=== PATIENT | male | born 1965 | race Two or more races ===

== ENCOUNTER → 2020-10-25 08:30 | Outpatient (BNV) | payer MEDICARE, MEDICAID, SELFPAY | PROVIDERS: Visit Provider Internal Medicine Medical Oncology | DX: D3A.020 Benign carcinoid tumor of the appendix (principal) | CPT/HCPCS: 99213; 99214 ==

== ENCOUNTER 2021-04-28 12:47 | Emergency (ER) | payer MEDICARE, MEDICAID, SELFPAY ==
--- NOTE | ~2021-04-28 | XR_ITS ---
EXAMINATION: XR KNEE, LEFT CLINICAL INFORMATION: Left knee pain. COMPARISON: None TECHNIQUE: Four views of the left knee. FINDINGS: There is mild loss of medial and patellofemoral compartment joint space mild suprapatellar spurring. No visible acute fracture or dislocation seen. No soft tissue swelling seen. XR/XR knee LT 4V IMPRESSION: Mild degenerative changes medial and patellofemoral compartment. No acute fracture or dislocation.
--- NOTE | ~2021-04-28 | CT_ITS ---
EXAM: CT scan of the head and cervical spine. INDICATION: Reason for Exam fall TECHNIQUE: A noncontrast CT scan was performed from the skull base to the vertex. A noncontrast CT scan of the cervical spine was performed from the base of the skull through T1 at 2.5 mm and 1.25 mm collimation. Coronal and sagittal reformats were obtained at the acquisition workstation. This CT examination was performed using dose optimization techniques as appropriate, variously including the following: *Automated exposure control *Adjustment of mA and/or kV according to patient size (this includes techniques or standardized protocols for targeted exams where dose is matched to indication/reason for exam; i.e. extremities or head) *Use of iterative reconstruction technique DLP: 403 mGy-cm COMPARISON: 03/04/2018 FINDINGS: Head: There is no evidence of acute intracranial hemorrhage or territorial infarction. Sharif-white matter differentiation is preserved. No abnormal mass effect or midline shift. No extra-axial fluid collections. No abnormal attenuation is demonstrated within the brain parenchyma. Scattered periventricular and deep white matter hypodensities consistent with microangiopathy. The ventricles and sulcal spaces are proportional without hydrocephalus. Proportional prominence of the ventricles and sulcal spaces. No acute osseous or soft tissue abnormalities. The mastoid air cells and visualized portions of the paranasal sinuses are well aerated. Cervical Spine: Diffuse nonspecific subcutaneous edema. Moderate spondylosis most notable at C4-C5 and C5-C6. Posterior elements intact. Dystrophic desiccation posterior to C4. The atlantooccipital and atlantoaxial articulations remain well aligned. Straightening of the normal cervical lordosis. Otherwise, there is anatomic alignment of the vertebral bodies and posterior elements. No evidence of acute fracture or subluxation. The vertebral body heights and disc spaces are otherwise maintained. There is no prevertebral soft tissue swelling. The thyroid gland and remaining cervical soft tissues are normal in appearance. The lung apices demonstrate no abnormalities. CT/CT cervical spine wo con IMPRESSION: No acute intracranial pathology. Nonspecific subcutaneous edema. No fracture subluxation cervical spine.
[2021-04-28 12:52] VITALS: BP 138/74; BP 150/80; PULSE 88; PULSE 89; RESP 20; TEMP 36.6; O2SAT 98; O2SAT 99; BMI 19.4
--- NOTE | 2021-04-28 13:05 | PC.NURSE ---
patient arrives to ED with c/o fall on 04/27/21 from slipping. 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 Patient A+ox4. Denies hitting head, denies LOC, denies use of blood thinners. VSS. Resting safely.
[2021-04-28] MEDS: Acetaminophen 325 MG TABLET 650 MG PO (13:46)
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
[2021-04-28] MEDS: oxyCODONE HCl Immed Release 5 MG TABLET PO (15:07)
--- NOTE | 2021-04-28 15:36 | PC.NURSE ---
Avtar wraps applied to patient
== END 2021-04-28 16:09 | disposition home or self-care (01) ==
PROVIDERS: Emergency Provider Emergency Medicine Emergency Medical Services; PCP Family Medicine
DX: S80.02XA Contusion of left knee, initial encounter (principal); M25.562 Pain in left knee; G44.309 Post-traumatic headache, unspecified, not intractable; M54.2 Cervicalgia; F12.90 Cannabis use, unspecified, uncomplicated; X58.XXXA Exposure to other specified factors, initial encounter; Y93.9 Activity, unspecified; Y92.9 Unspecified place or not applicable; Y99.9 Unspecified external cause status; Z79.899 Other long term (current) drug therapy
CPT/HCPCS: 70450; 72125; 73564; 99283; 99284

== ENCOUNTER 2021-05-10 19:11 | Inpatient (IN) | payer MEDICARE, MEDICAID, SELFPAY ==
[2021-05-10 19:20] VITALS: BP 169/90; PULSE 95; RESP 18; TEMP 36.4; O2SAT 96; BMI 25.8
--- NOTE | 2021-05-10 19:20 | ED.PSYCH ---
HPI - Psych General Chief Complaint: Psychiatric Symptoms Stated Complaint: sec 12/schizophrenia Time Seen by Provider: 05/10/21 19:19 Source: patient and EMS Mode of arrival: EMS Limitations: other (poor historian, not answering questions) History of Present Illness HPI Narrative: admits to using cocaine today then was paranoid and reportedly made self harm statements. brought in on section 12 MD complaint: suicidal ideation, anxiety and substance abuse Onset (ago): unknown Duration: constant History of same: Yes Relieving factors: none Exacerbating factors: drug use Context: recent drug abuse Associated psychiatric symptoms: depression and suicidal ideation Associated symptoms: denies other symptoms Treatments prior to arrival: placed on mental health hold Related Data Home Medications Medication Instructions Recorded Confirmed aripiprazole 10 mg tablet 1 tab PO QAM 10/25/20 05/10/21 atorvastatin 10 mg tablet 1 tab PO BEDTIME 10/25/20 05/10/21 gabapentin 300 mg capsule 1 cap PO TID 10/25/20 05/10/21 loratadine 10 mg tablet 1 tab PO QAM 10/25/20 05/10/21 multivitamin (Daily-Qi) 1 tab PO QAM 10/25/20 05/10/21 pantoprazole 40 mg tablet,delayed 1 tab PO QAM 10/25/20 05/10/21 release quetiapine 200 mg tablet 1 tab PO BEDTIME 10/25/20 05/10/21 trazodone 100 mg tablet 100 - 200 mg PO BEDTIME PRN 10/25/20 05/10/21 famotidine 20 mg tablet 1 tab PO DAILY 05/10/21 05/10/21 oxcarbazepine 300 mg tablet 1.5 tab PO BID 05/10/21 05/10/21 phenytoin sodium extended 100 mg 200 mg PO DAILY 05/10/21 05/10/21 capsule phenytoin sodium extended 100 mg 300 mg PO BEDTIME 05/10/21 05/10/21 capsule Allergies Allergy/AdvReac Type Severity Reaction Status Date / Time Penicillins Allergy Mild RASH Unverified 04/28/21 12:57 Seafood Allergy Mild RASH Unverified 04/28/21 12:57 diazepam [From VALIUM] Allergy Unknown ACTS OUT Unverified 04/28/21 12:57 egg [EGG] Allergy Unknown UNKNOWN Verified 05/10/21 19:51 Influenza Virus Vaccines Allergy Unknown UNKNOWN Unverified 04/28/21 12:57 [INFLUENZA VIRUS VACCINES] penicillin V Allergy Unknown anaphylaxis Verified 04/28/21 12:57 ibuprofen [From MOTRIN] AdvReac Mild RASH Unverified 04/28/21 12:57 Morphine AdvReac Severe Unknown Uncoded 05/10/21 19:52 Review of Systems Review of Systems: ROS unable to be obtained due to poor cooperation [facility] Past Medical History Attestation statement: The following information was validated with the patient. Medical History Family hx of colon cancer Hx of head injury Surgical History (Updated 10/25/20 @ 09:16 by Willam Glover MD) History of surgery on wrist Hx of knee surgery Family History Family History (Updated 10/25/20 @ 09:02 by Naomi Gtz) Paternal Grandmother Cancer Social History Social History (Updated 05/10/21 @ 19:39 by Ana Reddy DO) Alcohol intake: former Substance Use Type: Crack/Cocaine and Marijuana Advance Directives: No Advance Directives Information Provided: No Healthcare Proxy: No Guardian: No Physical Exam Vital Signs: Vital Signs: Last Vital Signs Temp 97.5 F 05/10/21 19:20 Pulse 95 05/10/21 19:20 Resp 18 05/10/21 19:20 BP 163/112 H 05/10/21 21:56 Pulse Ox 96 05/10/21 19:20 Body Mass Index 25.8 Appearance: Alert. Oriented X3. No acute distress. Eyes: Pupils equal, round and reactive to light. ENT: Pharynx normal. Neck: Normal inspection. Neck supple. CVS: Normal heart rate and rhythm. Pulses normal. Respiratory: No respiratory distress. Breath sounds normal. Abdomen: Soft and nontender. Skin: Skin warm and dry. Normal skin color. Normal skin turgor. Extremities: No lower extremity edema. No calf ttp Neuro: Oriented X 3. No motor deficit. No sensory deficit. CN2-12 intact Psych: help me please. Course Course Course Narrative: patient had episode of shaking and spitting called to bedside for possible seizure. patient then woke up with painful stimuli and said what? he was instructed to stop behaviors and he complied I believe this episode was due to pseudoseizure and not an epileptic seizure Physician observation started at 1302pm Patient placed in physician observation because the patient needed more time for BHN to evaluate him once he is more calm off of cocaine abuse. At the time observation was started the patient's vitals were stable, patient is alert and oriented but slightly agitated, Neuro: nonfocal, CV RRR, Lungs clear MDM - Psych MDM Narrative Medical decision making narrative: 56 yo male well known to us here with c/o paranoia and SI after using cocaine. He will need labs and BHN consult, PRN medications for his paranoia and agitation. Lab Data Result diagrams: 05/10/21 20:12 05/10/21 20:12 Labs: Lab Results 05/10/21 05/10/21 05/10/21 Range/Units 19:51 19:51 20:12 WBC 10.2 (4.8-10.8) X10*3/uL RBC 4.59 L (4.60-5.80) X10*6/uL Hgb 14.9 (14.0-18.0) g/dl Hct 42.7 (42-52) % MCV 93.0 (80-98) fL MCH 32.5 (27.0-33.0) pg MCHC 34.9 (31.0-36.0) g/dl RDW 12.3 (11.0-16.0) % Plt Count 299 (160-400) X10*3/uL MPV 9.4 (9.4-12.4) fL Immature Gran % (Auto) 0.3 (0.0-0.4) % Neut % (Auto) 72.7 (45-73) % Lymph % (Auto) 16.0 L (20-40) % [place] % (Auto) 8.6 (2-11) % Eos % (Auto) 1.7 (0-4) % Baso % (Auto) 0.7 (0-2) % Lymph # (Auto) 1.6 (1.2-4.9) X10*3/uL [place] # (Auto) 0.9 (0.1-1.2) X10*3/uL Eos # (Auto) 0.2 (0.0-0.4) X10*3/uL Baso # (Auto) 0.1 (0.0-0.2) X10*3/uL Abs Immat Gran (auto) 0.03 (0.00-0.03) X10*3/uL Absolute Neuts (auto) 7.4 (2.0-8.3) X10*3/uL Absolute Nucleated RBC 0.000 (0.0-0.012) X10*3/uL Nucleated RBC % (auto) 0.0 (0.0-0.2) /100WBC Sodium (135-145) mmol/L Potassium (3.3-5.1) mmol/L Chloride (96-108) mmol/L Carbon Dioxide (22-29) mmol/L Anion Gap (12-20) BUN (9-16) mg/dL Creatinine (0.5-1.4) mg/dL Estim Creat Clear Calc Estimated GFR Random Glucose (60-115) mg/dL Calcium (8.4-10.2) mg/dL Total Bilirubin (0.0-1.0) mg/dL Direct Bilirubin (0.0-0.5) mg/dL AST (5-37) U/L ALT (0-40) U/L Alkaline Phosphatase (39-117) U/L Total Protein (6.5-8.0) g/dL Albumin (3.5-5.0) g/dL Urine Opiates Screen Not Detected (Not Detect) Urine Fentanyl Screen Not Detected (Not Detect) Ur Barbiturates Screen Not Detected (Not Detect) Phenytoin (10.0-20.0) ug/mL Ur Phencyclidine Scrn Not Detected (Not Detect) Ur Amphetamines Screen Not Detected (Not Detect) U Benzodiazepines Scrn Not Detected (Not Detect) Urine Cocaine Screen POSITIVE H (Not Detect) U Marijuana (THC) Screen POSITIVE H (Not Detect) Ethyl Alcohol mg/dL COVID-19 (MELLISA) Negative (Negative) COVID-19 Clin Com See Note 05/10/21 05/10/21 05/10/21 Range/Units 20:12 20:12 20:12 WBC (4.8-10.8) X10*3/uL RBC (4.60-5.80) X10*6/uL Hgb (14.0-18.0) g/dl Hct (42-52) % MCV (80-98) fL MCH (27.0-33.0) pg MCHC (31.0-36.0) g/dl RDW (11.0-16.0) % Plt Count (160-400) X10*3/uL MPV (9.4-12.4) fL Immature Gran % (Auto) (0.0-0.4) % Neut % (Auto) (45-73) % Lymph % (Auto) (20-40) % [place] % (Auto) (2-11) % Eos % (Auto) (0-4) % Baso % (Auto) (0-2) % Lymph # (Auto) (1.2-4.9) X10*3/uL [place] # (Auto) (0.1-1.2) X10*3/uL Eos # (Auto) (0.0-0.4) X10*3/uL Baso # (Auto) (0.0-0.2) X10*3/uL Abs Immat Gran (auto) (0.00-0.03) X10*3/uL Absolute Neuts (auto) (2.0-8.3) X10*3/uL Absolute Nucleated RBC (0.0-0.012) X10*3/uL Nucleated RBC % (auto) (0.0-0.2) /100WBC Sodium 138 (135-145) mmol/L Potassium 4.5 (3.3-5.1) mmol/L Chloride 106 (96-108) mmol/L Carbon Dioxide 24 (22-29) mmol/L Anion Gap 13 (12-20) BUN 13 (9-16) mg/dL Creatinine 1.02 (0.5-1.4) mg/dL Estim Creat Clear Calc 72.9 Estimated GFR > 60 Random Glucose 71 D (60-115) mg/dL Calcium 9.2 (8.4-10.2) mg/dL Total Bilirubin 0.3 (0.0-1.0) mg/dL Direct Bilirubin 0.2 (0.0-0.5) mg/dL AST 30 (5-37) U/L ALT 24 (0-40) U/L Alkaline Phosphatase 100 (39-117) U/L Total Protein 7.1 (6.5-8.0) g/dL Albumin 4.4 (3.5-5.0) g/dL Urine Opiates Screen (Not Detect) Urine Fentanyl Screen (Not Detect) Ur Barbiturates Screen (Not Detect) Phenytoin 3.2 L* (10.0-20.0) ug/mL Ur Phencyclidine Scrn (Not Detect) Ur Amphetamines Screen (Not Detect) U Benzodiazepines Scrn (Not Detect) Urine Cocaine Screen (Not Detect) U Marijuana (THC) Screen (Not Detect) Ethyl Alcohol < 10 mg/dL COVID-19 (MELLISA) (Negative) COVID-19 Clin Com Discharge Plan Discharge Clinical Impression: Acute anxiety, Cocaine abuse Prescriptions: No Action multivitamin [Daily-Qi] Tablet 1 tab PO QAM RF: 0 atorvastatin 10 mg tablet 1 tab PO BEDTIME RF: 0 quetiapine 200 mg tablet 1 tab PO BEDTIME RF: 0 trazodone 100 mg tablet 100 - 200 mg PO BEDTIME PRN (Reason: Insomnia) RF: 0 pantoprazole 40 mg tablet,delayed release (DR/EC) 1 tab PO QAM RF: 0 gabapentin 300 mg capsule 1 cap PO TID RF: 0 loratadine 10 mg tablet 1 tab PO QAM RF: 0 aripiprazole 10 mg tablet 1 tab PO QAM RF: 0 oxcarbazepine 300 mg tablet 1.5 tab PO BID RF: 0 famotidine 20 mg tablet 1 tab PO DAILY RF: 0 phenytoin sodium extended 100 mg capsule 200 mg PO DAILY RF: 0 phenytoin sodium extended 100 mg capsule 300 mg PO BEDTIME RF: 0
[2021-05-10] MEDS: OLANZapine 5 MG TABLET PO (19:42)
[2021-05-10 20:12] LABS: COVID-19 Test Negative (Negative); IDNOW Serial# 9DD0AD1C
[2021-05-10 20:16] LABS: Amphetamine Screen Urine Not Detected (Not Detect); Barbiturates, Urine Not Detected (Not Detect); Benzodiazepines Screen Urine Not Detected (Not Detect); Cannabinoid Screen Urine POSITIVE (Not Detect); Cocaine Screen Urine POSITIVE (Not Detect); Fentanyl, urine Not Detected (Not Detect); Opiate Screen Urine Not Detected (Not Detect); Phencyclidine Screen Urine Not Detected (Not Detect)
[2021-05-10 20:19] LABS: MANUAL DIFF FLAG NO
[2021-05-10 20:20] LABS: Basophils Absolute Auto 0.1 X10*3/uL (0.0-0.2); Basophils Percent Auto 0.7 % (0-2); Eosinophils Absolute Auto 0.2 X10*3/uL (0.0-0.4); Eosinophils Percent Auto 1.7 % (0-4); Hematocrit 42.7 % (42-52); Hemoglobin 14.9 g/dl (14.0-18.0); Imm Gran Abs Auto 0.03 X10*3/uL (0.00-0.03); Imm Gran Pct Auto 0.3 % (0.0-0.4); Lymphocytes Absolute Auto 1.6 X10*3/uL (1.2-4.9); Mean Corpuscular HGB Conc 34.9 g/dl (31.0-36.0); Mean Corpuscular Hemoglobin 32.5 pg (27.0-33.0); Mean Platelet Volume 9.4 fL (9.4-12.4); Monocytes Absolute Auto 0.9 X10*3/uL (0.1-1.2); Monocytes Percent Auto 8.6 % (2-11); Neutrophils Absolute Auto 7.4 X10*3/uL (2.0-8.3); Neutrophils Percent Auto 72.7 % (45-73); Platelet Count 299 X10*3/uL (160-400); Red Blood Count 4.59 X10*6/uL (4.60-5.80); Red Cell Distribution Width 12.3 % (11.0-16.0); White Blood Count 10.2 X10*3/uL (4.8-10.8)
[2021-05-10 20:33] LABS: Ethanol < 10 mg/dL
[2021-05-10 20:36] LABS: Alanine Aminotransferase 24 U/L (0-40); Albumin Level 4.4 g/dL (3.5-5.0); Alkaline Phosphatase 100 U/L (39-117); Anion Gap 13 (12-20); Aspartate Amino Transferase 30 U/L (5-37); Bilirubin Direct 0.2 mg/dL (0.0-0.5); Bilirubin Total 0.3 mg/dL (0.0-1.0); Blood Urea Nitrogen 13 mg/dL (9-16); Calcium 9.2 mg/dL (8.4-10.2); Carbon Dioxide 24 mmol/L (22-29); Chloride 106 mmol/L (96-108); Creatinine Clr Calc Pharmacy 72.9; Estimated Glomerular Filt Rate > 60; Glucose Random 71 mg/dL (60-115); Potassium 4.5 mmol/L (3.3-5.1); Sodium 138 mmol/L (135-145); Total Protein 7.1 g/dL (6.5-8.0)
[2021-05-10] MEDS: Phenytoin Sodium Extended 100 MG CAPSULE 300 MG PO (20:41)
[2021-05-10] MEDS: OXcarbazepine 150 MG TABLET 450 MG PO (20:41)
[2021-05-10] MEDS: Atorvastatin Calcium 10 MG TABLET PO (20:42)
[2021-05-10] MEDS: QUEtiapine Fumarate 200 MG TABLET PO (20:42)
[2021-05-10] MEDS: Gabapentin 300 MG CAPSULE PO (20:42)
[2021-05-10 21:02] LABS: Phenytoin Dilantin 3.2 ug/mL (10.0-20.0)
[2021-05-10 21:56] VITALS: BP 163/112
--- NOTE | 2021-05-11 | ECG_ITS ---
Test Reason : MED CLEARANCE Blood Pressure : / mmHG Vent. Rate : 079 BPM Atrial Rate : 079 BPM P-R Int : 136 ms QRS Dur : 084 ms QT Int : 378 ms P-R-T Axes : 065 057 062 degrees QTc Int : 433 ms Normal sinus rhythm Normal ECG When compared with ECG of 23-MAR-2019 09:25, No significant change was found Referred By: Kathy Hernandez Electronically Signed By:BIANCA PEREZ MD
[2021-05-11 02:45] VITALS: BP 123/71; PULSE 82; RESP 16; TEMP 37.1; O2SAT 98
--- NOTE | 2021-05-11 05:40 | PC.NURSE ---
Patient slept through the night, no distress observed/reported, medication compliant, patient had PNES episode, provider advised not to repeat because it is not safe behavior, patient agreed, appetite good, behavior appropriate and non concerning at this time, patient got seen by care team, disposition is Marylu F/U in the morning, will continue to monitor.
--- NOTE | 2021-05-11 07:05 | PC.NURSE ---
pateint appears to remain at rest at present breaths are even and unlabored, patient appears in no distress
[2021-05-11] MEDS: Omeprazole 20 MG CAPSULE.DR PO ×2 (07:33→07:35)
[2021-05-11] MEDS: Loratadine 10 MG TABLET PO ×2 (07:33→07:35)
[2021-05-11] MEDS: Phenytoin Sodium Extended 100 MG CAPSULE 200 MG PO (07:33)
[2021-05-11] MEDS: OXcarbazepine 150 MG TABLET 450 MG PO ×2 (07:34→21:24)
[2021-05-11] MEDS: Gabapentin 300 MG CAPSULE PO ×3 (07:34→21:24)
[2021-05-11] MEDS: ARIPiprazole 10 MG TABLET PO (07:34)
[2021-05-11] MEDS: Famotidine 20 MG TABLET PO (07:34)
[2021-05-11] MEDS: Multivitamin TABLET 1 TAB PO ×2 (07:34→07:35)
[2021-05-11 09:13] VITALS: BP 164/86; PULSE 91; RESP 18; TEMP 37.1; O2SAT 95
[2021-05-11] MEDS: Milk of Magnesia 30 ML ORAL.SUSP PO (17:22)
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
[2021-05-11] MEDS: traZODone HCL 100 MG TABLET PO (21:23)
[2021-05-11] MEDS: Atorvastatin Calcium 10 MG TABLET PO (21:24)
[2021-05-11] MEDS: Phenytoin Sodium Extended 100 MG CAPSULE 300 MG PO (21:24)
[2021-05-11] MEDS: QUEtiapine Fumarate 200 MG TABLET PO (21:24)
[2021-05-12 06:00] VITALS: BP 147/84; PULSE 83; RESP 18; TEMP 37.1; O2SAT 98
[2021-05-12 08:37] LABS: Estimated Average Glucose 91 mg/dL; Hemoglobin A1c % 4.8 %
[2021-05-12 08:43] LABS: Cholesterol 188 mg/dL; HDL Cholesterol 56 mg/dL; LDL Cholesterol Calculated 107 mg/dl; Magnesium 2.1 mg/dL (1.6-2.6); Triglycerides 127 mg/dL
[2021-05-12] MEDS: Multivitamin TABLET 1 TAB PO (08:53)
[2021-05-12] MEDS: Phenytoin Sodium Extended 100 MG CAPSULE 200 MG PO (08:54)
[2021-05-12] MEDS: Omeprazole 20 MG CAPSULE.DR PO (08:55)
[2021-05-12] MEDS: OXcarbazepine 150 MG TABLET 450 MG PO ×2 (08:55→20:29)
[2021-05-12] MEDS: ARIPiprazole 10 MG TABLET PO (08:55)
[2021-05-12] MEDS: Gabapentin 300 MG CAPSULE PO ×3 (08:56→20:29)
[2021-05-12] MEDS: Famotidine 20 MG TABLET PO (08:56)
[2021-05-12] MEDS: Loratadine 10 MG TABLET PO (08:56)
[2021-05-12 09:05] LABS: Free T4 (Free Thyroxine) 0.71 ng/dL (0.71-1.85)
[2021-05-12] MEDS: Milk of Magnesia 30 ML ORAL.SUSP PO (10:24)
--- NOTE | 2021-05-12 11:57 | HO.PSYADMNOT ---
HPI Chief Complaint: Schizoaffective D/O Cocaine Use D/O Sources of Information: patient interviewed, chart reviewed and crisis/core team assessment reviewed HPI Subjective Notes: Pierce Warning and Conditional Voluntary Narrative: pt seen with Sas Bi Developer pt is a 56 yo male with hx of depression, psychotic symptoms and polysubstance abuse who presents for depression with SI in face of relapse. Pt reports that he's been feeing sad and anxious over past 2 weeks; he says he relapsed with cocaine and so became inconsistent with medication. Pt reports he started hearing AH to hurt himself however these have been dying down since coming to the ED. Pt reports poor sleep as well. He wants to get back on his medications and work on sobriety. Though he had intermittent fleeting SI, he denies plans/intent and says it's fading. Pt denies any HI. reports stomach cancer followed by his oupt doctor and under control Past Psychiatric History: past inpatient admission Medical Evaluation Reviewed: Yes [facility] Medical History (Updated 05/13/21 @ 19:00 by Priyank Cheema MD) Family hx of colon cancer Hx of head injury MDD (major depressive disorder), recurrent episode, severe Surgical History (Updated 10/25/20 @ 09:16 by Willam Glover MD) History of surgery on wrist Hx of knee surgery Family History: deferred Social History: lives with mother who is supporitive Substance History: cocaine abuse Trauma History: deferred Diagnostics Vital Signs (24Hr): Vital Signs - 24 hr 05/12/21 06:00 Temperature 98.8 F Pulse Rate 83 Respiratory Rate 18 Blood Pressure 147/84 H Pulse Oximetry 98 Body Mass Index 25.8 Labs Results: 05/10/21 20:12 05/10/21 20:12 Labs: Laboratory Results - last 48 hr 05/10/21 05/10/21 05/10/21 19:51 19:51 20:12 WBC 10.2 RBC 4.59 L Hgb 14.9 Hct 42.7 MCV 93.0 MCH 32.5 MCHC 34.9 RDW 12.3 Plt Count 299 MPV 9.4 Immature Gran % (Auto) 0.3 Neut % (Auto) 72.7 Lymph % (Auto) 16.0 L Dyer % (Auto) 8.6 Eos % (Auto) 1.7 Baso % (Auto) 0.7 Lymph # (Auto) 1.6 Dyer # (Auto) 0.9 Eos # (Auto) 0.2 Baso # (Auto) 0.1 Abs Immat Gran (auto) 0.03 Absolute Neuts (auto) 7.4 Absolute Nucleated RBC 0.000 Nucleated RBC % (auto) 0.0 Sodium Potassium Chloride Carbon Dioxide Anion Gap BUN Creatinine Estim Creat Clear Calc Estimated GFR Random Glucose Estimat Average Glucose Hemoglobin A1c % Calcium Magnesium Total Bilirubin Direct Bilirubin AST ALT Alkaline Phosphatase Total Protein Albumin Triglycerides Cholesterol LDL Cholesterol, Calc HDL Cholesterol TSH Free T4 Urine Opiates Screen Not Detected Urine Fentanyl Screen Not Detected Ur Barbiturates Screen Not Detected Phenytoin Ur Phencyclidine Scrn Not Detected Ur Amphetamines Screen Not Detected U Benzodiazepines Scrn Not Detected Urine Cocaine Screen POSITIVE H U Marijuana (THC) Screen POSITIVE H Ethyl Alcohol COVID-19 ([facility]ISA) Negative COVID-19 [facility]in See Note 05/10/21 05/10/21 05/10/21 20:12 20:12 20:12 WBC RBC Hgb Hct MCV MCH MCHC RDW Plt Count MPV Immature Gran % (Auto) Neut % (Auto) Lymph % (Auto) Dyer % (Auto) Eos % (Auto) Baso % (Auto) Lymph # (Auto) Dyer # (Auto) Eos # (Auto) Baso # (Auto) Abs Immat Gran (auto) Absolute Neuts (auto) Absolute Nucleated RBC Nucleated RBC % (auto) Sodium 138 Potassium 4.5 Chloride 106 Carbon Dioxide 24 Anion Gap 13 BUN 13 Creatinine 1.02 Estim Creat Clear Calc 72.9 Estimated GFR > 60 Random Glucose 71 D Estimat Average Glucose Hemoglobin A1c % Calcium 9.2 Magnesium Total Bilirubin 0.3 Direct Bilirubin 0.2 AST 30 ALT 24 Alkaline Phosphatase 100 Total Protein 7.1 Albumin 4.4 Triglycerides Cholesterol LDL Cholesterol, Calc HDL Cholesterol TSH Free T4 Urine Opiates Screen Urine Fentanyl Screen Ur Barbiturates Screen Phenytoin 3.2 L* Ur Phencyclidine Scrn Ur Amphetamines Screen U Benzodiazepines Scrn Urine Cocaine Screen U Marijuana (THC) Screen Ethyl Alcohol < 10 COVID-19 (MELLISA) COVID-19 Mippin 05/12/21 05/12/21 08:12 08:12 WBC RBC Hgb Hct MCV MCH MCHC RDW Plt Count MPV Immature Gran % (Auto) Neut % (Auto) Lymph % (Auto) Dyer % (Auto) Eos % (Auto) Baso % (Auto) Lymph # (Auto) Dyer # (Auto) Eos # (Auto) Baso # (Auto) Abs Immat Gran (auto) Absolute Neuts (auto) Absolute Nucleated RBC Nucleated RBC % (auto) Sodium Potassium Chloride Carbon Dioxide Anion Gap BUN Creatinine Estim Creat Clear Calc Estimated GFR Random Glucose Estimat Average Glucose 91 Hemoglobin A1c % 4.8 Calcium Magnesium 2.1 Total Bilirubin Direct Bilirubin AST ALT Alkaline Phosphatase Total Protein Albumin Triglycerides 127 Cholesterol 188 LDL Cholesterol, Calc 107 HDL Cholesterol 56 TSH 2.20 Free T4 0.71 Urine Opiates Screen Urine Fentanyl Screen Ur Barbiturates Screen Phenytoin Ur Phencyclidine Scrn Ur Amphetamines Screen U Benzodiazepines Scrn Urine Cocaine Screen U Marijuana (THC) Screen Ethyl Alcohol COVID-19 (MELLISA) COVID-19 Clin Com Meds/Allergies Meds Home Medications Acetaminophen (Acetaminophen 325 Mg Tablet) 650 mg PO Q6H PRN PRN Reason: Headache/Pain Mild Scale (1-3) Al Hydroxide/Mg Hydroxide (Magnesium Hydrox/Alum Hydrox 30 Ml Oral.Susp) 30 ml PO Q6H PRN PRN Reason: Heartburn/Nausea Aripiprazole (Aripiprazole 10 Mg Tablet) 10 mg PO DAILY [facility] Last Admin: 05/13/21 08:17 Dose: 10 mg Documented by: Atorvastatin Calcium (Atorvastatin Calcium 10 Mg Tablet) 10 mg PO BEDTIME [facility] Last Admin: 05/12/21 20:29 Dose: 10 mg Documented by: Famotidine (Famotidine 20 Mg Tablet) 20 mg PO DAILY [facility] Last Admin: 05/13/21 08:16 Dose: 20 mg Documented by: Gabapentin (Gabapentin 300 Mg Capsule) 300 mg PO TID [facility] Last Admin: 05/13/21 14:38 Dose: 300 mg Documented by: Hydrocortisone (Hydrocortisone 2.5 % Rectal Cr 30 Gm Tube) 1 appl [place] TID PRN PRN Reason: hemrhodial irritation Hydroxyzine HCl (Hydroxyzine Hcl 25 Mg Tablet) 25 mg PO BEDTIME PRN PRN Reason: Anxiety Lactulose (Lactulose 20 Gm/30 Ml Solution) 10 gm PO DAILY PRN PRN Reason: constipation Last Admin: 05/13/21 10:47 Dose: 10 gm Documented by: Loratadine (Loratadine 10 Mg Tablet) 10 mg PO DAILY [facility] Last Admin: 05/13/21 08:16 Dose: 10 mg Documented by: Magnesium Hydroxide (Milk Of Magnesia 30 Ml Oral.Susp) 30 ml PO DAILY PRN PRN Reason: Constipation Last Admin: 05/12/21 10:24 Dose: 30 ml Documented by: Multivitamins/Vitamin C (Multivitamin Tablet) 1 tab PO DAILY [facility] Last Admin: 05/13/21 08:17 Dose: 1 tab Documented by: Omeprazole (Omeprazole 20 Mg Capsule.Dr) 20 mg PO DAILY [facility] Last Admin: 05/13/21 08:17 Dose: 20 mg Documented by: Oxcarbazepine (Oxcarbazepine 150 Mg Tablet) 450 mg PO BID [facility] Last Admin: 05/13/21 08:16 Dose: 450 mg Documented by: Phenytoin Sodium (Phenytoin Sodium Extended 100 Mg Capsule) 200 mg PO DAILY [facility] Last Admin: 05/13/21 08:16 Dose: 200 mg Documented by: Phenytoin Sodium (Phenytoin Sodium Extended 100 Mg Capsule) 300 mg PO BEDTIME [facility] Last Admin: 05/12/21 20:28 Dose: 300 mg Documented by: Quetiapine Fumarate (Quetiapine Fumarate 200 Mg Tablet) 200 mg PO BEDTIME [facility] Last Admin: 05/12/21 20:29 Dose: 200 mg Documented by: Trazodone HCl (Trazodone Hcl 100 Mg Tablet) 100 - 200 mg PO BEDTIME PRN PRN Reason: Insomnia Last Admin: 05/11/21 21:23 Dose: 100 mg Documented by: Allergies Allergies Allergy/AdvReac Type Severity Reaction Status Date / Time Penicillins Allergy Mild RASH Unverified 04/28/21 12:57 Seafood Allergy Mild RASH Unverified 04/28/21 12:57 diazepam [From VALIUM] Allergy Unknown ACTS OUT Unverified 04/28/21 12:57 Influenza Virus Vaccines Allergy Unknown UNKNOWN Unverified 04/28/21 12:57 [INFLUENZA VIRUS VACCINES] penicillin V Allergy Unknown anaphylaxis Verified 04/28/21 12:57 ibuprofen [From MOTRIN] AdvReac Mild RASH Unverified 04/28/21 12:57 Morphine AdvReac Severe Unknown Uncoded 05/10/21 19:52 Mental Status Exam Mental Status Exam Patient Appearance: Disheveled and Unkempt Patient Orientation: Person, Place, Time and Situation Level of Consciousness: Awake and Appropriate Patient Behavior: Appropriate, Cooperative and Good Eye Contact Mood Description: Depressed and Anxious Affect Description: Depressed and Anxious Ability to Follow Directions: Fair Speech Pattern: Clear and Appropriate Hallucinations: Auditory Delusions: Not Present Thought Process: Goal Oriented Thought Content: positive for Suicidal Ideation (recent; no HI) Judgement: Poor Assessment & Plan Assessment & Plan (1) MDD (major depressive disorder), recurrent episode, severe: Status: Acute Code(s): F33.2 - Major depressive disorder, recurrent severe without psychotic features (2) Cocaine abuse: Status: Acute Code(s): F14.10 - Cocaine abuse, uncomplicated (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 PLAN: CV q15min checks restart home meds Reason for continued inpatient stay Substantial Risk for: rapid decompensation
[2021-05-12] MEDS: Lactulose 20 GM/30 ML SOLUTION 10 GM PO (17:06)
[2021-05-12 18:00] VITALS: BP 112/69; PULSE 85
[2021-05-12] MEDS: Magnesium Citrate 300 ML SOLUTION PO (18:01)
[2021-05-12] MEDS: Phenytoin Sodium Extended 100 MG CAPSULE 300 MG PO (20:28)
[2021-05-12] MEDS: Atorvastatin Calcium 10 MG TABLET PO (20:29)
[2021-05-12] MEDS: QUEtiapine Fumarate 200 MG TABLET PO (20:29)
[2021-05-13 06:00] VITALS: BP 137/78; PULSE 86; RESP 18; TEMP 36.8; O2SAT 98
[2021-05-13] MEDS: Loratadine 10 MG TABLET PO (08:16)
[2021-05-13] MEDS: OXcarbazepine 150 MG TABLET 450 MG PO ×2 (08:16→19:46)
[2021-05-13] MEDS: Famotidine 20 MG TABLET PO (08:16)
[2021-05-13] MEDS: Phenytoin Sodium Extended 100 MG CAPSULE 200 MG PO (08:16)
[2021-05-13] MEDS: ARIPiprazole 10 MG TABLET PO (08:17)
[2021-05-13] MEDS: Omeprazole 20 MG CAPSULE.DR PO (08:17)
[2021-05-13] MEDS: Multivitamin TABLET 1 TAB PO (08:17)
[2021-05-13] MEDS: Gabapentin 300 MG CAPSULE PO ×3 (08:17→19:45)
[2021-05-13 09:04] LABS: Folate 7.3 ng/mL (> or = 4.0); Vitamin B12 236 pg/mL (200-900)
[2021-05-13] MEDS: Lactulose 20 GM/30 ML SOLUTION 10 GM PO (10:47)
[2021-05-13 16:45] VITALS: BP 142/77; PULSE 80; TEMP 36.6
--- NOTE | 2021-05-13 19:18 | P.PNPSI_ITS ---
Subjective Subjective Date of Service: 05/13/21 Reason For Visit: Schizoaffective D/O Cocaine Use D/O Interim History: seen with ho pedro pt reports he's feeling much better and that depession has abated; he denies any SI and denies any AVH. Pt says he's eating and sleeping well and will probably be ready for discharge soon. He says when you have strong emotions, it does not allow you to rest...but now he's been able to rest and is feeling better. Pt talked about his supportive family and that he will return to live with his mother. Mental Status Exam Mental Status Exam Narrative: Patient Appearance: casual cloths; appropriate Patient Orientation:?Person, Place, Time and Situation Level of Consciousness:?Awake and Appropriate Patient Behavior:?Appropriate, Cooperative and Good Eye Contact Mood Description:?much better Affect Description:?brighter Ability to Follow Directions:?Fair Speech Pattern:?Clear and Appropriate Hallucinations:?denies Delusions:?Not Present Thought Process:?Goal Oriented Thought Content:?denies sI/HI Judgment:?improved Diagnostics Vital Signs (24Hr): Vital Signs - 24 hr 05/13/21 06:00 05/13/21 16:45 Temperature 98.2 F 97.8 F Pulse Rate 86 80 Respiratory Rate 18 Blood Pressure 137/78 142/77 H Pulse Oximetry 98 Body Mass Index 25.8 Labs Results: 05/10/21 20:12 05/10/21 20:12 Labs: Laboratory Results - last 48 hr 05/12/21 05/12/21 05/12/21 08:12 08:12 08:12 Estimat Average Glucose 91 Hemoglobin A1c % 4.8 Magnesium 2.1 Triglycerides 127 Cholesterol 188 LDL Cholesterol, Calc 107 HDL Cholesterol 56 Vitamin B12 236 Folate 7.3 TSH 2.20 Free T4 0.71 Medications Medications Current Medications Acetaminophen (Acetaminophen 325 Mg Tablet) 650 mg PO Q6H PRN PRN Reason: Headache/Pain Mild Scale (1-3) Al Hydroxide/Mg Hydroxide (Magnesium Hydrox/Alum Hydrox 30 Ml Oral.Susp) 30 ml PO Q6H PRN PRN Reason: Heartburn/Nausea Aripiprazole (Aripiprazole 10 Mg Tablet) 10 mg PO DAILY [facility] Last Admin: 05/13/21 08:17 Dose: 10 mg Documented by: Atorvastatin Calcium (Atorvastatin Calcium 10 Mg Tablet) 10 mg PO BEDTIME [facility] Last Admin: 05/12/21 20:29 Dose: 10 mg Documented by: Famotidine (Famotidine 20 Mg Tablet) 20 mg PO DAILY [facility] Last Admin: 05/13/21 08:16 Dose: 20 mg Documented by: Gabapentin (Gabapentin 300 Mg Capsule) 300 mg PO TID [facility] Last Admin: 05/13/21 14:38 Dose: 300 mg Documented by: Hydrocortisone (Hydrocortisone 2.5 % Rectal Cr 30 Gm Tube) 1 appl [place] TID PRN PRN Reason: hemrhodial irritation Hydroxyzine HCl (Hydroxyzine Hcl 25 Mg Tablet) 25 mg PO BEDTIME PRN PRN Reason: Anxiety Lactulose (Lactulose 20 Gm/30 Ml Solution) 10 gm PO DAILY PRN PRN Reason: constipation Last Admin: 05/13/21 10:47 Dose: 10 gm Documented by: Loratadine (Loratadine 10 Mg Tablet) 10 mg PO DAILY [facility] Last Admin: 05/13/21 08:16 Dose: 10 mg Documented by: Magnesium Hydroxide (Milk Of Magnesia 30 Ml Oral.Susp) 30 ml PO DAILY PRN PRN Reason: Constipation Last Admin: 05/12/21 10:24 Dose: 30 ml Documented by: Multivitamins/Vitamin C (Multivitamin Tablet) 1 tab PO DAILY [facility] Last Admin: 05/13/21 08:17 Dose: 1 tab Documented by: Omeprazole (Omeprazole 20 Mg Capsule.Dr) 20 mg PO DAILY [facility] Last Admin: 05/13/21 08:17 Dose: 20 mg Documented by: Oxcarbazepine (Oxcarbazepine 150 Mg Tablet) 450 mg PO BID [facility] Last Admin: 05/13/21 08:16 Dose: 450 mg Documented by: Phenytoin Sodium (Phenytoin Sodium Extended 100 Mg Capsule) 200 mg PO DAILY [facility] Last Admin: 05/13/21 08:16 Dose: 200 mg Documented by: Phenytoin Sodium (Phenytoin Sodium Extended 100 Mg Capsule) 300 mg PO BEDTIME [facility] Last Admin: 05/12/21 20:28 Dose: 300 mg Documented by: Quetiapine Fumarate (Quetiapine Fumarate 200 Mg Tablet) 200 mg PO BEDTIME [facility] Last Admin: 05/12/21 20:29 Dose: 200 mg Documented by: Trazodone HCl (Trazodone Hcl 100 Mg Tablet) 100 - 200 mg PO BEDTIME PRN PRN Reason: Insomnia Last Admin: 05/11/21 21:23 Dose: 100 mg Documented by: Allergies Allergies Allergy/AdvReac Type Severity Reaction Status Date / Time Penicillins Allergy Mild RASH Unverified 04/28/21 12:57 Seafood Allergy Mild RASH Unverified 04/28/21 12:57 diazepam [From VALIUM] Allergy Unknown ACTS OUT Unverified 04/28/21 12:57 Influenza Virus Vaccines Allergy Unknown UNKNOWN Unverified 04/28/21 12:57 [INFLUENZA VIRUS VACCINES] penicillin V Allergy Unknown anaphylaxis Verified 04/28/21 12:57 ibuprofen [From MOTRIN] AdvReac Mild RASH Unverified 04/28/21 12:57 Morphine AdvReac Severe Unknown Uncoded 05/10/21 19:52 Assessment & Plan Assessment & Plan (1) MDD (major depressive disorder), recurrent episode, severe: Status: Acute Code(s): F33.2 - Major depressive disorder, recurrent severe without psychotic features (2) Cocaine abuse: Status: Acute Code(s): F14.10 - Cocaine abuse, uncomplicated (3) Appendiceal carcinoid tumor: Status: Acute Code(s): D3A.020 - Benign carcinoid tumor of the appendix Assessment and Plan: INMPRESSION: pt seen with Spinning Bath Person pt is a 56 yo male with hx of depression, psychotic symptoms and polysubstance abuse who presents for depression with SI in face of relapse.? -pt stabilizing; improved mood; denies si/hi/avh PLAN: CV q15min checks continue home meds Greater than 50% of the session was spent on counseling and/or coordination of care Reason for contiued inpatient stay Substantial Risk for: med/psych decompensation
[2021-05-13] MEDS: Phenytoin Sodium Extended 100 MG CAPSULE 300 MG PO (19:45)
[2021-05-13] MEDS: Atorvastatin Calcium 10 MG TABLET PO (19:46)
[2021-05-13] MEDS: QUEtiapine Fumarate 200 MG TABLET PO (19:46)
[2021-05-13] MEDS: Hydrocortisone 2.5 % Rectal Cr 30 GM TUBE 1 APPL PR (20:32)
[2021-05-13] MEDS: Milk of Magnesia 30 ML ORAL.SUSP PO (20:32)
[2021-05-14 06:00] VITALS: BP 128/77; PULSE 92; RESP 18; TEMP 36.4; O2SAT 100
[2021-05-14] MEDS: Phenytoin Sodium Extended 100 MG CAPSULE 200 MG PO (08:51)
[2021-05-14] MEDS: Gabapentin 300 MG CAPSULE PO ×3 (08:51→20:26)
[2021-05-14] MEDS: OXcarbazepine 150 MG TABLET 450 MG PO ×2 (08:51→20:26)
[2021-05-14] MEDS: ARIPiprazole 10 MG TABLET PO (08:51)
[2021-05-14] MEDS: Multivitamin TABLET 1 TAB PO (08:51)
[2021-05-14] MEDS: Omeprazole 20 MG CAPSULE.DR PO (08:52)
[2021-05-14] MEDS: Famotidine 20 MG TABLET PO (08:52)
[2021-05-14] MEDS: Loratadine 10 MG TABLET PO (08:52)
[2021-05-14] MEDS: Nicotine Polacrilex 2 MG GUM BUCCAL ×2 (11:23→16:52)
[2021-05-14] MEDS: Nicotine 7 MG PATCH.TD24 TRANSDERMA (11:23)
--- NOTE | 2021-05-14 11:37 | P.PNPSI_ITS ---
Subjective Subjective Date of Service: 05/14/21 Reason For Visit: Schizoaffective D/O Cocaine Use D/O Interim History: Pt mostly in his room, pleasant on approach. Pt reports that he is doing much better in that he realizes he has to stay away from bad company. Pt reports cocaine use was recent, denies long hx struggling with cocaine use. he denies opioid use. He reports sleeping and eating well. he denies SI/HI. He has been mostly in his room. He is mostly [place]ian speaking so difficult to attend some groups due to language barries. Per nursing, no behavioral concerns. Medication Compliance: Yes Side effects from medications: No Attending Groups: No Review of Systems Acute medical concerns: No Review of Systems Review of Systems ROS unable to be obtained due to poor cooperation Mental Status Exam Mental Status Exam Narrative: Appearance: thin,casually groomed, fair hygiene in NAD Behavior:cooperative, calm psychomotor: no agitation or retardation noted Speech:clear, normal rate/rhythm/volume, spontaneous Thought process:linear Thought content:no signs of psychosis, future oriented looking forward to be discharged and see his mother. Mood: much better Affect: brighter, non labile SI:none HI: none VH/AH:reports they stopped with meds. reports hearing them mostly when using cocaine Delusions:none Insight/judgment:fair x 2. Memory/cog: alert, oriented x 3. grossly intact to conversational testing. Diagnostics Vital Signs (24Hr): Vital Signs - 24 hr 05/13/21 16:45 05/14/21 06:00 Temperature 97.8 F 97.5 F Pulse Rate 80 92 Respiratory Rate 18 Blood Pressure 142/77 H 128/77 Pulse Oximetry 100 Body Mass Index 25.8 Labs Results: 05/10/21 20:12 05/10/21 20:12 Labs: Laboratory Results - last 48 hr 05/12/21 08:12 Vitamin B12 236 Folate 7.3 Medications Medications Current Medications Acetaminophen (Acetaminophen 325 Mg Tablet) 650 mg PO Q6H PRN PRN Reason: Headache/Pain Mild Scale (1-3) Al Hydroxide/Mg Hydroxide (Magnesium Hydrox/Alum Hydrox 30 Ml Oral.Susp) 30 ml PO Q6H PRN PRN Reason: Heartburn/Nausea Aripiprazole (Aripiprazole 10 Mg Tablet) 10 mg PO DAILY [facility] Last Admin: 05/14/21 08:51 Dose: 10 mg Documented by: Atorvastatin Calcium (Atorvastatin Calcium 10 Mg Tablet) 10 mg PO BEDTIME [facility] Last Admin: 05/13/21 19:46 Dose: 10 mg Documented by: Famotidine (Famotidine 20 Mg Tablet) 20 mg PO DAILY [facility] Last Admin: 05/14/21 08:52 Dose: 20 mg Documented by: Gabapentin (Gabapentin 300 Mg Capsule) 300 mg PO TID [facility] Last Admin: 05/14/21 08:51 Dose: 300 mg Documented by: Hydrocortisone (Hydrocortisone 2.5 % Rectal Cr 30 Gm Tube) 1 appl [place] TID PRN PRN Reason: hemrhodial irritation Last Admin: 05/13/21 20:32 Dose: 1 appl Documented by: Hydroxyzine HCl (Hydroxyzine Hcl 25 Mg Tablet) 25 mg PO BEDTIME PRN PRN Reason: Anxiety Lactulose (Lactulose 20 Gm/30 Ml Solution) 10 gm PO DAILY PRN PRN Reason: constipation Last Admin: 05/13/21 10:47 Dose: 10 gm Documented by: Loratadine (Loratadine 10 Mg Tablet) 10 mg PO DAILY [facility] Last Admin: 05/14/21 08:52 Dose: 10 mg Documented by: Magnesium Hydroxide (Milk Of Magnesia 30 Ml Oral.Susp) 30 ml PO DAILY PRN PRN Reason: Constipation Last Admin: 05/13/21 20:32 Dose: 30 ml Documented by: Multivitamins/Vitamin C (Multivitamin Tablet) 1 tab PO DAILY [facility] Last Admin: 05/14/21 08:51 Dose: 1 tab Documented by: Nicotine (Nicotine 7 Mg Patch.Td24) 7 mg TRANSDERMA DAILY [facility] Last Admin: 05/14/21 11:23 Dose: 7 mg Documented by: Nicotine Polacrilex (Nicotine Polacrilex 2 Mg Gum) 2 mg BUCCAL Q2H PRN PRN Reason: Nicotine Cravings Last Admin: 05/14/21 11:23 Dose: 2 mg Documented by: Omeprazole (Omeprazole 20 Mg Capsule.Dr) 20 mg PO DAILY [facility] Last Admin: 05/14/21 08:52 Dose: 20 mg Documented by: Oxcarbazepine (Oxcarbazepine 150 Mg Tablet) 450 mg PO BID [facility] Last Admin: 05/14/21 08:51 Dose: 450 mg Documented by: Phenytoin Sodium (Phenytoin Sodium Extended 100 Mg Capsule) 200 mg PO DAILY [facility] Last Admin: 05/14/21 08:51 Dose: 200 mg Documented by: Phenytoin Sodium (Phenytoin Sodium Extended 100 Mg Capsule) 300 mg PO BEDTIME [facility] Last Admin: 05/13/21 19:45 Dose: 300 mg Documented by: Quetiapine Fumarate (Quetiapine Fumarate 200 Mg Tablet) 200 mg PO BEDTIME [facility] Last Admin: 05/13/21 19:46 Dose: 200 mg Documented by: Trazodone HCl (Trazodone Hcl 100 Mg Tablet) 100 - 200 mg PO BEDTIME PRN PRN Reason: Insomnia Last Admin: 05/11/21 21:23 Dose: 100 mg Documented by: Allergies Allergies Allergy/AdvReac Type Severity Reaction Status Date / Time Penicillins Allergy Mild RASH Unverified 04/28/21 12:57 Seafood Allergy Mild RASH Unverified 04/28/21 12:57 diazepam [From VALIUM] Allergy Unknown ACTS OUT Unverified 04/28/21 12:57 Influenza Virus Vaccines Allergy Unknown UNKNOWN Unverified 04/28/21 12:57 [INFLUENZA VIRUS VACCINES] penicillin V Allergy Unknown anaphylaxis Verified 04/28/21 12:57 ibuprofen [From MOTRIN] AdvReac Mild RASH Unverified 04/28/21 12:57 Morphine AdvReac Severe Unknown Uncoded 05/10/21 19:52 Assessment & Plan Assessment & Plan (1) MDD (major depressive disorder), recurrent episode, severe: Status: Acute Code(s): F33.2 - Major depressive disorder, recurrent severe without psychotic features (2) Cocaine abuse: Status: Acute Code(s): F14.10 - Cocaine abuse, uncomplicated (3) Appendiceal carcinoid tumor: Status: Acute Code(s): D3A.020 - Benign carcinoid tumor of the appendix Assessment and Plan: INMPRESSION: pt seen with Architectural Manager pt is a 56 yo male with hx of depression, psychotic symptoms and polysubstance abuse who presents for depression with SI in face of relapse.? -pt stabilizing; improved mood; denies si/hi/avh PLAN: CV q15min checks continue home meds Greater than 50% of the session was spent on counseling and/or coordination of care Reason for contiued inpatient stay Substantial Risk for: stable for discharge
[2021-05-14 18:00] VITALS: BP 139/79; PULSE 90; TEMP 36.6; O2SAT 98
--- NOTE | 2021-05-14 18:31 | MHC.RECOVSUP ---
? Reason for consult Recovery Support o Current location: 510-2 o Identified substance use concern: - Support ? Intervention: o Community resources provided o Harm reduction discussion ? Plan: <del>o</del> <del>Referral</del> <del>to</del> <del>[facility]</del> <del>o</del> <del>Bed</del> <del>search</del> <del>in</del> <del>progress</del> <del>to</del> <del>o</del> <del>Follow</del> <del>up</del> <del>tomorrow</del> <del>o</del> <del>Patient</del> <del>awaiting</del> <del>crisis</del> <del>evaluation</del> o Patient to follow up with [facility] after discharge ? Additional information: we talk about recovery and harm reduction... we talk about [facility] and patient was very interested..
[2021-05-14] MEDS: Phenytoin Sodium Extended 100 MG CAPSULE 300 MG PO (20:25)
[2021-05-14] MEDS: QUEtiapine Fumarate 200 MG TABLET PO (20:26)
[2021-05-14] MEDS: Atorvastatin Calcium 10 MG TABLET PO (20:26)
[2021-05-14] MEDS: traZODone HCL 100 MG TABLET PO (20:36)
[2021-05-14] MEDS: Acetaminophen 325 MG TABLET 650 MG PO (20:36)
[2021-05-14] MEDS: Hydrocortisone 2.5 % Rectal Cr 30 GM TUBE 1 APPL PR (20:39)
[2021-05-15 06:00] VITALS: BP 127/60; PULSE 86; RESP 16; TEMP 36.1; O2SAT 98
[2021-05-15] MEDS: Gabapentin 300 MG CAPSULE PO (08:09)
[2021-05-15] MEDS: Multivitamin TABLET 1 TAB PO (08:09)
[2021-05-15] MEDS: OXcarbazepine 150 MG TABLET 450 MG PO (08:09)
[2021-05-15] MEDS: Phenytoin Sodium Extended 100 MG CAPSULE 200 MG PO (08:09)
[2021-05-15] MEDS: Famotidine 20 MG TABLET PO (08:09)
[2021-05-15] MEDS: Loratadine 10 MG TABLET PO (08:09)
[2021-05-15] MEDS: Omeprazole 20 MG CAPSULE.DR PO (08:09)
[2021-05-15] MEDS: ARIPiprazole 10 MG TABLET PO (08:09)
--- NOTE | 2021-05-15 10:15 | P.DS_ITS ---
DS: Providers Provider Date of Service: 05/15/21 Date of admission: 05/11/21 14:53 Primary care physician: Unknown Physician DS: Diagnosis Discharge Diagnosis (1) MDD (major depressive disorder), recurrent episode, severe: Status: Acute (2) Cocaine abuse: Status: Acute (3) Appendiceal carcinoid tumor: Status: Deleted DS: Medications Discharge Medications Home Medications: Home Medications Medication Instructions Recorded Confirmed aripiprazole 10 mg tablet 1 tab PO QAM 10/25/20 05/10/21 atorvastatin 10 mg tablet 1 tab PO BEDTIME 10/25/20 05/10/21 gabapentin 300 mg capsule 1 cap PO TID 10/25/20 05/10/21 loratadine 10 mg tablet 1 tab PO QAM 10/25/20 05/10/21 multivitamin (Daily-Qi) 1 tab PO QAM 10/25/20 05/10/21 pantoprazole 40 mg tablet,delayed 1 tab PO QAM 10/25/20 05/10/21 release quetiapine 200 mg tablet 1 tab PO BEDTIME 10/25/20 05/10/21 trazodone 100 mg tablet 100 - 200 mg PO BEDTIME PRN 10/25/20 05/10/21 famotidine 20 mg tablet 1 tab PO DAILY 05/10/21 05/10/21 phenytoin sodium extended 100 mg 200 mg PO DAILY 05/10/21 05/10/21 capsule phenytoin sodium extended 100 mg 300 mg PO BEDTIME 05/10/21 05/10/21 capsule Previous Rx's Medication Instructions Recorded hydrocortisone 2.5 % topical cream 1 appl NJ TID PRN #30 g 05/15/21 with perineal applicator (Proctozone-HC) nicotine (polacrilex) 2 mg gum 2 mg BUCCAL Q2H PRN #20 ea 05/15/21 nicotine 7 mg/24 hr daily 7 mg TRANSDERMAL DAILY #30 ea 05/15/21 transdermal patch oxcarbazepine 150 mg tablet 450 mg PO BID #80 tab 05/15/21 Mental Status Exam Mental Status Exam Narrative: Appearance: thin,casually groomed, fair hygiene in NAD Behavior:cooperative, calm psychomotor: no agitation or retardation noted Speech:clear, normal rate/rhythm/volume, spontaneous Thought process:linear Thought content:no signs of psychosis, future oriented looking forward to be discharged and see his mother. Mood: much better Affect: brighter, non labile SI:none HI: none VH/AH:reports they stopped with meds. reports hearing them mostly when using cocaine Delusions:none Insight/judgment:fair x 2. Memory/cog: alert, oriented x 3. grossly intact to conversational testing. Data Data Completed and Pending Completed studies during hospitalization [Text1]: 05/10/21 05/10/21 05/10/21 19:51 19:51 20:12 WBC 10.2 RBC 4.59 L Hgb 14.9 Hct 42.7 MCV 93.0 MCH 32.5 MCHC 34.9 RDW 12.3 Plt Count 299 MPV 9.4 Immature Gran % (Auto) 0.3 Neut % (Auto) 72.7 Lymph % (Auto) 16.0 L [place] % (Auto) 8.6 Eos % (Auto) 1.7 Baso % (Auto) 0.7 Lymph # (Auto) 1.6 [place] # (Auto) 0.9 Eos # (Auto) 0.2 Baso # (Auto) 0.1 Abs Immat Gran (auto) 0.03 Absolute Neuts (auto) 7.4 Absolute Nucleated RBC 0.000 Nucleated RBC % (auto) 0.0 Sodium Potassium Chloride Carbon Dioxide Anion Gap BUN Creatinine Estim Creat Clear Calc Estimated GFR Random Glucose Estimat Average Glucose Hemoglobin A1c % Calcium Magnesium Total Bilirubin Direct Bilirubin AST ALT Alkaline Phosphatase Total Protein Albumin Triglycerides Cholesterol LDL Cholesterol, Calc HDL Cholesterol Vitamin B12 Folate TSH Free T4 Urine Opiates Screen Not Detected Urine Fentanyl Screen Not Detected Ur Barbiturates Screen Not Detected Phenytoin Ur Phencyclidine Scrn Not Detected Ur Amphetamines Screen Not Detected U Benzodiazepines Scrn Not Detected Urine Cocaine Screen POSITIVE H U Marijuana (THC) Screen POSITIVE H Ethyl Alcohol COVID-19 (MELLISA) Negative COVID-19 Clin Com See Note 05/10/21 05/10/21 05/10/21 20:12 20:12 20:12 WBC RBC Hgb Hct MCV MCH MCHC RDW Plt Count MPV Immature Gran % (Auto) Neut % (Auto) Lymph % (Auto) [place] % (Auto) Eos % (Auto) Baso % (Auto) Lymph # (Auto) [place] # (Auto) Eos # (Auto) Baso # (Auto) Abs Immat Gran (auto) Absolute Neuts (auto) Absolute Nucleated RBC Nucleated RBC % (auto) Sodium 138 Potassium 4.5 Chloride 106 Carbon Dioxide 24 Anion Gap 13 BUN 13 Creatinine 1.02 Estim Creat Clear Calc 72.9 Estimated GFR > 60 Random Glucose 71 D Estimat Average Glucose Hemoglobin A1c % Calcium 9.2 Magnesium Total Bilirubin 0.3 Direct Bilirubin 0.2 AST 30 ALT 24 Alkaline Phosphatase 100 Total Protein 7.1 Albumin 4.4 Triglycerides Cholesterol LDL Cholesterol, Calc HDL Cholesterol Vitamin B12 Folate TSH Free T4 Urine Opiates Screen Urine Fentanyl Screen Ur Barbiturates Screen Phenytoin 3.2 L* Ur Phencyclidine Scrn Ur Amphetamines Screen U Benzodiazepines Scrn Urine Cocaine Screen U Marijuana (THC) Screen Ethyl Alcohol < 10 COVID-19 ([facility]LLISA) COVID-19 Clin Com 05/12/21 05/12/21 05/12/21 08:12 08:12 08:12 WBC RBC Hgb Hct MCV MCH MCHC RDW Plt Count MPV Immature Gran % (Auto) Neut % (Auto) Lymph % (Auto) [place] % (Auto) Eos % (Auto) Baso % (Auto) Lymph # (Auto) [place] # (Auto) Eos # (Auto) Baso # (Auto) Abs Immat Gran (auto) Absolute Neuts (auto) Absolute Nucleated RBC Nucleated RBC % (auto) Sodium Potassium Chloride Carbon Dioxide Anion Gap BUN Creatinine Estim Creat Clear Calc Estimated GFR Random Glucose Estimat Average Glucose 91 Hemoglobin A1c % 4.8 Calcium Magnesium 2.1 Total Bilirubin Direct Bilirubin AST ALT Alkaline Phosphatase Total Protein Albumin Triglycerides 127 Cholesterol 188 LDL Cholesterol, Calc 107 HDL Cholesterol 56 Vitamin B12 236 Folate 7.3 TSH 2.20 Free T4 0.71 Urine Opiates Screen Urine Fentanyl Screen Ur Barbiturates Screen Phenytoin Ur Phencyclidine Scrn Ur Amphetamines Screen U Benzodiazepines Scrn Urine Cocaine Screen U Marijuana (THC) Screen Ethyl Alcohol COVID-19 (MELLISA) COVID-19 Clin Com DS: Summary Hospital Course Hospital Course: HPI: pt is a 56 yo male with hx of depression, psychotic symptoms and polysubstance abuse who presents for depression with SI in face of relapse. Pt reports that he's been feeing sad and anxious over past 2 weeks; he says he relapsed with cocaine and so became inconsistent with medication. Pt reports he started hearing AH to hurt himself however these have been dying down since coming to the ED. Pt reports poor sleep as well. He wants to get back on his medications and work on sobriety. Though he had intermittent fleeting SI, he denies vikki ns/intent and says it's fading. Pt denies any HI.? reports stomach cancer followed by his oupt doctor and under control Past Psychiatric History: past inpatient admission Medical Evaluation Reviewed: Yes HOSPITAL COURSE On the unit, Mr. Pedroza was admitted on a CV and placed on 15 minutes checks for safety. Pt presented with paranoia, suspiciousness towards partner in setting of recent relapsed on cocaine. After discussing risks, benefits and alternative treatment options, pt agreed to continue abilify for psychosis, which he tolerated well and it was increase to 10mg po daily His affect gradually appeared much less suspicious. He did not appear to be as paranoia towards partner. His thought process and content without evidence of psychosis. His family came to visit him several times and reported at time of discharge that pt appeared in much improved condition and close to his baseline. Pt denied SI/HI. There were no incidences of disruptive behaviors nor use of restraints. Pt agreed to continue OP psych tx. He declined referrals for substance use tx stating it was a rare episode to use cocaine. Status at Discharge Cognitive/behavioral status at discharge: Pt with brighter affect, non labile. He presents as future oriented. No signs of psychosis, NO SI/HI/VH/AH. No signs of aggression towards self or others. Functional status at discharge: independent ambulation Overall status at discharge: patient is progressing back to baseline Time Spent with Patient Time attestation: Total time spent providing and/or coordinating discharge services: Time spent: Greater than 30 minutes Discharge Plan Discharge Patient Disposition: Home, Self-Care Discharge Diagnosis: Cocaine induced psychosis Cocaine use disorder Referrals: ROYAL MAURICIO [Other] - 05/28/21 10:00 am (VIA PHONE) Vitaliy Tripp [Other] - 05/16/21 8:00 am (Initial appointment for therapy Patient to be seen in office at [place] Location Patient following Initial Intake will be transferred to [place] Office for Therapy services for Portuguese Speaking Therapist) Adrianne Chen [Other] - 06/14/21 9:00 am (Initial Psychiatric evaluation In office at [place] Location) Adrianne Chen [Other] - 07/09/21 11:30 am (Medication Management appointment with Psychiatrist at [place] Office) Discharge Medications: New nicotine (polacrilex) 2 mg Gum 2 mg buccal Q2H PRN (Reason: Nicotine Cravings) Qty: 20 RF: 0 nicotine 7 mg/24 hr Patch 24 Hour 7 mg transdermal DAILY Qty: 30 RF: 0 oxcarbazepine 150 mg Tablet 450 mg PO BID Qty: 80 RF: 0 hydrocortisone [Proctozone-HC] 2.5 % Cream With Perineal Applicator 1 appl NJ TID PRN (Reason: hemrhodial irritation) Qty: 30 RF: 0 Continued multivitamin [Daily-Qi] Tablet 1 tab PO QAM RF: 0 atorvastatin 10 mg tablet 1 tab PO BEDTIME RF: 0 quetiapine 200 mg tablet 1 tab PO BEDTIME RF: 0 trazodone 100 mg tablet 100 - 200 mg PO BEDTIME PRN (Reason: Insomnia) RF: 0 pantoprazole 40 mg tablet,delayed release (DR/EC) 1 tab PO QAM RF: 0 gabapentin 300 mg capsule 1 cap PO TID RF: 0 loratadine 10 mg tablet 1 tab PO QAM RF: 0 aripiprazole 10 mg tablet 1 tab PO QAM RF: 0 famotidine 20 mg tablet 1 tab PO DAILY RF: 0 phenytoin sodium extended 100 mg capsule 200 mg PO DAILY RF: 0 phenytoin sodium extended 100 mg capsule 300 mg PO BEDTIME RF: 0 Discontinued oxcarbazepine 300 mg tablet 1.5 tab PO BID RF: 0 Discharge Orders: Discharge Order (Routine); Ordered 05/15/21 Ordered By: Buffy Lu Diet: regular diet Activity on Discharge: As tolerated Stand Alone Forms: Patient Portal Discharge page, Community Support Care Plan Goals: 1. Maintain mood 2. No SI/HI 3. No AH Health Concerns: 1. Follow up with PCP Plan of Treatment: 1. Take medications as prescribed 2. Go to nearest ED or call 911 in event of emergency Assessment: Pt much less depressed, no SI/HI. No auditory nor visual hallucinations. Future oriented, wanting to return home and continue OP psych tx. Pt agreable to work with online health and fitness coach. Discharge Date/Time: 05/15/21 12:37
== END 2021-05-15 12:37 | disposition home or self-care (01) | DRG 885 ==
LOC: HO.ED 19:55 → HO.PM5 05-11 14:58
PROVIDERS: Clinical Nurse Specialist Psychiatric/Mental Health, Adult; Admitting Provider Psychiatry & Neurology Psychiatry; Emergency Provider Emergency Medicine; Visit Provider Social Worker
DX: F33.2 Major depressive disorder, recurrent severe without psychotic features (principal); R45.851 Suicidal ideations; F17.210 Nicotine dependence, cigarettes, uncomplicated; D3A.020 Benign carcinoid tumor of the appendix; Z71.6 Tobacco abuse counseling; F14.10 Cocaine abuse, uncomplicated; Z20.822 Contact with and (suspected) exposure to COVID-19; Z23 Encounter for immunization; Z88.0 Allergy status to penicillin; Z88.5 Allergy status to narcotic agent; Z88.6 Allergy status to analgesic agent; Z79.899 Other long term (current) drug therapy
CPT/HCPCS: 36415; 80048; 80061; 80076; 80185; 80307; 82077; 82607; 82746; 83036; 83735; 84439; 84443; 85025; 87635; 90686; 93005; 99284; 99285

== ENCOUNTER 2021-08-16 07:32 | Outpatient (REF) | payer MEDICARE, MEDICAID, SELFPAY | END 2021-08-16 07:33 | disposition home or self-care (01) | LOC: HO.HOSX 07:32 | PROVIDERS: Visit Provider Physician Assistant | DX: Z13.89 Encounter for screening for other disorder (principal) ==

== ENCOUNTER 2021-10-07 09:04 | Emergency (ER) | payer MEDICARE, MEDICAID, SELFPAY ==
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
[2021-10-07 09:27] VITALS: BP 138/80; BP 158/82; PULSE 82; PULSE 93; RESP 16; TEMP 37.2; O2SAT 92; O2SAT 94; BMI 24.3
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
[2021-10-07] MEDS: Acetaminophen Oral Liquid 650 MG/20.3 ML SOLUTION 975 MG PO (10:22)
== END 2021-10-07 11:37 | disposition home or self-care (01) ==
PROVIDERS: Emergency Provider Emergency Medicine; PCP Family Medicine
DX: S93.402A Sprain of unspecified ligament of left ankle, initial encounter (principal); V03.10XA Pedestrian on foot injured in collision with car, pick-up truck or van in traffic accident, initial encounter; M79.605 Pain in left leg; M25.562 Pain in left knee; F17.200 Nicotine dependence, unspecified, uncomplicated; Y93.55 Activity, bike riding; Y92.414 Local residential or business street as the place of occurrence of the external cause; Y99.9 Unspecified external cause status
CPT/HCPCS: 73564; 73610; 73630; 93971; 99284

== ENCOUNTER 2021-10-17 08:18 | Emergency (ER) | payer MEDICARE, MEDICAID, SELFPAY ==
--- NOTE | ~2021-10-17 | US_ITS ---
EXAMINATION: US VENOUS ULTRASOUND WITH DOPPLER LOWER EXTREMITY, LEFT CLINICAL INFORMATION: Swelling and pain COMPARISON: None TECHNIQUE: Ultrasound of the deep veins is performed from the hip to the calf with compression sonography and color and pulse Doppler assessment. Spectral analysis with color-flow imaging is performed. FINDINGS: There is normal venous compression and respiratory variation and augmented flow. The visualized common femoral vein, superficial femoral vein, profunda femoral vein, popliteal vein, and the trifurcation region shows no evidence of deep venous thrombosis. There is small popliteal fossa cyst measuring 3.2 x 1.3 x 2.3 cm. If the patient's symptoms persist, followup ultrasound in 5 days 7 days might be of value to exclude proximal propagation from a non-visualized calf vein. US/US venous duplex LE IMPRESSION: No DVT demonstrated in the left lower extremity. Small Coleman's cyst.
[2021-10-17 08:31] VITALS: BP 148/82; PULSE 85; O2SAT 94
[2021-10-17 08:32] VITALS: BP 117/69; PULSE 87; RESP 16; TEMP 36.6; O2SAT 98; BMI 24.3
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
[2021-10-17] MEDS: Acetaminophen 325 MG TABLET 975 MG PO (09:48)
== END 2021-10-17 11:20 | disposition home or self-care (01) ==
PROVIDERS: Emergency Provider Emergency Medicine; PCP Family Medicine
DX: Z04.1 Encounter for examination and observation following transport accident (principal); G89.29 Other chronic pain; M79.605 Pain in left leg; M25.472 Effusion, left ankle; M79.89 Other specified soft tissue disorders
CPT/HCPCS: 93971; 99284

== ENCOUNTER 2021-10-30 10:40 | Emergency (ER) | payer MEDICARE, MEDICAID, SELFPAY ==
--- NOTE | ~2021-10-30 | US_ITS ---
EXAMINATION: US SCROTUM CLINICAL INFORMATION: Right testicular pain. COMPARISON: None TECHNIQUE: A sonogram of the scrotum was performed assessing perez-scale appearance and color Doppler flow. Spectral Doppler analysis of the arterial and venous flow were performed in the testes bilaterally. FINDINGS: RIGHT: Right testicle measures 3.7 x 1.8 x 3.1 cm, volume 10.6 mL. No focal testicular parenchymal lesions are visualized. Spectral Doppler analysis of the arterial and venous flow is normal in the right testis. Right epididymal head is normal size. Small anechoic epididymal cyst measuring 0.4 cm . Small right hydrocele. Right epididymal Doppler flow is normal. LEFT: Left testicle measures 4.2 x 2.1 x 2.8 cm, volume 4.7 mL. No focal testicular parenchymal lesions are visualized. Spectral Doppler analysis of the arterial and venous flow is normal in the left testis. Left epididymal head is normal in size. Small anechoic left epididymal cyst measures 0.4 cm. . Small left hydrocele. Left epididymal Doppler flow is normal. US/US scrotum IMPRESSION: 1. No intratesticular abnormality bilaterally. 2. Small epididymal cysts bilaterally. 3. Very small bilateral hydroceles.
[2021-10-30 10:53] VITALS: BP 135/71; PULSE 74; RESP 18; TEMP 36.9; O2SAT 96; BMI 22.8
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
[2021-10-30 11:53] LABS: Appearance Urine CLEAR; Color Urine YELLOW; Glucose Urine UA NEG (NEG); Leukocyte Esterase Urine NEG (NEG); Nitrite Urine NEG (NEG); PH 5.5 (5.0-8.0); Urine Blood NEG (NEG); Urine Ketones NEG (NEG); Urine Protein NEG (NEG-TRACE)
[2021-10-30 12:00] VITALS: BP 135/71; PULSE 74; RESP 18; TEMP 36.9; O2SAT 96
[2021-10-30 14:09] LABS: CT PCR NOT DETECTED (Not Detect.); NG PCR NOT DETECTED (Not Detect.)
== END 2021-10-30 12:56 | disposition home or self-care (01) ==
PROVIDERS: Emergency Provider Emergency Medicine
DX: L03.116 Cellulitis of left lower limb (principal); N50.811 Right testicular pain; M79.662 Pain in left lower leg; F17.200 Nicotine dependence, unspecified, uncomplicated; Z79.02 Long term (current) use of antithrombotics/antiplatelets; Z79.899 Other long term (current) drug therapy
CPT/HCPCS: 76870; 81003; 87491; 87591; 96372; 99284

== ENCOUNTER 2021-11-13 10:03 | Inpatient (IN) | payer MEDICARE, MEDICAID, SELFPAY ==
--- NOTE | ~2021-11-13 | US_ITS ---
EXAMINATION: US VENOUS ULTRASOUND WITH DOPPLER LOWER EXTREMITY, BILATERAL CLINICAL INFORMATION: Bilateral pitting edema noted on the left side. COMPARISON: None TECHNIQUE: Ultrasound of the deep veins is performed from the hip to the calf with compression sonography and color and pulse Doppler assessment. Spectral analysis with color-flow imaging is performed. FINDINGS: RIGHT: There is normal venous compression and respiratory variation and augmented flow. The visualized common femoral vein, superficial femoral vein, profunda femoral vein, popliteal vein, and the trifurcation region shows no evidence of deep venous thrombosis. There is no significant popliteal fossa cyst. There are benign groin lymph nodes noted. LEFT: There is normal venous compression and respiratory variation and augmented flow. The visualized common femoral vein, superficial femoral vein, profunda femoral vein, popliteal vein, and the trifurcation region shows no evidence of deep venous thrombosis. There is no significant popliteal fossa cyst. There are benign groin lymph nodes. Moderate edema is seen in the left calf soft tissues. If the patient's symptoms persist, followup ultrasound in 5 days 7 days might be of value to exclude proximal propagation from a non-visualized calf vein. US/US venous duplex LE BI IMPRESSION: No DVT demonstrated in the bilateral lower extremity. Left calf swelling.. Bilateral benign inguinal groin lymph nodes.
--- NOTE | ~2021-11-13 | CT_ITS ---
EXAMINATION: CT ABDOMEN AND PELVIS WITH CONTRAST CLINICAL INFORMATION: Diffuse abdominal tenderness. COMPARISON: CT abdomen pelvis 03/20/2020 TECHNIQUE: Multidetector volumetric images were obtained from the superior aspect of the liver through the pubic symphysis following administration 85 mL of Omnipaque 350 intravenous contrast. Sagittal and coronal reformatted images were obtained on the technologist's workstation. Oral contrast: No This CT examination was performed using dose optimization techniques as appropriate, variously including the following: *Automated exposure control *Adjustment of mA and/or kV according to patient size (this includes techniques or standardized protocols for targeted exams where dose is matched to indication/reason for exam; i.e. extremities or head) *Use of iterative reconstruction technique DLP: 582 mGy-cm FINDINGS: LUNG BASES: There is bibasilar dependent atelectatic changes. The heart size is normal. There is a soft tissue nodule along right anterior cardiophrenic angle measuring 1.7 cm on axial image 6/3 likely a lymph node measuring 62 Hounsfield units. Previously measured 2.1 cm. LIVER, GALLBLADDER, AND BILIARY TREE: There are multiple hypodense liver lesions now the largest lesion in the right hepatic lobe new since the previous exam. It measures approximately 7.1 x 5.2 cm. There is a second adjacent lesion with central necrosis measuring measuring 5.5 x 2.9 cm on axial image 15/3. Previously seen largest left hepatic lobe lesion now measures 4.5 x 4.1 cm and is more necrotic in appearance. There are several small additional lesion seen in the right hepatic lobe. Previously seen lesions appear slightly larger on the present exam. No intrahepatic ductal dilatation seen. The gallbladder is unremarkable with no evidence of radiopaque gallstones, gallbladder wall thickening, or obvious pericholecystic inflammatory changes. PANCREAS: Unremarkable. SPLEEN: Unremarkable. ADRENAL GLANDS: Unremarkable. KIDNEYS AND URETERS: The kidneys are normal in size, shape, and attenuation. No hydronephrosis, hydroureter, or calculi seen. No perinephric stranding. BLADDER: The bladder is nondistended with diffuse bladder wall thickening GASTROINTESTINAL TRACT: Postsurgical changes are seen in the upper pelvis with anastomotic small bowel segments appearing fluid-filled and mildly prominent. Rest of the small bowel loops are normal caliber. The colon is fluid-filled as well but nondilated. No free air or free fluid seen. There is a soft tissue mass in the mesentery measuring 2.0 x 1.7 x 2.5 cm. Also visualized is mild mesenteric stranding slightly more inferior with fluid-filled small bowel bowel loops appear matted together. Question low-grade adhesions. ABDOMINAL WALL: Mild atrophy and is appearing lower intra-abdominal wall is seen in the pelvis.. LYMPH NODES: There are numerous retroperitoneal para-aortic lymph nodes which has significant increase in size. For example left para-aortic lymph node at the level of left renal hilum measures 1.4 x 1.1 cm right para-aortic lesion measures 1.7 x 1.8 cm on axial image 32/3. It lies inferior to the uncinate process of the pancreas and is new compared to previous study. Question mesenteric node versus mass. Also best visualized on sagittal view 48/6. Also visualized are several small new mesenteric lymph nodes. VASCULAR: Unremarkable. PELVIC VISCERA: Unremarkable. OSSEOUS STRUCTURES: There is mild ventral spondylosis and bridging osteophytes lumbar spine. Mild vacuum phenomena and loss of disc height at L2-L3 disc level is noted. There is sclerotic lesion inferior half of S1 vertebra, new since previous study. CT/CT abdomen pelvis w con IMPRESSION: Multiple liver masses with its previously noted liver masses increased in size. There are a few new lesions seen. There is a abnormal retroperitoneal lymph nodes which have increased in size. Also visualized is mesenteric lymph nodes and mesenteric stranding and mesenteric mass. There is a question of adhesion involving small bowel segment secondary to mesenteric abnormality. The above findings are suggestive of progression of metastatic disease. There is a sclerotic lesion S1 vertebra new since the previous study. Fleischner guidelines were followed.
--- NOTE | ~2021-11-13 | XR_ITS ---
EXAMINATION: XR CHEST CLINICAL INFORMATION: SOB COMPARISON: Chest 03/23/2019 TECHNIQUE: Frontal view of the chest was obtained. FINDINGS: The lungs are well-expanded and clear. Heart size and pulmonary vascularity is normal. There is mild spondylosis dorsal spine. No lytic process. XR/XR chest 1V IMPRESSION: Unremarkable chest exam.
--- NOTE | ~2021-11-13 | CT_ITS ---
EXAMINATION: CT HEAD WITH/WITHOUT CONTRAST CLINICAL INFORMATION: Multiple liver metastases. Metastatic disease. COMPARISON: CT head from 04/28/2021. TECHNIQUE: Contiguous axial imaging was performed from the skull base to vertex before and after the administration of 85 mL of Omnipaque [address] examination was performed using dose optimization techniques as appropriate, variously including the following: *Automated exposure control *Adjustment of mA and/or kV according to patient size (this includes techniques or standardized protocols for targeted exams where dose is matched to indication/reason for exam; i.e. extremities or head) *Use of iterative reconstruction technique DLP: 2117 mGy-cm FINDINGS: There is no evidence of acute intracranial hemorrhage or edematous territorial infarction. A few foci of hypoattenuation in the periventricular and deep white matter otherwise, seen with mild microangiopathy. Sharif-white matter differentiation is preserved. Proportional prominence of the ventricles and sulcal spaces, unchanged compared to 2020. No evidence for obstructive hydrocephalus. No abnormal mass effect or midline shift. No extra-axial fluid collections. No pathologic intra-axial enhancement or regional oligemia. No acute soft tissue or osseous abnormalities. Mild mucosal thickening of the paranasal sinuses. Mild leftward nasal septal deviation. The mastoid air cells and middle ear cavities are clear. CT/CT head/brain wo/w con IMPRESSION: 1. No evidence of acute intracranial hemorrhage or edematous territorial infarction. 2. No demonstrated abnormal intracranial enhancement.
[2021-11-13 10:18] VITALS: BP 130/74; BP 141/82; PULSE 74; PULSE 84; RESP 16; TEMP 36.8; O2SAT 93; O2SAT 98; BMI 24.7
--- NOTE | 2021-11-13 10:54 | ECG_ITS ---
Test Reason : CHEST PAIN Blood Pressure : / mmHG Vent. Rate : 071 BPM Atrial Rate : 071 BPM P-R Int : 132 ms QRS Dur : 078 ms QT Int : 384 ms P-R-T Axes : -35 067 062 degrees QTc Int : 417 ms Unusual P axis, possible ectopic atrial rhythm Abnormal ECG When compared with ECG of 11-MAY-2021 13:59, Ectopic atrial rhythm has replaced Sinus rhythm Referred By: Gretel Edmonds Electronically Signed By:Andrew Negron
--- NOTE | 2021-11-13 11:56 | ED.GENADULT ---
HPI - General Adult General Chief complaint: General Medical Stated complaint: STEF FOOT/LEG/GROIN PAIN X'S 1WEEK Time Seen by Provider: 11/13/21 10:28 Source: patient Mode of arrival: ambulatory History of Present Illness HPI narrative: 56-year-old male with a past medical history of metastatic neuroendocrine tumor, depression, presenting to the ED complaining of acute on chronic bilateral lower extremity pain/swelling, RLE x mos, LLE x3 days, testicular swelling, abdominal pain, CP x 4 days, and SOB. Also reports dysuria and frequency. Denies fever, chills, nausea, vomiting, diarrhea, injury, trauma, penile discharge/lesions. Admits is sexually active, denies concern for STI Onset (ago): day(s) Related Data Home Medications Medication Instructions Recorded Confirmed aripiprazole 10 mg tablet 1 tab PO QAM 10/25/20 10/24/21 atorvastatin 10 mg tablet 1 tab PO BEDTIME 10/25/20 10/24/21 gabapentin 300 mg capsule 1 cap PO TID 10/25/20 10/24/21 loratadine 10 mg tablet 1 tab PO QAM 10/25/20 10/24/21 multivitamin (Daily-Qi) 1 tab PO QAM 10/25/20 10/24/21 pantoprazole 40 mg tablet,delayed 1 tab PO QAM 10/25/20 10/24/21 release quetiapine 200 mg tablet 1 tab PO BEDTIME 10/25/20 10/24/21 trazodone 100 mg tablet 100 - 200 mg PO BEDTIME PRN 10/25/20 10/24/21 famotidine 20 mg tablet 1 tab PO DAILY 05/10/21 10/24/21 phenytoin sodium extended 100 mg 200 mg PO DAILY 05/10/21 10/24/21 capsule phenytoin sodium extended 100 mg 300 mg PO BEDTIME 05/10/21 10/24/21 capsule lactulose 10 gram/15 mL oral 30 ml PO BID 10/24/21 10/24/21 solution Previous Rx's Medication Instructions Recorded hydrocortisone 2.5 % topical cream 1 appl WA TID PRN #30 g 05/15/21 with perineal applicator (Proctozone-HC) nicotine (polacrilex) 2 mg gum 2 mg BUCCAL Q2H PRN #20 ea 05/15/21 nicotine 7 mg/24 hr daily 7 mg TRANSDERMAL DAILY #30 ea 05/15/21 transdermal patch oxcarbazepine 150 mg tablet 450 mg PO BID #80 tab 05/15/21 sulfamethoxazole 800 1 tab PO BID #14 tab 10/30/21 mg-trimethoprim 160 mg tablet (Bactrim DS) Allergies Allergy/AdvReac Type Severity Reaction Status Date / Time Penicillins Allergy Mild RASH Unverified 10/24/21 09:42 Seafood Allergy Mild RASH Unverified 10/24/21 09:42 diazepam [From VALIUM] Allergy Unknown ACTS OUT Unverified 10/24/21 09:42 penicillin V Allergy Unknown anaphylaxis Verified 10/24/21 09:42 ibuprofen [From MOTRIN] AdvReac Mild RASH Unverified 10/24/21 09:42 Morphine AdvReac Severe Unknown Uncoded 10/24/21 09:42 Review of Systems Review of Systems: Constitutional: No Fever, No Chills, No Fatigue, No Malaise ENT/Mouth: No Ear Pain, No Nasal Congestion, No Sinus Pain, No Hoarseness, No sore throat, No Rhinorrhea, No Swallowing Difficulty Eyes: No Eye Pain, No Swelling, No Redness, No Vision Changes Cardiovascular: + Chest Pain, + SOB, + Dyspnea on Exertion, + Edema, No Palpitations Respiratory: No Cough, No Sputum, No Wheezing, No Smoke Exposure, No Dyspnea Gastrointestinal: No Nausea, No Vomiting, No Diarrhea, No Constipation, + Abdominal pain, No Hematochezia, No Melena Genitourinary: +Dysuria, + Urinary Frequency, No Hematuria, No Urinary Incontinence, No Flank Pain, No Urinary Flow Changes, + testicular swelling/pain, No penile discharge Musculoskeletal: No joint pain, No Myalgias, No Joint Swelling Skin: No Skin Lesions, No rash Neuro: No Weakness, No Numbness, No Paresthesias, No Dizziness, No Headache Yes all other systems are reviewed and are negative [facility] Past Medical History Attestation statement: The following information was validated with the patient. 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6 F 98.8 F Pulse Rate 74 80 79 Respiratory Rate 16 18 16 Blood Pressure 141/82 H 129/65 148/79 H Pulse Oximetry 98 96 98 BMI result Body Mass Index 24.7 Const General: cooperative, healthy appearing, no acute distress, alert and awake Orientation/consciousness: patient oriented x3 Limitations: no limitations HENMT Head: Yes normal to inspection and Yes atraumatic Ears: hearing grossly normal bilaterally General nose exam: Normal external nose present Face and sinus: Yes normal facial exam Eyes General: appearance normal, both eyes and all related structures EOM: EOMs intact bilaterally Neck Neck: Yes normal visual inspection and Yes no meningeal signs Resp Effort & Inspection: normal respiratory effort and no respiratory distress Auscultation: clear to auscultation bilaterally, no rales, no rhonchi and no wheezes Cardio Rate: regular rate Heart sounds: S1 normal heart sound present and S2 normal heart sound present Peripheral pulses: dorsalis pedis present GI Inspection: Yes normal to inspection Palpation (GI): Soft to palpation, Tenderness to palpation present (GI) (Diffusely) Negative for with no rebound tenderness, no guarding and not rigid Male General Exam: No Genital lesions present Penis: normal penis, circumcised, no swelling and No Genital lesions present Scrotum: no ecchymosis, not edematous, not erythematous and scrotal swelling (Mild right-sided testicular tenderness) diffuse (Mild) Skin Rashes: no rashes Wounds: no wounds Neuro General: patient oriented x3, tone normal and no meningeal signs Extrem Other: 4+ bilateral LE pitting edema > LLE with left lower extremity erythema and warmth to touch. Neurovascular intact distally. Course Course Course Narrative: -1247--no leukocytosis. H&H slightly lower than baseline >> patient reports rectal bleeding x years> will obtain occult stool. Labs otherwise unremarkable, BNP 32, troponin negative XR chest 1V IMPRESSION: Unremarkable chest exam. US venous duplex LE BI IMPRESSION: No DVT demonstrated in the bilateral lower extremity. Left calf swelling.. Bilateral benign inguinal groin lymph nodes. -1345--UA negative -1454--CT abdomen pelvis w con IMPRESSION: Multiple liver masses with its previously noted liver masses increased in size. There are a few new lesions seen. There is a abnormal retroperitoneal lymph nodes which have increased in size. Also visualized is mesenteric lymph nodes and mesenteric stranding and mesenteric mass. There is a question of adhesion involving small bowel segment secondary to mesenteric abnormality. The above findings are suggestive of progression of metastatic disease. There is a sclerotic lesion S1 vertebra new since the previous study. Fleischner guidelines were followed. >> patient saw Dr. Glover on 10/24/2021 to current treatment therapy is observation -occult stool negative. Results discussed with patient with ambulance officer, plan to admit for failed outpatient treatment of cellulitis. IV Rocephin and 20 mg of IV Lasix ordered Medical Decision Making [facility] Narrative Medical decision making narrative: 56-year-old male with a past medical history of metastatic neuroendocrine tumor, depression, presenting to the ED complaining of acute on chronic bilateral lower extremity pain/swelling, RLE x mos, LLE x3 days, testicular swelling, abdominal pain, CP x 4 days, and SOB. On exam vital signs stable, NAD/nontoxic appearing, physical exam as above. Of note patient recently seen and treated in our ED on 10/07/2021, 10/17/2021 and 10/30/2021 for similar symptoms. Had negative DVT study to LLE on 10/07 and 10/17 & had scrotal ultrasound on 10/30 which showed very small bilateral hydroceles, otherwise unremarkable Lower concern for DVT with multiple recent ultrasounds for similar symptoms, however still on differential vs CHF vs cellulitis. Unlikely testicular torsion/epididymitis/orchitis with recent negative ultrasound, as well as negative gonorrhea and chlamydia on 10/30/21, will repeat STI testing. Concern for intra-abdominal pathology with diffuse tenderness vs ?anasarca. Symptoms atypical for ACS. Doubt PE without hypoxia or tachycardia and negative ultrasound's Plan: EKG, labs, UA, STI testing, CXR, CTAP, re-evaluate, +/-admission Medical Records Medical records reviewed: Yes I reviewed the patient's medical records. Lab Data Lab results reviewed: Yes I reviewed the patient's lab results. Result diagrams: 11/13/21 12:14 11/13/21 12:14 Labs: Lab Results 11/13/21 11/13/21 11/13/21 Range/Units 12:14 12:14 12:14 WBC 6.1 (4.8-10.8) X10*3/uL RBC 4.26 L (4.60-5.80) X10*6/uL Hgb 13.6 L (14.0-18.0) g/dl Hct 40.3 L (42.0-52.0) % MCV 94.6 (80.0-98.0) fL MCH 31.9 (27.0-33.0) pg MCHC 33.7 (31.0-36.0) g/dl RDW 12.9 (11.0-16.0) % Plt Count 266 (160-400) X10*3/uL MPV 9.7 (9.4-12.4) fL Immature Gran % (Auto) 0.2 (0.0-0.4) % Neut % (Auto) 62.9 (45-73) % Lymph % (Auto) 20.6 (20-40) % [place] % (Auto) 11.1 H (2-11) % Eos % (Auto) 4.1 H (0-4) % Baso % (Auto) 1.1 (0-2) % Lymph # (Auto) 1.3 (1.2-4.9) X10*3/uL [place] # (Auto) 0.7 (0.1-1.2) X10*3/uL Eos # (Auto) 0.3 (0.0-0.4) X10*3/uL Baso # (Auto) 0.1 (0.0-0.2) X10*3/uL Abs Immat Gran (auto) 0.01 (0.00-0.03) X10*3/uL Absolute Neuts (auto) 3.8 (2.0-8.3) x10*3/uL Absolute Nucleated RBC 0.000 (0.0-0.012) X10*3/uL Nucleated RBC % (auto) 0.0 (0.0-0.2) /100WBC Sodium 137 (135-145) mmol/L Potassium 4.4 (3.3-5.1) mmol/L Chloride 106 (96-108) mmol/L Carbon Dioxide 24 (22-29) mmol/L Anion Gap 11 L (12-20) BUN 13 (9-16) mg/dL Creatinine 0.79 (0.5-1.4) mg/dL Estim Creat Clear Calc 101.0 Estimated GFR > 60 Random Glucose 74 (60-115) mg/dL Lactic Acid 0.7 (0.5-2.0) mmol/L Calcium 8.7 (8.4-10.2) mg/dL Magnesium 2.1 (1.6-2.6) mg/dL Total Bilirubin 0.5 (0.0-1.0) mg/dL Direct Bilirubin 0.2 (0.0-0.5) mg/dL AST 25 (5-37) U/L ALT 19 (0-40) U/L Alkaline Phosphatase 101 (39-117) U/L Troponin I High Sens (<3.5-35.0) ng/L B-Natriuretic Peptide (<100) pg/mL Total Protein 6.4 L (6.5-8.0) g/dL Albumin 3.8 (3.5-5.0) g/dL Lipase 23 (8-78) U/L Urine Color Urine Appearance Urine pH (5.0-8.0) Ur Specific [place] (1.005-1.025) Urine Protein (NEG-TRACE) MG/DL Urine Glucose (UA) (NEG) MG/DL Urine Ketones (NEG) MG/DL Urine Blood (NEG) Urine Nitrite (NEG) Ur Leukocyte Esterase (NEG) Stool Occult Blood (NEGATIVE) Chlam trachomat DNA PCR (Not Detect.) N.gonorrhoeae DNA (PCR) (Not Detect.) 11/13/21 11/13/21 11/13/21 Range/Units 12:14 12:51 12:51 WBC (4.8-10.8) X10*3/uL RBC (4.60-5.80) X10*6/uL Hgb (14.0-18.0) g/dl Hct (42.0-52.0) % MCV (80.0-98.0) fL MCH (27.0-33.0) pg MCHC (31.0-36.0) g/dl RDW (11.0-16.0) % Plt Count (160-400) X10*3/uL MPV (9.4-12.4) fL Immature Gran % (Auto) (0.0-0.4) % Neut % (Auto) (45-73) % Lymph % (Auto) (20-40) % [place] % (Auto) (2-11) % Eos % (Auto) (0-4) % Baso % (Auto) (0-2) % Lymph # (Auto) (1.2-4.9) X10*3/uL [place] # (Auto) (0.1-1.2) X10*3/uL Eos # (Auto) (0.0-0.4) X10*3/uL Baso # (Auto) (0.0-0.2) X10*3/uL Abs Immat Gran (auto) (0.00-0.03) X10*3/uL Absolute Neuts (auto) (2.0-8.3) x10*3/uL Absolute Nucleated RBC (0.0-0.012) X10*3/uL Nucleated RBC % (auto) (0.0-0.2) /100WBC Sodium (135-145) mmol/L Potassium (3.3-5.1) mmol/L Chloride (96-108) mmol/L Carbon Dioxide (22-29) mmol/L Anion Gap (12-20) BUN (9-16) mg/dL Creatinine (0.5-1.4) mg/dL Estim Creat Clear Calc Estimated GFR Random Glucose (60-115) mg/dL Lactic Acid (0.5-2.0) mmol/L Calcium (8.4-10.2) mg/dL Magnesium (1.6-2.6) mg/dL Total Bilirubin (0.0-1.0) mg/dL Direct Bilirubin (0.0-0.5) mg/dL AST (5-37) U/L ALT (0-40) U/L Alkaline Phosphatase (39-117) U/L Troponin I High Sens < 3.5 (<3.5-35.0) ng/L B-Natriuretic Peptide 32 (<100) pg/mL Total Protein (6.5-8.0) g/dL Albumin (3.5-5.0) g/dL Lipase (8-78) U/L Urine Color YELLOW Urine Appearance CLEAR Urine pH 5.5 (5.0-8.0) Ur Specific [place] >= 1.030 H (1.005-1.025) Urine Protein NEG (NEG-TRACE) MG/DL Urine Glucose (UA) NEG (NEG) MG/DL Urine Ketones 5 (NEG) MG/DL Urine Blood NEG (NEG) Urine Nitrite NEG (NEG) Ur Leukocyte Esterase NEG (NEG) Stool Occult Blood (NEGATIVE) Chlam trachomat DNA PCR NOT DETECTED (Not Detect.) N.gonorrhoeae DNA (PCR) NOT DETECTED (Not Detect.) 11/13/21 Range/Units 15:19 WBC (4.8-10.8) X10*3/uL RBC (4.60-5.80) X10*6/uL Hgb (14.0-18.0) g/dl Hct (42.0-52.0) % MCV (80.0-98.0) fL MCH (27.0-33.0) pg MCHC (31.0-36.0) g/dl RDW (11.0-16.0) % Plt Count (160-400) X10*3/uL MPV (9.4-12.4) fL Immature Gran % (Auto) (0.0-0.4) % Neut % (Auto) (45-73) % Lymph % (Auto) (20-40) % [place] % (Auto) (2-11) % Eos % (Auto) (0-4) % Baso % (Auto) (0-2) % Lymph # (Auto) (1.2-4.9) X10*3/uL [place] # (Auto) (0.1-1.2) X10*3/uL Eos # (Auto) (0.0-0.4) X10*3/uL Baso # (Auto) (0.0-0.2) X10*3/uL Abs Immat Gran (auto) (0.00-0.03) X10*3/uL Absolute Neuts (auto) (2.0-8.3) x10*3/uL Absolute Nucleated RBC (0.0-0.012) X10*3/uL Nucleated RBC % (auto) (0.0-0.2) /100WBC Sodium (135-145) mmol/L Potassium (3.3-5.1) mmol/L Chloride (96-108) mmol/L Carbon Dioxide (22-29) mmol/L Anion Gap (12-20) BUN (9-16) mg/dL Creatinine (0.5-1.4) mg/dL Estim Creat Clear Calc Estimated GFR Random Glucose (60-115) mg/dL Lactic Acid (0.5-2.0) mmol/L Calcium (8.4-10.2) mg/dL Magnesium (1.6-2.6) mg/dL Total Bilirubin (0.0-1.0) mg/dL Direct Bilirubin (0.0-0.5) mg/dL AST (5-37) U/L ALT (0-40) U/L Alkaline Phosphatase (39-117) U/L Troponin I High Sens (<3.5-35.0) ng/L B-Natriuretic Peptide (<100) pg/mL Total Protein (6.5-8.0) g/dL Albumin (3.5-5.0) g/dL Lipase (8-78) U/L Urine Color Urine Appearance Urine pH (5.0-8.0) Ur Specific [place] (1.005-1.025) Urine Protein (NEG-TRACE) MG/DL Urine Glucose (UA) (NEG) MG/DL Urine Ketones (NEG) MG/DL Urine Blood (NEG) Urine Nitrite (NEG) Ur Leukocyte Esterase (NEG) Stool Occult Blood NEGATIVE (NEGATIVE) Chlam trachomat DNA PCR (Not Detect.) N.gonorrhoeae DNA (PCR) (Not Detect.) ECG Data Attestation: I personally reviewed and interpreted this ECG as follows: Prior ECG tracings: available for review Interpretation: EKG showing ectopic atrial rhythm at a rate of 71. QTC 417. No STEMI. WA interval 132 Discharge Plan Discharge Clinical Impression: Cellulitis, Edema of both lower legs, Metastatic disease Patient Disposition: Admitted As Inpatient Instructions: Cellulitis (ED), Leg Edema (ED) Prescriptions: No Action multivitamin [Daily-Qi] Tablet 1 tab PO QAM 0RF atorvastatin 10 mg tablet 1 tab PO BEDTIME 0RF quetiapine 200 mg tablet 1 tab PO BEDTIME 0RF trazodone 100 mg tablet 100 - 200 mg PO BEDTIME PRN (Reason: Insomnia) 0RF pantoprazole 40 mg tablet,delayed release (DR/EC) 1 tab PO QAM 0RF gabapentin 300 mg capsule 1 cap PO TID 0RF loratadine 10 mg tablet 1 tab PO QAM 0RF aripiprazole 10 mg tablet 1 tab PO QAM 0RF lactulose 10 gram/15 mL solution 30 ml PO BID 0RF sulfamethoxazole-trimethoprim [Bactrim DS] 800-160 mg tablet 1 tab PO BID Qty: 14 0RF famotidine 20 mg tablet 1 tab PO DAILY 0RF phenytoin sodium extended 100 mg capsule 200 mg PO DAILY 0RF phenytoin sodium extended 100 mg capsule 300 mg PO BEDTIME 0RF nicotine (polacrilex) 2 mg Gum 2 mg buccal Q2H PRN (Reason: Nicotine Cravings) Qty: 20 0RF nicotine 7 mg/24 hr Patch 24 Hour 7 mg transdermal DAILY Qty: 30 0RF oxcarbazepine 150 mg Tablet 450 mg PO BID Qty: 80 0RF hydrocortisone [Proctozone-HC] 2.5 % Cream With Perineal Applicator 1 appl WA TID PRN (Reason: hemrhodial irritation) Qty: 30 0RF
[2021-11-13 12:20] LABS: MANUAL DIFF FLAG NO
[2021-11-13 12:21] LABS: Basophils Absolute Auto 0.1 X10*3/uL (0.0-0.2); Basophils Percent Auto 1.1 % (0-2); Eosinophils Absolute Auto 0.3 X10*3/uL (0.0-0.4); Eosinophils Percent Auto 4.1 % (0-4); Hematocrit 40.3 % (42.0-52.0); Hemoglobin 13.6 g/dl (14.0-18.0); Imm Gran Abs Auto 0.01 X10*3/uL (0.00-0.03); Imm Gran Pct Auto 0.2 % (0.0-0.4); Lymphocytes Absolute Auto 1.3 X10*3/uL (1.2-4.9); Lymphocytes Percent Auto 20.6 % (20-40); Mean Corpuscular HGB Conc 33.7 g/dl (31.0-36.0); Mean Corpuscular Hemoglobin 31.9 pg (27.0-33.0); Mean Corpuscular Volume 94.6 fL (80.0-98.0); Mean Platelet Volume 9.7 fL (9.4-12.4); Monocytes Absolute Auto 0.7 X10*3/uL (0.1-1.2); Monocytes Percent Auto 11.1 % (2-11); Neutrophils Absolute Auto 3.8 x10*3/uL (2.0-8.3); Neutrophils Percent Auto 62.9 % (45-73); Platelet Count 266 X10*3/uL (160-400); Red Blood Count 4.26 X10*6/uL (4.60-5.80); Red Cell Distribution Width 12.9 % (11.0-16.0); White Blood Count 6.1 X10*3/uL (4.8-10.8)
[2021-11-13 12:32] LABS: Lactic Acid 0.7 mmol/L (0.5-2.0)
[2021-11-13 12:41] LABS: Alanine Aminotransferase 19 U/L (0-40); Albumin Level 3.8 g/dL (3.5-5.0); Alkaline Phosphatase 101 U/L (39-117); Anion Gap 11 (12-20); Aspartate Amino Transferase 25 U/L (5-37); Bilirubin Direct 0.2 mg/dL (0.0-0.5); Bilirubin Total 0.5 mg/dL (0.0-1.0); Blood Urea Nitrogen 13 mg/dL (9-16); Calcium 8.7 mg/dL (8.4-10.2); Carbon Dioxide 24 mmol/L (22-29); Chloride 106 mmol/L (96-108); Estimated Glomerular Filt Rate > 60; Glucose Random 74 mg/dL (60-115); Lipase 23 U/L (8-78); Magnesium 2.1 mg/dL (1.6-2.6); Potassium 4.4 mmol/L (3.3-5.1); Sodium 137 mmol/L (135-145); Total Protein 6.4 g/dL (6.5-8.0)
[2021-11-13 12:42] LABS: B Type Natriuretic Peptide 32 pg/mL (<100); Troponin-I High Sensitivity < 3.5 ng/L (<3.5-35.0)
[2021-11-13 12:58] LABS: Appearance Urine CLEAR; Color Urine YELLOW; Glucose Urine UA NEG (NEG); Leukocyte Esterase Urine NEG (NEG); Nitrite Urine NEG (NEG); PH 5.5 (5.0-8.0); Specific Gravity - Urine >= 1.030 (1.005-1.025); Urine Blood NEG (NEG); Urine Ketones 5 MG/DL (NEG); Urine Protein NEG (NEG-TRACE)
[2021-11-13] MEDS: iohexoL 350 MG/ML 100 ML INFUS..BTL IV (13:25)
[2021-11-13 14:59] LABS: CT PCR NOT DETECTED (Not Detect.); NG PCR NOT DETECTED (Not Detect.)
[2021-11-13 15:04] VITALS: BP 129/65; PULSE 80; RESP 18; TEMP 36.4; O2SAT 96
[2021-11-13 15:28] LABS: OBS Int Ctl Valid YES; OBS1 NEGATIVE (NEGATIVE)
[2021-11-13 15:40] VITALS: BP 148/79; PULSE 79; RESP 16; TEMP 37.1; O2SAT 98
[2021-11-13 16:56] LABS: COVID-19 Test Negative (Negative)
[2021-11-13] MEDS: oxyCODONE HCl Immed Release 5 MG TABLET PO ×2 (16:57→23:59)
[2021-11-13] MEDS: Furosemide 20 MG/2 ML VIAL IVPUSH (17:00)
[2021-11-13] MEDS: cefTRIAXone sodium 1 GM in 0.9 % Sodium Chloride 50 ML IV (17:06)
--- NOTE | 2021-11-13 17:18 | PHA.MEDREC ---
Pharmacy Consult ? Medication Reconciliation Pharmacy has completed the medication reconciliation.
[2021-11-13 17:27] VITALS: BP 142/76; PULSE 76; RESP 16; TEMP 36.6; O2SAT 98
--- NOTE | 2021-11-13 17:37 | PM.IMHP ---
History of Present Illness Date of Service: 11/13/21 Attending physician on admission: Licha Marroquin Chief Complaint: leg swelling/abdominal pain 56-year-old gentleman with past medical history of metastatic neuroendocrine tumor, depression was recently seen at [facility] on 10/30 and was treated with by mouth Bactrim for 1 week, presented to [facility] complaining of bilateral lower extremity pain and swelling right lower extremity swelling going on for months and left lower extremity swelling started 2-3 days ago associated with testicular swelling ongoing abdominal pain denies associated fever chills no nausea no vomiting no diarrhea having regular bowel movements, denies urinary symptoms of urgency or frequency, workup in the ER included venous Doppler study lower extremity that showed no DVT, chest x-ray showed no infiltrate, abdominal and pelvic CAT scan showed multiple liver masses increase in size with few new lesions, abnormal repeat properitoneal lymph nodes increase in size with Ms. In trick stranding and mesenteric mass question of additions involving small bowel segment secondary to mesenteric abnormality above findings are suggestive of progression of metastatic disease is also sclerotic lesion S1 vertebra new since prior study, patient is now being admitted to [facility] with a diagnosis of left lower extremity cellulitis and abdominal pain likely related to progression of metastatic disease, urinalysis unremarkable normal WBC and normal renal function and electrolytes. 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 headache, no dizziness CVS no chest pain, no palpatation GI abdominal pain mild nausea no vomiting, no diarrhea Yes all other systems are reviewed and are negative PMFSH Medical History Family hx of colon cancer Hx of head injury MDD (major depressive disorder), recurrent episode, severe Family History Paternal Grandmother Cancer Surgical History History of surgery on wrist Hx of knee surgery Social History Household Members: Family Housing: House Are you a primary childcare center director to a significant other at home: No Do you presently have visiting nurse or other home services: No Unable to assess alcohol history related to: Unknown Alcohol intake: former Patient Tobacco Use Status: Tobacco use Unknown Tobacco use type: Cigarette Cigarette Packs Per Day: 1 Cigarettes Per Day: 5 Years Smoked: 37 e-Cigarette/Vaping Use: Never Used Second Hand Smoke Exposure: Yes Use of substances other than those prescribed or required for medical reasons: Unknown Substance Use Type: Crack/Cocaine and Marijuana Currently Displaying Signs/Symptoms of Drug Intoxication Withdrawal: No Advance Directives: Yes Advance Directives Information Provided: No Advance Directives on File: No Advance Directives Date on File: 11/13/21 Do you have thoughts of harming others: None Do you have a plan to hurt others: No Plan Recently lost weight without trying: No Nutrition Risks: No Nutritional Risk Poor oral hygiene: No service: No Current occupational status: disabled Sexual orientation: Straight/Heterosexual Meds Allergies Allergy/AdvReac Type Severity Reaction Status Date / Time Penicillins Allergy Mild RASH Verified 11/13/21 19:07 Seafood Allergy Mild RASH Verified 11/13/21 19:07 diazepam [From VALIUM] Allergy Unknown ACTS OUT Verified 11/13/21 19:07 penicillin V Allergy Unknown anaphylaxis Verified 11/13/21 19:07 ibuprofen [From MOTRIN] AdvReac Mild RASH Verified 11/13/21 19:07 Morphine AdvReac Severe Unknown Uncoded 10/24/21 09:42 Active Medications: Current Medications Acetaminophen (Acetaminophen 325 Mg Tablet) 650 mg PO Q6H PRN PRN Reason: Pain, Mild (Pain Scale 1-3) Aripiprazole (Aripiprazole 10 Mg Tablet) 10 mg PO DAILY [facility] Atorvastatin Calcium (Atorvastatin Calcium 10 Mg Tablet) 10 mg PO BEDTIME [facility] Enoxaparin Sodium (Enoxaparin Sodium 40 Mg/0.4 Ml Syringe) 40 mg SUBCUT Q24H [facility] Gabapentin (Gabapentin 300 Mg Capsule) 300 mg PO TID [facility] Doxycycline Hyclate 100 mg/ (Sodium Chloride) 250 mls @ 166.67 mls/hr IV Q12H [facility] Loratadine (Loratadine 10 Mg Tablet) 10 mg PO DAILY [facility] Multivitamins/Vitamin C (Multivitamin Tablet) 1 tab PO DAILY [facility] Non-Formulary Medication (Pantoprazole) 1 tab PO DAILY [facility] Ondansetron HCl (Ondansetron Hcl 4 Mg/2 Ml Vial) 4 mg IVPUSH Q8H PRN PRN Reason: Nausea and Vomiting Oxcarbazepine (Oxcarbazepine 150 Mg Tablet) 450 mg PO BID MARYBETH Oxycodone HCl (Oxycodone Hcl Immed Release 5 Mg Tablet) 5 mg PO Q6H PRN PRN Reason: Pain, Severe (Pain Scale 7-10) Pharmacy Consult (Consult Rx Perform Med Rec) 1 each MISCELLANE ONCE PRN PRN Reason: Consult order Phenytoin Sodium (Phenytoin Sodium Extended 100 Mg Capsule) 200 mg PO DAILY MARYBETH Phenytoin Sodium (Phenytoin Sodium Extended 100 Mg Capsule) 300 mg PO BEDTIME MARYBETH Quetiapine Fumarate (Quetiapine Fumarate 200 Mg Tablet) 200 mg PO BEDTIME MARYBETH Sodium Chloride (0.9 % Sodium Chloride Flush 3 Ml Syringe) 3 ml IVFLUSH QSHIFT MARYBETH Trazodone HCl (Trazodone Hcl 100 Mg Tablet) 100 mg PO BEDTIME PRN PRN Reason: Insomnia Home Medications Medication Instructions Recorded Confirmed Last Taken Type aripiprazole 10 mg tablet 1 tab PO DAILY 10/25/20 11/13/21 11/13/21 History atorvastatin 10 mg tablet 1 tab PO BEDTIME 10/25/20 11/13/21 11/12/21 History gabapentin 300 mg capsule 1 cap PO TID 10/25/20 11/13/21 11/13/21 History loratadine 10 mg tablet 1 tab PO DAILY 10/25/20 11/13/21 11/13/21 History multivitamin (Daily-Qi) 1 tab PO DAILY 10/25/20 11/13/21 11/13/21 History pantoprazole 40 mg tablet,delayed 1 tab PO DAILY 10/25/20 11/13/21 11/13/21 History release quetiapine 200 mg tablet 1 tab PO BEDTIME 10/25/20 11/13/21 11/12/21 History trazodone 100 mg tablet 100 - 200 mg PO BEDTIME PRN 10/25/20 11/13/21 Unknown History phenytoin sodium extended 100 mg 200 mg PO DAILY 05/10/21 11/13/21 11/13/21 History capsule phenytoin sodium extended 100 mg 300 mg PO BEDTIME 05/10/21 11/13/21 11/12/21 History capsule Physical Exam Vital Signs and Narrative: Vital Signs: Last Vital Signs Temp 98.8 F 11/13/21 15:40 Pulse 79 11/13/21 15:40 Resp 16 11/13/21 15:40 BP 148/79 H 11/13/21 15:40 Pulse Ox 98 11/13/21 15:40 BMI result Body Mass Index 24.7 Const: Other: General awake alert resting comfortably no acute distress HEENT PERRLA, extraocular muscles intact Neck supple, no JVD. CVS regular rate rhythm, Respiratory lungs clear to auscultation, no respiratory distress, no wheeze, no rhonchi. Gastrointestinal abdomen soft, tenderness left lower quadrant with deep palpation, bowel sounds audible, no guarding , no rigidity. Extremities left lower extremity pitting edema with mild hyperemia warmth and tenderness to touch left lower leg, right lower extremity no warmth, no redness, no swelling Neuro nonfocal psych appropriate affect Results Labs CBC and Chem 7: 11/13/21 12:14 11/13/21 12:14 Labs: Laboratory Results - last 24 hr 11/13/21 11/13/21 11/13/21 12:14 12:14 12:14 MCV 94.6 MCH 31.9 MCHC 33.7 RDW 12.9 Plt Count 266 MPV 9.7 Immature Gran % (Auto) 0.2 Neut % (Auto) 62.9 Lymph % (Auto) 20.6 [place] % (Auto) 11.1 H Eos % (Auto) 4.1 H Baso % (Auto) 1.1 Lymph # (Auto) 1.3 [place] # (Auto) 0.7 Eos # (Auto) 0.3 Baso # (Auto) 0.1 Abs Immat Gran (auto) 0.01 Absolute Neuts (auto) 3.8 Absolute Nucleated RBC 0.000 Nucleated RBC % (auto) 0.0 Anion Gap 11 L Estim Creat Clear Calc 101.0 Estimated GFR > 60 Random Glucose 74 Lactic Acid 0.7 Calcium 8.7 Magnesium 2.1 Total Bilirubin 0.5 Direct Bilirubin 0.2 AST 25 ALT 19 Alkaline Phosphatase 101 Troponin I High Sens B-Natriuretic Peptide Total Protein 6.4 L Albumin 3.8 Lipase 23 Urine Color Urine Appearance Urine pH Ur Specific [place] Urine Protein Urine Glucose (UA) Urine Ketones Urine Blood Urine Nitrite Ur Leukocyte Esterase Stool Occult Blood Chlam trachomat DNA PCR COVID-19 (MELLISA) COVID-19 Clin Com N.gonorrhoeae DNA (PCR) 11/13/21 11/13/21 11/13/21 12:14 12:51 12:51 MCV MCH MCHC RDW Plt Count MPV Immature Gran % (Auto) Neut % (Auto) Lymph % (Auto) [place] % (Auto) Eos % (Auto) Baso % (Auto) Lymph # (Auto) [place] # (Auto) Eos # (Auto) Baso # (Auto) Abs Immat Gran (auto) Absolute Neuts (auto) Absolute Nucleated RBC Nucleated RBC % (auto) Anion Gap Estim Creat Clear Calc Estimated GFR Random Glucose Lactic Acid Calcium Magnesium Total Bilirubin Direct Bilirubin AST ALT Alkaline Phosphatase Troponin I High Sens < 3.5 B-Natriuretic Peptide 32 Total Protein Albumin Lipase Urine Color YELLOW Urine Appearance CLEAR Urine pH 5.5 Ur Specific [place] >= 1.030 H Urine Protein NEG Urine Glucose (UA) NEG Urine Ketones 5 Urine Blood NEG Urine Nitrite NEG Ur Leukocyte Esterase NEG Stool Occult Blood Chlam trachomat DNA PCR NOT DETECTED COVID-19 ([facility]LLISA) COVID-19 Clin Com N.gonorrhoeae DNA (PCR) NOT DETECTED 11/13/21 11/13/21 15:19 16:35 MCV MCH MCHC RDW Plt Count MPV Immature Gran % (Auto) Neut % (Auto) Lymph % (Auto) [place] % (Auto) Eos % (Auto) Baso % (Auto) Lymph # (Auto) [place] # (Auto) Eos # (Auto) Baso # (Auto) Abs Immat Gran (auto) Absolute Neuts (auto) Absolute Nucleated RBC Nucleated RBC % (auto) Anion Gap Estim Creat Clear Calc Estimated GFR Random Glucose Lactic Acid Calcium Magnesium Total Bilirubin Direct Bilirubin AST ALT Alkaline Phosphatase Troponin I High Sens B-Natriuretic Peptide Total Protein Albumin Lipase Urine Color Urine Appearance Urine pH Ur Specific [place] Urine Protein Urine Glucose (UA) Urine Ketones Urine Blood Urine Nitrite Ur Leukocyte Esterase Stool Occult Blood NEGATIVE Chlam trachomat DNA PCR COVID-19 (MELLISA) Negative COVID-19 Clin Com See Note N.[email or web address] DNA (PCR) Imaging Radiologist's Impressions: Impressions Chest X-Ray 11/13/21 11:17 IMPRESSION: Unremarkable chest exam. Venous Duplex 11/13/21 11:40 IMPRESSION: No DVT demonstrated in the bilateral lower extremity. Left calf swelling.. Bilateral benign inguinal groin lymph nodes. Abdomen/Pelvis CT 11/13/21 13:26 IMPRESSION: Multiple liver masses with its previously noted liver masses increased in size. There are a few new lesions seen. There is a abnormal retroperitoneal lymph nodes which have increased in size. Also visualized is mesenteric lymph nodes and mesenteric stranding and mesenteric mass. There is a question of adhesion involving small bowel segment secondary to mesenteric abnormality. The above findings are suggestive of progression of metastatic disease. There is a sclerotic lesion S1 vertebra new since the previous study. Fleischner guidelines were followed. Assessment and Plan (1) Epilepsy: Status: Acute (2) Cellulitis: Status: Acute (3) MDD (major depressive disorder), recurrent episode, severe: Status: Acute (4) Metastatic disease: Status: Acute Plan 56-year-old gentleman with past medical history significant for metastatic neuro endocrine tumor being followed by Dr. Glover, history of major depressive disorder, recently seen at [facility] ED and treated for left leg cellulitis with Bactrim finished 1 week course of antibiotic patient has also been seen couple times in the ER for leg pain presented to [facility] due to chronic lower extremity pain worse on left lower extremity as well as associated abdominal pain and mild nausea. Left lower extremity cellulitis Doppler study showed no DVT, no evidence of sepsis normal WBC, no fevers will treat patient with IV antibiotics since patient failed outpatient antibiotic treatment and cellulitis involving 50% of left lower leg follow blood culture. Abdominal pain/ scrotal pain recent scrotal ultrasound showed no intratesticular abnormality, small epididymal cysts bilaterally and very small bilateral hydrocele, symptoms likely due to progression of underlying metastatic disease, symptomatic treatment with antiemetics and analgesics will consult Dr. Glover History of epilepsy continue Dilantin history of major depression patient is on multiple psych medications, will continue Abilify, Trileptal, phenytoin, and Seroquel DVT prophylaxis with Lovenox code status full code patient will need two night inpatient hospitalization for IV antibiotics follow up on blood cultures and further workup and treatment plan for abdominal pain and worsening underlying cancer. Quality Stroke Does the patient have a stroke diagnosis?: No VTE Prior VTE?: No VTE Risk Level:: Medical - moderate - high VTE Device Contraindication: Treatment Not Indicated VTE Drug Contraindication: N/A - Med Ordered
[2021-11-13] MEDS: Doxycycline Hyclate 100 MG in 0.9 % Sodium Chloride 250 ML 166.67 MG IV (18:35)
[2021-11-13] MEDS: Enoxaparin Sodium 40 MG/0.4 ML SYRINGE SUBCUT (19:07)
[2021-11-13 19:59] VITALS: BP 137/70; PULSE 89; RESP 16; TEMP 37.1; O2SAT 98
[2021-11-13] MEDS: OXcarbazepine 150 MG TABLET 450 MG PO (21:04)
[2021-11-13] MEDS: Atorvastatin Calcium 10 MG TABLET PO (21:05)
[2021-11-13] MEDS: QUEtiapine Fumarate 200 MG TABLET PO (21:05)
[2021-11-13] MEDS: 0.9 % Sodium Chloride Flush 3 ML SYRINGE IVFLUSH (21:05)
[2021-11-13] MEDS: Phenytoin Sodium Extended 100 MG CAPSULE 300 MG PO (21:05)
[2021-11-13] MEDS: Gabapentin 300 MG CAPSULE PO (21:05)
[2021-11-13 23:48] VITALS: BP 136/71; PULSE 88; RESP 17; TEMP 36.9; O2SAT 94
--- NOTE | 2021-11-14 02:46 | PM.EVENT ---
Event Note Date of Service: 11/14/21 Event Note: Seizure: pt had breif seizure. pt on dilantin; will obtain levels; Seizure precautions; Neurology follow up.
[2021-11-14 03:11] VITALS: BP 162/83; PULSE 73; RESP 17; TEMP 36.3; O2SAT 98
[2021-11-14 03:47] LABS: Phenytoin Dilantin < 0.5 ug/mL (10.0-20.0)
[2021-11-14] MEDS: Doxycycline Hyclate 100 MG in 0.9 % Sodium Chloride 250 ML 166.67 MG IV (04:59)
[2021-11-14 07:28] VITALS: BP 157/85; PULSE 69; RESP 17; TEMP 36.2; O2SAT 96
[2021-11-14] MEDS: Multivitamin TABLET 1 TAB PO (07:42)
[2021-11-14] MEDS: OXcarbazepine 150 MG TABLET 450 MG PO (07:42)
[2021-11-14] MEDS: Gabapentin 300 MG CAPSULE PO ×2 (07:42→15:00)
[2021-11-14] MEDS: oxyCODONE HCl Immed Release 5 MG TABLET PO (07:42)
[2021-11-14] MEDS: Omeprazole 20 MG CAPSULE.DR PO (07:43)
[2021-11-14] MEDS: Phenytoin Sodium Extended 100 MG CAPSULE 200 MG PO (07:43)
[2021-11-14] MEDS: ARIPiprazole 10 MG TABLET PO (07:43)
[2021-11-14] MEDS: Loratadine 10 MG TABLET PO (07:43)
[2021-11-14] MEDS: 0.9 % Sodium Chloride Flush 3 ML SYRINGE IVFLUSH (09:36)
--- NOTE | 2021-11-14 10:53 | PM.NEUROCN ---
History of Present Illness Data of Consult Service Date: 11/14/21 Primary Care Provider: Unknown Physician HPI Reason for consult: Epilepsy 56 years old man with underlying history of epilepsy comprised of generalized seizures usually taking Dilantin. He has not seen his neurologist for number of years. At this time he was diagnosed with neuroendocrine metastatic cancer and was admitted hospital for unrelated reason. He was noted to have a brief seizure-like episode. He said that his seizures included generalized shaking and frothing. His Dilantin level was low. Review of Systems Review of Systems: Bilateral knee and leg pains PMFSH Past Medical History Medical History Family hx of colon cancer Hx of head injury MDD (major depressive disorder), recurrent episode, severe Family History Family History Paternal Grandmother Cancer Surgical History Surgical History History of surgery on wrist Hx of knee surgery Social History Social History Household Members: Family Housing: House Are you a primary urgent care physician to a significant other at home: No Do you presently have visiting nurse or other home services: No Unable to assess alcohol history related to: Unknown Alcohol intake: former Patient Tobacco Use Status: Tobacco use Unknown Tobacco use type: Cigarette Cigarette Packs Per Day: 1 Cigarettes Per Day: 5 Years Smoked: 37 e-Cigarette/Vaping Use: Never Used Second Hand Smoke Exposure: Yes Use of substances other than those prescribed or required for medical reasons: Unknown Substance Use Type: Crack/Cocaine and Marijuana Currently Displaying Signs/Symptoms of Drug Intoxication Withdrawal: No Advance Directives: Yes Advance Directives Information Provided: No Advance Directives on File: No Advance Directives Date on File: 11/13/21 Do you have thoughts of harming others: None Do you have a plan to hurt others: No Plan Recently lost weight without trying: No Nutrition Risks: No Nutritional Risk Poor oral hygiene: No service: No Current occupational status: disabled Sexual orientation: Straight/Heterosexual Meds Allergies Allergy/AdvReac Type Severity Reaction Status Date / Time Penicillins Allergy Mild RASH Verified 11/13/21 19:07 Seafood Allergy Mild RASH Verified 11/13/21 19:07 diazepam [From VALIUM] Allergy Unknown ACTS OUT Verified 11/13/21 19:07 penicillin V Allergy Unknown anaphylaxis Verified 11/13/21 19:07 ibuprofen [From MOTRIN] AdvReac Mild RASH Verified 11/13/21 19:07 Morphine AdvReac Severe Unknown Uncoded 10/24/21 09:42 Active Medications: Current Medications Acetaminophen (Acetaminophen 325 Mg Tablet) 650 mg PO Q6H PRN PRN Reason: Pain, Mild (Pain Scale 1-3) Aripiprazole (Aripiprazole 10 Mg Tablet) 10 mg PO DAILY [facility] Last Admin: 11/14/21 07:43 Dose: 10 mg Documented by: Atorvastatin Calcium (Atorvastatin Calcium 10 Mg Tablet) 10 mg PO BEDTIME [facility] Last Admin: 11/13/21 21:05 Dose: 10 mg Documented by: Enoxaparin Sodium (Enoxaparin Sodium 40 Mg/0.4 Ml Syringe) 40 mg SUBCUT Q24H [facility] Last Admin: 11/13/21 19:07 Dose: 40 mg Documented by: Gabapentin (Gabapentin 300 Mg Capsule) 300 mg PO TID [facility] Last Admin: 11/14/21 07:42 Dose: 300 mg Documented by: Doxycycline Hyclate 100 mg/ (Sodium Chloride) 250 mls @ 166.67 mls/hr IV Q12H [facility] Last Infusion: 11/14/21 07:30 Dose: Infused Documented by: Loratadine (Loratadine 10 Mg Tablet) 10 mg PO DAILY [facility] Last Admin: 11/14/21 07:43 Dose: 10 mg Documented by: Multivitamins/Vitamin C (Multivitamin Tablet) 1 tab PO DAILY [facility] Last Admin: 11/14/21 07:42 Dose: 1 tab Documented by: Omeprazole (Omeprazole 20 Mg Capsule.) 20 mg PO DAILY [facility] Last Admin: 11/14/21 07:43 Dose: 20 mg Documented by: Ondansetron HCl (Ondansetron Hcl 4 Mg/2 Ml Vial) 4 mg IVPUSH Q8H PRN PRN Reason: Nausea and Vomiting Oxcarbazepine (Oxcarbazepine 150 Mg Tablet) 450 mg PO BID [facility] Last Admin: 11/14/21 07:42 Dose: 450 mg Documented by: Oxycodone HCl (Oxycodone Hcl Immed Release 5 Mg Tablet) 5 mg PO Q6H PRN PRN Reason: Pain, Severe (Pain Scale 7-10) Last Admin: 11/14/21 07:42 Dose: 5 mg Documented by: Pharmacy Consult (Consult Rx Perform Med Rec) 1 each MISCELLANE ONCE PRN PRN Reason: Consult order Phenytoin Sodium (Phenytoin Sodium Extended 100 Mg Capsule) 200 mg PO DAILY [facility] Last Admin: 11/14/21 07:43 Dose: 200 mg Documented by: Phenytoin Sodium (Phenytoin Sodium Extended 100 Mg Capsule) 300 mg PO BEDTIME [facility] Last Admin: 11/13/21 21:05 Dose: 300 mg Documented by: Quetiapine Fumarate (Quetiapine Fumarate 200 Mg Tablet) 200 mg PO BEDTIME [facility] Last Admin: 11/13/21 21:05 Dose: 200 mg Documented by: Sodium Chloride (0.9 % Sodium Chloride Flush 3 Ml Syringe) 3 ml IVFLUSH [facility] Last Admin: 11/14/21 09:36 Dose: 3 ml Documented by: Trazodone HCl (Trazodone Hcl 100 Mg Tablet) 100 mg PO BEDTIME PRN PRN Reason: Insomnia Home Medications Medication Instructions Recorded Confirmed Last Taken Type aripiprazole 10 mg tablet 1 tab PO DAILY 10/25/20 11/13/21 11/13/21 History atorvastatin 10 mg tablet 1 tab PO BEDTIME 10/25/20 11/13/21 11/12/21 History gabapentin 300 mg capsule 1 cap PO TID 10/25/20 11/13/21 11/13/21 History loratadine 10 mg tablet 1 tab PO DAILY 10/25/20 11/13/21 11/13/21 History multivitamin (Daily-Qi) 1 tab PO DAILY 10/25/20 11/13/21 11/13/21 History pantoprazole 40 mg tablet,delayed 1 tab PO DAILY 10/25/20 11/13/21 11/13/21 History release quetiapine 200 mg tablet 1 tab PO BEDTIME 10/25/20 11/13/21 11/12/21 History trazodone 100 mg tablet 100 - 200 mg PO BEDTIME PRN 10/25/20 11/13/21 Unknown History phenytoin sodium extended 100 mg 200 mg PO DAILY 05/10/21 11/13/21 11/13/21 History capsule phenytoin sodium extended 100 mg 300 mg PO BEDTIME 05/10/21 11/13/21 11/12/21 History capsule Physical Exam Vital Signs: Vital Signs: Last Vital Signs Temp 97.2 F 11/14/21 07:28 Pulse 69 11/14/21 07:28 Resp 17 11/14/21 07:28 BP 157/85 H 11/14/21 07:28 Pulse Ox 96 11/14/21 07:28 BMI result Body Mass Index 24.7 Neuro: Other: He was alert and awake with normal spontaneity of speech fluency comprehension and affect. Face was symmetrical. Visual garcia are full. Pupils were round reactive to light. There was no pronator drift. Fywplt-yd-peox testing was normal. There was swelling of knees. Plantars were flexors. Deep tendon reflexes were absent. Results Labs CBC & Chem 7: 11/13/21 12:14 11/13/21 12:14 Labs: Short CBC 11/13/21 Range/Units 12:14 WBC 6.1 (4.8-10.8) X10*3/uL Hgb 13.6 L (14.0-18.0) g/dl Hct 40.3 L (42.0-52.0) % Plt Count 266 (160-400) X10*3/uL BMP 11/13/21 12:14 Sodium 137 Potassium 4.4 Chloride 106 Carbon Dioxide 24 BUN 13 Creatinine 0.79 Calcium 8.7 Liver Function 11/13/21 Range/Units 12:14 Total Bilirubin 0.5 (0.0-1.0) mg/dL Direct Bilirubin 0.2 (0.0-0.5) mg/dL AST 25 (5-37) U/L ALT 19 (0-40) U/L Alkaline Phosphatase 101 (39-117) U/L Albumin 3.8 (3.5-5.0) g/dL Urine 11/13/21 Range/Units 12:51 Urine Color YELLOW Urine Appearance CLEAR Urine pH 5.5 (5.0-8.0) Ur Specific [place] >= 1.030 H (1.005-1.025) Urine Protein NEG (NEG-TRACE) MG/DL Urine Glucose (UA) NEG (NEG) MG/DL Assessment and Plan (1) Epilepsy: Status: Acute 56 years old man with longstanding history of epilepsy with generalized seizures usually taking Dilantin 200 mg twice a day. His level suggested that he was either not taking it arm has missed doses. At this time I am recommendation is to restart his Dilantin. If her brain scan not done recently, an MRI of brain is recommended to look at any possibility of metastatic disease. Procedures Date of Service Date of Service: 11/14/21
[2021-11-14 11:10] VITALS: BP 155/87; PULSE 67; RESP 17; TEMP 36.3; O2SAT 96
[2021-11-14] MEDS: iohexoL 350 MG/ML 100 ML INFUS..BTL 85 ML IV (13:18)
--- NOTE | 2021-11-14 14:38 | PM.DS ---
DS: Providers Provider Date of Service: 11/14/21 Date of admission: 11/13/21 17:27 Primary care physician: Unknown Physician Consults: 11/14/21 02:45 Consult to Neurology Routine Consulting Provider: [facility] Reason for consultation: seizure 11/14/21 07:44 Consult to Hematology / Oncology Routine Consulting Provider: Willam Glover Reason for consultation: progression of cancer Has provider been notified: No DS: Diagnosis Discharge Diagnosis (1) Epilepsy: Status: Acute (2) Cellulitis: Status: Acute (3) MDD (major depressive disorder), recurrent episode, severe: Status: Acute (4) Metastatic disease: Status: Acute DS: Summary Hospital Course Hospital Course: History of presenting illness Chief Complaint:? leg swelling/abdominal pain ?56-year-old gentleman with past medical history of metastatic neuroendocrine tumor, depression was recently seen at [facility] on 10/30 and was treated with by mouth? Bactrim for 1 week, presented to [place] [facility] complaining of bilateral lower extremity pain and swelling right lower extremity swelling going on for months and left lower extremity swelling started 2-3 days ago associated with testicular swelling ongoing abdominal pain denies associated fever chills no nausea no vomiting no diarrhea having regular bowel movements, denies urinary symptoms of urgency or frequency, workup in the ER included venous Doppler study lower extremity that showed no DVT, chest x-ray showed no infiltrate, abdominal and pelvic CAT scan showed multiple liver masses increase in size with few new lesions, abnormal repeat properitoneal lymph nodes increase in size with Ms. In trick stranding and mesenteric mass question of additions involving small bowel segment secondary to mesenteric abnormality above findings are suggestive of progression of metastatic disease is also sclerotic lesion S1 vertebra new since prior study, patient is now being admitted to [facility] with a diagnosis of left lower extremity cellulitis and abdominal pain likely related to progression of metastatic disease, urinalysis unremarkable ?normal WBC and normal renal function and electrolytes. Hospital course 56-year-old gentleman with past medical history significant for metastatic neuro endocrine tumor being followed by Dr. Glover, history of major depressive disorder, recently seen at [place] [facility] and treated for left leg cellulitis with Bactrim finished 1 week course of antibiotic patient has also been seen couple times in the ER for leg pain presented to [facility] due to chronic lower extremity pain worse on left lower extremity as well as associated abdominal pain and mild nausea. ?Left lower extremity cellulitis patient admitted to medical floor treated with IV doxycycline Doppler study showed no DVT,, blood cultures times 24 hour showed no growth, since all redness and swelling has significantly improved patient is being discharged home on by mouth we doxycycline for total 1 week treatment. ? In regard to?Abdominal pain/ scrotal pain,?recent scrotal ultrasound showed no intratesticular abnormality, small epididymal cysts bilaterally and very small bilateral hydrocele was noted, since CT abdomen showed progression of underlying neuroendocrine tumor case discussed with Dr. Glover she recommended outpatient follow-up with her, patient tolerating diet with no nausea vomiting moving bowels, he has been strongly recommended to abstain from illicit drug use and to follow-up with PCP and Oncology History of epilepsy patient had a brief episode of seizure his Dilantin level was less than 0.5 , head CT was obtained that showed no acute abnormality patient evaluated by Dr. Cotton he recommend to continue Dilantin Patient has been strongly advised compliance with home medication , spoke with family and informed them about seizure episode. history of major depression patient recommend to continue home medication Abilify, Trileptal, phenytoin, and Seroquel. Time Spent with Patient Time attestation: Total time spent providing and/or coordinating discharge services: Discharge coordination time: Greater than 30 minutes Quality: Safe Use of Opioids Does Pt have an Active Cancer Diagnosis on the Problem List?: No Quality: Stroke Does the patient have a stroke diagnosis?: No Physical Exam Vital Signs: Vital Signs: Last Vital Signs Temp 97.3 F 11/14/21 11:10 Pulse 67 11/14/21 11:10 Resp 17 11/14/21 11:10 BP 155/87 H 11/14/21 11:10 Pulse Ox 96 11/14/21 11:10 BMI result Body Mass Index 24.7 Const: Other: General? awake alert resting comfortably no acute distress HEENT PERRLA, extraocular muscles intact Neck supple, no JVD. CVS? regular rate rhythm, Respiratory lungs clear to auscultation, no respiratory distress, no wheeze, no rhonchi. Gastrointestinal abdomen soft,? tenderness left lower quadrant with deep palpation, bowel sounds audible, no guarding , no rigidity. Extremities? no redness or swelling both lower extremities , mild hyperemia left lower extremity resolved Neuro nonfocal ?psych appropriate affect DS: Data Data Completed and Pending Labs on day of discharge: Laboratory Results - last 24 hr 11/13/21 11/13/21 11/13/21 12:51 15:19 16:35 Stool Occult Blood NEGATIVE Phenytoin Chlam trachomat DNA PCR NOT DETECTED COVID-19 ([facility]) Negative COVID-19 Clin Com See Note N.gonorrhoeae DNA (PCR) NOT DETECTED 11/14/21 03:08 Stool Occult Blood Phenytoin < 0.5 L* Chlam trachomat DNA PCR COVID-19 ([facility]) COVID-19 Clin Com N.gonorrhoeae DNA (PCR) Preliminary micro results at discharge 11/13/21 12:17 Blood Culture - Preliminary Blood - Venous No growth after 24 hours. 11/13/21 12:14 Blood Culture - Preliminary Blood - Venous No growth after 24 hours. Discharge Plan Discharge Patient Disposition: Home, Self-Care Discharge Diagnosis: Left lower extremity cellulitis Referrals: Physician,Unknown J [Primary Care Provider] - 1 Week Discharge Medications: New doxycycline hyclate 100 mg capsule 100 mg PO BID Qty: 10 0RF Continued multivitamin [Daily-Qi] Tablet 1 tab PO DAILY 0RF atorvastatin 10 mg tablet 1 tab PO BEDTIME 0RF quetiapine 200 mg tablet 1 tab PO BEDTIME 0RF trazodone 100 mg tablet 100 - 200 mg PO BEDTIME PRN (Reason: Insomnia) 0RF pantoprazole 40 mg tablet,delayed release (DR/EC) 1 tab PO DAILY 0RF gabapentin 300 mg capsule 1 cap PO TID 0RF loratadine 10 mg tablet 1 tab PO DAILY 0RF aripiprazole 10 mg tablet 1 tab PO DAILY 0RF phenytoin sodium extended 100 mg capsule 200 mg PO DAILY 0RF phenytoin sodium extended 100 mg capsule 300 mg PO BEDTIME 0RF oxcarbazepine 150 mg Tablet 450 mg PO BID Qty: 80 0RF Discharge Orders: Discharge Order (Routine); Ordered 11/14/21 Ordered By: Licha Marroquin Diet: advance to usual diet Activity on Discharge: As tolerated Stand Alone Forms: Patient Portal Discharge page Care Plan Goals: take all seizure medications, as prescribed, do not skip dose of Dilantin, take doxycycline 1 tablet twice daily for 5 more days for left lower extremity infection Health Concerns: Take all home medications as prescribed Plan of Treatment: Follow-up with primary care physician and Dr. Glover call to make an appointment in next 1-2 weeks Assessment: As per dc summary Patient Instructions: Cellulitis (ED), Leg Edema (ED)
== END 2021-11-14 16:08 | disposition home or self-care (01) | DRG 603 ==
LOC: HO.ED 16:38 → HO.EDOVER 17:33 → HO.S3 19:22
PROVIDERS: Hospitalist; Physician Assistant; Admitting Provider Hospitalist; Emergency Provider Emergency Medicine; PCP Family Medicine; Visit Provider Hospitalist
DX: L03.116 Cellulitis of left lower limb (principal); F33.2 Major depressive disorder, recurrent severe without psychotic features; C7A.8 Other malignant neuroendocrine tumors; G40.909 Epilepsy, unspecified, not intractable, without status epilepticus; F17.210 Nicotine dependence, cigarettes, uncomplicated; Z71.6 Tobacco abuse counseling; Z20.822 Contact with and (suspected) exposure to COVID-19; Z91.14 Patient's other noncompliance with medication regimen; Z88.0 Allergy status to penicillin; Z88.5 Allergy status to narcotic agent; Z88.6 Allergy status to analgesic agent; Z91.013 Allergy to seafood; Z79.899 Other long term (current) drug therapy
CPT/HCPCS: 36415; 70470; 71045; 74177; 80048; 80076; 80185; 81003; 82272; 83605; 83690; 83735; 83880; 84484; 85025; 87040; 87491; 87591; 87635; 93005; 93970; 96365; 96375; 99285; J0696; J1650; J1940; Q9967

== ENCOUNTER 2021-11-25 22:39 | Emergency (ER) | payer MEDICARE, MEDICAID, SELFPAY ==
[2021-11-25 22:42] VITALS: BP 150/80; PULSE 80; O2SAT 99
[2021-11-25 22:44] VITALS: BP 136/76; PULSE 84; RESP 18; TEMP 36.9; O2SAT 96; BMI 25.0
--- NOTE | 2021-11-25 23:22 | PC.NURSE ---
pt was walking around the ed used the phone mulitple times to call his mom then pt walked out just as he was being called into the ed.
== END 2021-11-25 23:24 | disposition left against medical advice (07) ==
LOC: HO.ED 23:24
PROVIDERS: Emergency Provider Emergency Medicine
DX: M79.605 Pain in left leg (principal); R10.2 Pelvic and perineal pain
CPT/HCPCS: 12002; 99281; 99282; 99283

== ENCOUNTER 2021-12-11 08:23 | Inpatient (IN) | payer MEDICARE, MEDICAID, SELFPAY ==
[2021-12-11] VITALS (9 sets, daily range): BP systolic 127–165; BP diastolic 64–87; PULSE 69–90; RESP 16–20; TEMP 36.5–37.4; O2SAT 94–99; BMI 24.3
--- NOTE | 2021-12-11 | ECG_ITS ---
Test Reason : PRE ADMISSION Blood Pressure : / mmHG Vent. Rate : 078 BPM Atrial Rate : 078 BPM P-R Int : 140 ms QRS Dur : 078 ms QT Int : 384 ms P-R-T Axes : 062 058 055 degrees QTc Int : 437 ms Normal sinus rhythm Normal ECG When compared with ECG of 13-NOV-2021 11:03, Sinus rhythm has replaced Ectopic atrial rhythm Referred By: Ham Guerrero Electronically Signed By:COLLIN SAENZ MD
--- NOTE | ~2021-12-11 | CT_ITS ---
EXAMINATION: CT ABDOMEN AND PELVIS WITHOUT CONTRAST CLINICAL INFORMATION: Carcinoid tumor. Abdominal pain. Rule out obstruction. COMPARISON: Ileus CT of the abdomen and pelvis most recent November 2021 TECHNIQUE: Multidetector volumetric imaging was performed from the superior aspect of the liver through the pubic symphysis. Sagittal and coronal reformatted images were obtained on the technologist's workstation. This CT examination was performed using dose optimization techniques as appropriate, variously including the following: *Automated exposure control *Adjustment of mA and/or kV according to patient size (this includes techniques or standardized protocols for targeted exams where dose is matched to indication/reason for exam; i.e. extremities or head) *Use of iterative reconstruction technique DLP: 545 mGy-cm FINDINGS: LUNG BASES: There is an enlarged right cardiophrenic angle or anterior diaphragmatic lymph node axial image 7 series 3 that is stable. There is a nodule along the diaphragmatic pleural surface axial image 8 series 3 that is stable. LIVER, GALLBLADDER, AND BILIARY TREE: The liver is enlarged. There are multiple low-attenuation liver lesions. These are difficult to compare with recent exam without contrast are probably not appreciably changed. Largest lesions measure 8 cm in the anterior segment of the right lobe of the liver and 5 cm in the lateral segment of the left lobe of the liver. The gallbladder is normal. There is no biliary duct dilatation. PANCREAS: Unremarkable. SPLEEN: There is a small peripheral calcification likely representing capsular calcification of. The spleen is otherwise unremarkable. ADRENAL GLANDS: Unremarkable. KIDNEYS AND URETERS: The kidneys are normal in size, shape, and attenuation. No hydronephrosis, hydroureter, or calculi seen. No perinephric stranding. BLADDER: Unremarkable. GASTROINTESTINAL TRACT: There are no dilated loops of bowel to suggest obstruction. There are fluid-filled loops of proximal large bowel. There are postsurgical changes to the right lower quadrant and postsurgical changes of the small bowel. There is question of a fluid collection in the right lower quadrant. This measures 3 cm axial image 62 series 3. It is uncertain whether this is related to a fluid-filled loop of bowel or could represent a loculated fluid collection or abscess or potentially lead. There is no evidence of free air. ABDOMINAL WALL: There is diffuse anasarca. No hernia. LYMPH NODES: Difficult to evaluate without contrast. There is retroperitoneal lymphadenopathy, not appreciably changed. Largest zach masses difficult to separate from the adjacent vessels at the level of the renal amanda. There are small small bowel mesentery lymph nodes. Largest zach masses at the root of the small bowel mesentery measuring 1.4 x 2.4 cm axial image 38 series 3. There is diffuse edema of the small bowel mesentery. There is a extensive bilateral inguinal adenopathy. There are small retroperitoneal lymph nodes in the pelvis as well. This does not appear appreciably changed. There is also some question of a peritoneal nodularity, particular for example adjacent to the left posterior pararenal fascia axial image 30 series 3. VASCULAR: Not optimally evaluated without contrast. Mild atherosclerotic disease. PELVIC VISCERA: Unremarkable. OSSEOUS STRUCTURES: There are degenerative changes of the spine. CT/CT abdomen pelvis wo con IMPRESSION: No dilated loops of bowel to suggest obstruction. Fluid-filled loops of proximal right colon. Question 3 cm fluid collection adjacent to the cecum. Appearance is questionable for abscess. This could be better evaluated with oral contrast to separate this from possible distended fluid-filled loop of bowel. Enlarged liver and a stable liver lesions. Stable adenopathy and abnormal appearance to the small bowel mesentery. Diffuse anasarca. Fleischner guidelines were followed.
--- NOTE | ~2021-12-11 | US_ITS ---
EXAMINATION: US SCROTUM CLINICAL INFORMATION: Pain. COMPARISON: 10/30/2021 TECHNIQUE: A sonogram of the scrotum was performed assessing perez-scale appearance and color Doppler flow. Spectral Doppler analysis of the arterial and venous flow were performed in the testes bilaterally. FINDINGS: RIGHT: Right testicle measures 4.2 x 2.2 x 3 cm, volume 14.4 mL. No focal testicular parenchymal lesions are visualized. Spectral Doppler analysis of the arterial and venous flow is normal in the right testis. Right epididymal head is normal in size. 0.6 cm epididymal head cyst noted. No right hydrocele or varicocele is seen. Right epididymal Doppler flow is normal. LEFT: Left testicle measures 3.8 x 1.7 x 2.6 cm, volume 8.7 mL. No focal testicular parenchymal lesions are visualized. Small cyst in the left testicle. Small calcification noted. Spectral Doppler analysis of the arterial and venous flow is normal in the left testis. Left epididymal head is normal in size. No left hydrocele is seen. There is a small varicocele. Left epididymal Doppler flow is normal. US/US scrotum doppler IMPRESSION: No testicular torsion or mass. Small left varicocele.
--- NOTE | ~2021-12-11 | US_ITS ---
EXAMINATION: US SCROTUM CLINICAL INFORMATION: Pain. COMPARISON: 10/30/2021 TECHNIQUE: A sonogram of the scrotum was performed assessing perez-scale appearance and color Doppler flow. Spectral Doppler analysis of the arterial and venous flow were performed in the testes bilaterally. FINDINGS: RIGHT: Right testicle measures 4.2 x 2.2 x 3 cm, volume 14.4 mL. No focal testicular parenchymal lesions are visualized. Spectral Doppler analysis of the arterial and venous flow is normal in the right testis. Right epididymal head is normal in size. 0.6 cm epididymal head cyst noted. No right hydrocele or varicocele is seen. Right epididymal Doppler flow is normal. LEFT: Left testicle measures 3.8 x 1.7 x 2.6 cm, volume 8.7 mL. No focal testicular parenchymal lesions are visualized. Small cyst in the left testicle. Small calcification noted. Spectral Doppler analysis of the arterial and venous flow is normal in the left testis. Left epididymal head is normal in size. No left hydrocele is seen. There is a small varicocele. Left epididymal Doppler flow is normal. US/US scrotum IMPRESSION: No testicular torsion or mass. Small left varicocele.
--- NOTE | ~2021-12-11 | US_ITS ---
EXAMINATION: US VENOUS ULTRASOUND WITH DOPPLER LOWER EXTREMITY, BILATERAL CLINICAL INFORMATION: Edema COMPARISON: November 13, 2021 TECHNIQUE: Ultrasound of the deep veins is performed from the hip to the calf with compression sonography and color and pulse Doppler assessment. Spectral analysis with color-flow imaging is performed. FINDINGS: RIGHT: There is normal venous compression and respiratory variation and augmented flow. The visualized common femoral vein, superficial femoral vein, profunda femoral vein, popliteal vein, and the trifurcation region shows no evidence of deep venous thrombosis. There is no significant popliteal fossa cyst. LEFT: There is normal venous compression and respiratory variation and augmented flow. The visualized common femoral vein, superficial femoral vein, profunda femoral vein, popliteal vein, and the trifurcation region shows no evidence of deep venous thrombosis. There is no significant popliteal fossa cyst. Loculated fluid in the popliteal fossa likely Coleman's cyst 2.1 x 3.9 x 2.3 cm. If the patient's symptoms persist, followup ultrasound in 5 days 7 days might be of value to exclude proximal propagation from a non-visualized calf vein. US/US venous duplex LE BI IMPRESSION: No DVT demonstrated in the both lower extremities. Coleman's cyst left popliteal fossa 3.9 x 2.3 x 2.1 cm.
--- NOTE | ~2021-12-11 | CT_ITS ---
EXAMINATION: CT HEAD WITH CONTRAST CLINICAL INFORMATION: Rule out metastases. COMPARISON: Head CT 11/14/2021. TECHNIQUE: Contiguous axial imaging was performed from the skull base to vertex following the administration of 85 mL of Omnipaque [address] examination was performed using dose optimization techniques as appropriate, variously including the following: *Automated exposure control *Adjustment of mA and/or kV according to patient size (this includes techniques or standardized protocols for targeted exams where dose is matched to indication/reason for exam; i.e. extremities or head) *Use of iterative reconstruction technique DLP: 752 mGy-cm FINDINGS: There is no abnormal enhancement. No vasogenic edema is seen. There is no infarct, hemorrhage, or extra-axial fluid collection. There is no mass effect. The ventricular caliber appears normal without hydrocephalus. The dural venous sinuses are normally opacified. An indeterminate metal fragment is seen partially embedded within the left frontal skull. The calvarium is intact. No destructive lesions are seen. CT/CT head/brain w con IMPRESSION: No abnormal intracranial enhancement. No evidence of intracranial metastasis.
--- NOTE | 2021-12-11 09:02 | ED_ITS ---
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 Glover as an outpatient for his metastatic disease. Patient mainly came in for pain control. Related Data Home Medications Medication Instructions Recorded Confirmed aripiprazole 10 mg tablet 1 tab PO DAILY 10/25/20 11/27/21 atorvastatin 10 mg tablet 1 tab PO BEDTIME 10/25/20 11/27/21 gabapentin 300 mg capsule 1 cap PO TID 10/25/20 11/27/21 loratadine 10 mg tablet 1 tab PO DAILY 10/25/20 11/27/21 multivitamin (Daily-Qi) 1 tab PO DAILY 10/25/20 11/27/21 pantoprazole 40 mg tablet,delayed 1 tab PO DAILY 10/25/20 11/27/21 release quetiapine 200 mg tablet 1 tab PO BEDTIME 10/25/20 11/27/21 trazodone 100 mg tablet 100 - 200 mg PO BEDTIME PRN 10/25/20 11/27/21 phenytoin sodium extended 100 mg 200 mg PO DAILY 05/10/21 11/27/21 capsule phenytoin sodium extended 100 mg 300 mg PO BEDTIME 05/10/21 11/27/21 capsule Previous Rx's Medication Instructions Recorded oxcarbazepine 150 mg tablet 450 mg PO BID #80 tab 05/15/21 Allergies Allergy/AdvReac Type Severity Reaction Status Date / Time Penicillins Allergy Mild RASH Verified 11/25/21 22:44 Seafood Allergy Mild RASH Verified 11/25/21 22:44 diazepam [From VALIUM] Allergy Unknown ACTS OUT Verified 11/25/21 22:44 penicillin V Allergy Unknown anaphylaxis Verified 11/25/21 22:44 ibuprofen [From MOTRIN] AdvReac Mild RASH Verified 11/25/21 22:44 Morphine AdvReac Severe Unknown Uncoded 11/25/21 22:44 Review of Systems Review of Systems: All other systems are reviewed and are negative Constitutional: Reports as per HPI and Reports no additional constitutional complaints Eyes: Reports as per HPI and Reports no additional eye complaints Reports system reviewed and no additional complaints, except as documented Cardiovascular: Reports as per HPI and Reports no additional cardiovascular complaints Respiratory: Reports as per HPI and Reports no additional respiratory complaints Gastrointestinal: Reports as per HPI and Reports no additional gastrointestinal complaints Genitourinary: Reports no additional female genitourinary complaints Musculoskeletal: Reports no additional musculoskeletal complaints Skin/Breast: Reports system reviewed and no additional complaints, except as docu Psychiatric: Reports no additional psychiatric complaints Endocrine: Reports no additional endocrine complaints Hematologic/Lymphatic: Reports no additional hematologic/lymphatic complaints Allergic/Immunologic: Reports no additional allergic/immunologic complaints Reports system reviewed and no additional complaints, except as documented and Reports Abnormal speech present PMFSH Past Medical History Medical History Epilepsy Family hx of colon cancer Hx of head injury MDD (major depressive disorder), recurrent episode, severe Metastatic disease Surgical History History of surgery on wrist Hx of knee surgery Family History Family History Paternal Grandmother Cancer Social History Social History Household Members: Family Housing: House Are you a primary date night caregiver to a significant other at home: No Do you presently have visiting nurse or other home services: No Unable to assess alcohol history related to: Unknown Alcohol intake: unknown Patient Tobacco Use Status: Tobacco use Unknown Tobacco use type: Cigarette Cigarette Packs Per Day: 1 Cigarettes Per Day: 5 Years Smoked: 37 e-Cigarette/Vaping Use: Never Used Second Hand Smoke Exposure: Yes Use of substances other than those prescribed or required for medical reasons: Unknown Substance Use Type: Crack/Cocaine and Marijuana Advance Directives: No Advance Directives Information Provided: No Advance Directives Date on File: 11/13/21 service: No Current occupational status: disabled Sexual orientation: Straight/Heterosexual Physical Exam Vital Signs: Vital Signs: Last Vital Signs Temp 98.5 F 12/11/21 15:08 Pulse 86 12/11/21 15:08 Resp 20 12/11/21 15:08 BP 144/83 H 12/11/21 15:08 Pulse Ox 94 12/11/21 15:08 BMI result Body Mass Index 24.3 Vital signs have been reviewed as appeared to be correct. Blood pressure normal. Heart rate normal. Respiration rate normal. Temperature normal. Oxygen saturation normal. Appearance: Alert. Oriented X3. No acute distress. Head: Normal external exam. Normocephalic. Atraumatic. No Chou signs noted. No raccoon eyes noted Eyes: PERRLA. EOMI. Conjunctiva and sclera normal. Eyelids normal. ENT: TM's Normal. Pharynx normal. Uvula midline. Moist mucous membranes. No trismus noted. No drooling noted. No muffled voice noted. Neck: Normal inspection. Neck supple. FROM. No adenopathy. Thyroid Normal. No meningeal signs. No neck mass noted. CVS: Normal heart rate and rhythm. Heart sound normal. No murmurs noted. Pulses normal throughout. Respiratory: No respiratory distress. Painless inspiration. Breath sounds normal. No wheezes/rales/rhonchi noted. Chest nontender. No accessory muscle usage noted or decreased air movement noted. Abdomen: Soft and nontender. Bowel sounds normal in all 4 quadrants. No distention noted. No organomegaly noted. No visible injury noted. Back: No CVA tenderness. Full range of motion noted. Skin: Skin warm and dry. Normal skin color. Normal skin turgor. No rashes/lesions/lacerations noted. Extremities: Bilateral lower extremities edema, left lower extremities with area of redness, hotness, tenderness mostly on the anterior aspect of the left chin. Neuro: Oriented X 3. Cranial nerve exam: II-XII are grossly intact No motor deficit. No sensory deficit. Reflexes normal. Course Course Course Narrative: Assessment and plan. 56 years old male with history metastatic neuroendocrine tumor, came in with severe pain secondary to the cancer, and diffuse swelling in bilateral lower extremities was left lower extremity cellulitis. 1. CT of the abdomen pelvis was reviewed with Dr. Saha thought that right lower quadrant mass is not an abscess could be part of the diffuse lymphedema. 2. Left lower extremities cellulitis no severe sepsis or septic shock, was given doxycycline. 3. Pain control. [facility] - Male Genitourinary Medical Records Attestation: I reviewed the patient's medical records. Lab Data Attestation: I reviewed the patient's lab results. Result diagrams: 12/11/21 09:48 12/11/21 09:48 Labs: Lab Results 12/11/21 12/11/21 12/11/21 Range/Units 09:48 09:48 09:48 WBC 6.5 (4.8-10.8) X10*3/uL RBC 4.79 (4.60-5.80) X10*6/uL Hgb 15.3 (14.0-18.0) g/dl Hct 45.7 (42.0-52.0) % MCV 95.4 (80.0-98.0) fL MCH 31.9 (27.0-33.0) pg MCHC 33.5 (31.0-36.0) g/dl RDW 13.1 (11.0-16.0) % Plt Count 284 (160-400) X10*3/uL MPV 9.3 L (9.4-12.4) fL Immature Gran % (Auto) 0.2 (0.0-0.4) % Neut % (Auto) 63.0 (45-73) % Lymph % (Auto) 20.3 (20-40) % [place] % (Auto) 12.5 H (2-11) % Eos % (Auto) 3.1 (0-4) % Baso % (Auto) 0.9 (0-2) % Lymph # (Auto) 1.3 (1.2-4.9) X10*3/uL [place] # (Auto) 0.8 (0.1-1.2) X10*3/uL Eos # (Auto) 0.2 (0.0-0.4) X10*3/uL Baso # (Auto) 0.1 (0.0-0.2) X10*3/uL Abs Immat Gran (auto) 0.01 (0.00-0.03) X10*3/uL Absolute Neuts (auto) 4.1 (2.0-8.3) x10*3/uL Absolute Nucleated RBC 0.000 (0.0-0.012) X10*3/uL Nucleated RBC % (auto) 0.0 (0.0-0.2) /100WBC Sodium 139 (135-145) mmol/L Potassium 4.7 (3.3-5.1) mmol/L Chloride 103 (96-108) mmol/L Carbon Dioxide 27 (22-29) mmol/L Anion Gap 14 (12-20) BUN 12 (9-16) mg/dL Creatinine 0.89 (0.5-1.4) mg/dL Estim Creat Clear Calc 89.6 Estimated GFR > 60 Random Glucose 75 D (60-115) mg/dL Lactic Acid 0.9 (0.5-2.0) mmol/L Calcium 9.3 (8.4-10.2) mg/dL Total Bilirubin 0.2 (0.0-1.0) mg/dL Direct Bilirubin < 0.2 (0.0-0.5) mg/dL AST 23 (5-37) U/L ALT 16 (0-40) U/L Alkaline Phosphatase 114 (39-117) U/L Total Protein 7.8 (6.5-8.0) g/dL Albumin 4.4 (3.5-5.0) g/dL Lipase 30 (8-78) U/L Urine Color Urine Appearance Urine pH (5.0-8.0) Ur Specific [place] (1.005-1.025) Urine Protein (NEG-TRACE) MG/DL Urine Glucose (UA) (NEG) MG/DL Urine Ketones (NEG) MG/DL Urine Blood (NEG) Urine Nitrite (NEG) Ur Leukocyte Esterase (NEG) 12/11/21 Range/Units 09:48 WBC (4.8-10.8) X10*3/uL RBC (4.60-5.80) X10*6/uL Hgb (14.0-18.0) g/dl Hct (42.0-52.0) % MCV (80.0-98.0) fL MCH (27.0-33.0) pg MCHC (31.0-36.0) g/dl RDW (11.0-16.0) % Plt Count (160-400) X10*3/uL MPV (9.4-12.4) fL Immature Gran % (Auto) (0.0-0.4) % Neut % (Auto) (45-73) % Lymph % (Auto) (20-40) % [place] % (Auto) (2-11) % Eos % (Auto) (0-4) % Baso % (Auto) (0-2) % Lymph # (Auto) (1.2-4.9) X10*3/uL [place] # (Auto) (0.1-1.2) X10*3/uL Eos # (Auto) (0.0-0.4) X10*3/uL Baso # (Auto) (0.0-0.2) X10*3/uL Abs Immat Gran (auto) (0.00-0.03) X10*3/uL Absolute Neuts (auto) (2.0-8.3) x10*3/uL Absolute Nucleated RBC (0.0-0.012) X10*3/uL Nucleated RBC % (auto) (0.0-0.2) /100WBC Sodium (135-145) mmol/L Potassium (3.3-5.1) mmol/L Chloride (96-108) mmol/L Carbon Dioxide (22-29) mmol/L Anion Gap (12-20) BUN (9-16) mg/dL Creatinine (0.5-1.4) mg/dL Estim Creat Clear Calc Estimated GFR Random Glucose (60-115) mg/dL Lactic Acid (0.5-2.0) mmol/L Calcium (8.4-10.2) mg/dL Total Bilirubin (0.0-1.0) mg/dL Direct Bilirubin (0.0-0.5) mg/dL AST (5-37) U/L ALT (0-40) U/L Alkaline Phosphatase (39-117) U/L Total Protein (6.5-8.0) g/dL Albumin (3.5-5.0) g/dL Lipase (8-78) U/L Urine Color YELLOW Urine Appearance CLEAR Urine pH 6.0 (5.0-8.0) Ur Specific [place] 1.010 (1.005-1.025) Urine Protein NEG (NEG-TRACE) MG/DL Urine Glucose (UA) NEG (NEG) MG/DL Urine Ketones NEG (NEG) MG/DL Urine Blood NEG (NEG) Urine Nitrite NEG (NEG) Ur Leukocyte Esterase NEG (NEG) Imaging Data CT scan - abdomen: Attestation: I personally reviewed and interpreted this imaging study as follows: Radiologist's impression: No dilated loops of bowel to suggest obstruction. Fluid-filled loops of proximal right colon. Question 3 cm fluid collection adjacent to the cecum. Appearance is questionable for abscess. This could be better evaluated with oral contrast to separate this from possible distended fluid-filled loop of bowel. Enlarged liver and a stable liver lesions. Stable adenopathy and abnormal appearance to the small bowel mesentery. Diffuse anasarca. Left lower extremities venous Doppler: Radiologist's impression: No DVT demonstrated in the both lower extremities. ? Coleman's cyst left popliteal fossa 3.9 x 2.3 x 2.1 cm. Discharge Plan Discharge Clinical Impression: Cellulitis, Anasarca Patient Disposition: Admitted As Inpatient
[2021-12-11 09:59] LABS: MANUAL DIFF FLAG NO
[2021-12-11 10:00] LABS: Appearance Urine CLEAR; Basophils Absolute Auto 0.1 X10*3/uL (0.0-0.2); Basophils Percent Auto 0.9 % (0-2); Color Urine YELLOW; Eosinophils Absolute Auto 0.2 X10*3/uL (0.0-0.4); Eosinophils Percent Auto 3.1 % (0-4); Glucose Urine UA NEG (NEG); Hematocrit 45.7 % (42.0-52.0); Hemoglobin 15.3 g/dl (14.0-18.0); Imm Gran Abs Auto 0.01 X10*3/uL (0.00-0.03); Imm Gran Pct Auto 0.2 % (0.0-0.4); Leukocyte Esterase Urine NEG (NEG); Lymphocytes Absolute Auto 1.3 X10*3/uL (1.2-4.9); Lymphocytes Percent Auto 20.3 % (20-40); Mean Corpuscular HGB Conc 33.5 g/dl (31.0-36.0); Mean Corpuscular Hemoglobin 31.9 pg (27.0-33.0); Mean Corpuscular Volume 95.4 fL (80.0-98.0); Mean Platelet Volume 9.3 fL (9.4-12.4); Monocytes Absolute Auto 0.8 X10*3/uL (0.1-1.2); Monocytes Percent Auto 12.5 % (2-11); Neutrophils Absolute Auto 4.1 x10*3/uL (2.0-8.3); Nitrite Urine NEG (NEG); Platelet Count 284 X10*3/uL (160-400); Red Blood Count 4.79 X10*6/uL (4.60-5.80); Red Cell Distribution Width 13.1 % (11.0-16.0); Urine Blood NEG (NEG); Urine Ketones NEG (NEG); Urine Protein NEG (NEG-TRACE); White Blood Count 6.5 X10*3/uL (4.8-10.8)
[2021-12-11] MEDS: HYDROmorphone HCl 1 MG/ML SYRINGE IVPUSH ×2 (10:01→12:02)
[2021-12-11] MEDS: 0.9 % Sodium Chloride 1,000 ML 999 ML IV (10:02)
[2021-12-11] MEDS: Doxycycline Hyclate 100 MG in 0.9 % Sodium Chloride 250 ML 166.67 MG IV (10:07)
[2021-12-11 10:18] LABS: Lactic Acid 0.9 mmol/L (0.5-2.0)
[2021-12-11 10:33] LABS: Alanine Aminotransferase 16 U/L (0-40); Albumin Level 4.4 g/dL (3.5-5.0); Alkaline Phosphatase 114 U/L (39-117); Anion Gap 14 (12-20); Aspartate Amino Transferase 23 U/L (5-37); Bilirubin Direct < 0.2 mg/dL (0.0-0.5); Bilirubin Total 0.2 mg/dL (0.0-1.0); Blood Urea Nitrogen 12 mg/dL (9-16); Calcium 9.3 mg/dL (8.4-10.2); Carbon Dioxide 27 mmol/L (22-29); Chloride 103 mmol/L (96-108); Creatinine Clr Calc Pharmacy 89.6; Estimated Glomerular Filt Rate > 60; Glucose Random 75 mg/dL (60-115); Lipase 30 U/L (8-78); Potassium 4.7 mmol/L (3.3-5.1); Sodium 139 mmol/L (135-145); Total Protein 7.8 g/dL (6.5-8.0)
--- NOTE | 2021-12-11 10:48 | PC.NURSE ---
Patient arrives complaining of testicular/groin pain. Appears uncomfortable. Able to void in urinal. I established and labs drawn. Hung NS 1L, Doxcycline, and administered Dilaudid. Patient reports pain improved but then came back. made aware. Will continue to monitor.
--- NOTE | 2021-12-11 14:14 | P.CONGS_ITS ---
History of Present Illness Consult details Consult date: 12/11/21 Narrative: 56-year-old male patient with history of metastatic carcinoid tumor initially identified in 2014 with evidence of liver metastasis and diffuse abdominal spread presenting today with bilateral lower extremity redness and swelling. The swelling has been present for several months but appears to be increasing in severity. The swelling also includes the penis and testicle. He apparently initially complained of abdominal pain although currently denies any abdominal pain. He is being followed by Dr. Glover from [facility]. He denies nausea, vomiting, or constipation. He is not currently on treatment for the carcinoid. A CT of the abdomen and pelvis revealed a possible fluid collection in the right lower quadrant which may either be an abscess verses and a loop of bowel. Multiple enlarged inguinal lymph nodes were noted as well. Review of Systems Constitutional: Constitutional: Reports body ache(s), Denies chills, Denies fever(s) and Reports weight gain ENT: Denies epistaxis Cardiovascular: Cardiovascular: Denies chest pain and Denies palpitations Respiratory: Respiratory: Denies chest congestion, Denies cough and Denies hemoptysis Gastrointestinal: Gastrointestinal: Denies abdominal pain, Denies hematochezia, Denies constipation and Denies diarrhea Musculoskeletal: Musculoskeletal: Reports as per HPI Endocrine: Endocrine: Denies palpitations Hematologic/Lymphatic: Hematologic/Lymphatic: Reports lymphadenopathy PMFSH Past Medical History Medical History Epilepsy Family hx of colon cancer Hx of head injury MDD (major depressive disorder), recurrent episode, severe Metastatic carcinoid tumor Metastatic disease Family History Family History Paternal Grandmother Cancer Surgical History Surgical History History of surgery on wrist Hx of knee surgery Social History Social History Household Members: Family Housing: House Are you a primary hospice spiritual care coordinator to a significant other at home: No Do you presently have visiting nurse or other home services: No Unable to assess alcohol history related to: Unknown Alcohol intake: unknown Patient Tobacco Use Status: Tobacco use Unknown Tobacco use type: Cigarette Cigarette Packs Per Day: 1 Cigarettes Per Day: 5 Years Smoked: 37 e-Cigarette/Vaping Use: Never Used Second Hand Smoke Exposure: Yes Substance Use Type: Crack/Cocaine and Marijuana Advance Directives Date on File: 11/13/21 service: No Current occupational status: disabled Sexual orientation: Straight/Heterosexual Meds Allergies Allergy/AdvReac Type Severity Reaction Status Date / Time Penicillins Allergy Mild RASH Verified 11/25/21 22:44 Seafood Allergy Mild RASH Verified 11/25/21 22:44 diazepam [From VALIUM] Allergy Unknown ACTS OUT Verified 11/25/21 22:44 penicillin V Allergy Unknown anaphylaxis Verified 11/25/21 22:44 ibuprofen [From MOTRIN] AdvReac Mild RASH Verified 11/25/21 22:44 Morphine AdvReac Severe Unknown Uncoded 11/25/21 22:44 Home Medications Medication Instructions Recorded Confirmed Last Taken Type aripiprazole 10 mg tablet 1 tab PO DAILY 10/25/20 12/11/21 12/11/21 History atorvastatin 10 mg tablet 1 tab PO BEDTIME 10/25/20 12/11/21 12/10/21 History gabapentin 300 mg capsule 1 cap PO TID 10/25/20 12/11/21 12/11/21 History loratadine 10 mg tablet 1 tab PO DAILY 10/25/20 12/11/21 12/11/21 History multivitamin (Daily-Qi) 1 tab PO DAILY 10/25/20 12/11/21 12/11/21 History pantoprazole 40 mg tablet,delayed 1 tab PO DAILY 10/25/20 12/11/21 12/11/21 History release quetiapine 200 mg tablet 1 tab PO BEDTIME 10/25/20 12/11/21 12/10/21 History trazodone 100 mg tablet 200 mg PO BEDTIME PRN 10/25/20 12/11/21 12/10/21 History phenytoin sodium extended 100 mg 200 mg PO DAILY 05/10/21 12/11/21 12/11/21 History capsule phenytoin sodium extended 100 mg 300 mg PO BEDTIME 05/10/21 12/11/21 12/10/21 History capsule famotidine 20 mg tablet 20 mg PO DAILY 12/11/21 12/11/21 12/11/21 History fluticasone propionate 50 2 spray INTRANASAL DAILY 12/11/21 12/11/21 12/11/21 History mcg/actuation nasal spray,suspension lactulose 10 gram/15 mL oral 30 ml PO BID 12/11/21 12/11/21 12/11/21 History solution oxcarbazepine 300 mg tablet 450 mg PO BID 12/11/21 12/11/21 12/11/21 History Physical Exam Vital Signs: Vital Signs: Last Vital Signs Temp 98.6 F 12/11/21 14:11 Pulse 76 12/11/21 14:11 Resp 16 12/11/21 14:11 BP 141/64 H 12/11/21 14:11 Pulse Ox 95 12/11/21 14:11 BMI result Body Mass Index 24.3 Const: General: no acute distress and well developed Nutritional Appearance: well nourished Orientation/consciousness: patient oriented x3 Limitations: no limitations HEENT: Head: Yes normocephalic and Yes atraumatic Ears: hearing grossly normal bilaterally Resp: Effort & Inspection: normal respiratory effort, no audible wheezes, no cough and no respiratory distress GI: Inspection: Yes normal to inspection Palpation (GI): Soft to palpation, nontender, no guarding, not rigid and No Ascites present Percussion: Yes normal to percussion : Other: Scrotal and penile edema Skin: General skin exam: no rashes or lesions noted Neuro: General: patient oriented x3 Extrem: Other: Bilateral lower extremity edema left greater than right with pitting edema suggestive of lymphedema. There is slight redness in the skin especially on the left side. No abscess or ulceration appreciated. Results Labs Result diagrams: 12/11/21 09:48 12/11/21 09:48 Labs: Abnormal lab results 12/11/21 Range/Units 09:48 MPV 9.3 L (9.4-12.4) fL [place] % (Auto) 12.5 H (2-11) % Short CBC 12/11/21 Range/Units 09:48 WBC 6.5 (4.8-10.8) X10*3/uL Hgb 15.3 (14.0-18.0) g/dl Hct 45.7 (42.0-52.0) % Plt Count 284 (160-400) X10*3/uL BMP 12/11/21 09:48 Sodium 139 Potassium 4.7 Chloride 103 Carbon Dioxide 27 BUN 12 Creatinine 0.89 Calcium 9.3 Liver Function 12/11/21 Range/Units 09:48 Total Bilirubin 0.2 (0.0-1.0) mg/dL Direct Bilirubin < 0.2 (0.0-0.5) mg/dL AST 23 (5-37) U/L ALT 16 (0-40) U/L Alkaline Phosphatase 114 (39-117) U/L Albumin 4.4 (3.5-5.0) g/dL Urine 12/11/21 Range/Units 09:48 Urine Color YELLOW Urine Appearance CLEAR Urine pH 6.0 (5.0-8.0) Ur Specific [place] 1.010 (1.005-1.025) Urine Protein NEG (NEG-TRACE) MG/DL Urine Glucose (UA) NEG (NEG) MG/DL All other labs normal. Assessment and Plan (1) Metastatic carcinoid tumor: Status: Acute (2) Cellulitis: Status: Acute (3) Lymphedema: Status: Acute Plan Unfortunate 56-year-old male patient with a known history of carcinoid tumor with metastatic disease with bilateral lower extremity lymphedema with cellulitis. Lymphedema is most likely due to the inguinal lymphadenopathy. Patient should be measured for compression stockings. I also recommended leg elevation as much as possible with no prolonged standing or sitting with legs dependent. No surgical intervention is recommended at this time. Procedures Date of Service Date of Service: 12/11/21
--- NOTE | 2021-12-11 14:37 | PC.NURSE ---
Dr. Chu at bedside to evaluate patient and discuss plan of care with seismic interpreter and with Dr. Brown. Patient to be admitted. Edema remains in legs up to groin/testicles/penis. Per Dr. Brown ok for patient to eat, gave crackers and water and ordered a lunch tray. Patient is agreeable to plan. Patient appears comfortable at this time. Respirations regular and even. Awaiting admission orders.
[2021-12-11 15:46] LABS: C Reactive Protein 1.93 mg/dL (< or = 0.50)
--- NOTE | 2021-12-11 15:49 | P.HPHOSP_ITS ---
History of Present Illness Date of Service: 12/11/21 Chief Complaint: leg infection This history was taken in [place] from the patient. 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 He was treated with IV doxycycline and discharged on PO doxycycline for 1 week. Since then, he says he has not really improved and in fact the redness and spread to his right leg as well. He complains of redness, swelling, and pain to both legs. No drainage of water or pus. He has fallen a couple of times. He endorses subjective fever and chills but no nausea or vomiting. No chest pain. No dyspnea. Complains of abdominal pain and distension. In the ED, bilateral leg Dopplers were negative for DVT. CT A/P showed a possible 3 cm fluid collection adjacent to the cecum questionable for abscess; general surgery consult is pending. He was given 1 dose of IV doxycycline along with IV hydromorphone for pain. Review of Systems Review of Systems: Yes all other systems are reviewed and are negative PMFSH Medical History Epilepsy Family hx of colon cancer Hx of head injury MDD (major depressive disorder), recurrent episode, severe Metastatic disease Family History Paternal Grandmother Cancer Surgical History History of surgery on wrist Hx of knee surgery Social History Household Members: Family Housing: House Are you a primary lawn care worker to a significant other at home: No Do you presently have visiting nurse or other home services: No Unable to assess alcohol history related to: Unknown Alcohol intake: unknown Patient Tobacco Use Status: Tobacco use Unknown Tobacco use type: Cigarette Cigarette Packs Per Day: 1 Cigarettes Per Day: 5 Years Smoked: 37 e-Cigarette/Vaping Use: Never Used Second Hand Smoke Exposure: Yes Use of substances other than those prescribed or required for medical reasons: Unknown Substance Use Type: Crack/Cocaine and Marijuana Advance Directives: No Advance Directives Information Provided: No Advance Directives Date on File: 11/13/21 service: No Current occupational status: disabled Sexual orientation: Straight/Heterosexual Meds Allergies Allergy/AdvReac Type Severity Reaction Status Date / Time Penicillins Allergy Mild RASH Verified 11/25/21 22:44 Seafood Allergy Mild RASH Verified 11/25/21 22:44 diazepam [From VALIUM] Allergy Unknown ACTS OUT Verified 11/25/21 22:44 penicillin V Allergy Unknown anaphylaxis Verified 11/25/21 22:44 ibuprofen [From MOTRIN] AdvReac Mild RASH Verified 11/25/21 22:44 Morphine AdvReac Severe Unknown Uncoded 11/25/21 22:44 Active Medications: Current Medications Levofloxacin (Levaquin) 750 mg in 150 mls @ 100 mls/hr IV Q24H [facility] Pharmacy Consult (Consult Rx Perform Med Rec) 1 each MISCELLANE STAT STA Stop: 12/11/21 15:13 Pharmacy Consult (Consult Rx Vancomycin Dosing) 1 each MISCELLANE DAILY [facility] Home Medications Medication Instructions Recorded Confirmed Last Taken Type aripiprazole 10 mg tablet 1 tab PO DAILY 10/25/20 11/27/21 11/13/21 History atorvastatin 10 mg tablet 1 tab PO BEDTIME 10/25/20 11/27/21 11/12/21 History gabapentin 300 mg capsule 1 cap PO TID 10/25/20 11/27/21 11/13/21 History loratadine 10 mg tablet 1 tab PO DAILY 10/25/20 11/27/21 11/13/21 History multivitamin (Daily-Qi) 1 tab PO DAILY 10/25/20 11/27/21 11/13/21 History pantoprazole 40 mg tablet,delayed 1 tab PO DAILY 10/25/20 11/27/21 11/13/21 History release quetiapine 200 mg tablet 1 tab PO BEDTIME 10/25/20 11/27/21 11/12/21 History trazodone 100 mg tablet 100 - 200 mg PO BEDTIME PRN 10/25/20 11/27/21 Unknown History phenytoin sodium extended 100 mg 200 mg PO DAILY 05/10/21 11/27/21 11/13/21 Hi story capsule phenytoin sodium extended 100 mg 300 mg PO BEDTIME 05/10/21 11/27/21 11/12/21 History capsule Physical Exam Vital Signs and Narrative: Vital Signs: Last Vital Signs Temp 98.5 F 12/11/21 15:08 Pulse 86 12/11/21 15:08 Resp 20 12/11/21 15:08 BP 144/83 H 12/11/21 15:08 Pulse Ox 94 12/11/21 15:08 BMI result Body Mass Index 24.3 Gen: in no acute distress HEENT: sclera anicteric, moist mucus membranes Neck: supple Lungs: clear to auscultation bilaterally Heart: regular rate and rhythm, no murmurs Abd: soft, distended, diffuse tenderness Ext: extensive bilateral erythema, induration, and tenderness worst in the L priest Skin: warm/well-perfused Neuro: alert and oriented x3, no focal findings Psych: appropriate affect Results Labs CBC and Chem 7: 12/11/21 09:48 12/11/21 09:48 Labs: Laboratory Results - last 24 hr 12/11/21 12/11/21 12/11/21 09:48 09:48 09:48 MCV 95.4 MCH 31.9 MCHC 33.5 RDW 13.1 Plt Count 284 MPV 9.3 L Immature Gran % (Auto) 0.2 Neut % (Auto) 63.0 Lymph % (Auto) 20.3 [place] % (Auto) 12.5 H Eos % (Auto) 3.1 Baso % (Auto) 0.9 Lymph # (Auto) 1.3 [place] # (Auto) 0.8 Eos # (Auto) 0.2 Baso # (Auto) 0.1 Abs Immat Gran (auto) 0.01 Absolute Neuts (auto) 4.1 Absolute Nucleated RBC 0.000 Nucleated RBC % (auto) 0.0 Anion Gap 14 Estim Creat Clear Calc 89.6 Estimated GFR > 60 Random Glucose 75 D Lactic Acid 0.9 Calcium 9.3 Total Bilirubin 0.2 Direct Bilirubin < 0.2 AST 23 ALT 16 Alkaline Phosphatase 114 C-Reactive Protein 1.93 H Total Protein 7.8 Albumin 4.4 Lipase 30 Urine Color Urine Appearance Urine pH Ur Specific [place] Urine Protein Urine Glucose (UA) Urine Ketones Urine Blood Urine Nitrite Ur Leukocyte Esterase 12/11/21 09:48 MCV MCH MCHC RDW Plt Count MPV Immature Gran % (Auto) Neut % (Auto) Lymph % (Auto) [place] % (Auto) Eos % (Auto) Baso % (Auto) Lymph # (Auto) [place] # (Auto) Eos # (Auto) Baso # (Auto) Abs Immat Gran (auto) Absolute Neuts (auto) Absolute Nucleated RBC Nucleated RBC % (auto) Anion Gap Estim Creat Clear Calc Estimated GFR Random Glucose Lactic Acid Calcium Total Bilirubin Direct Bilirubin AST ALT Alkaline Phosphatase C-Reactive Protein Total Protein Albumin Lipase Urine Color YELLOW Urine Appearance CLEAR Urine pH 6.0 Ur Specific [place] 1.010 Urine Protein NEG Urine Glucose (UA) NEG Urine Ketones NEG Urine Blood NEG Urine Nitrite NEG Ur Leukocyte Esterase NEG Imaging Radiologist's Impressions: Impressions Abdomen/Pelvis CT 12/11/21 10:33 IMPRESSION: No dilated loops of bowel to suggest obstruction. Fluid-filled loops of proximal right colon. Question 3 cm fluid collection adjacent to the cecum. Appearance is questionable for abscess. This could be better evaluated with oral contrast to separate this from possible distended fluid-filled loop of bowel. Enlarged liver and a stable liver lesions. Stable adenopathy and abnormal appearance to the small bowel mesentery. Diffuse anasarca. Fleischner guidelines were followed. Venous Duplex 12/11/21 12:43 IMPRESSION: No DVT demonstrated in the both lower extremities. Coleman's cyst left popliteal fossa 3.9 x 2.3 x 2.1 cm. Assessment and Plan (1) Cellulitis: Status: Acute Plan 56yo M with metastatic neuroendocrine tumor, epilepsy, and depression who was admitted here nearly 1 month ago for LLE cellulitis and treated with doxycycline; presenting with worsening swelling, redness, and tenderness now involving both legs # non-resolving cellulitis involving >50% of both legs - admit to M/S, give IV vancomycin + levofloxacin, follow BCx, consult ID # epilepsy - continue oxcarbazepine + phenytoin. notably, pt had seizure during last admission and phenytoin level was subtherapeutic, attributed to nonadherence # depression - continue aripiprazole, quetiapine + trazodone # metastatic neuroendocrine tumor - last saw Dr Glover 11/27/21; planned biopsy of liver lesions, consideration of octreotide therapy vs. lutetium # hx cocaine abuse - check Utox # VTE ppx - LMWH # code - full I anticipate that the patient will stay at least 2 midnights in hospital due to the above reasons. It is not reasonable or safe to care for them in a less acute setting. Quality Stroke Does the patient have a stroke diagnosis?: No VTE Prior VTE?: No VTE Risk Level:: Medical - moderate - high VTE Device Contraindication: Procedure Contraindicated VTE Drug Contraindication: N/A - Med Ordered
[2021-12-11 15:55] LABS: COVID-19 Test Negative (Negative)
[2021-12-11] MEDS: 0.9 % Sodium Chloride Flush 3 ML SYRINGE IVFLUSH (16:09)
--- NOTE | 2021-12-11 16:19 | PHA.MEDREC ---
Pharmacy Consult ? Medication Reconciliation Pharmacy has completed the medication reconciliation.
--- NOTE | 2021-12-11 16:21 | PC.NURSE ---
Pt alert and oriented x4, calm and cooperative. Denies pain at this time. Denies nausea or vomiting. Pt asking for coffee and food. Pt tolerating PO liquids well at this time. IV in left arm intact flushing without issues. Vitals stable. Pt educated on plan of care on being admitted and stated an understanding. Call x1 to give report to 3rd floor, waiting for call back now.
--- NOTE | 2021-12-11 16:23 | PHA.PROG ---
Admission Date/Time: December 11, 2021 15:46 Indication: SKIN AND SKIN STRUCTURE Weight in k.575 kg Adjusted body weight in Kg: [place] body weight in K Obesity Dosing Indication % IBW: Serum Creatinine - Last 168 Hours 12/11/21 09:48 Creatinine 0.89 Estimated CrCl and GFR - Last 168 Hours 12/11/21 09:48 Estim Creat Clear Calc 89.6 Estimated GFR > 60 Vancomycin Loading Dose: 1500 Current Vancomycin Dosing Regimen:1 G [id number] Vancomycin Monitoring using AUC goal of 400 - 600 range with trough as surrogate marker:531 Date and Time for next Vancomycin Level to be drawn:12/13/21 0400 Pharmacist Comments on Vancomycin Plan: Vancomycin dosing will take advantage of PetMD as a clinical decision support tool that uses Bayesian modeling to calculate individual patient's pharmacokinetic parameters and forecast the patient's drug concentration time course with the target goal AUC 24 range of 400 - 600 mg/L/hr.
[2021-12-11] MEDS: HYDROmorphone HCl 0.5 MG/0.5 ML SYRINGE IVPUSH ×3 (16:37→20:32)
[2021-12-11 17:01] LABS: Amphetamine Screen Urine Not Detected (Not Detect); Barbiturates, Urine Not Detected (Not Detect); Benzodiazepines Screen Urine Not Detected (Not Detect); Cannabinoid Screen Urine POSITIVE (Not Detect); Cocaine Screen Urine POSITIVE (Not Detect); Fentanyl, urine Not Detected (Not Detect); Opiate Screen Urine Not Detected (Not Detect); Phencyclidine Screen Urine Not Detected (Not Detect)
[2021-12-11] MEDS: Enoxaparin Sodium 40 MG/0.4 ML SYRINGE SUBCUT (17:24)
[2021-12-11] MEDS: vancomycin HCL 1,500 MG in 0.9 % Sodium Chloride 500 ML 333.33 MG IV (17:25)
[2021-12-11] MEDS: levoFLOXacin/D5W 750 MG/150 ML PIGGYBACK 100 MG IV (18:56)
--- NOTE | 2021-12-11 22:08 | PM.EVENT ---
Event Note Date of Service: 12/11/21 Event Note: Seizures: Patient had 2 episodes of seizures around 20:30 to 21:00 Did not have loss of consciousness, urinary incontinence or tongue biting. Tonic clonic episodes. First episode lasted 20 seconds 2nd episode lasted for 1 minute. Patient was postictal tired. Patient reports he last took his phenytoin prior to coming to the hospital. Will resume patient's phenytoin and oxcarbazepine. Will obtain phenytoin levels Patient also mentioned that he does not like phenytoin-makes him feel sick. Wanted to change to different antiepileptic agent. Neurology consult for further recommendations. Ativan p.r.n. for seizures
[2021-12-11 23:12] LABS: Phenytoin Dilantin 3.2 ug/mL (10.0-20.0)
[2021-12-12] VITALS (7 sets, daily range): BP systolic 145–176; BP diastolic 77–90; PULSE 70–84; RESP 17–20; TEMP 36.1–37; O2SAT 93–98
[2021-12-12] MEDS: HYDROmorphone HCl 0.5 MG/0.5 ML SYRINGE IVPUSH ×3 (00:55→12:07)
[2021-12-12] MEDS: vancomycin HCL 1,000 MG in 0.9 % Sodium Chloride 250 ML 270 MG IV ×2 (05:50→18:15)
[2021-12-12] MEDS: Omeprazole 20 MG CAPSULE.DR PO (05:50)
[2021-12-12 06:27] LABS: Hematocrit 41.5 % (42.0-52.0); Hemoglobin 13.8 g/dl (14.0-18.0); Mean Corpuscular HGB Conc 33.3 g/dl (31.0-36.0); Mean Corpuscular Hemoglobin 31.4 pg (27.0-33.0); Mean Corpuscular Volume 94.5 fL (80.0-98.0); Mean Platelet Volume 9.4 fL (9.4-12.4); Platelet Count 247 X10*3/uL (160-400); Red Blood Count 4.39 X10*6/uL (4.60-5.80); Red Cell Distribution Width 12.9 % (11.0-16.0); White Blood Count 7.3 X10*3/uL (4.8-10.8)
[2021-12-12 06:42] LABS: Anion Gap 12 (12-20); Blood Urea Nitrogen 10 mg/dL (9-16); Calcium 8.5 mg/dL (8.4-10.2); Carbon Dioxide 24 mmol/L (22-29); Chloride 104 mmol/L (96-108); Creatinine Clr Calc Pharmacy 103.6; Estimated Glomerular Filt Rate > 60; Glucose Random 77 mg/dL (60-115); Potassium 4.4 mmol/L (3.3-5.1); Sodium 136 mmol/L (135-145)
--- NOTE | 2021-12-12 07:09 | HE.PHANOTE ---
RE TIGIST: CONTINUE CURRENT DOSE OF 1 GRAM Q12H. Slight imporvement in scr. next trough scheduled for 12/13 @0400
[2021-12-12] MEDS: ARIPiprazole 10 MG TABLET PO (07:58)
[2021-12-12] MEDS: Phenytoin Sodium Extended 100 MG CAPSULE 200 MG PO (07:58)
[2021-12-12] MEDS: OXcarbazepine 150 MG TABLET 450 MG PO ×2 (07:58→19:46)
[2021-12-12] MEDS: Gabapentin 300 MG CAPSULE PO ×3 (07:58→19:46)
[2021-12-12] MEDS: Multivitamin TABLET 1 TAB PO (07:59)
[2021-12-12] MEDS: 0.9 % Sodium Chloride Flush 3 ML SYRINGE IVFLUSH ×3 (07:59→19:48)
--- NOTE | 2021-12-12 09:50 | P.CDIC_ITS ---
CDI Concurrent Query Documentation Clarification: PHYSICIAN'S DOCUMENTATION REQUEST Date of Query: 12/12/21 0951 Patient Name: Rosendo Pedroza Admit Date: 12/11/21 Dear Doctor, A review of the medical record indicates additional documentation may be needed. Please review below and update the documentation accordingly. Risk Factors/Clinical Indicators/Treatments Per MD progress note 12/11/21: 2 episodes seizures, tonic clonic episodes, no loss of consciousness, urinary incontinence or tongue biting. To resume Phenytoin?and Oxycarbazepine, to obtain Phenytoin level and Neurology consult, Ativan prn seizure If possible, please further clarify in the Progress Notes, the type/etiology, acuity and control status of seizure(s): Specify type/etiology: * Idiopathic * Febrile (specify simple or complex) * Due to stroke * Post-traumatic * Due to external cause (specify if drug, alcohol, stress, etc.) * Absence * Generalized epilepsy (grand mal, myoclonic, atonic, clonic, tonic-clonic, etc.) * Focal or partial (specify simple or complex) * Petit mal * Recurrent - further specify type/etiology * Other * Unable to determine Specify acuity: * With status epilepticus * Without status epilepticus * Other * Unable to determine Specify control status: * Well controlled * Intractable * Pharmacoresistant * Poorly controlled * Refractory * Treatment resistant * Other * Unable to determine Use of terms such as suspected, likely, concern for, or probable (associated with a specific diagnosis that is being evaluated, monitored, or treated as if it exists) are acceptable and can be coded in the inpatient setting, when documented at the time of discharge. Thank you, Shy Bee RN Extension: [phone] Please use your independent medical judgment in providing your response. THIS QUERY IS PART OF THE PERMANENT MEDICAL RECORD Provider Response: Other Other Diagnosis: generalized sz, breakthrough
--- NOTE | 2021-12-12 09:50 | MHC.CDI.CONC ---
CDI Concurrent Query Documentation Clarification: PHYSICIAN'S DOCUMENTATION REQUEST Date of Query: 12/12/21 0951 Patient Name: Rosendo Pedroza Admit Date: 12/11/21 Dear Doctor, A review of the medical record indicates additional documentation may be needed. Please review below and update the documentation accordingly. Risk Factors/Clinical Indicators/Treatments Per MD progress note 12/11/21: 2 episodes seizures, tonic clonic episodes, no loss of consciousness, urinary incontinence or tongue biting. To resume Phenytoin?and Oxycarbazepine, to obtain Phenytoin level and Neurology consult, Ativan prn seizure If possible, please further clarify in the Progress Notes, the type/etiology, acuity and control status of seizure(s): Specify type/etiology: Idiopathic Febrile (specify simple or complex) Due to stroke Post-traumatic Due to external cause (specify if drug, alcohol, stress, etc.) Absence Generalized epilepsy (grand mal, myoclonic, atonic, clonic, tonic-clonic, etc.) Focal or partial (specify simple or complex) Petit mal Recurrent - further specify type/etiology Other Unable to determine Specify acuity: With status epilepticus Without status epilepticus Other Unable to determine Specify control status: Well controlled Intractable Pharmacoresistant Poorly controlled Refractory Treatment resistant Other Unable to determine Use of terms such as suspected, likely, concern for, or probable (associated with a specific diagnosis that is being evaluated, monitored, or treated as if it exists) are acceptable and can be coded in the inpatient setting, when documented at the time of discharge. Thank you, Shy Bee RN Extension: [phone] Please use your independent medical judgment in providing your response. THIS QUERY IS PART OF THE PERMANENT MEDICAL RECORD Provider Response: Other Other Diagnosis: generalized sz, breakthrough
--- NOTE | 2021-12-12 12:13 | HO.PM.IMPN ---
Subjective Subjective Date of Service: 12/12/21 Interval History: This history was taken in Greek from the patient. Pt had 2 generalized sz last night. Phenytoin level low. Leg swelling/redness improved. No fever. Pt admits cocaine abuse. Review of Systems Review of Systems: Yes all other systems are reviewed and are negative Physical Exam Vital Signs: Vital Signs: Last Vital Signs Temp 98.1 F 12/12/21 11:51 Pulse 82 12/12/21 11:51 Resp 18 12/12/21 11:51 BP 173/84 H 12/12/21 11:51 Pulse Ox 98 12/12/21 11:51 BMI result Body Mass Index 24.3 Gen: in no acute distress HEENT: sclera anicteric, moist mucus membranes Neck: supple Lungs: clear to auscultation bilaterally Heart: regular rate and rhythm, no murmurs Abd: soft, distended, diffuse tenderness Ext: leg erythema/induration markedly improved Skin: warm/well-perfused Neuro: alert and oriented x3, no focal findings Psych: appropriate affect Objective Data Active Medications Acetaminophen (Acetaminophen 325 Mg Tablet) 650 mg PO Q6H PRN PRN Reason: Pain, Mild (Pain Scale 1-3) Aripiprazole (Aripiprazole 10 Mg Tablet) 10 mg PO DAILY [facility] Last Admin: 12/12/21 07:58 Dose: 10 mg Documented by: VALENTINA Atorvastatin Calcium (Atorvastatin Calcium 10 Mg Tablet) 10 mg PO BEDTIME [facility] Enoxaparin Sodium (Enoxaparin Sodium 40 Mg/0.4 Ml Syringe) 40 mg SUBCUT Q24H [facility] Last Admin: 12/11/21 17:24 Dose: 40 mg Documented by: FREDERICK Gabapentin (Gabapentin 300 Mg Capsule) 300 mg PO TID [facility] Last Admin: 12/12/21 07:58 Dose: 300 mg Documented by: VALENTINA Hydromorphone HCl (Hydromorphone Hcl 0.5 Mg/0.5 Ml Syringe) 0.5 mg IVPUSH Q4H PRN; Protocol PRN Reason: severe pain Last Admin: 12/12/21 12:07 Dose: 0.5 mg Documented by: VALENTINA Levofloxacin (Levaquin) 750 mg in 150 mls @ 100 mls/hr IV Q24H [facility] Last Infusion: 12/11/21 21:34 Dose: 0 mls/hr Documented by: ANJANA Vancomycin HCl 1,000 mg/ (Sodium Chloride) 270 mls @ 270 mls/hr IV Q12H [facility] Last Infusion: 12/12/21 08:04 Dose: 0 mls/hr Documented by: VALENTINA Lorazepam (Lorazepam 2 Mg/Ml Vial) 1 mg IVPUSH Q2H PRN PRN Reason: Seizures Multivitamins/Vitamin C (Multivitamin Tablet) 1 tab PO DAILY [facility] Last Admin: 12/12/21 07:59 Dose: 1 tab Documented by: VALENTINA Omeprazole (Omeprazole 20 Mg Capsule.) 20 mg PO DAILY@0630 [facility] Last Admin: 12/12/21 05:50 Dose: 20 mg Documented by: ANJANA Ondansetron HCl (Ondansetron Hcl 4 Mg/2 Ml Vial) 4 mg IVPUSH Q8H PRN PRN Reason: Nausea and Vomiting Oxcarbazepine (Oxcarbazepine 150 Mg Tablet) 450 mg PO BID [facility] Last Admin: 12/12/21 07:58 Dose: 450 mg Documented by: VALENTINA Pharmacy Consult (Consult Rx Vancomycin Dosing) 1 each MISCELLANE DAILY [facility] Phenytoin Sodium (Phenytoin Sodium Extended 100 Mg Capsule) 200 mg PO DAILY [facility] Last Admin: 12/12/21 07:58 Dose: 200 mg Documented by: VALENTINA Phenytoin Sodium (Phenytoin Sodium Extended 100 Mg Capsule) 300 mg PO BEDTIME [facility] Sodium Chloride (0.9 % Sodium Chloride Flush 3 Ml Syringe) 3 ml IVFLUSH QSHIFT [facility] Last Admin: 12/12/21 07:59 Dose: 3 ml Documented by: VALENTINA Trazodone HCl (Trazodone Hcl 100 Mg Tablet) 200 mg PO BEDTIME PRN PRN Reason: Insomnia Labs CBC & Chem 7: 12/12/21 05:37 12/12/21 05:37 Labs: Laboratory Results - last 24 hr 12/11/21 12/11/21 12/11/21 09:48 15:28 16:34 MCV MCH MCHC RDW Plt Count MPV Absolute Nucleated RBC Nucleated RBC % (auto) Anion Gap Estim Creat Clear Calc Estimated GFR Random Glucose Calcium C-Reactive Protein 1.93 H Urine Opiates Screen Not Detected Urine Fentanyl Screen Not Detected Ur Barbiturates Screen Not Detected Phenytoin Ur Phencyclidine Scrn Not Detected Ur Amphetamines Screen Not Detected U Benzodiazepines Scrn Not Detected Urine Cocaine Screen POSITIVE H U Marijuana (THC) Screen POSITIVE H COVID-19 (MELLISA) Negative COVID-19 Clin Com See Note 12/11/21 12/12/21 12/12/21 22:37 05:37 05:37 MCV 94.5 MCH 31.4 MCHC 33.3 RDW 12.9 Plt Count 247 MPV 9.4 Absolute Nucleated RBC 0.000 Nucleated RBC % (auto) 0.0 Anion Gap 12 Estim Creat Clear Calc 103.6 Estimated GFR > 60 Random Glucose 77 Calcium 8.5 D C-Reactive Protein Urine Opiates Screen Urine Fentanyl Screen Ur Barbiturates Screen Phenytoin 3.2 L* Ur Phencyclidine Scrn Ur Amphetamines Screen U Benzodiazepines Scrn Urine Cocaine Screen U Marijuana (THC) Screen COVID-19 (MELLISA) COVID-19 Clin Com Microbiology Microbiology Results: Microbiology 12/11/21 10:06 Blood Culture - Preliminary Blood - Venous No growth after 24 hours. 12/11/21 09:49 Blood Culture - Preliminary Blood - Venous No growth after 24 hours. Assessment and Plan (1) Cellulitis: Status: Acute (2) Cocaine abuse: Status: Acute (3) Generalized seizure: Status: Acute Plan hospital d#2 56yo M with metastatic neuroendocrine tumor, epilepsy, and depression who was admitted here nearly 1 month ago for LLE cellulitis and treated with doxycycline; presenting with worsening swelling, redness, and tenderness now involving both legs; had breakthrough seizure # breakthrough generalized sz - Neuro consult, continue phenytoin + oxcarbazepine, sz precautions # non-resolving cellulitis involving >50% of both legs - d#2 levofloxacin + vancomycin, ID consult pending, follow BCx # depression - continue aripiprazole, quetiapine + trazodone # metastatic neuroendocrine tumor - last saw Dr Glover 11/27/21; planned biopsy of liver lesions, consideration of octreotide therapy vs. lutetium # cocaine abuse - CARE Team consult, HBV/HCV/HIV screening, counseling against abuse given health risks # VTE ppx - LMWH In my clinical judgment, the patient requires continued hospitalization for the following reasons: IV abx, sz Quality Stroke Does the patient have a stroke diagnosis?: No VTE Prior VTE?: No VTE Risk Level:: Medical - moderate - high VTE Device Contraindication: Procedure Contraindicated VTE Drug Contraindication: N/A - Med Ordered
[2021-12-12] MEDS: levoFLOXacin/D5W 750 MG/150 ML PIGGYBACK 100 MG IV (16:36)
[2021-12-12] MEDS: Enoxaparin Sodium 40 MG/0.4 ML SYRINGE SUBCUT (16:37)
[2021-12-12] MEDS: HYDROmorphone HCl 1 MG/ML SYRINGE IVPUSH ×2 (17:26→21:30)
[2021-12-12] MEDS: Phenytoin Sodium Extended 100 MG CAPSULE 300 MG PO (19:46)
[2021-12-12] MEDS: QUEtiapine Fumarate 200 MG TABLET PO (19:47)
[2021-12-12] MEDS: Acetaminophen 325 MG TABLET 650 MG PO (19:47)
[2021-12-12] MEDS: Atorvastatin Calcium 10 MG TABLET PO (19:47)
[2021-12-12] MEDS: Lactulose 20 GM/30 ML SOLUTION PO (19:48)
[2021-12-12] MEDS: oxyCODONE HCl Immed Release 5 MG TABLET 10 MG PO (19:48)
[2021-12-13] VITALS (8 sets, daily range): BP systolic 131–168; BP diastolic 74–91; PULSE 60–89; RESP 16–20; TEMP 36.5–37.4; O2SAT 94–97
[2021-12-13] MEDS: HYDROmorphone HCl 1 MG/ML SYRINGE IVPUSH ×5 (04:02→22:29)
[2021-12-13 04:38] LABS: Hematocrit 39.1 % (42.0-52.0); Hemoglobin 13.2 g/dl (14.0-18.0); Mean Corpuscular HGB Conc 33.8 g/dl (31.0-36.0); Mean Corpuscular Hemoglobin 31.7 pg (27.0-33.0); Mean Platelet Volume 10.2 fL (9.4-12.4); Platelet Count 229 X10*3/uL (160-400); Red Blood Count 4.16 X10*6/uL (4.60-5.80); Red Cell Distribution Width 12.8 % (11.0-16.0); White Blood Count 6.7 X10*3/uL (4.8-10.8)
[2021-12-13 04:59] LABS: Anion Gap 14 (12-20); Blood Urea Nitrogen 11 mg/dL (9-16); C Reactive Protein 0.44 mg/dL (< or = 0.50); Calcium 8.5 mg/dL (8.4-10.2); Carbon Dioxide 23 mmol/L (22-29); Chloride 105 mmol/L (96-108); Creatinine Clr Calc Pharmacy 102.3; Estimated Glomerular Filt Rate > 60; Glucose Random 83 mg/dL (60-115); Potassium 4.2 mmol/L (3.3-5.1); Sodium 138 mmol/L (135-145)
[2021-12-13 05:05] LABS: Vancomycin Random 8.2 mcg/mL (15-20)
--- NOTE | 2021-12-13 05:08 | MHC.PIE ---
p; vanco trough 8.2 i; dr lópez notified e; will cont to monitor
[2021-12-13] MEDS: vancomycin HCL 1,000 MG in 0.9 % Sodium Chloride 250 ML 270 MG IV (06:26)
[2021-12-13] MEDS: oxyCODONE HCl Immed Release 5 MG TABLET 10 MG PO ×3 (06:26→16:46)
[2021-12-13] MEDS: Omeprazole 20 MG CAPSULE.DR PO (06:26)
[2021-12-13] MEDS: Acetaminophen 325 MG TABLET 650 MG PO ×2 (06:26→12:12)
[2021-12-13 06:48] LABS: HBS Num1 0.86 mIU/mL (0-7.99); HBc Num1 0.11 S/CO (0.00-0.79); HBsAGNum1 0.18 S/CO (0.00-0.99); HIV AB/AG Nonreactive (Nonreactive); HIV Num 1 0.07 S/CO (0.00-0.99); Hepatitis B Core Antibody Nonreactive (Nonreactive); Hepatitis B Surface Antigen Negative (Negative); ~Hepatitis B Surface Antibody NONREACTIVE (Nonreactive); ~Hepatitis C Antibody Nonreactive (Nonreactive)
--- NOTE | 2021-12-13 07:44 | MHC.CM.PN ---
LATE ENTRY NOTE FOR 12/12/21, IMM 12/12/21, EMR REVIEWED, PT ADMITTED W/UNRESOLVED CELLULITIS, CM MET W/PT VIA [facility], PT REPORTS HE LIVES W/HIS MOM, WALKS W/A CANE AND DENIES USE OF ANY OTHER DME, PT HAS DAILY BOLT MAKER THROUGH [facility] HOWEVER DOES NOT RECALL HOW MANY HRS, PT VERIFIES PCP IS PETER MOSLEY, HCP IS PT'S MOTHER ANNEMARIE [phone] AND SISTER JUNITO [phone], COVID VACC X3, PT DOES NOT RECALL WHICH VACCINE HE RECEIVED. D/C PLAN: HOME W/RESUP OF [facility]EV[facility] DAILY [employer], FAMILY FOR TRANSPORT.
[2021-12-13] MEDS: ARIPiprazole 10 MG TABLET PO (08:50)
[2021-12-13] MEDS: Phenytoin Sodium Extended 100 MG CAPSULE 200 MG PO (08:50)
[2021-12-13] MEDS: Multivitamin TABLET 1 TAB PO (08:51)
[2021-12-13] MEDS: OXcarbazepine 150 MG TABLET 450 MG PO ×2 (08:51→20:29)
[2021-12-13] MEDS: Gabapentin 300 MG CAPSULE PO ×3 (08:51→20:29)
[2021-12-13] MEDS: Lactulose 20 GM/30 ML SOLUTION PO ×2 (08:51→20:29)
[2021-12-13] MEDS: 0.9 % Sodium Chloride Flush 3 ML SYRINGE IVFLUSH ×3 (08:52→20:29)
--- NOTE | 2021-12-13 09:44 | HE.PHANOTE ---
RE Elizabeth Increase dose to 1250 mg q12, new auc 475, trough 12. Last trough was @ 8.2. Next trough is 12/14 @1600
--- NOTE | 2021-12-13 10:00 | HO.PM.IMPN ---
Subjective Subjective Date of Service: 12/13/21 Interval History: This history was taken in Turkmen from the patient. no further sz leg infection improving c/o abd pain Review of Systems Review of Systems: Yes all other systems are reviewed and are negative Physical Exam Vital Signs: Vital Signs: Last Vital Signs Temp 98.1 F 12/13/21 07:44 Pulse 60 12/13/21 07:44 Resp 18 12/13/21 07:44 BP 159/79 H 12/13/21 07:44 Pulse Ox 95 12/13/21 07:44 BMI result Body Mass Index 24.3 Gen: in no acute distress HEENT: sclera anicteric, moist mucus membranes Neck: supple Lungs: clear to auscultation bilaterally Heart: regular rate and rhythm, no murmurs Abd: soft, distended, diffuse tenderness Ext: leg erythema/induration markedly improved Skin: warm/well-perfused Neuro: alert and oriented x3, no focal findings Psych: appropriate affect Objective Data Active Medications Acetaminophen (Acetaminophen 325 Mg Tablet) 650 mg PO Q6H PRN PRN Reason: Pain, Mild (Pain Scale 1-3) Last Admin: 12/13/21 06:26 Dose: 650 mg Documented by: YAQUELIN Aripiprazole (Aripiprazole 10 Mg Tablet) 10 mg PO DAILY [facility] Last Admin: 12/13/21 08:50 Dose: 10 mg Documented by: BORA Atorvastatin Calcium (Atorvastatin Calcium 10 Mg Tablet) 10 mg PO BEDTIME [facility] Last Admin: 12/12/21 19:47 Dose: 10 mg Documented by: YAQUELIN Enoxaparin Sodium (Enoxaparin Sodium 40 Mg/0.4 Ml Syringe) 40 mg SUBCUT Q24H [facility] Last Admin: 12/12/21 16:37 Dose: 40 mg Documented by: RIMMA Fluticasone Propionate (Fluticasone Propionate Nasal 16 Gm [place]) 2 spray NOSTRIL-B DAILY [facility] Gabapentin (Gabapentin 300 Mg Capsule) 300 mg PO TID [facility] Last Admin: 12/13/21 08:51 Dose: 300 mg Documented by: BORA Hydromorphone HCl (Hydromorphone Hcl 1 Mg/Ml Syringe) 1 mg IVPUSH Q4H PRN; Protocol PRN Reason: severe pain Last Admin: 12/13/21 08:45 Dose: 1 mg Documented by: BORA Levofloxacin (Levaquin) 750 mg in 150 mls @ 100 mls/hr IV Q24H [facility] Last Infusion: 12/12/21 18:07 Dose: 0 mls/hr Documented by: RIMMA Vancomycin HCl 1,250 mg/ (Sodium Chloride) 250 mls @ 166.667 mls/hr IV Q12H [facility] Lactulose (Lactulose 20 Gm/30 Ml Solution) 20 gm PO BID [facility] Last Admin: 12/13/21 08:51 Dose: 20 gm Documented by: BORA Lorazepam (Lorazepam 2 Mg/Ml Vial) 1 mg IVPUSH Q2H PRN PRN Reason: Seizures Multivitamins/Vitamin C (Multivitamin Tablet) 1 tab PO DAILY [facility] Last Admin: 12/13/21 08:51 Dose: 1 tab Documented by: BORA Omeprazole (Omeprazole 20 Mg Capsule.) 20 mg PO DAILY@0630 [facility] Last Admin: 12/13/21 06:26 Dose: 20 mg Documented by: YAQUELIN Ondansetron HCl (Ondansetron Hcl 4 Mg/2 Ml Vial) 4 mg IVPUSH Q8H PRN PRN Reason: Nausea and Vomiting Oxcarbazepine (Oxcarbazepine 150 Mg Tablet) 450 mg PO BID [facility] Last Admin: 12/13/21 08:51 Dose: 450 mg Documented by: BORA Oxycodone HCl (Oxycodone Hcl Immed Release 5 Mg Tablet) 10 mg PO Q4H PRN PRN Reason: moderate pain Last Admin: 12/13/21 06:26 Dose: 10 mg Documented by: YAQUELIN Pharmacy Consult (Consult Rx Vancomycin Dosing) 1 each MISCELLANE DAILY [facility] Phenytoin Sodium (Phenytoin Sodium Extended 100 Mg Capsule) 200 mg PO DAILY [facility] Last Admin: 12/13/21 08:50 Dose: 200 mg Documented by: BORA Phenytoin Sodium (Phenytoin Sodium Extended 100 Mg Capsule) 300 mg PO BEDTIME [facility] Last Admin: 12/12/21 19:46 Dose: 300 mg Documented by: YAQUELIN Quetiapine Fumarate (Quetiapine Fumarate 200 Mg Tablet) 200 mg PO BEDTIME [facility] Last Admin: 12/12/21 19:47 Dose: 200 mg Documented by: YAQUELIN Sodium Chloride (0.9 % Sodium Chloride Flush 3 Ml Syringe) 3 ml IVFLUSH QSHIFT [facility] Last Admin: 12/13/21 08:52 Dose: 3 ml Documented by: BORA Trazodone HCl (Trazodone Hcl 100 Mg Tablet) 200 mg PO BEDTIME PRN PRN Reason: Insomnia Labs CBC & Chem 7: 12/13/21 04:05 12/13/21 04:05 Labs: Laboratory Results - last 24 hr 12/13/21 12/13/21 12/13/21 04:05 04:05 04:05 MCV 94.0 MCH 31.7 MCHC 33.8 RDW 12.8 Plt Count 229 MPV 10.2 Absolute Nucleated RBC 0.000 Nucleated RBC % (auto) 0.0 Anion Gap 14 Estim Creat Clear Calc 102.3 Estimated GFR > 60 Random Glucose 83 Calcium 8.5 C-Reactive Protein 0.44 Random Vancomycin Hep Bs Antigen Negative Hep Bs Antibody NONREACTIVE Hep B Core Total Ab Nonreactive Hepatitis C Ab (EIA) Nonreactive HIV 1&2 Ab/P24 Ag 4thGn Nonreactive 12/13/21 04:05 MCV MCH MCHC RDW Plt Count MPV Absolute Nucleated RBC Nucleated RBC % (auto) Anion Gap Estim Creat Clear Calc Estimated GFR Random Glucose Calcium C-Reactive Protein Random Vancomycin 8.2 L Hep Bs Antigen Hep Bs Antibody Hep B Core Total Ab Hepatitis C Ab (EIA) HIV 1&2 Ab/P24 Ag 4thGn Microbiology Microbiology Results: Microbiology 12/11/21 10:06 Blood Culture - Preliminary Blood - Venous No growth after 24 hours. 12/11/21 09:49 Blood Culture - Preliminary Blood - Venous No growth after 24 hours. Assessment and Plan (1) Cellulitis: Status: Acute (2) Cocaine abuse: Status: Acute (3) Generalized seizure: Status: Acute Plan hospital d#3 56yo M with metastatic neuroendocrine tumor, epilepsy, and depression who was admitted here nearly 1 month ago for LLE cellulitis and treated with doxycycline; presenting with worsening swelling, redness, and tenderness now involving both legs; had breakthrough seizure # non-resolving cellulitis involving >50% of both legs - d#3 levofloxacin + vancomycin, pending ID consult, follow BCx # breakthrough generalized sz 12/11 pm - pending Neuro consult, continue phenytoin + oxcarbazepine, sz precautions # depression - continue aripiprazole, quetiapine + trazodone # metastatic neuroendocrine tumor - last saw Dr Glover 11/27/21; planned biopsy of liver lesions, consideration of octreotide therapy vs. lutetium # chronic CA pain - oxycodone PO + hydromorphone IV # cocaine abuse - CARE Team consult, HBV/HCV/HIV screen negative, counseling against abuse given health risks # VTE ppx - LMWH In my clinical judgment, the patient requires continued hospitalization for the following reasons: IV abx, sz Quality Stroke Does the patient have a stroke diagnosis?: No VTE Prior VTE?: No VTE Risk Level:: Medical - moderate - high VTE Device Contraindication: Procedure Contraindicated VTE Drug Contraindication: N/A - Med Ordered
--- NOTE | 2021-12-13 12:09 | MHC.RECOVRN ---
Met with pt in 352 utilizing die sinker after consult placed to CARE Team for cocaine use. Pt reports using cocaine, $20-$30 daily, [place], x 1 month. Prior to this, pt had not used cocaine. Pt does report marijuana use daily to relax . Pt informed t/w that he would like to completely abstain from cocaine once discharged and does not feel like it will be difficult. Pt has a supportive mother and also finds support in the community. Discussed recovery resources and supports with pt, pt is interested in a job coach/job developer. T/w will arrange to have a project coach meet with him this evening. Provided pt with t/w contact information if needed, denies questions or concerns at this time.
[2021-12-13] MEDS: levoFLOXacin/D5W 750 MG/150 ML PIGGYBACK 100 MG IV (17:12)
[2021-12-13] MEDS: Enoxaparin Sodium 40 MG/0.4 ML SYRINGE SUBCUT (17:19)
--- NOTE | 2021-12-13 18:12 | MHC.RECOVSUP ---
? Reason for consult Recovery Support o Current location: [facility]- o Identified substance use concern: cocaine - Support ? Intervention: o Community resources provided o Harm reduction discussion ? Plan: <del>o</del> <del>Referral</del> <del>to</del> <del>[facility]</del> <del>o</del> <del>Bed</del> <del>search</del> <del>in</del> <del>progress</del> <del>to</del> <del>o</del> <del>Follow</del> <del>up</del> <del>tomorrow</del> <del>o</del> <del>Patient</del> <del>awaiting</del> <del>crisis</del> <del>evaluation</del> o Patient to follow up with HF after discharge ? Additional information: Met with patient we talk about Harm reduction and recovery,and hope for Kody.. client was glad to hear about the center and cant wait to check it out...
[2021-12-13] MEDS: vancomycin HCL 1,250 MG in 0.9 % Sodium Chloride 250 ML 166.67 MG IV (19:32)
[2021-12-13] MEDS: Phenytoin Sodium Extended 100 MG CAPSULE 300 MG PO (20:29)
[2021-12-13] MEDS: QUEtiapine Fumarate 200 MG TABLET PO (20:29)
[2021-12-13] MEDS: Atorvastatin Calcium 10 MG TABLET PO (20:29)
--- NOTE | 2021-12-13 22:48 | W.PM.IDCN ---
History of Present Illness Data of Consult Service Date: 12/13/21 Requesting physician: Ham Guerrero Primary Care Provider: DO VIK Mason Reason for consult: leg swelling,left more than right He presents with discomfort and swelling,bilateral legs with left leg more red. He has no fever or chills. He has no leukocytosis. Review of Systems Review of Systems: Yes all other systems are reviewed and are negative PMFSH Past Medical History Medical History Epilepsy Family hx of colon cancer Hx of head injury MDD (major depressive disorder), recurrent episode, severe Metastatic carcinoid tumor Metastatic disease Family History Family History Paternal Grandmother Cancer Family history: reviewed and not pertinent Surgical History Surgical History History of surgery on wrist Hx of knee surgery Social History Social History Household Members: Family Housing: Apartment Are you a primary rn homecare to a significant other at home: No Do you presently have visiting nurse or other home services: No Unable to assess alcohol history related to: Unknown Alcohol intake: unknown Patient Tobacco Use Status: Current everyday Tobacco user Tobacco use type: Cigarette Cigarette Packs Per Day: 1 Cigarettes Per Day: 5 Years Smoked: 37 Smoked in Last 30 Days: No e-Cigarette/Vaping Use: Never Used Second Hand Smoke Exposure: Yes Use of substances other than those prescribed or required for medical reasons: Unknown Substance Use Type: Marijuana Substance Use Frequency: Occasionally Last Used Substance: Days (ago) Currently Displaying Signs/Symptoms of Drug Intoxication Withdrawal: No Any prior treatment program specific to substance use: No Have you been hit, kicked, punched, or otherwise hurt by someone within the past year? If so, by whom?: No Do you feel safe in your current relationship?: Yes Is there a partner from a previous relationship who is making you feel unsafe now?: No Are you made to feel afraid or neglected: No Buddhism Healthcare Practices: Religious Advance Directives: No Advance Directives Information Provided: No Advance Directives Date on File: 11/13/21 Do you have thoughts of harming others: None Do you have a plan to hurt others: No Plan Recently lost weight without trying: No service: No Current occupational status: disabled Sexual orientation: Straight/Heterosexual Meds Allergies Allergy/AdvReac Type Severity Reaction Status Date / Time Penicillins Allergy Mild RASH Verified 11/25/21 22:44 Seafood Allergy Mild RASH Verified 11/25/21 22:44 diazepam [From VALIUM] Allergy Unknown ACTS OUT Verified 11/25/21 22:44 penicillin V Allergy Unknown anaphylaxis Verified 11/25/21 22:44 ibuprofen [From MOTRIN] AdvReac Mild RASH Verified 11/25/21 22:44 Morphine AdvReac Severe Unknown Uncoded 11/25/21 22:44 Active Medications: Current Medications Acetaminophen (Acetaminophen 325 Mg Tablet) 650 mg PO Q6H PRN PRN Reason: Pain, Mild (Pain Scale 1-3) Last Admin: 12/13/21 12:12 Dose: 650 mg Documented by: Aripiprazole (Aripiprazole 10 Mg Tablet) 10 mg PO DAILY [facility] Last Admin: 12/13/21 08:50 Dose: 10 mg Documented by: Atorvastatin Calcium (Atorvastatin Calcium 10 Mg Tablet) 10 mg PO BEDTIME [facility] Last Admin: 12/13/21 20:29 Dose: 10 mg Documented by: Enoxaparin Sodium (Enoxaparin Sodium 40 Mg/0.4 Ml Syringe) 40 mg SUBCUT Q24H [facility] Last Admin: 12/13/21 17:19 Dose: 40 mg Documented by: Fluticasone Propionate (Fluticasone Propionate Nasal 16 Gm [place]) 2 spray NOSTRIL-B DAILY [facility] Last Admin: 12/13/21 10:15 Dose: Not Given Documented by: Gabapentin (Gabapentin 300 Mg Capsule) 300 mg PO TID [facility] Last Admin: 12/13/21 20:29 Dose: 300 mg Documented by: Hydromorphone HCl (Hydromorphone Hcl 1 Mg/Ml Syringe) 1 mg IVPUSH Q4H PRN; Protocol PRN Reason: severe pain Last Admin: 12/13/21 22:29 Dose: 1 mg Documented by: Levofloxacin (Levaquin) 750 mg in 150 mls @ 100 mls/hr IV Q24H [facility] Last Infusion: 12/13/21 19:13 Dose: Infused Documented by: Vancomycin HCl 1,250 mg/ (Sodium Chloride) 250 mls @ 166.667 mls/hr IV Q12H [facility] Last Infusion: 12/13/21 21:05 Dose: Infused Documented by: Lactulose (Lactulose 20 Gm/30 Ml Solution) 20 gm PO BID [facility] Last Admin: 12/13/21 20:29 Dose: 20 gm Documented by: Lorazepam (Lorazepam 2 Mg/Ml Vial) 1 mg IVPUSH Q2H PRN PRN Reason: Seizures Multivitamins/Vitamin C (Multivitamin Tablet) 1 tab PO DAILY [facility] Last Admin: 12/13/21 08:51 Dose: 1 tab Documented by: Omeprazole (Omeprazole 20 Mg Capsule.Dr) 20 mg PO DAILY@0630 [facility] Last Admin: 12/13/21 06:26 Dose: 20 mg Documented by: Ondansetron HCl (Ondansetron Hcl 4 Mg/2 Ml Vial) 4 mg IVPUSH Q8H PRN PRN Reason: Nausea and Vomiting Oxcarbazepine (Oxcarbazepine 150 Mg Tablet) 450 mg PO BID [facility] Last Admin: 12/13/21 20:29 Dose: 450 mg Documented by: Oxycodone HCl (Oxycodone Hcl Immed Release 5 Mg Tablet) 10 mg PO Q4H PRN PRN Reason: moderate pain Last Admin: 12/13/21 16:46 Dose: 10 mg Documented by: Pharmacy Consult (Consult Rx Vancomycin Dosing) 1 each MISCELLANE DAILY [facility] Phenytoin Sodium (Phenytoin Sodium Extended 100 Mg Capsule) 200 mg PO DAILY [facility] Last Admin: 12/13/21 08:50 Dose: 200 mg Documented by: Phenytoin Sodium (Phenytoin Sodium Extended 100 Mg Capsule) 300 mg PO BEDTIME [facility] Last Admin: 12/13/21 20:29 Dose: 300 mg Documented by: Quetiapine Fumarate (Quetiapine Fumarate 200 Mg Tablet) 200 mg PO BEDTIME [facility] Last Admin: 12/13/21 20:29 Dose: 200 mg Documented by: Sodium Chloride (0.9 % Sodium Chloride Flush 3 Ml Syringe) 3 ml IVFLUSH QSHIFT [facility] Last Admin: 12/13/21 20:29 Dose: 3 ml Documented by: Trazodone HCl (Trazodone Hcl 100 Mg Tablet) 200 mg PO BEDTIME PRN PRN Reason: Insomnia Home Medications Medication Instructions Recorded Confirmed Last Taken Type aripiprazole 10 mg tablet 1 tab PO DAILY 10/25/20 12/11/21 12/11/21 History atorvastatin 10 mg tablet 1 tab PO BEDTIME 10/25/20 12/11/21 12/10/21 History gabapentin 300 mg capsule 1 cap PO TID 10/25/20 12/11/21 12/11/21 History loratadine 10 mg tablet 1 tab PO DAILY 10/25/20 12/11/21 12/11/21 History multivitamin (Daily-Qi) 1 tab PO DAILY 10/25/20 12/11/21 12/11/21 History pantoprazole 40 mg tablet,delayed 1 tab PO DAILY 10/25/20 12/11/21 12/11/21 History release quetiapine 200 mg tablet 1 tab PO BEDTIME 10/25/20 12/11/21 12/10/21 History trazodone 100 mg tablet 200 mg PO BEDTIME PRN 10/25/20 12/11/21 12/10/21 History phenytoin sodium extended 100 mg 200 mg PO DAILY 05/10/21 12/11/21 12/11/21 History capsule phenytoin sodium extended 100 mg 300 mg PO BEDTIME 05/10/21 12/11/21 12/10/21 History capsule famotidine 20 mg tablet 20 mg PO DAILY 12/11/21 12/11/21 12/11/21 History fluticasone propionate 50 2 spray INTRANASAL DAILY 12/11/21 12/11/21 12/11/21 History mcg/actuation nasal spray,suspension lactulose 10 gram/15 mL oral 30 ml PO BID 12/11/21 12/11/21 12/11/21 History solution oxcarbazepine 300 mg tablet 450 mg PO BID 12/11/21 12/11/21 12/11/21 History Physical Exam Vital Signs: Vital Signs: Last Vital Signs Temp 98.7 F 12/13/21 19:05 Pulse 89 12/13/21 19:05 Resp 20 12/13/21 19:05 BP 155/81 H 12/13/21 19:05 Pulse Ox 95 12/13/21 19:05 BMI result Body Mass Index 24.3 Const: General: cooperative HEENT: Head: Yes normal to inspection Mouth: Normal oral and palatal mucosa present Resp: Effort & Inspection: normal respiratory effort Cardio: Rate: regular rate Rhythm: regular rhythm GI: Palpation (GI): Soft to palpation and nontender Extrem: Other: left more than right swelling Results Labs CBC & Chem 7: 12/13/21 04:05 12/13/21 04:05 Labs: Short CBC 12/13/21 Range/Units 04:05 WBC 6.7 (4.8-10.8) X10*3/uL Hgb 13.2 L (14.0-18.0) g/dl Hct 39.1 L (42.0-52.0) % Plt Count 229 (160-400) X10*3/uL BMP 12/13/21 04:05 Sodium 138 Potassium 4.2 Chloride 105 Carbon Dioxide 23 BUN 11 Creatinine 0.78 Calcium 8.5 Microbiology Microbiology Results: Microbiology 12/11/21 10:06 Blood - Venous Blood Culture - Preliminary No growth after 48 hours. 12/11/21 09:49 Blood - Venous Blood Culture - Preliminary No growth after 48 hours. Assessment and Plan (1) Generalized seizure: Status: Acute (2) Anasarca: Status: Acute He has swelling and no leukocytosis or fever and bilateral so not likely bacterial celluliits,maybe slight area left Plan would switch to po Doxycycline tomorrow for 10 days
[2021-12-14] MEDS: HYDROmorphone HCl 1 MG/ML SYRINGE IVPUSH ×5 (02:50→23:22)
[2021-12-14 03:39] VITALS: BP 145/72; PULSE 85; RESP 18; TEMP 36.8; O2SAT 96
[2021-12-14] MEDS: vancomycin HCL 1,250 MG in 0.9 % Sodium Chloride 250 ML 166.67 MG IV ×2 (06:36→18:52)
[2021-12-14] MEDS: Omeprazole 20 MG CAPSULE.DR PO (06:36)
[2021-12-14 08:00] VITALS: BP 174/84; PULSE 83; RESP 17; TEMP 37; O2SAT 96
[2021-12-14] MEDS: Lactulose 20 GM/30 ML SOLUTION PO ×2 (08:05→20:22)
[2021-12-14] MEDS: Phenytoin Sodium Extended 100 MG CAPSULE 200 MG PO (08:06)
[2021-12-14] MEDS: Gabapentin 300 MG CAPSULE PO ×3 (08:06→20:22)
[2021-12-14] MEDS: 0.9 % Sodium Chloride Flush 3 ML SYRINGE IVFLUSH ×3 (08:06→20:26)
[2021-12-14] MEDS: Multivitamin TABLET 1 TAB PO (08:06)
[2021-12-14] MEDS: OXcarbazepine 150 MG TABLET 450 MG PO ×2 (08:06→20:22)
[2021-12-14] MEDS: ARIPiprazole 10 MG TABLET PO (08:06)
[2021-12-14] MEDS: oxyCODONE HCl Immed Release 5 MG TABLET 10 MG PO ×2 (08:19→17:18)
[2021-12-14 09:20] LABS: COVID-19 Test Negative (Negative); IDNOW Serial# 9DB6401D
[2021-12-14 10:53] LABS: Creatinine Clr Calc Pharmacy 93.8; Estimated Glomerular Filt Rate > 60
[2021-12-14 12:00] VITALS: BP 156/76; PULSE 84; RESP 17; TEMP 37.1; O2SAT 97
--- NOTE | 2021-12-14 14:44 | P.PNIM_ITS ---
Subjective Subjective Date of Service: 12/14/21 Interval History: This history was taken in Indonesian from the patient. legs improved ongoing abd pain no further sz Review of Systems Review of Systems: Yes all other systems are reviewed and are negative Physical Exam Vital Signs: Vital Signs: Last Vital Signs Temp 98.8 F 12/14/21 12:00 Pulse 84 12/14/21 12:00 Resp 17 12/14/21 12:00 BP 156/76 H 12/14/21 12:00 Pulse Ox 97 12/14/21 12:00 BMI result Body Mass Index 24.3 Gen: in no acute distress HEENT: sclera anicteric, moist mucus membranes Neck: supple Lungs: clear to auscultation bilaterally Heart: regular rate and rhythm, no murmurs Abd: soft, distended, diffuse tenderness Ext: leg erythema/induration markedly improved Skin: warm/well-perfused Neuro: alert and oriented x3, no focal findings Psych: appropriate affect Objective Data Active Medications Acetaminophen (Acetaminophen 325 Mg Tablet) 650 mg PO Q6H PRN PRN Reason: Pain, Mild (Pain Scale 1-3) Last Admin: 12/13/21 12:12 Dose: 650 mg Documented by: BORA Aripiprazole (Aripiprazole 10 Mg Tablet) 10 mg PO DAILY [facility] Last Admin: 12/14/21 08:06 Dose: 10 mg Documented by: CAROLE Atorvastatin Calcium (Atorvastatin Calcium 10 Mg Tablet) 10 mg PO BEDTIME [facility] Last Admin: 12/13/21 20:29 Dose: 10 mg Documented by: KARLA Enoxaparin Sodium (Enoxaparin Sodium 40 Mg/0.4 Ml Syringe) 40 mg SUBCUT Q24H [facility] Last Admin: 12/13/21 17:19 Dose: 40 mg Documented by: BORA Fluticasone Propionate (Fluticasone Propionate Nasal 16 Gm [place]) 2 spray NOSTRIL-B DAILY [facility] Last Admin: 12/14/21 08:20 Dose: Not Given Documented by: CAROLE Non-Admin Reason: Med Not Available Gabapentin (Gabapentin 300 Mg Capsule) 300 mg PO TID [facility] Last Admin: 12/14/21 08:06 Dose: 300 mg Documented by: CAROLE Hydromorphone HCl (Hydromorphone Hcl 1 Mg/Ml Syringe) 1 mg IVPUSH Q4H PRN; Protocol PRN Reason: severe pain Last Admin: 12/14/21 13:25 Dose: 1 mg Documented by: CAROLE Levofloxacin (Levaquin) 750 mg in 150 mls @ 100 mls/hr IV Q24H [facility] Last Infusion: 12/13/21 19:13 Dose: 0 mls/hr Documented by: COTEMA Vancomycin HCl 1,250 mg/ (Sodium Chloride) 250 mls @ 166.667 mls/hr IV Q12H [facility] Last Infusion: 12/14/21 08:10 Dose: 0 mls/hr Documented by: CAROLE Lactulose (Lactulose 20 Gm/30 Ml Solution) 20 gm PO BID [facility] Last Admin: 12/14/21 08:05 Dose: 20 gm Documented by: CAROLE Lorazepam (Lorazepam 2 Mg/Ml Vial) 1 mg IVPUSH Q2H PRN PRN Reason: Seizures Multivitamins/Vitamin C (Multivitamin Tablet) 1 tab PO DAILY [facility] Last Admin: 12/14/21 08:06 Dose: 1 tab Documented by: CAROLE Omeprazole (Omeprazole 20 Mg Capsule.) 20 mg PO DAILY@0630 [facility] Last Admin: 12/14/21 06:36 Dose: 20 mg Documented by: KARLA Ondansetron HCl (Ondansetron Hcl 4 Mg/2 Ml Vial) 4 mg IVPUSH Q8H PRN PRN Reason: Nausea and Vomiting Oxcarbazepine (Oxcarbazepine 150 Mg Tablet) 450 mg PO BID [facility] Last Admin: 12/14/21 08:06 Dose: 450 mg Documented by: CAROLE Oxycodone HCl (Oxycodone Hcl Immed Release 5 Mg Tablet) 10 mg PO Q4H PRN PRN Reason: moderate pain Last Admin: 12/14/21 08:19 Dose: 10 mg Documented by: CAROLE Pharmacy Consult (Consult Rx Vancomycin Dosing) 1 each MISCELLANE DAILY [facility] Phenytoin Sodium (Phenytoin Sodium Extended 100 Mg Capsule) 200 mg PO DAILY [facility] Last Admin: 12/14/21 08:06 Dose: 200 mg Documented by: CAROLE Phenytoin Sodium (Phenytoin Sodium Extended 100 Mg Capsule) 300 mg PO BEDTIME [facility] Last Admin: 12/13/21 20:29 Dose: 300 mg Documented by: KARLA Quetiapine Fumarate (Quetiapine Fumarate 200 Mg Tablet) 200 mg PO BEDTIME [facility] Last Admin: 12/13/21 20:29 Dose: 200 mg Documented by: KARLA Sodium Chloride (0.9 % Sodium Chloride Flush 3 Ml Syringe) 3 ml IVFLUSH QSHIFT [facility] Last Admin: 12/14/21 08:06 Dose: 3 ml Documented by: CAROLE Trazodone HCl (Trazodone Hcl 100 Mg Tablet) 200 mg PO BEDTIME PRN PRN Reason: Insomnia Labs CBC & Chem 7: 12/13/21 04:05 12/14/21 10:36 Labs: Laboratory Results - last 24 hr 12/14/21 12/14/21 08:20 10:36 Estim Creat Clear Calc 93.8 Estimated GFR > 60 COVID-19 (MELLISA) Negative COVID-19 Clin Com See Note Microbiology Microbiology Results: Microbiology 12/11/21 10:06 Blood Culture - Preliminary Blood - Venous No growth after 48 hours. 12/11/21 09:49 Blood Culture - Preliminary Blood - Venous No growth after 48 hours. Assessment and Plan (1) Cellulitis: Status: Acute (2) Cocaine abuse: Status: Acute (3) Generalized seizure: Status: Acute Plan hospital d#4 56yo M with metastatic neuroendocrine tumor, epilepsy, and depression who was admitted here nearly 1 month ago for LLE cellulitis and treated with doxycycline; presenting with worsening swelling, redness, and tenderness now involving both legs; had breakthrough seizure # non-resolving cellulitis involving >50% of both legs - d#4 levofloxacin + vancomycin, per ID change to doxy x10d upon d/c # breakthrough generalized sz 12/11 pm - pending Neuro consult, continue phenytoin + oxcarbazepine, sz precautions, MRI to r/o mets as recommended last hospitalization # depression - continue aripiprazole, quetiapine + trazodone # metastatic neuroendocrine tumor - last saw Dr Glover 11/27/21; planned biopsy of liver lesions, consideration of octreotide therapy vs. lutetium # chronic CA pain - oxycodone PO + hydromorphone IV # cocaine abuse - CARE Team consult, HBV/HCV/HIV screen negative, counseling against abuse given health risks # VTE ppx - LMWH # dispo - STR recommended, pt refuses In my clinical judgment, the patient requires continued hospitalization for the following reasons: IV abx, sz w/u Quality Stroke Does the patient have a stroke diagnosis?: No VTE Prior VTE?: No VTE Risk Level:: Medical - moderate - high VTE Device Contraindication: Procedure Contraindicated VTE Drug Contraindication: N/A - Med Ordered
[2021-12-14 15:21] VITALS: BP 159/81; PULSE 74; RESP 18; TEMP 36.4; O2SAT 97
[2021-12-14 16:37] LABS: Vancomycin Trough 12.5 mcg/mL (10.0-20.0)
--- NOTE | 2021-12-14 16:38 | HE.PHANOTE ---
Vancomycin dosing: Trough came back at 12.5, will continue current regimen of 1250 mg Q12h. Next trough set for 12/16 @ 0400. Will continue to monitor renal function and adjust accordingly. Model predicts a AUC of 481 and a trough of 12.6.
[2021-12-14] MEDS: Enoxaparin Sodium 40 MG/0.4 ML SYRINGE SUBCUT (17:18)
[2021-12-14] MEDS: levoFLOXacin/D5W 750 MG/150 ML PIGGYBACK 100 MG IV (17:18)
[2021-12-14 20:00] VITALS: BP 146/82; PULSE 78; RESP 18; TEMP 36.4; O2SAT 97
[2021-12-14] MEDS: traZODone HCL 100 MG TABLET 200 MG PO (20:21)
[2021-12-14] MEDS: Atorvastatin Calcium 10 MG TABLET PO (20:22)
[2021-12-14] MEDS: Phenytoin Sodium Extended 100 MG CAPSULE 300 MG PO (20:22)
[2021-12-14] MEDS: QUEtiapine Fumarate 200 MG TABLET PO (20:22)
[2021-12-14 23:16] VITALS: BP 134/66; PULSE 94; RESP 18; TEMP 36.5; O2SAT 97
[2021-12-15] MEDS: HYDROmorphone HCl 1 MG/ML SYRINGE IVPUSH ×3 (03:10→13:35)
[2021-12-15 03:28] VITALS: BP 125/70; PULSE 75; RESP 18; TEMP 36.4; O2SAT 96
[2021-12-15] MEDS: vancomycin HCL 1,250 MG in 0.9 % Sodium Chloride 250 ML 166.67 MG IV (05:05)
[2021-12-15] MEDS: Omeprazole 20 MG CAPSULE.DR PO (05:10)
[2021-12-15] MEDS: oxyCODONE HCl Immed Release 5 MG TABLET 10 MG PO ×2 (05:10→10:31)
[2021-12-15 07:12] LABS: Creatinine Clr Calc Pharmacy 102.3; Estimated Glomerular Filt Rate > 60
[2021-12-15 07:26] VITALS: BP 154/75; PULSE 74; RESP 17; TEMP 36.7; O2SAT 96
[2021-12-15] MEDS: OXcarbazepine 150 MG TABLET 450 MG PO (07:38)
[2021-12-15] MEDS: 0.9 % Sodium Chloride Flush 3 ML SYRINGE IVFLUSH (07:38)
[2021-12-15] MEDS: Gabapentin 300 MG CAPSULE PO ×2 (07:39→13:35)
[2021-12-15] MEDS: Phenytoin Sodium Extended 100 MG CAPSULE 200 MG PO (07:39)
[2021-12-15] MEDS: ARIPiprazole 10 MG TABLET PO (07:39)
[2021-12-15] MEDS: Lactulose 20 GM/30 ML SOLUTION PO (07:39)
[2021-12-15] MEDS: Multivitamin TABLET 1 TAB PO (07:39)
[2021-12-15] MEDS: Nicotine 14 MG PATCH.TD24 TRANSDERMA (10:30)
[2021-12-15 11:42] VITALS: BP 144/76; PULSE 76; RESP 17; TEMP 36.9; O2SAT 94
--- NOTE | 2021-12-15 12:45 | W.MHC.F2F ---
Service Date Service Date: 12/15/21 Encounter Date of encounter: 12/15/21 Reasons for Services Signs and symptoms assessed: pain, medication management, leg infection Reason for usp: medication management, medication treatment and teach disease management MD Overseeing Care: Kylah Leahy Homebound: Leaving the home is medically contraindicated at this time without the asist of a device and/or another person due th the listed conditions above and below. Reason homebound: pain with ambulation, pain with transfers and weakness related to hospital stay Certification: Based on the above findings, I certify that this patient is confined to the home and needs intermittent usp care, physical therapy and/or speech therapy, or continues to need occupational therapy. The patient is under my care, and I have initiated the establishment of the plan of care. The patient will be followed by a physician who will periodically review the plan of care.
--- NOTE | 2021-12-15 12:56 | PM.DS ---
DS: Providers Provider Date of Service: 12/15/21 Date of admission: 12/11/21 15:46 Date of discharge: 12/15/21 Primary care physician: Kylah Leahy DO Consults: 12/11/21 15:29 Consult to Infectious Diseases Routine Consulting Provider: Radha Bucio Reason for consultation: cellultiis, carcinoid tmor 12/11/21 22:10 Consult to Neurology Routine Consulting Provider: [facility] Reason for consultation: Seizures; patient want to change phenytoin 12/12/21 08:24 Consult to Care Team Routine Comment: Reason for consultation: cocaine abuse 12/14/21 07:19 Consult to Neurology Routine Consulting Provider: [facility] Reason for consultation: breakthrough sz; alternative to phenytoin? DS: Diagnosis Discharge Diagnosis (1) Cellulitis: Status: Acute (2) Cocaine abuse: Status: Acute (3) Generalized seizure: Status: Acute (4) Metastatic carcinoid tumor: Status: Acute DS: Summary Hospital Course Hospital Course: from my admission history and physical, 12/11/21: 56yo M with metastatic neuroendocrine tumor [carcinoid involving appendix, small bowel, and omentum, metastatic to the liver,? followed by Dr Glover at [facility] Oncology], depression, and seizure disorder who was just admitted to [facility] 12/13-12/14/21 with left leg cellulitis that did not improve with a 1-week course of SMX/TMP.? He was treated with IV doxycycline and discharged on PO doxycycline for 1 week.? Since then, he says he has not really improved and in fact the redness and spread to his right leg as well.? He complains of redness, swelling, and pain to both legs.? No drainage of water or pus.? He has fallen a couple of times.? He endorses subjective fever and chills but no nausea or vomiting.? No chest pain.? No dyspnea.? Complains of abdominal pain and distension. In the ED, bilateral leg Dopplers were negative for DVT.? CT A/P showed a possible 3 cm fluid collection adjacent to the cecum questionable for abscess; general surgery consult is pending.? He was given 1 dose of IV doxycycline along with IV hydromorphone for pain. This 56yo M with metastatic neuroendocrine tumor, epilepsy, and depression who was admitted here nearly 1 month ago for LLE cellulitis and treated with doxycycline; presenting with worsening swelling, redness, and tenderness now involving both legs; was admitted for non-resolving cellulitis involving >50% of both legs. He was treated with levofloxacin and vancomycin and improved markedly. ID was consulted. He was discharged on 10 days of doxycycline. He had a breakthrough seizure on the 1st day of admission associated with subtherapeutic phenytoin level due to nonadherence. He is interested in changing seizure medications and will follow up with Neurology as an outpatient. CT of the head with contrast showed no evidence of cerebral metastases. He was given oxycodone for cancer-associated pain. He will return to the hospital 12/16/21 for previously planned biopsy of liver lesions and will follow-up with his oncologist, Dr Willam Glover, for consideration of octreotide vs. lutetium therapy for his carcinoid tumor. He was discharged home with VNA services. Time Spent with Patient Time attestation: Total time spent providing and/or coordinating discharge services: Discharge coordination time: Greater than 30 minutes Quality: Safe Use of Opioids Does Pt have an Active Cancer Diagnosis on the Problem List?: No Quality: Stroke Does the patient have a stroke diagnosis?: No Physical Exam Vital Signs: Vital Signs: Last Vital Signs Temp 98.4 F 12/15/21 11:42 Pulse 76 12/15/21 11:42 Resp 17 12/15/21 11:42 BP 144/76 H 12/15/21 11:42 Pulse Ox 94 12/15/21 11:42 BMI result Body Mass Index 24.3 Gen: in no acute distress HEENT: sclera anicteric, moist mucus membranes Neck: supple Lungs: clear to auscultation bilaterally Heart: regular rate and rhythm, no murmurs Abd: soft, distended, diffuse tenderness Ext: leg erythema/induration markedly improved Skin: warm/well-perfused Neuro: alert and oriented x3, no focal findings Psych: appropriate affect DS: Data Data Completed and Pending Completed studies during hospitalization [Text1]: Laboratory Results WBC 6.7 X10*3/uL (4.8-10.8) 12/13/21 04:05 RBC 4.16 X10*6/uL (4.60-5.80) L 12/13/21 04:05 Hgb 13.2 g/dl (14.0-18.0) L 12/13/21 04:05 Hct 39.1 % (42.0-52.0) L 12/13/21 04:05 MCV 94.0 fL (80.0-98.0) 12/13/21 04:05 MCH 31.7 pg (27.0-33.0) 12/13/21 04:05 MCHC 33.8 g/dl (31.0-36.0) 12/13/21 04:05 RDW 12.8 % (11.0-16.0) 12/13/21 04:05 Plt Count 229 X10*3/uL (160-400) 12/13/21 04:05 MPV 10.2 fL (9.4-12.4) 12/13/21 04:05 Immature Gran % (Auto) 0.2 % (0.0-0.4) 12/11/21 09:48 Neut % (Auto) 63.0 % (45-73) 12/11/21 09:48 Lymph % (Auto) 20.3 % (20-40) 12/11/21 09:48 [place] % (Auto) 12.5 % (2-11) H 12/11/21 09:48 Eos % (Auto) 3.1 % (0-4) 12/11/21 09:48 Baso % (Auto) 0.9 % (0-2) 12/11/21 09:48 Lymph # (Auto) 1.3 X10*3/uL (1.2-4.9) 12/11/21 09:48 [place] # (Auto) 0.8 X10*3/uL (0.1-1.2) 12/11/21 09:48 Eos # (Auto) 0.2 X10*3/uL (0.0-0.4) 12/11/21 09:48 Baso # (Auto) 0.1 X10*3/uL (0.0-0.2) 12/11/21 09:48 Abs Immat Gran (auto) 0.01 X10*3/uL (0.00-0.03) 12/11/21 09:48 Absolute Neuts (auto) 4.1 x10*3/uL (2.0-8.3) 12/11/21 09:48 Absolute Nucleated RBC 0.000 X10*3/uL (0.0-0.012) 12/13/21 04:05 Nucleated RBC % (auto) 0.0 /100WBC (0.0-0.2) 12/13/21 04:05 Sodium 138 mmol/L (135-145) 12/13/21 04:05 Potassium 4.2 mmol/L (3.3-5.1) 12/13/21 04:05 Chloride 105 mmol/L (96-108) 12/13/21 04:05 Carbon Dioxide 23 mmol/L (22-29) 12/13/21 04:05 Anion Gap 14 (12-20) 12/13/21 04:05 BUN 11 mg/dL (9-16) 12/13/21 04:05 Creatinine 0.78 mg/dL (0.5-1.4) 12/15/21 05:49 Estim Creat Clear Calc 102.3 12/15/21 05:49 Estimated GFR > 60 12/15/21 05:49 Random Glucose 83 mg/dL (60-115) 12/13/21 04:05 Lactic Acid 0.9 mmol/L (0.5-2.0) 12/11/21 09:48 Calcium 8.5 mg/dL (8.4-10.2) 12/13/21 04:05 Total Bilirubin 0.2 mg/dL (0.0-1.0) 12/11/21 09:48 Direct Bilirubin < 0.2 mg/dL (0.0-0.5) 12/11/21 09:48 AST 23 U/L (5-37) 12/11/21 09:48 ALT 16 U/L (0-40) 12/11/21 09:48 Alkaline Phosphatase 114 U/L (39-117) 12/11/21 09:48 C-Reactive Protein 0.44 mg/dL (< or = 0.50) 12/13/21 04:05 Total Protein 7.8 g/dL (6.5-8.0) 12/11/21 09:48 Albumin 4.4 g/dL (3.5-5.0) 12/11/21 09:48 Lipase 30 U/L (8-78) 12/11/21 09:48 Urine Color YELLOW 12/11/21 09:48 Urine Appearance CLEAR 12/11/21 09:48 Urine pH 6.0 (5.0-8.0) 12/11/21 09:48 Ur Specific [place] 1.010 (1.005-1.025) 12/11/21 09:48 Urine Protein NEG MG/DL (NEG-TRACE) 12/11/21 09:48 Urine Glucose (UA) NEG MG/DL (NEG) 12/11/21 09:48 Urine Ketones NEG MG/DL (NEG) 12/11/21 09:48 Urine Blood NEG (NEG) 12/11/21 09:48 Urine Nitrite NEG (NEG) 12/11/21 09:48 Ur Leukocyte Esterase NEG (NEG) 12/11/21 09:48 Vancomycin Trough 12.5 mcg/mL (10.0-20.0) 12/14/21 16:11 Random Vancomycin 8.2 mcg/mL (15-20) L 12/13/21 04:05 Urine Opiates Screen Not Detected (Not Detect) 12/11/21 16:34 Urine Fentanyl Screen Not Detected (Not Detect) 12/11/21 16:34 Ur Barbiturates Screen Not Detected (Not Detect) 12/11/21 16:34 Phenytoin 3.2 ug/mL (10.0-20.0) L* 12/11/21 22:37 Ur Phencyclidine Scrn Not Detected (Not Detect) 12/11/21 16:34 Ur Amphetamines Screen Not Detected (Not Detect) 12/11/21 16:34 U Benzodiazepines Scrn Not Detected (Not Detect) 12/11/21 16:34 Urine Cocaine Screen POSITIVE (Not Detect) H 12/11/21 16:34 U Marijuana (THC) Screen POSITIVE (Not Detect) H 12/11/21 16:34 COVID-19 (MELLISA) Negative (Negative) 12/14/21 08:20 COVID-19 Clin Com See Note 12/14/21 08:20 Hep Bs Antigen Negative (Negative) 12/13/21 04:05 Hep Bs Antibody NONREACTIVE (Nonreactive) 12/13/21 04:05 Hep B Core Total Ab Nonreactive (Nonreactive) 12/13/21 04:05 Hepatitis C Ab (EIA) Nonreactive (Nonreactive) 12/13/21 04:05 HIV 1&2 Ab/P24 Ag 4thGn Nonreactive (Nonreactive) 12/13/21 04:05 Impressions Abdomen/Pelvis CT 12/11/21 10:33 IMPRESSION: No dilated loops of bowel to suggest obstruction. Fluid-filled loops of proximal right colon. Question 3 cm fluid collection adjacent to the cecum. Appearance is questionable for abscess. This could be better evaluated with oral contrast to separate this from possible distended fluid-filled loop of bowel. Enlarged liver and a stable liver lesions. Stable adenopathy and abnormal appearance to the small bowel mesentery. Diffuse anasarca. Fleischner guidelines were followed. Venous Duplex 12/11/21 12:43 IMPRESSION: No DVT demonstrated in the both lower extremities. Coleman's cyst left popliteal fossa 3.9 x 2.3 x 2.1 cm. Scrotum Ultrasound 12/12/21 01:02 IMPRESSION: No testicular torsion or mass. Small left varicocele. Head CT 12/15/21 14:30 IMPRESSION: No abnormal intracranial enhancement. No evidence of intracranial metastasis. Discharge Plan Discharge Patient Disposition: Home Health Service Discharge Diagnosis: cellulitis, seizure disorder, carcinoid tumor, cocaine abuse Referrals: Kylah Leahy DO [Primary Care Provider] - 1 Week Alma Cotton MD [Physician] - 2 Weeks Discharge Medications: New nicotine 14 mg/24 hr Patch 24 Hour 14 mg transdermal DAILY Qty: 30 0RF oxycodone 5 mg Tablet 10 mg PO Q4H PRN (Reason: moderate pain) Qty: 18 0RF doxycycline monohydrate 100 mg tablet 100 mg PO BID Qty: 20 0RF Continued multivitamin [Daily-Qi] Tablet 1 tab PO DAILY 0RF atorvastatin 10 mg tablet 1 tab PO BEDTIME 0RF quetiapine 200 mg tablet 1 tab PO BEDTIME 0RF trazodone 100 mg tablet 200 mg PO BEDTIME PRN (Reason: Insomnia) 0RF pantoprazole 40 mg tablet,delayed release (DR/EC) 1 tab PO DAILY 0RF gabapentin 300 mg capsule 1 cap PO TID 0RF loratadine 10 mg tablet 1 tab PO DAILY 0RF aripiprazole 10 mg tablet 1 tab PO DAILY 0RF phenytoin sodium extended 100 mg capsule 200 mg PO DAILY 0RF phenytoin sodium extended 100 mg capsule 300 mg PO BEDTIME 0RF oxcarbazepine 300 mg tablet 450 mg PO BID 0RF famotidine 20 mg tablet 20 mg PO DAILY 0RF fluticasone propionate 50 mcg/actuation spray,suspension 2 spray intranasal DAILY 0RF lactulose 10 gram/15 mL solution 30 ml PO BID 0RF Discharge Orders: Discharge Order (Routine); Ordered 12/15/21 Ordered By: Ham Guerrero Diet: advance to usual diet Activity on Discharge: As tolerated Stand Alone Forms: Patient Portal Discharge page Care Plan Goals: cure of cellulitis control of seizures treatment of carcinoid sobriety quit smoking Health Concerns: cellulitis, seizure disorder, carcinoid tumor, cocaine abuse Plan of Treatment: doxycycline 100 mg twice daily x 10 days follow up with Dr Glover in 1-2 weeks avoid cocaine quit smoking come to [facility] Short Stay Surgery on 12/16/21, at 9:00am for liver biopsy Assessment: See Discharge Summary Patient Instructions: Cellulitis (DC)
[2021-12-15] MEDS: iohexoL 350 MG/ML 100 ML INFUS..BTL IV (14:52)
[2021-12-15 15:21] VITALS: BP 158/78; PULSE 85; RESP 18; TEMP 36.2; O2SAT 96
--- NOTE | 2021-12-15 15:39 | MHC.CM.PN ---
PT WILL DC HOME TODAY WITH RESUMPTION OF [employer] AND NEW VNA REFERRAL MADE TO [facility] TO TRANSPORT
== END 2021-12-15 16:45 | disposition home health service (06) | DRG 948 ==
LOC: HO.ED 15:29 → HO.EDOVER 15:55 → HO.S3 16:15
PROVIDERS: Hospitalist; Admitting Provider Family Medicine; Emergency Provider Emergency Medicine; PCP Family Medicine; Visit Provider Family Medicine
DX: G89.3 Neoplasm related pain (acute) (chronic) (principal); L03.116 Cellulitis of left lower limb; C7A.8 Other malignant neuroendocrine tumors; C78.7 Secondary malignant neoplasm of liver and intrahepatic bile duct; L03.115 Cellulitis of right lower limb; F17.210 Nicotine dependence, cigarettes, uncomplicated; F32.A Depression, unspecified; F14.10 Cocaine abuse, uncomplicated; G40.909 Epilepsy, unspecified, not intractable, without status epilepticus; Z20.822 Contact with and (suspected) exposure to COVID-19; Z71.6 Tobacco abuse counseling; Z91.19 Patient's noncompliance with other medical treatment and regimen; Z91.013 Allergy to seafood; Z88.0 Allergy status to penicillin; Z88.5 Allergy status to narcotic agent; Z88.6 Allergy status to analgesic agent; Z79.899 Other long term (current) drug therapy
CPT/HCPCS: 36415; 70460; 74176; 76870; 80048; 80076; 80185; 80202; 80307; 81003; 82565; 83605; 83690; 85025; 85027; 86140; 86704; 86706; 86803; 87040; 87340; 87389; 87635; 93005; 93970; 93975; 96365; 96375; 96376; 97162; 99285; J1170; J1650; J1956; J3370; Q9967

== ENCOUNTER 2021-12-16 11:38 | Day surgery (SDC) | payer MEDICARE, MEDICAID, SELFPAY ==
--- NOTE | ~2021-12-16 | US_ITS ---
EXAMINATION: ULTRASOUND GUIDED LIVER BIOPSY CLINICAL INFORMATION: Carcinoid tumor with metastatic disease to the liver. COMPARISON: Previous CT of the abdomen and pelvis most recent 12/11/2021. TECHNIQUE: Procedure and risks and benefits including bleeding and infection were discussed with the patient through an automatic spinning lathe setter and informed consent was obtained. The right upper quadrant was prepped and draped in the usual sterile fashion. The skin and soft tissues were anesthetized with 1% lidocaine plain. Using ultrasound guidance and a coaxial system, access to the largest lesion in the right lobe of the liver was obtained. 3 20-gauge core biopsies were obtained. There is no complication. The patient received Versed 1 mg and fentanyl 50 mcg intravenously during the procedure. Total sedation time was 11 minutes. FINDINGS: There is a 7 cm hyperechoic Partially cystic lesion in the right lobe of the liver that was targeted for biopsy US/US biopsy liver IMPRESSION: Ultrasound-guided liver biopsy.
[2021-12-16 12:31] LABS: INTERNATIONAL NORM RATIO 1.3 (0.9-1.1); Prothrombin Time 14.3 SEC (9.9-13.0)
[2021-12-16 12:33] LABS: Partial Thromboplastin Time 35.5 SEC (24.1-38.0)
[2021-12-16 12:34] VITALS: BMI 25.8
[2021-12-16] MEDS: Lidocaine HCl 1 % MPF 5 ML VIAL 4 ML SUBCUT (14:43)
[2021-12-16 14:45] VITALS: BP 131/70; PULSE 84; RESP 20; TEMP 37.6; O2SAT 95
--- NOTE | 2021-12-16 14:51 | HO.RADPN ---
RADIOLOGY Narrative Narrative: right lobe liver biopsy using coaxial system. 3 20g core biopsies obtained. no complication.
[2021-12-16 15:00] VITALS: BP 137/82; PULSE 83; RESP 20; O2SAT 95
[2021-12-16 15:15] VITALS: BP 133/70; PULSE 92; RESP 20; O2SAT 95
[2021-12-16 15:45] VITALS: BP 118/50; PULSE 93; RESP 20; O2SAT 96
[2021-12-16 16:15] VITALS: BP 141/74; PULSE 93; RESP 20; TEMP 37.2; O2SAT 95
[2021-12-16 16:45] VITALS: BP 138/71; PULSE 90; RESP 20; O2SAT 96
== END 2021-12-16 17:10 | disposition home or self-care (01) ==
PROVIDERS: PCP Family Medicine; Visit Provider Radiology Diagnostic Radiology
DX: C7B.02 Secondary carcinoid tumors of liver (principal); K76.9 Liver disease, unspecified; Z85.060 Personal history of malignant carcinoid tumor of small intestine; R59.1 Generalized enlarged lymph nodes; F33.2 Major depressive disorder, recurrent severe without psychotic features; G40.909 Epilepsy, unspecified, not intractable, without status epilepticus; Z79.899 Other long term (current) drug therapy; Z80.0 Family history of malignant neoplasm of digestive organs; Z87.828 Personal history of other (healed) physical injury and trauma; Z86.19 Personal history of other infectious and parasitic diseases; F17.210 Nicotine dependence, cigarettes, uncomplicated; F14.10 Cocaine abuse, uncomplicated; F12.90 Cannabis use, unspecified, uncomplicated; Z88.0 Allergy status to penicillin; Z88.8 Allergy status to other drugs, medicaments and biological substances
CPT/HCPCS: 36415; 47000; 76942; 85610; 85730; 88307; 88341; 88342; 88360; 99152; J2250; J3010

== ENCOUNTER 2021-12-22 10:56 | Emergency (ER) | payer MEDICARE, MEDICAID, SELFPAY ==
--- NOTE | ~2021-12-22 | XR_ITS ---
EXAMINATION: XR CHEST CLINICAL INFORMATION: Shortness of breath COMPARISON: Prior chest November 2021 TECHNIQUE: 2 views of the chest were obtained. FINDINGS: No significant abnormality is noted involving the heart, lungs, mediastinum, bony thorax or soft tissues. XR/XR chest 2V IMPRESSION: Unremarkable examination.
[2021-12-22 11:08] VITALS: BP 118/72; BP 122/76; PULSE 80; PULSE 91; TEMP 36.9; O2SAT 96; O2SAT 98; BMI 25.0
--- NOTE | 2021-12-22 11:30 | ECG_ITS ---
Test Reason : LEG SWELLING Blood Pressure : / mmHG Vent. Rate : 077 BPM Atrial Rate : 077 BPM P-R Int : 144 ms QRS Dur : 090 ms QT Int : 376 ms P-R-T Axes : 063 068 057 degrees QTc Int : 425 ms Normal sinus rhythm Normal ECG When compared with ECG of 11-DEC-2021 16:16, No significant change was found Referred By: Pattie Tesfaye Electronically Signed By:Andrew Negron
--- NOTE | 2021-12-22 11:34 | ED_ITS ---
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 followed by Dr Glover at [facility] [place] On[place]), depression, seizure disorder here with reports of ongoing abdominal pain, testicle pain, bilateral leg swelling. Patient tells me he ran out of his oxycodone 3 days ago. He has had several admissions most recently 12/11-12/15 for lower extremity cellulitis and he was discharged home with doxycycline which he tells me he is still taking. He tells me he has follow-up with Dr. Glover in the next month to discuss treatments for his cancer. He reports increasing lower extremity swelling which radiates up to his testicles and he feels like his testicles and penis are swollen. He also reports a nonproductive cough. He feels like he has chills and subjective fevers at home. He denies any burning or frequency with urination. No nausea, vomiting, diarrhea. No chest pain or SOB Related Data Home Medications Medication Instructions Recorded Confirmed aripiprazole 10 mg tablet 1 tab PO DAILY 10/25/20 12/11/21 atorvastatin 10 mg tablet 1 tab PO BEDTIME 10/25/20 12/11/21 gabapentin 300 mg capsule 1 cap PO TID 10/25/20 12/11/21 loratadine 10 mg tablet 1 tab PO DAILY 10/25/20 12/11/21 multivitamin (Daily-Qi) 1 tab PO DAILY 10/25/20 12/11/21 pantoprazole 40 mg tablet,delayed 1 tab PO DAILY 10/25/20 12/11/21 release quetiapine 200 mg tablet 1 tab PO BEDTIME 10/25/20 12/11/21 trazodone 100 mg tablet 200 mg PO BEDTIME PRN 10/25/20 12/11/21 phenytoin sodium extended 100 mg 200 mg PO DAILY 05/10/21 12/11/21 capsule phenytoin sodium extended 100 mg 300 mg PO BEDTIME 05/10/21 12/11/21 capsule famotidine 20 mg tablet 20 mg PO DAILY 12/11/21 12/11/21 fluticasone propionate 50 2 spray INTRANASAL DAILY 12/11/21 12/11/21 mcg/actuation nasal spray,suspension lactulose 10 gram/15 mL oral 30 ml PO BID 12/11/21 12/11/21 solution oxcarbazepine 300 mg tablet 450 mg PO BID 12/11/21 12/11/21 Previous Rx's Medication Instructions Recorded doxycycline monohydrate 100 mg 100 mg PO BID #20 tab 12/15/21 tablet nicotine 14 mg/24 hr daily 14 mg TRANSDERMAL DAILY #30 ea 12/15/21 transdermal patch oxycodone 5 mg tablet 10 mg PO Q4H PRN #18 tab 12/15/21 oxycodone 5 mg tablet 5 mg PO Q4H PRN #10 tab 12/22/21 Allergies Allergy/AdvReac Type Severity Reaction Status Date / Time Penicillins Allergy Mild RASH Verified 11/25/21 22:44 Seafood Allergy Mild RASH Verified 11/25/21 22:44 diazepam [From VALIUM] Allergy Unknown ACTS OUT Verified 11/25/21 22:44 penicillin V Allergy Unknown anaphylaxis Verified 11/25/21 22:44 ibuprofen [From MOTRIN] AdvReac Mild RASH Verified 11/25/21 22:44 Morphine AdvReac Severe Unknown Uncoded 11/25/21 22:44 Review of Systems Review of Systems: Yes all other systems are reviewed and are negative Constitutional: Constitutional: Reports no additional constitutional complaints, Denies body ache(s), Denies chills, Denies fever(s), Denies headache(s) and Denies weakness Eyes: Eyes: Reports no additional eye complaints and Denies change in vision ENT: Reports system reviewed and no additional complaints, except as documented, Denies dizziness, Denies headache(s), Denies nasal congestion, Denies nasal discharge and Denies neck pain Cardiovascular: Cardiovascular: Reports no additional cardiovascular complaints, Denies chest pain, Reports leg edema and Denies dyspnea Respiratory: Respiratory: Reports no additional respiratory complaints, Reports cough and Denies dyspnea Gastrointestinal: Gastrointestinal: Reports no additional gastrointestinal complaints, Reports abdominal pain, Denies diarrhea, Denies nausea and Denies vomiting Genitourinary: Genitourinary: Reports testicular pain and Denies urinary incontinence Musculoskeletal: Musculoskeletal: Reports no additional musculoskeletal complaints, Denies back pain, Denies arthralgias, Denies joint swelling, Denies neck pain, Denies numbness and Denies tingling Integumentary/Breasts: Skin/Breast: Reports system reviewed and no additional complaints, except as docu and Denies rash Neurologic: Reports system reviewed and no additional complaints, except as documented, Denies Abnormal speech present, Denies dizziness, Denies headache(s), Denies numbness, Denies tingling and Denies weakness PMFSH Past Medical History Attestation statement: The following information was validated with the patient. Source: old records reviewed and nursing notes reviewed Medical History Epilepsy Family hx of colon cancer Hx of head injury MDD (major depressive disorder), recurrent episode, severe Metastatic carcinoid tumor Metastatic disease Surgical History History of surgery on wrist Hx of knee surgery Family History Family History Paternal Grandmother Cancer Social History Social History Household Members: Family Housing: Apartment Are you a primary health care administrator to a significant other at home: No Do you presently have visiting nurse or other home services: No Unable to assess alcohol history related to: Unknown Alcohol intake: unknown Patient Tobacco Use Status: Current everyday Tobacco user Tobacco use type: Cigarette Cigarette Packs Per Day: 1 Cigarettes Per Day: 5 Years Smoked: 37 e-Cigarette/Vaping Use: Never Used Second Hand Smoke Exposure: Yes Substance Use Type: Marijuana Advance Directives: Yes Advance Directives on File: Yes Advance Directives Date on File: 11/13/21 service: No Current occupational status: disabled Sexual orientation: Straight/Heterosexual Physical Exam Vital Signs: Vital Signs: Last Vital Signs Temp 97.9 F 12/22/21 15:37 Pulse 82 12/22/21 15:37 Resp 18 12/22/21 15:37 BP 118/73 12/22/21 15:37 Pulse Ox 97 12/22/21 15:37 BMI result Body Mass Index 25.0 Const: General: cooperative, healthy appearing, comfortable and no acute distress Orientation/consciousness: patient oriented x3 Limitations: no limitations HEENT: Head: Yes normal to inspection Ears: hearing grossly normal bilaterally General nose exam: Normal external nose present Face and sinus: Yes normal facial exam Mouth: Normal oral and palatal mucosa present Throat: Yes posterior oropharynx normal Eyes: General: appearance normal, both eyes and all related structures Pupils: Equal, round and reactive pupils present Neck: Neck: Yes normal visual inspection Chest: Chest palpation & inspection: normal inspection of the chest Resp: Effort & Inspection: normal respiratory effort Auscultation: clear to auscultation bilaterally Cardio: Rate: regular rate Rhythm: regular rhythm Peripheral pulses: Peripheral pulses 2+ throughout GI: Inspection: Yes normal to inspection Palpation (GI): Soft to palpation and Tenderness to palpation present (GI) (Diffusely tender-no rebound or guarding) Auscultation: normal bowel sounds : Other: There is mild testicular swelling and penile swelling. Diffuse bilateral testicular tenderness Back/Spine/Pelvis: Thoracic/Lumbar Spine: thoracic and lumbar spine normal to inspection Skin: General skin exam: no rashes or lesions noted Neuro: General: patient oriented x3, no focal motor deficits and normal sensation to monofilament Cranial nerves: Yes Equal, round and reactive pupils present Cognition (Neuro): normal cognition Speech: No Abnormal spe ech present Gait exam (Neuro): Normal gait present Motor exam (neuro): 5/5 motor strength present throughout Extrem: Other: Pitting edema of the lower extremities extending up to the thighs. There is warmth and tenderness of the lower extremities diffusely. There are palpable distal pulses noted. General: Yes normal to inspection Course Course Course Narrative: 56-year-old male here with worsening lower extremity swelling, pain now with cough and feeling like his testicles and penis are swollen. Also complaining of ongoing abdominal pain and he recently ran out of his oxycodone. Will need labs, EKG, chest x-ray, UA. At this time infection is suspected. Antibiotics ordered. Had recent venous US 12/11 which was negative for DVT Reevaluation(s) Reevaluation #1: Labs are unremarkable. UA pending. EKG and chest x-ray show no acute findings. His abdominal pain and testicular pain seems chronic and he had a CT scan on 12/11 which showed progressive malignancy. His lower extremity swelling seems to be chronic. He has no shortness of breath. No tachypnea, hypoxia, tachycardia. Lungs are clear. D-dimer is mildly elevated however most of his findings appear chronic. Case was discussed with Dr. Reddy who evaluated the patient as well. Will recommend compressive stockings, patient is on oral antibiotics at home which she can continue. Patient's main concern is his pain control and that he ran out of his oxycodone. I do not believe that his cellulitis appears worsened and he has no fever or leukocytosis. Will refill his oxycodone for a few days until patient is able to follow-up with his primary care doctor and Oncology. Reviewed worrisome signs and symptoms of when to return to the emergency department. Comfortable discharge home. Time: 14:45 MDM - Male Genitourinary MDM Narrative Medical decision making narrative: DVT/PE, anasarca, cellulitis Medical Records Attestation: I reviewed the patient's medical records. Lab Data Attestation: I reviewed the patient's lab results. Result diagrams: 12/22/21 13:00 12/22/21 13:00 Labs: Lab Results 12/22/21 12/22/21 12/22/21 Range/Units 13:00 13:00 13:00 WBC 5.8 (4.8-10.8) X10*3/uL RBC 3.92 L (4.60-5.80) X10*6/uL Hgb 12.6 L (14.0-18.0) g/dl Hct 37.0 L (42.0-52.0) % MCV 94.4 (80.0-98.0) fL MCH 32.1 (27.0-33.0) pg MCHC 34.1 (31.0-36.0) g/dl RDW 12.7 (11.0-16.0) % Plt Count 279 (160-400) X10*3/uL MPV 9.9 (9.4-12.4) fL Immature Gran % (Auto) 0.3 (0.0-0.4) % Neut % (Auto) 60.0 (45-73) % Lymph % (Auto) 21.7 (20-40) % [place] % (Auto) 13.6 H (2-11) % Eos % (Auto) 3.4 (0-4) % Baso % (Auto) 1.0 (0-2) % Lymph # (Auto) 1.3 (1.2-4.9) X10*3/uL [place] # (Auto) 0.8 (0.1-1.2) X10*3/uL Eos # (Auto) 0.2 (0.0-0.4) X10*3/uL Baso # (Auto) 0.1 (0.0-0.2) X10*3/uL Abs Immat Gran (auto) 0.02 (0.00-0.03) X10*3/uL Absolute Neuts (auto) 3.5 (2.0-8.3) x10*3/uL Absolute Nucleated RBC 0.000 (0.0-0.012) X10*3/uL Nucleated RBC % (auto) 0.0 (0.0-0.2) /100WBC PT 14.9 H (9.9-13.0) SEC INR 1.3 H (0.9-1.1) D-Dimer High Sensitivty 388 NG/ML Sodium 137 (135-145) mmol/L Potassium 4.6 (3.3-5.1) mmol/L Chloride 103 (96-108) mmol/L Carbon Dioxide 29 (22-29) mmol/L Anion Gap 10 L (12-20) BUN 10 (9-16) mg/dL Creatinine 0.77 (0.5-1.4) mg/dL Estim Creat Clear Calc 100.1 Estimated GFR > 60 Random Glucose 77 (60-115) mg/dL Lactic Acid (0.5-2.0) mmol/L Calcium 8.5 (8.4-10.2) mg/dL Magnesium 2.0 (1.6-2.6) mg/dL Total Bilirubin 0.4 (0.0-1.0) mg/dL Direct Bilirubin 0.2 (0.0-0.5) mg/dL AST 17 (5-37) U/L ALT 15 (0-40) U/L Alkaline Phosphatase 103 (39-117) U/L Total Creatine Kinase 88 (38-174) U/L Troponin I High Sens (<3.5-35.0) ng/L B-Natriuretic Peptide (<100) pg/mL Total Protein 6.1 L D (6.5-8.0) g/dL Albumin 3.7 (3.5-5.0) g/dL Lipase 21 (8-78) U/L Urine Color Urine Appearance Urine pH (5.0-8.0) Ur Specific [place] (1.005-1.025) Urine Protein (NEG-TRACE) MG/DL Urine Glucose (UA) (NEG) MG/DL Urine Ketones (NEG) MG/DL Urine Blood (NEG) Urine Nitrite (NEG) Ur Leukocyte Esterase (NEG) 12/22/21 12/22/21 12/22/21 Range/Units 13:00 13:00 14:47 WBC (4.8-10.8) X10*3/uL RBC (4.60-5.80) X10*6/uL Hgb (14.0-18.0) g/dl Hct (42.0-52.0) % MCV (80.0-98.0) fL MCH (27.0-33.0) pg MCHC (31.0-36.0) g/dl RDW (11.0-16.0) % Plt Count (160-400) X10*3/uL MPV (9.4-12.4) fL Immature Gran % (Auto) (0.0-0.4) % Neut % (Auto) (45-73) % Lymph % (Auto) (20-40) % [place] % (Auto) (2-11) % Eos % (Auto) (0-4) % Baso % (Auto) (0-2) % Lymph # (Auto) (1.2-4.9) X10*3/uL [place] # (Auto) (0.1-1.2) X10*3/uL Eos # (Auto) (0.0-0.4) X10*3/uL Baso # (Auto) (0.0-0.2) X10*3/uL Abs Immat Gran (auto) (0.00-0.03) X10*3/uL Absolute Neuts (auto) (2.0-8.3) x10*3/uL Absolute Nucleated RBC (0.0-0.012) X10*3/uL Nucleated RBC % (auto) (0.0-0.2) /100WBC PT (9.9-13.0) SEC INR (0.9-1.1) D-Dimer High Sensitivty NG/ML Sodium (135-145) mmol/L Potassium (3.3-5.1) mmol/L Chloride (96-108) mmol/L Carbon Dioxide (22-29) mmol/L Anion Gap (12-20) BUN (9-16) mg/dL Creatinine (0.5-1.4) mg/dL Estim Creat Clear Calc Estimated GFR Random Glucose (60-115) mg/dL Lactic Acid 1.0 (0.5-2.0) mmol/L Calcium (8.4-10.2) mg/dL Magnesium (1.6-2.6) mg/dL Total Bilirubin (0.0-1.0) mg/dL Direct Bilirubin (0.0-0.5) mg/dL AST (5-37) U/L ALT (0-40) U/L Alkaline Phosphatase (39-117) U/L Total Creatine Kinase (38-174) U/L Troponin I High Sens < 3.5 (<3.5-35.0) ng/L B-Natriuretic Peptide 34 (<100) pg/mL Total Protein (6.5-8.0) g/dL Albumin (3.5-5.0) g/dL Lipase (8-78) U/L Urine Color YELLOW Urine Appearance CLEAR Urine pH 5.5 (5.0-8.0) Ur Specific [place] 1.025 (1.005-1.025) Urine Protein NEG (NEG-TRACE) MG/DL Urine Glucose (UA) NEG (NEG) MG/DL Urine Ketones NEG (NEG) MG/DL Urine Blood NEG (NEG) Urine Nitrite NEG (NEG) Ur Leukocyte Esterase NEG (NEG) Imaging Data Chest x-ray: Attestation: I personally reviewed and interpreted this imaging study as follows: Radiologist's impression: EXAMINATION: XR CHEST CLINICAL INFORMATION: Shortness of breath COMPARISON: Prior chest November 2021 TECHNIQUE: 2 views of the chest were obtained. FINDINGS: No significant abnormality is noted involving the heart, lungs, mediastinum, bony thorax or soft tissues. XR/XR chest 2V IMPRESSION: Unremarkable examination. ECG Data Attestation: I personally reviewed and interpreted this ECG as follows: ECG interpretation date: 12/22/21 ECG interpretation time: 11:45 Interpretation: Normal sinus rhythm with a rate of 77, normal GA, normal QRS, normal QT Discharge Plan Discharge Clinical Impression: Cellulitis, Lymphedema Patient Disposition: Home, Self-Care Instructions: Cellulitis (ED), Lymphedema (ED) Additional Instructions: Elevation of his lower legs. Buy compression stockings for your legs Continue your antibiotics Follow-up with your PCP and oncologist Prescriptions: New oxycodone 5 mg tablet 5 mg PO Q4H PRN (Reason: pain) Qty: 10 0RF Rx Instructions: partial fill per patient request No Action multivitamin [Daily-Qi] Tablet 1 tab PO DAILY 0RF atorvastatin 10 mg tablet 1 tab PO BEDTIME 0RF quetiapine 200 mg tablet 1 tab PO BEDTIME 0RF trazodone 100 mg tablet 200 mg PO BEDTIME PRN (Reason: Insomnia) 0RF pantoprazole 40 mg tablet,delayed release (DR/EC) 1 tab PO DAILY 0RF gabapentin 300 mg capsule 1 cap PO TID 0RF loratadine 10 mg tablet 1 tab PO DAILY 0RF aripiprazole 10 mg tablet 1 tab PO DAILY 0RF phenytoin sodium extended 100 mg capsule 200 mg PO DAILY 0RF phenytoin sodium extended 100 mg capsule 300 mg PO BEDTIME 0RF oxcarbazepine 300 mg tablet 450 mg PO BID 0RF famotidine 20 mg tablet 20 mg PO DAILY 0RF fluticasone propionate 50 mcg/actuation spray,suspension 2 spray intranasal DAILY 0RF lactulose 10 gram/15 mL solution 30 ml PO BID 0RF nicotine 14 mg/24 hr Patch 24 Hour 14 mg transdermal DAILY Qty: 30 0RF oxycodone 5 mg Tablet 10 mg PO Q4H PRN (Reason: moderate pain) Qty: 18 0RF doxycycline monohydrate 100 mg tablet 100 mg PO BID Qty: 20 0RF Referrals: Kylah Leahy DO [Primary Care Provider] - 1 week Interventions: ED Discharge Assessment Last Done: 12/22/21 15:46 Discharge Date/Time: 12/22/21 15:47 Print Language: British
[2021-12-22] MEDS: levoFLOXacin/D5W 500 MG/100 ML PIGGYBACK 100 MG IV (13:12)
[2021-12-22] MEDS: Morphine Sulfate 4 MG/ML CARTRIDGE IVPUSH (13:12)
[2021-12-22 13:31] LABS: MANUAL DIFF FLAG NO
[2021-12-22 13:35] LABS: Basophils Absolute Auto 0.1 X10*3/uL (0.0-0.2); Eosinophils Absolute Auto 0.2 X10*3/uL (0.0-0.4); Eosinophils Percent Auto 3.4 % (0-4); Hemoglobin 12.6 g/dl (14.0-18.0); Imm Gran Abs Auto 0.02 X10*3/uL (0.00-0.03); Imm Gran Pct Auto 0.3 % (0.0-0.4); Lymphocytes Absolute Auto 1.3 X10*3/uL (1.2-4.9); Lymphocytes Percent Auto 21.7 % (20-40); Mean Corpuscular HGB Conc 34.1 g/dl (31.0-36.0); Mean Corpuscular Hemoglobin 32.1 pg (27.0-33.0); Mean Corpuscular Volume 94.4 fL (80.0-98.0); Mean Platelet Volume 9.9 fL (9.4-12.4); Monocytes Absolute Auto 0.8 X10*3/uL (0.1-1.2); Monocytes Percent Auto 13.6 % (2-11); Neutrophils Absolute Auto 3.5 x10*3/uL (2.0-8.3); Platelet Count 279 X10*3/uL (160-400); Red Blood Count 3.92 X10*6/uL (4.60-5.80); Red Cell Distribution Width 12.7 % (11.0-16.0); White Blood Count 5.8 X10*3/uL (4.8-10.8)
[2021-12-22 13:41] LABS: INTERNATIONAL NORM RATIO 1.3 (0.9-1.1); Prothrombin Time 14.9 SEC (9.9-13.0)
[2021-12-22 13:53] LABS: Alanine Aminotransferase 15 U/L (0-40); Albumin Level 3.7 g/dL (3.5-5.0); Alkaline Phosphatase 103 U/L (39-117); Anion Gap 10 (12-20); Aspartate Amino Transferase 17 U/L (5-37); Bilirubin Direct 0.2 mg/dL (0.0-0.5); Bilirubin Total 0.4 mg/dL (0.0-1.0); Blood Urea Nitrogen 10 mg/dL (9-16); Calcium 8.5 mg/dL (8.4-10.2); Carbon Dioxide 29 mmol/L (22-29); Chloride 103 mmol/L (96-108); Creatinine Clr Calc Pharmacy 100.1; Estimated Glomerular Filt Rate > 60; Glucose Random 77 mg/dL (60-115); Lipase 21 U/L (8-78); Potassium 4.6 mmol/L (3.3-5.1); Sodium 137 mmol/L (135-145); Total Protein 6.1 g/dL (6.5-8.0)
[2021-12-22 13:56] LABS: B Type Natriuretic Peptide 34 pg/mL (<100); Troponin-I High Sensitivity < 3.5 ng/L (<3.5-35.0)
[2021-12-22 14:08] LABS: D Dimer High Sensitivity 388 NG/ML
[2021-12-22] MEDS: oxyCODONE HCl Immed Release 5 MG TABLET 10 MG PO (14:44)
[2021-12-22 14:57] LABS: Appearance Urine CLEAR; Color Urine YELLOW; Glucose Urine UA NEG (NEG); Leukocyte Esterase Urine NEG (NEG); Nitrite Urine NEG (NEG); PH 5.5 (5.0-8.0); Specific Gravity - Urine 1.025 (1.005-1.025); Urine Blood NEG (NEG); Urine Ketones NEG (NEG); Urine Protein NEG (NEG-TRACE)
[2021-12-22 15:37] VITALS: BP 118/73; PULSE 82; RESP 18; TEMP 36.6; O2SAT 97
== END 2021-12-22 15:47 | disposition home or self-care (01) ==
PROVIDERS: Nurse Practitioner Family; Emergency Provider Emergency Medicine; PCP Family Medicine
DX: L03.119 Cellulitis of unspecified part of limb (principal); I89.0 Lymphedema, not elsewhere classified; R06.02 Shortness of breath; R79.1 Abnormal coagulation profile; C7A.020 Malignant carcinoid tumor of the appendix; C7B.02 Secondary carcinoid tumors of liver; G40.909 Epilepsy, unspecified, not intractable, without status epilepticus
CPT/HCPCS: 36415; 71046; 80048; 80076; 81003; 82550; 83605; 83690; 83735; 83880; 84484; 85025; 85379; 85610; 87040; 93005; 96365; 96375; 99283; 99284; J1956; J2270

== ENCOUNTER 2022-01-04 15:33 | Inpatient (IN) | payer MEDICARE, MEDICAID, SELFPAY ==
--- NOTE | ~2022-01-04 | XR_ITS ---
EXAMINATION: XR CHEST CLINICAL INFORMATION: CHF COMPARISON: 12/22/2021 TECHNIQUE: Frontal view of the chest was obtained. FINDINGS: No significant abnormality is noted involving the heart, lungs, mediastinum, bony thorax or soft tissues. XR/XR chest 1V IMPRESSION: Unremarkable examination.
[2022-01-04 15:39] VITALS: BP 123/71; BP 127/78; PULSE 86; PULSE 94; TEMP 36.8; O2SAT 98; BMI 25.0
[2022-01-04 16:07] LABS: MANUAL DIFF FLAG NO
[2022-01-04 16:08] LABS: Basophils Absolute Auto 0.1 X10*3/uL (0.0-0.2); Eosinophils Absolute Auto 0.2 X10*3/uL (0.0-0.4); Eosinophils Percent Auto 2.6 % (0-4); Hematocrit 38.5 % (42.0-52.0); Hemoglobin 13.1 g/dl (14.0-18.0); Imm Gran Abs Auto 0.02 X10*3/uL (0.00-0.03); Imm Gran Pct Auto 0.3 % (0.0-0.4); Lymphocytes Percent Auto 14.5 % (20-40); Mean Corpuscular Hemoglobin 31.9 pg (27.0-33.0); Mean Corpuscular Volume 93.7 fL (80.0-98.0); Mean Platelet Volume 10.2 fL (9.4-12.4); Monocytes Absolute Auto 0.8 X10*3/uL (0.1-1.2); Monocytes Percent Auto 11.2 % (2-11); Neutrophils Absolute Auto 4.9 x10*3/uL (2.0-8.3); Neutrophils Percent Auto 70.4 % (45-73); Platelet Count 220 X10*3/uL (160-400); Red Blood Count 4.11 X10*6/uL (4.60-5.80); Red Cell Distribution Width 12.6 % (11.0-16.0)
[2022-01-04 16:24] LABS: Anion Gap 16 (12-20); Blood Urea Nitrogen 10 mg/dL (9-16); Calcium 8.5 mg/dL (8.4-10.2); Carbon Dioxide 23 mmol/L (22-29); Chloride 103 mmol/L (96-108); Creatinine Clr Calc Pharmacy 81.1; Estimated Glomerular Filt Rate > 60; Glucose Random 99 mg/dL (60-115); Potassium 4.6 mmol/L (3.3-5.1); Sodium 137 mmol/L (135-145)
--- NOTE | 2022-01-04 16:29 | ED_ITS ---
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 Glover as an oncologist, patient had history of left leg cellulitis and anasarca, patient had multiple admission for increased edema, patient returned today for bilateral lower extremity swelling, scrotal swelling, shortness of breath especially if he lies supine. No chest pain. Patient also been complaining of chills but no fever. Patient was admitted to the hospital 2 weeks ago for cellulitis that responded well to doxycycline patient was sent home on doxycycline. Reviewing patient's medication not taking diuretics. Patient stated that he has been gaining weight over the past week. No redness to the lower extremities. Related Data Home Medications Medication Instructions Recorded Confirmed aripiprazole 10 mg tablet 1 tab PO DAILY 10/25/20 01/04/22 atorvastatin 10 mg tablet 1 tab PO BEDTIME 10/25/20 01/04/22 gabapentin 300 mg capsule 1 cap PO TID 10/25/20 01/04/22 loratadine 10 mg tablet 1 tab PO DAILY 10/25/20 01/04/22 multivitamin (Daily-Qi) 1 tab PO DAILY 10/25/20 01/04/22 pantoprazole 40 mg tablet,delayed 1 tab PO DAILY 10/25/20 01/04/22 release quetiapine 200 mg tablet 200 mg PO BEDTIME 10/25/20 01/04/22 trazodone 100 mg tablet 200 mg PO BEDTIME PRN 10/25/20 01/04/22 phenytoin sodium extended 100 mg 200 mg PO DAILY 05/10/21 01/04/22 capsule phenytoin sodium extended 100 mg 300 mg PO BEDTIME 05/10/21 01/04/22 capsule famotidine 20 mg tablet 20 mg PO DAILY 12/11/21 01/04/22 fluticasone propionate 50 2 spray INTRANASAL DAILY 12/11/21 01/04/22 mcg/actuation nasal spray,suspension oxcarbazepine 300 mg tablet 450 mg PO BID 12/11/21 01/04/22 Previous Rx's Medication Instructions Recorded nicotine 14 mg/24 hr daily 14 mg TRANSDERMAL DAILY #30 ea 12/15/21 transdermal patch Allergies Allergy/AdvReac Type Severity Reaction Status Date / Time Penicillins Allergy Mild RASH Verified 11/25/21 22:44 Seafood Allergy Mild RASH Verified 11/25/21 22:44 diazepam [From VALIUM] Allergy Unknown ACTS OUT Verified 11/25/21 22:44 penicillin V Allergy Unknown anaphylaxis Verified 11/25/21 22:44 ibuprofen [From MOTRIN] AdvReac Mild RASH Verified 11/25/21 22:44 Morphine AdvReac Severe Unknown Uncoded 11/25/21 22:44 Review of Systems Review of Systems: All other systems are reviewed and are negative Constitutional: Reports as per HPI and Reports no additional constitutional complaints Eyes: Reports as per HPI and Reports no additional eye complaints Reports system reviewed and no additional complaints, except as documented Cardiovascular: Reports as per HPI and Reports no additional cardiovascular complaints Respiratory: Reports as per HPI and Reports no additional respiratory complaints Gastrointestinal: Reports as per HPI and Reports no additional gastrointestinal complaints Genitourinary: Reports no additional female genitourinary complaints Musculoskeletal: Reports no additional musculoskeletal complaints Skin/Breast: Reports system reviewed and no additional complaints, except as docu Psychiatric: Reports no additional psychiatric complaints Endocrine: Reports no additional endocrine complaints Hematologic/Lymphatic: Reports no additional hematologic/lymphatic complaints Allergic/Immunologic: Reports no additional allergic/immunologic complaints Reports system reviewed and no additional complaints, except as documented and Reports Abnormal speech present [facility] [place] Past Medical History Medical History Anasarca Cellulitis Cocaine abuse Epilepsy Family hx of colon cancer Generalized seizure Hx of head injury Lymphedema MDD (major depressive disorder), recurrent episode, severe Metastatic carcinoid tumor Metastatic disease Surgical History History of surgery on wrist Hx of knee surgery Family History Family History Paternal Grandmother Cancer Social History Social History Household Members: Family Housing: Apartment Are you a primary primary care nurse to a significant other at home: No Do you presently have visiting nurse or other home services: No Unable to assess alcohol history related to: Unknown Alcohol intake: unknown Patient Tobacco Use Status: Current everyday Tobacco user Tobacco use type: Cigarette Cigarette Packs Per Day: 1 Cigarettes Per Day: 5 Years Smoked: 37 e-Cigarette/Vaping Use: Never Used Second Hand Smoke Exposure: Yes Substance Use Type: Marijuana Advance Directives: No Advance Directives Information Provided: No Advance Directives Date on File: 11/13/21 service: No Current occupational status: disabled Sexual orientation: Straight/Heterosexual Physical Exam Vital Signs: Vital Signs: Last Vital Signs Temp 98.3 F 01/04/22 15:39 Pulse 7 L 01/04/22 18:22 Resp 18 01/04/22 18:22 BP 155/80 H 01/04/22 18:22 Pulse Ox 100 01/04/22 18:22 BMI result Body Mass Index 25.0 Vital signs have been reviewed as appeared to be correct. Blood pressure normal. Heart rate normal. Respiration rate normal. Temperature normal. Oxygen saturation normal. Appearance: Alert. Oriented X3. No acute distress. Head: Normal external exam. Normocephalic. Atraumatic. No Chou signs noted. No raccoon eyes noted Eyes: PERRLA. EOMI. Conjunctiva and sclera normal. Eyelids normal. ENT: TM's Normal. Pharynx normal. Uvula midline. Moist mucous membranes. No trismus noted. No drooling noted. No muffled voice noted. Neck: Normal inspection. Neck supple. FROM. No adenopathy. Thyroid Normal. No meningeal signs. No neck mass noted. CVS: Normal heart rate and rhythm. Heart sound normal. No murmurs noted. Pulses normal throughout. Respiratory: No respiratory distress. Painless inspiration. Breath sounds normal. No wheezes/rales/rhonchi noted. Chest nontender. No accessory muscle usage noted or decreased air movement noted. Abdomen: Soft and nontender. Bowel sounds normal in all 4 quadrants. No distention noted. No organomegaly noted. No visible injury noted. Back: No CVA tenderness. Full range of motion noted. Skin: Skin warm and dry. Normal skin color. Normal skin turgor. No rashes/lesions/lacerations noted. Extremities: +2 lower extremity edema. Extremities exhibit normal range of motion. Extremities nontender. : Edema to the scrotum and penis. Neuro: Oriented X 3. Cranial nerve exam: II-XII are grossly intact No motor deficit. No sensory deficit. Reflexes normal. Course Course Course Narrative: Assessment and plan. A pleasant 56 years old male with history of carcinoid with metastases presented with anasarca and lymphedema to bilateral lower extremities and scrotum no sign of compensated congestive heart failure. Some redness but no tenderness, no fever, no SIRS criteria, no sepsis or septic shock however will give doxycycline for empirical coverage. D-dimer is slightly elevated likely secondary to the malignancy patient had a history of elevated D-dimer recently had bilateral lower extremities ultrasound which showed no DVT. Has no chest pain, no tachypnea, no tachycardia to suggest PE either. MDM - Extremity (Nontraumatic) Lab Data Attestation: I reviewed the patient's lab results. Result diagrams: 01/04/22 15:57 01/04/22 15:57 Labs: Lab Results 01/04/22 01/04/22 01/04/22 Range/Units 15:57 15:57 15:57 WBC 7.0 (4.8-10.8) X10*3/uL RBC 4.11 L (4.60-5.80) X10*6/uL Hgb 13.1 L (14.0-18.0) g/dl Hct 38.5 L (42.0-52.0) % MCV 93.7 (80.0-98.0) fL MCH 31.9 (27.0-33.0) pg MCHC 34.0 (31.0-36.0) g/dl RDW 12.6 (11.0-16.0) % Plt Count 220 (160-400) X10*3/uL MPV 10.2 (9.4-12.4) fL Immature Gran % (Auto) 0.3 (0.0-0.4) % Neut % (Auto) 70.4 (45-73) % Lymph % (Auto) 14.5 L (20-40) % [place] % (Auto) 11.2 H (2-11) % Eos % (Auto) 2.6 (0-4) % Baso % (Auto) 1.0 (0-2) % Lymph # (Auto) 1.0 L (1.2-4.9) X10*3/uL [place] # (Auto) 0.8 (0.1-1.2) X10*3/uL Eos # (Auto) 0.2 (0.0-0.4) X10*3/uL Baso # (Auto) 0.1 (0.0-0.2) X10*3/uL Abs Immat Gran (auto) 0.02 (0.00-0.03) X10*3/uL Absolute Neuts (auto) 4.9 (2.0-8.3) x10*3/uL Absolute Nucleated RBC 0.000 (0.0-0.012) X10*3/uL Nucleated RBC % (auto) 0.0 (0.0-0.2) /100WBC D-Dimer High Sensitivty NG/ML Sodium 137 (135-145) mmol/L Potassium 4.6 (3.3-5.1) mmol/L Chloride 103 (96-108) mmol/L Carbon Dioxide 23 (22-29) mmol/L Anion Gap 16 (12-20) BUN 10 (9-16) mg/dL Creatinine 0.95 (0.5-1.4) mg/dL Estim Creat Clear Calc 81.1 Estimated GFR > 60 Random Glucose 99 (60-115) mg/dL Lactic Acid 1.3 (0.5-2.0) mmol/L Calcium 8.5 (8.4-10.2) mg/dL Troponin I High Sens (<3.5-35.0) ng/L 01/04/22 01/04/22 Range/Units 15:57 18:08 WBC (4.8-10.8) X10*3/uL RBC (4.60-5.80) X10*6/uL Hgb (14.0-18.0) g/dl Hct (42.0-52.0) % MCV (80.0-98.0) fL MCH (27.0-33.0) pg MCHC (31.0-36.0) g/dl RDW (11.0-16.0) % Plt Count (160-400) X10*3/uL MPV (9.4-12.4) fL Immature Gran % (Auto) (0.0-0.4) % Neut % (Auto) (45-73) % Lymph % (Auto) (20-40) % [place] % (Auto) (2-11) % Eos % (Auto) (0-4) % Baso % (Auto) (0-2) % Lymph # (Auto) (1.2-4.9) X10*3/uL [place] # (Auto) (0.1-1.2) X10*3/uL Eos # (Auto) (0.0-0.4) X10*3/uL Baso # (Auto) (0.0-0.2) X10*3/uL Abs Immat Gran (auto) (0.00-0.03) X10*3/uL Absolute Neuts (auto) (2.0-8.3) x10*3/uL Absolute Nucleated RBC (0.0-0.012) X10*3/uL Nucleated RBC % (auto) (0.0-0.2) /100WBC D-Dimer High Sensitivty 437 NG/ML Sodium (135-145) mmol/L Potassium (3.3-5.1) mmol/L Chloride (96-108) mmol/L Carbon Dioxide (22-29) mmol/L Anion Gap (12-20) BUN (9-16) mg/dL Creatinine (0.5-1.4) mg/dL Estim Creat Clear Calc Estimated GFR Random Glucose (60-115) mg/dL Lactic Acid (0.5-2.0) mmol/L Calcium (8.4-10.2) mg/dL Troponin I High Sens < 3.5 (<3.5-35.0) ng/L Imaging Data Chest x-ray: Attestation: I personally reviewed and interpreted this imaging study as follows: Radiologist's impression: Unremarkable examination. Discharge Plan Discharge Clinical Impression: Lower extremity edema, Anasarca, Cellulitis of both lower extremities Patient Disposition: Admitted As Inpatient
[2022-01-04 16:32] LABS: Troponin-I High Sensitivity < 3.5 ng/L (<3.5-35.0)
[2022-01-04 16:35] LABS: Lactic Acid 1.3 mmol/L (0.5-2.0)
[2022-01-04] MEDS: Furosemide 40 MG/4 ML VIAL IVPUSH (17:21)
[2022-01-04] MEDS: Doxycycline Hyclate 100 MG in 0.9 % Sodium Chloride 250 ML 166.67 MG IV (18:14)
--- NOTE | 2022-01-04 18:18 | PHA.MEDREC ---
Pharmacy Consult ? Medication Reconciliation Pharmacy has completed the medication reconciliation.
--- NOTE | 2022-01-04 18:19 | PM.IMHP ---
History of Present Illness Date of Service: 01/04/22 Chief Complaint: Lower extremities pain and swelling A 56 years old male with PMH of depression, seizure disorder, metastatic neuroendocrine tumor (appendix, small bowel, liver Mets) who has been followed by Dr. Glover presents to the hospital with lower extremity swelling and pain. The patient reports that since leaving the hospital 2 weeks ago he noticed the edema building up gradually again with associated pain and erythema extending up to his groin with associated scrotal swelling. He denies fever but reported having chills, no chest pain, reports some difficulty breathing, no significant change in weight, no nausea, vomiting, change in bowel habit or urinary symptoms. In the emergency he was started on IV doxycycline and received pain medication with IV Lasix. Will be admitted for further evaluation and treatment. Review of Systems Review of Systems: No fever of reporting chills and feeling general weakness No chest pain, palpitation Having mild shortness of breath but no coughing No abdominal pain, nausea or vomiting No urinary symptoms Increase in erythema and lower extremities with swelling PMFSH Medical History Anasarca Cellulitis Cocaine abuse Epilepsy Family hx of colon cancer Generalized seizure Hx of head injury Lymphedema MDD (major depressive disorder), recurrent episode, severe Metastatic carcinoid tumor Metastatic disease Family History Paternal Grandmother Cancer Surgical History History of surgery on wrist Hx of knee surgery Social History Household Members: Family Housing: Apartment Are you a primary career placement services counselor to a significant other at home: No Do you presently have visiting nurse or other home services: No Unable to assess alcohol history related to: Unknown Alcohol intake: unknown Patient Tobacco Use Status: Current everyday Tobacco user Tobacco use type: Cigarette Cigarette Packs Per Day: 1 Cigarettes Per Day: 5 Years Smoked: 37 e-Cigarette/Vaping Use: Never Used Second Hand Smoke Exposure: Yes Substance Use Type: Marijuana Advance Directives: No Advance Directives Information Provided: No Advance Directives Date on File: 11/13/21 service: No Current occupational status: disabled Sexual orientation: Straight/Heterosexual Meds Allergies Allergy/AdvReac Type Severity Reaction Status Date / Time Penicillins Allergy Mild RASH Verified 11/25/21 22:44 Seafood Allergy Mild RASH Verified 11/25/21 22:44 diazepam [From VALIUM] Allergy Unknown ACTS OUT Verified 11/25/21 22:44 penicillin V Allergy Unknown anaphylaxis Verified 11/25/21 22:44 ibuprofen [From MOTRIN] AdvReac Mild RASH Verified 11/25/21 22:44 Morphine AdvReac Severe Unknown Uncoded 11/25/21 22:44 Active Medications: Current Medications Acetaminophen (Acetaminophen 325 Mg Tablet) 650 mg PO Q6H PRN PRN Reason: Pain, Mild (Pain Scale 1-3) Enoxaparin Sodium (Enoxaparin Sodium 40 Mg/0.4 Ml Syringe) 40 mg SUBCUT Q24H MARYBETH Furosemide (Furosemide 40 Mg/4 Ml Vial) 40 mg IVPUSH BID@0900,1800 [facility]; Protocol Doxycycline Hyclate 100 mg/ (Sodium Chloride) 250 mls @ 166.67 mls/hr IV ONCE ONE Stop: 01/04/22 18:26 Morphine Sulfate (Morphine Sulfate 2 Mg/Ml Cartridge) 2 mg IVPUSH Q4H PRN; Protocol PRN Reason: Pain, Severe (Pain Scale 7-10) Ondansetron HCl (Ondansetron Hcl 4 Mg/2 Ml Vial) 4 mg IVPUSH Q8H PRN PRN Reason: Nausea and Vomiting Pharmacy Consult (Consult Rx Perform Med Rec) 1 each MISCELLANE ONCE PRN PRN Reason: Consult order Sodium Chloride (0.9 % Sodium Chloride Flush 3 Ml Syringe) [address] [facility] Home Medications Medication Instructions Recorded Confirmed Last Taken Type aripiprazole 10 mg tablet 1 tab PO DAILY 10/25/20 01/04/22 12/11/21 History atorvastatin 10 mg tablet 1 tab PO BEDTIME 10/25/20 01/04/22 12/10/21 History gabapentin 300 mg capsule 1 cap PO TID 10/25/20 01/04/22 12/11/21 History loratadine 10 mg tablet 1 tab PO DAILY 10/25/20 01/04/22 12/11/21 History multivitamin (Daily-Qi) 1 tab PO DAILY 10/25/20 01/04/22 12/11/21 History pantoprazole 40 mg tablet,delayed 1 tab PO DAILY 10/25/20 01/04/22 12/11/21 History release quetiapine 200 mg tablet 200 mg PO BEDTIME 10/25/20 01/04/22 12/10/21 History trazodone 100 mg tablet 200 mg PO BEDTIME PRN 10/25/20 01/04/22 12/10/21 History phenytoin sodium extended 100 mg 200 mg PO DAILY 05/10/21 01/04/22 12/11/21 History capsule phenytoin sodium extended 100 mg 300 mg PO BEDTIME 05/10/21 01/04/22 12/10/21 History capsule famotidine 20 mg tablet 20 mg PO DAILY 12/11/21 01/04/22 12/11/21 History fluticasone propionate 50 2 spray INTRANASAL DAILY 12/11/21 01/04/22 12/11/21 History mcg/actuation nasal spray,suspension oxcarbazepine 300 mg tablet 450 mg PO BID 12/11/21 01/04/22 12/11/21 History Physical Exam Vital Signs and Narrative: Vital Signs: Last Vital Signs Temp 98.3 F 01/04/22 15:39 Pulse 86 01/04/22 15:39 BP 123/71 01/04/22 15:39 Pulse Ox 98 01/04/22 15:39 BMI result Body Mass Index 25.0 Const: Other: Constitutional : Alert, oriented, seems anxious and in mild pain Neck : Normal inspection, Supple Cardiovascular : RRR, no JVP, +2 bilateral lower extremity edema with skin erythema but no drainage noted Respiratory : fair bilateral air entry, no crackles, wheezes or rhonchi Gastrointestinal: soft, lax, Normal bowel sounds, Non tender Skin : Warm, Dry Neurological : Alert & oriented x3, No focal deficit , CN 2-12 within normal Results Labs CBC and Chem 7: 01/04/22 15:57 01/04/22 15:57 Labs: Laboratory Results - last 24 hr 01/04/22 01/04/22 01/04/22 15:57 15:57 15:57 MCV 93.7 MCH 31.9 MCHC 34.0 RDW 12.6 Plt Count 220 MPV 10.2 Immature Gran % (Auto) 0.3 Neut % (Auto) 70.4 Lymph % (Auto) 14.5 L [place] % (Auto) 11.2 H Eos % (Auto) 2.6 Baso % (Auto) 1.0 Lymph # (Auto) 1.0 L [place] # (Auto) 0.8 Eos # (Auto) 0.2 Baso # (Auto) 0.1 Abs Immat Gran (auto) 0.02 Absolute Neuts (auto) 4.9 Absolute Nucleated RBC 0.000 Nucleated RBC % (auto) 0.0 Anion Gap 16 Estim Creat Clear Calc 81.1 Estimated GFR > 60 Random Glucose 99 Lactic Acid 1.3 Calcium 8.5 Troponin I High Sens 01/04/22 15:57 MCV MCH MCHC RDW Plt Count MPV Immature Gran % (Auto) Neut % (Auto) Lymph % (Auto) [place] % (Auto) Eos % (Auto) Baso % (Auto) Lymph # (Auto) [place] # (Auto) Eos # (Auto) Baso # (Auto) Abs Immat Gran (auto) Absolute Neuts (auto) Absolute Nucleated RBC Nucleated RBC % (auto) Anion Gap Estim Creat Clear Calc Estimated GFR Random Glucose Lactic Acid Calcium Troponin I High Sens < 3.5 Imaging Radiologist's Impressions: Impressions Chest X-Ray 01/04/22 16:53 IMPRESSION: Unremarkable examination. Assessment and Plan (1) Lower extremity edema: Status: Acute (2) Anasarca: Status: Acute (3) Scrotal edema: Status: Acute Plan A 56 years old male with PMH of depression, seizure disorder, metastatic neuroendocrine tumor (appendix, small bowel, liver Mets) who has been followed by Dr. Glover presents to the hospital with lower extremity swelling and pain. bilateral lower extremities swelling and erythema 2/2 anasarca Empirical doxycycline and blood culture sent Not septic Treat with IV Lasix Monitor intake and output Should be discharged on Lasix after this admission Get ID evaluation metastatic neuroendocrine tumor Recent biopsy showing new liver lesions To get Oncology on-call Athlete foot Clotrimazole cream Seizure Continue phenytoin, oxcarbazepine next Lyme continue Seroquel, gabapentin GERD next Lyme continue omeprazole DVT PPX Eliquis the patient will require 2 overnight hospital stay for evaluation and treatment of anasarca with associated lower extremity swelling and erythema concerning for possible cellulitis to prevent further decompensation and to sepsis. Quality Stroke Does the patient have a stroke diagnosis?: No VTE Prior VTE?: No VTE Risk Level:: Medical - moderate - high VTE Device Contraindication: Treatment Not Indicated VTE Drug Contraindication: N/A - Med Ordered
[2022-01-04 18:20] LABS: D Dimer High Sensitivity 437 NG/ML
[2022-01-04 18:22] VITALS: BP 155/80; PULSE 7; RESP 18; O2SAT 100
[2022-01-04] MEDS: Morphine Sulfate 2 MG/ML CARTRIDGE IVPUSH ×2 (18:22→22:03)
[2022-01-04 18:34] LABS: COVID-19 Test Negative (Negative)
[2022-01-04] MEDS: Enoxaparin Sodium 40 MG/0.4 ML SYRINGE SUBCUT (19:45)
[2022-01-04] MEDS: Phenytoin Sodium Extended 100 MG CAPSULE 300 MG PO (21:09)
[2022-01-04] MEDS: Gabapentin 300 MG CAPSULE PO (21:09)
[2022-01-04] MEDS: Atorvastatin Calcium 10 MG TABLET PO (21:09)
[2022-01-04] MEDS: OXcarbazepine 150 MG TABLET 450 MG PO (21:09)
[2022-01-04 21:35] VITALS: BMI 27.0
[2022-01-04 21:44] VITALS: BP 140/69; PULSE 71; RESP 18; TEMP 36.9; O2SAT 98
[2022-01-04] MEDS: Clotrimazole 1 % Cream 15 GM TUBE 1 APPL TOPICAL (21:47)
[2022-01-04] MEDS: QUEtiapine Fumarate 200 MG TABLET PO (21:47)
[2022-01-04] MEDS: 0.9 % Sodium Chloride Flush 3 ML SYRINGE IVFLUSH (22:06)
[2022-01-04 23:53] VITALS: BP 136/58; PULSE 84; RESP 18; TEMP 36.3
[2022-01-05 03:15] VITALS: BP 122/73; PULSE 83; RESP 18; TEMP 36.6; O2SAT 97
[2022-01-05] MEDS: Morphine Sulfate 2 MG/ML CARTRIDGE IVPUSH ×4 (03:46→19:38)
[2022-01-05] MEDS: Omeprazole 40 MG CAPSULE.DR PO (05:40)
[2022-01-05] MEDS: Doxycycline Hyclate 100 MG in 0.9 % Sodium Chloride 250 ML 125 MG IV (05:46)
[2022-01-05 07:11] VITALS: BP 136/63; PULSE 85; RESP 16; TEMP 36.9; O2SAT 97
[2022-01-05 07:22] LABS: Hematocrit 35.2 % (42.0-52.0); Hemoglobin 11.8 g/dl (14.0-18.0); Mean Corpuscular HGB Conc 33.5 g/dl (31.0-36.0); Mean Corpuscular Hemoglobin 31.6 pg (27.0-33.0); Mean Corpuscular Volume 94.1 fL (80.0-98.0); Platelet Count 248 X10*3/uL (160-400); Red Blood Count 3.74 X10*6/uL (4.60-5.80); Red Cell Distribution Width 12.7 % (11.0-16.0); White Blood Count 4.2 X10*3/uL (4.8-10.8)
[2022-01-05 07:47] LABS: Anion Gap 12 (12-20); Blood Urea Nitrogen 8 mg/dL (9-16); Calcium 8.1 mg/dL (8.4-10.2); Carbon Dioxide 27 mmol/L (22-29); Chloride 105 mmol/L (96-108); Estimated Glomerular Filt Rate > 60; Glucose Random 84 mg/dL (60-115); Potassium 3.9 mmol/L (3.3-5.1); Sodium 140 mmol/L (135-145)
[2022-01-05] MEDS: OXcarbazepine 150 MG TABLET 450 MG PO ×2 (08:25→20:14)
[2022-01-05] MEDS: Phenytoin Sodium Extended 100 MG CAPSULE 200 MG PO (08:25)
[2022-01-05] MEDS: Famotidine 20 MG TABLET PO (08:25)
[2022-01-05] MEDS: ARIPiprazole 10 MG TABLET PO (08:25)
[2022-01-05] MEDS: Gabapentin 300 MG CAPSULE PO ×3 (08:26→20:14)
[2022-01-05] MEDS: Loratadine 10 MG TABLET PO (08:26)
[2022-01-05] MEDS: Furosemide 40 MG/4 ML VIAL IVPUSH ×2 (08:26→17:36)
[2022-01-05] MEDS: Clotrimazole 1 % Cream 15 GM TUBE 1 APPL TOPICAL ×2 (08:26→23:12)
[2022-01-05] MEDS: Multivitamin TABLET 1 TAB PO (08:26)
[2022-01-05] MEDS: Fluticasone Propionate Nasal 16 GM SPRAY 2 SPRAY NOSTRIL-B (08:27)
[2022-01-05] MEDS: Nicotine 14 MG PATCH.TD24 TRANSDERMA (08:27)
[2022-01-05 11:16] VITALS: BP 122/73; PULSE 80; RESP 18; TEMP 37.6; O2SAT 96
--- NOTE | 2022-01-05 11:18 | P.PNIM_ITS ---
Subjective Subjective Date of Service: 01/05/22 Interval History: Seen and evaluated this morning Feels mild improvement Decreased swelling and erythema in lower extremities No other overnight events Review of Systems No fever or chills but feeling general weakness No chest pain, palpitation Having mild shortness of breath but no coughing No abdominal pain, nausea or vomiting No urinary symptoms Increase in erythema and lower extremities with swelling Physical Exam Vital Signs: Vital Signs: Last Vital Signs Temp 98.4 F 01/05/22 07:11 Pulse 85 01/05/22 07:11 Resp 16 01/05/22 07:11 BP 136/63 01/05/22 07:11 Pulse Ox 97 01/05/22 07:11 BMI result Body Mass Index 27.0 Const: Other: Constitutional : Alert, oriented, seems anxious and in mild pain Neck : Normal inspection, Supple Cardiovascular : RRR, no JVP, improving +2 bilateral lower extremity edema with decreased skin erythema but no drainage noted Respiratory : fair bilateral air entry, no crackles, wheezes or rhonchi Gastrointestinal: soft, lax, Normal bowel sounds, Non tender Skin : Warm, Dry, athlete foot between his toes Neurological : Alert & oriented x3, No focal deficit , CN 2-12 within normal Objective Data Active Medications Acetaminophen (Acetaminophen 325 Mg Tablet) 650 mg PO Q6H PRN PRN Reason: Pain, Mild (Pain Scale 1-3) Aripiprazole (Aripiprazole 10 Mg Tablet) 10 mg PO DAILY [facility] Last Admin: 01/05/22 08:25 Dose: 10 mg Documented by: VARGHESE Atorvastatin Calcium (Atorvastatin Calcium 10 Mg Tablet) 10 mg PO BEDTIME [facility] Last Admin: 01/04/22 21:09 Dose: 10 mg Documented by: URMILA Clotrimazole (Clotrimazole 1 % Cream 15 Gm Tube) 1 appl TOPICAL BID [facility]; Protocol Last Admin: 01/05/22 08:26 Dose: 1 appl Documented by: VARGHESE Enoxaparin Sodium (Enoxaparin Sodium 40 Mg/0.4 Ml Syringe) 40 mg SUBCUT Q24H [facility] Last Admin: 01/04/22 19:45 Dose: 40 mg Documented by: URMILA Famotidine (Famotidine 20 Mg Tablet) 20 mg PO DAILY [facility] Last Admin: 01/05/22 08:25 Dose: 20 mg Documented by: VARGHESE Fluticasone Propionate (Fluticasone Propionate Nasal 16 Gm [place]) 2 spray NOS TRIL-B DAILY [facility] Last Admin: 01/05/22 08:27 Dose: 2 spray Documented by: VARGHESE Furosemide (Furosemide 40 Mg/4 Ml Vial) 40 mg IVPUSH BID@0900,1800 [facility]; Protocol Last Admin: 01/05/22 08:26 Dose: 40 mg Documented by: VARGHESE Gabapentin (Gabapentin 300 Mg Capsule) 300 mg PO TID [facility] Last Admin: 01/05/22 08:26 Dose: 300 mg Documented by: VARGHESE Doxycycline Hyclate 100 mg/ (Sodium Chloride) 250 mls @ 166.67 mls/hr IV Q12H [facility] Last Infusion: 01/05/22 08:32 Dose: 0 mls/hr Documented by: VARGHESE Loratadine (Loratadine 10 Mg Tablet) 10 mg PO DAILY [facility] Last Admin: 01/05/22 08:26 Dose: 10 mg Documented by: VARGHESE Morphine Sulfate (Morphine Sulfate 2 Mg/Ml Cartridge) 2 mg IVPUSH Q4H PRN; Protocol PRN Reason: Pain, Severe (Pain Scale 7-10) Last Admin: 01/05/22 08:26 Dose: 2 mg Documented by: VARGHESE Multivitamins/Vitamin C (Multivitamin Tablet) 1 tab PO DAILY [facility] Last Admin: 01/05/22 08:26 Dose: 1 tab Documented by: VARGHESE Nicotine (Nicotine 14 Mg Patch.Td24) 14 mg TRANSDERMA DAILY [facility] Last Admin: 01/05/22 08:27 Dose: 14 mg Documented by: VARGHESE Omeprazole (Omeprazole 40 Mg Capsule.Dr) 40 mg PO DAILY@0630 [facility] Last Admin: 01/05/22 05:40 Dose: 40 mg Documented by: YAQUELIN Ondansetron HCl (Ondansetron Hcl 4 Mg/2 Ml Vial) 4 mg IVPUSH Q8H PRN PRN Reason: Nausea and Vomiting Oxcarbazepine (Oxcarbazepine 150 Mg Tablet) 450 mg PO BID [facility] Last Admin: 01/05/22 08:25 Dose: 450 mg Documented by: VARGHESE Pharmacy Consult (Consult Rx Perform Med Rec) 1 each MISCELLANE ONCE PRN PRN Reason: Consult order Phenytoin Sodium (Phenytoin Sodium Extended 100 Mg Capsule) 200 mg PO DAILY [facility] Last Admin: 01/05/22 08:25 Dose: 200 mg Documented by: VARGHESE Phenytoin Sodium (Phenytoin Sodium Extended 100 Mg Capsule) 300 mg PO BEDTIME [facility] Last Admin: 01/04/22 21:09 Dose: 300 mg Documented by: URMILA Quetiapine Fumarate (Quetiapine Fumarate 200 Mg Tablet) 200 mg PO BEDTIME [facility] Last Admin: 01/04/22 21:47 Dose: 200 mg Documented by: YAQUELIN Sodium Chloride (0.9 % Sodium Chloride Flush 3 Ml Syringe) 3 ml IVFLUSH QSHIFT [facility] Last Admin: 01/05/22 07:27 Dose: Not Given Documented by: VARGHESE Non-Admin Reason: IV Running Trazodone HCl (Trazodone Hcl 100 Mg Tablet) 200 mg PO BEDTIME PRN PRN Reason: Insomnia Labs CBC & Chem 7: 01/05/22 06:15 01/05/22 06:15 Labs: Laboratory Results - last 24 hr 01/04/22 01/04/22 01/04/22 15:57 15:57 15:57 MCV 93.7 MCH 31.9 MCHC 34.0 RDW 12.6 Plt Count 220 MPV 10.2 Immature Gran % (Auto) 0.3 Neut % (Auto) 70.4 Lymph % (Auto) 14.5 L Vernon % (Auto) 11.2 H Eos % (Auto) 2.6 Baso % (Auto) 1.0 Lymph # (Auto) 1.0 L Vernon # (Auto) 0.8 Eos # (Auto) 0.2 Baso # (Auto) 0.1 Abs Immat Gran (auto) 0.02 Absolute Neuts (auto) 4.9 Absolute Nucleated RBC 0.000 Nucleated RBC % (auto) 0.0 D-Dimer High Sensitivty Anion Gap 16 Estim Creat Clear Calc 81.1 Estimated GFR > 60 Random Glucose 99 Lactic Acid 1.3 Calcium 8.5 Troponin I High Sens COVID-19 ([facility]ISA) COVID-19 Clin Com 01/04/22 01/04/22 01/04/22 15:57 18:08 18:09 MCV MCH MCHC RDW Plt Count MPV Immature Gran % (Auto) Neut % (Auto) Lymph % (Auto) Vernon % (Auto) Eos % (Auto) Baso % (Auto) Lymph # (Auto) Vernon # (Auto) Eos # (Auto) Baso # (Auto) Abs Immat Gran (auto) Absolute Neuts (auto) Absolute Nucleated RBC Nucleated RBC % (auto) D-Dimer High Sensitivty 437 Anion Gap Estim Creat Clear Calc Estimated GFR Random Glucose Lactic Acid Calcium Troponin I High Sens < 3.5 COVID-19 (MELLISA) Negative COVID-19 Clin Com See Note 01/05/22 01/05/22 06:15 06:15 MCV 94.1 MCH 31.6 MCHC 33.5 RDW 12.7 Plt Count 248 MPV 10.0 Immature Gran % (Auto) Neut % (Auto) Lymph % (Auto) Vernon % (Auto) Eos % (Auto) Baso % (Auto) Lymph # (Auto) Vernon # (Auto) Eos # (Auto) Baso # (Auto) Abs Immat Gran (auto) Absolute Neuts (auto) Absolute Nucleated RBC 0.000 Nucleated RBC % (auto) 0.0 D-Dimer High Sensitivty Anion Gap 12 Estim Creat Clear Calc 94.0 Estimated GFR > 60 Random Glucose 84 Lactic Acid Calcium 8.1 L Troponin I High Sens COVID-19 ([facility]LLISA) COVID-19 Clin Com Assessment and Plan (1) Scrotal edema: Status: Acute (2) Lower extremity edema: Status: Acute (3) Anasarca: Status: Acute Plan A 56 years old male with PMH of depression, seizure disorder, metastatic neuroendocrine tumor (appendix, small bowel, liver Mets) who has been followed by Dr. Glover presents to the hospital with lower extremity swelling and pain. bilateral lower extremities swelling and erythema 2/2 anasarca Improving Continue Empirical doxycycline as blood culture pending Continue with IV Lasix Monitor intake and output Should be discharged on Lasix after this admission Pending ID evaluation metastatic neuroendocrine tumor Recent biopsy showing new liver lesions Pending Oncology consult Athlete foot Clotrimazole cream Seizure Continue phenytoin, oxcarbazepine next Lyme continue Seroquel, gabapentin GERD next Lyme continue omeprazole DVT PPX Eliquis the patient will require overnight hospital stay for evaluation and treatment of anasarca with associated lower extremity swelling and erythema concerning for possible cellulitis to prevent further decompensation and to sepsis. Quality Stroke Does the patient have a stroke diagnosis?: No VTE Prior VTE?: No VTE Risk Level:: Medical - moderate - high VTE Device Contraindication: Treatment Not Indicated VTE Drug Contraindication: N/A - Med Ordered
[2022-01-05] MEDS: 0.9 % Sodium Chloride Flush 3 ML SYRINGE IVFLUSH ×3 (15:13→20:14)
[2022-01-05 15:24] VITALS: BP 133/72; PULSE 84; RESP 18; TEMP 37; O2SAT 95
--- NOTE | 2022-01-05 15:55 | MHC.CM.PN ---
IMM 01/05/22, CM MET W/PT VIA [employer], PT REPORTS HE LIVES W/HIS MOM, WALKS W/A CANE AND DENIES USE OF ANY OTHER DME, PT HAS DAILY DAY/EVENING [employer] THROUGH [employer] HOWEVER DOES NOT RECALL HOW MANY HRS, PT VERIFIES PCP IS PETER MOSLEY, HCP IS PT'S MOTHER ANNEMARIE [phone] AND SISTER JUNITO [phone], COVID VACC X3, PT DOES NOT RECALL WHICH VACCINE HE RECEIVED. PT REQUESTING TO SPEAK W/CARE TEAM HE FEELS DEPRESSED, REPORTS HE SPOKE TO A VIK LAST TIME HE WAS HERE, PT'S MOOD BRIGHTENED WHEN GIVEN BIRTHDAY DONUT AND REPORTS HE'S HAPPY NOW HOWEVER WOULD STILL LIKE TO SPEAK W/ VIK. CM WILL REQUEST CONSULT FROM HOSPITALIST. D/C PLAN: ANTIC HOME W/? NEW VNA, PT WILL NEED TRANSPORT
[2022-01-05] MEDS: LORazepam 2 MG/ML VIAL IVPUSH (16:43)
--- NOTE | 2022-01-05 16:47 | PM.EVENT ---
Event Note Date of Service: 01/05/22 Event Note: Developed seizure around 16:30. Two short episodes that was observed by nursing staff. Check phenytoin level Give IV Ativan 2 mg Give IV phenytoin for now Get Neurology evaluation for medication advice.
[2022-01-05] MEDS: Phenytoin Sodium 300 MG in 0.9 % Sodium Chloride 100 ML 105 MG IV (17:31)
--- NOTE | 2022-01-05 17:43 | PC.NURSE ---
1630: Pt with 2 seizres witnessed by nursing staff. First lasted approximately 30 seconds and second approximately 20 seconds. Foam at mouth, body stiff rigid with teetch clamped down. Positioned pt onto side. O2 placed on pt 2L NC. Side rails padded. Dr Malloy notified and in to see pt. Pt awake but only mumbling sounds. IV ativan ordered and given to pt. Stat dilantin level orddered and drawn, results pending. IV dilantin given per order. Will continue to monitor for any further seizure activity.
[2022-01-05 19:05] LABS: Phenytoin Dilantin 5.5 ug/mL (10.0-20.0)
[2022-01-05 19:30] VITALS: BP 143/80; PULSE 87; RESP 18; TEMP 36.8; O2SAT 96
[2022-01-05] MEDS: Doxycycline Hyclate 100 MG in 0.9 % Sodium Chloride 250 ML 166.67 MG IV (19:38)
[2022-01-05] MEDS: Enoxaparin Sodium 40 MG/0.4 ML SYRINGE SUBCUT (19:38)
[2022-01-05] MEDS: QUEtiapine Fumarate 200 MG TABLET PO (20:13)
[2022-01-05] MEDS: Phenytoin Sodium Extended 100 MG CAPSULE 300 MG PO (20:13)
[2022-01-05] MEDS: Atorvastatin Calcium 10 MG TABLET PO (20:14)
[2022-01-05] MEDS: traZODone HCL 100 MG TABLET 200 MG PO (20:19)
[2022-01-05 23:53] VITALS: BP 122/66; PULSE 86; RESP 16; TEMP 36.8; O2SAT 93
[2022-01-06] MEDS: Morphine Sulfate 2 MG/ML CARTRIDGE IVPUSH ×2 (00:11→05:15)
[2022-01-06 03:35] VITALS: BP 117/65; PULSE 84; RESP 18; TEMP 36.8; O2SAT 94
[2022-01-06] MEDS: Omeprazole 40 MG CAPSULE.DR PO (05:15)
[2022-01-06] MEDS: Doxycycline Hyclate 100 MG in 0.9 % Sodium Chloride 250 ML 166.67 MG IV (06:22)
[2022-01-06 06:38] LABS: Anion Gap 11 (12-20); Blood Urea Nitrogen 15 mg/dL (9-16); Calcium 8.1 mg/dL (8.4-10.2); Carbon Dioxide 28 mmol/L (22-29); Chloride 104 mmol/L (96-108); Creatinine Clr Calc Pharmacy 92.9; Estimated Glomerular Filt Rate > 60; Glucose Random 88 mg/dL (60-115); Potassium 4.3 mmol/L (3.3-5.1); Sodium 139 mmol/L (135-145)
[2022-01-06 06:47] LABS: B Type Natriuretic Peptide 13 pg/mL (<100)
[2022-01-06 07:14] VITALS: BP 134/76; PULSE 82; RESP 18; TEMP 36.6; O2SAT 96
[2022-01-06] MEDS: Fluticasone Propionate Nasal 16 GM SPRAY 2 SPRAY NOSTRIL-B (08:08)
[2022-01-06] MEDS: Furosemide 40 MG/4 ML VIAL IVPUSH (08:08)
[2022-01-06] MEDS: Nicotine 14 MG PATCH.TD24 TRANSDERMA (08:09)
[2022-01-06] MEDS: Phenytoin Sodium Extended 100 MG CAPSULE 300 MG PO (08:09)
[2022-01-06] MEDS: ARIPiprazole 10 MG TABLET PO (08:09)
[2022-01-06] MEDS: Loratadine 10 MG TABLET PO (08:09)
[2022-01-06] MEDS: OXcarbazepine 150 MG TABLET 450 MG PO (08:09)
[2022-01-06] MEDS: Multivitamin TABLET 1 TAB PO (08:09)
[2022-01-06] MEDS: Gabapentin 300 MG CAPSULE PO (08:09)
[2022-01-06] MEDS: Famotidine 20 MG TABLET PO (08:09)
[2022-01-06] MEDS: Clotrimazole 1 % Cream 15 GM TUBE 1 APPL TOPICAL (08:10)
--- NOTE | 2022-01-06 09:32 | PM.DS ---
DS: Providers Provider Date of Service: 01/06/22 Date of admission: 01/04/22 18:08 Primary care physician: Kylah Leahy DO Consults: 01/04/22 18:16 Consult to Infectious Diseases Routine Consulting Provider: Radha Bucio Reason for consultation: Cellulitis vs stasis dermatitis ? 01/04/22 18:29 Consult to Hematology / Oncology Routine Consulting Provider: Willam Glover Reason for consultation: Anasarca, metastatic neuroendocrine tumor 01/05/22 16:04 Consult to Care Team Routine Comment: Reason for consultation: depressed, seeking help 01/05/22 16:47 Consult to Neurology Routine Consulting Provider: [facility] Reason for consultation: Breakthrough seizure, recurrent during admissions DS: Diagnosis Discharge Diagnosis (1) Scrotal edema: Status: Resolved (2) Lower extremity edema: Status: Resolved (3) Anasarca: Status: Resolved DS: Summary Hospital Course Hospital Course: Chief Complaint: Lower extremities pain and swelling A 56 years old male with PMH of depression, seizure disorder, metastatic neuroendocrine tumor (appendix, small bowel, liver Mets) who has been followed by Dr. Glover presents to the hospital with lower extremity swelling and pain.? The patient reports that since leaving the hospital 2 weeks ago he noticed the edema building up gradually again with associated pain and erythema extending up to his groin with associated scrotal swelling.? He deniesfever but reported having chills, no chest pain, reports some difficulty breathing, no significant change in weight, no nausea, vomiting, change in bowel habit or urinary symptoms. In the emergency he was started on IV doxycycline and received pain medication with IV Lasix.? Will be admitted for further evaluation and treatment. Hospital course:Patient has seizure desorder on dilantin and has metastic neuroendocrine cancer and presented with swelling in the legs with erythemia with no features of heart failure and was given IV Lasix and also starterd Doxycline for possible cellulitis, cultures have been negative. He had seizure in the hospital and noted to have low dilantin level. His dilantin is always low raising concern for possible med non compliance. At this point point no appreciable swelling in the legs, no further seziure.. Will increase Dilantin to 100 in the morning and 200 at night, repeat level in a week. To complete 5 day course of Doxy for cellulitis and to follow up with oncology for neuroendocrine cancer treatment. He wants to go home today Time Spent with Patient Time attestation: Total time spent providing and/or coordinating discharge services: Discharge coordination time: Greater than 30 minutes Quality: Safe Use of Opioids Does Pt have an Active Cancer Diagnosis on the Problem List?: Yes Opioid Measure Date for [facility] Report: 01/10/22 Opioid Measure Time for [facility] Report: 14:35 Quality: Stroke Does the patient have a stroke diagnosis?: No Physical Exam Vital Signs: Vital Signs: Last Vital Signs Temp 97.8 F 01/06/22 07:14 Pulse 82 01/06/22 07:14 Resp 18 01/06/22 07:14 BP 134/76 01/06/22 07:14 Pulse Ox 96 01/06/22 07:14 BMI result Body Mass Index 27.0 DS: Data Data Completed and Pending Labs on day of discharge: Laboratory Results - last 24 hr 01/05/22 01/06/22 01/06/22 17:23 05:50 05:50 Sodium 139 Potassium 4.3 Chloride 104 Carbon Dioxide 28 Anion Gap 11 L BUN 15 D Creatinine 0.82 Estim Creat Clear Calc 92.9 Estimated GFR > 60 Random Glucose 88 Calcium 8.1 L B-Natriuretic Peptide 13 Phenytoin 5.5 L* Preliminary micro results at discharge 01/04/22 18:08 Blood Culture - Preliminary Blood - Venous No growth after 24 hours. 01/04/22 15:57 Blood Culture - Preliminary Blood - Venous No growth after 24 hours. Discharge Plan Discharge Anticipated Discharge Date/Time: 01/06/22 09:41 Patient Disposition: Home, Self-Care Discharge Diagnosis: Anasarca, cellulitis and seizure Referrals: [facility]- Therapy Referral [Other] - 1 Week (Please follow up in 3 days regarding initial appointment ) Kylah Leahy DO [Primary Care Provider] - 1 Week Discharge Medications: New doxycycline hyclate 100 mg Tablet 100 mg PO Q12H Qty: 20 0RF Continued multivitamin [Daily-Qi] Tablet 1 tab PO DAILY atorvastatin 10 mg tablet 1 tab PO BEDTIME quetiapine 200 mg tablet 200 mg PO BEDTIME trazodone 100 mg tablet 200 mg PO BEDTIME PRN (Reason: Insomnia) pantoprazole 40 mg tablet,delayed release (DR/EC) 1 tab PO DAILY gabapentin 300 mg capsule 1 cap PO TID loratadine 10 mg tablet 1 tab PO DAILY aripiprazole 10 mg tablet 1 tab PO DAILY phenytoin sodium extended 100 mg capsule 300 mg PO BEDTIME oxcarbazepine 300 mg tablet 450 mg PO BID famotidine 20 mg tablet 20 mg PO DAILY fluticasone propionate 50 mcg/actuation spray,suspension 2 spray intranasal DAILY nicotine 14 mg/24 hr Patch 24 Hour 14 mg transdermal DAILY Qty: 30 0RF Changed phenytoin sodium extended 100 mg capsule 300 mg PO DAILY Qty: 9 0RF No Action Sandostatin LAR [place] 30 mg Kit 30 mg IM Q4W Discharge Orders: Discharge Order (Routine); Ordered 01/06/22 Ordered By: Bryan García Activity on Discharge: As tolerated Stand Alone Forms: Patient Portal Discharge page Care Plan Goals: resolution of cellulitis, treatment for cancer Health Concerns: cancer, seizure, cellulitis Plan of Treatment: Take Doxycyline as recommended Take seizure medication as recommended Follow up with Dr. Glover for cancer treatment Note that dilantin has been changed to 300 mg in the morning and 300 mg in the evening Assessment: As above Discharge Date/Time: 01/06/22 16:18
--- NOTE | 2022-01-06 09:38 | P.CDIC_ITS ---
CDI Concurrent Query Documentation Clarification: PHYSICIAN'S DOCUMENTATION REQUEST Date of Query: 01/06/22 0938 Patient Name: Rosendo Pedroza Admit Date: 01/04/22 Dear Doctor, A review of the medical record indicates additional documentation may be needed. Please review below and update the documentation accordingly. Clinical Indicators: A diagnosis of seizure(s) was documented on [insert date]. Risk Factors/Clinical Indicators/Treatments per MD note 01/05/22: Developed seizure around 16:30.? Two short episodes that was observed by nursing staff. Check phenytoin level Give IV Ativan 2 mg Give IV phenytoin for now Get Neurology evaluation for medication advice. If possible, please further clarify in the Progress Notes, the type/etiology, acuity and control status of seizure(s): Specify type/etiology: * Idiopathic * Due to external cause (specify if drug, alcohol, stress, etc.) * Absence * Generalized epilepsy (grand mal, myoclonic, atonic, clonic, tonic-clonic, etc.) * Focal or partial (specify simple or complex) * Petit mal * Recurrent - further specify type/etiology * Other * Unable to determine Specify acuity: * With status epilepticus * Without status epilepticus * Other * Unable to determine Specify control status: * Well controlled * Intractable * Pharmacoresistant * Poorly controlled * Refractory * Treatment resistant * Other * Unable to determine Use of terms such as suspected, likely, concern for, or probable (associated with a specific diagnosis that is being evaluated, monitored, or treated as if it exists) are acceptable and can be coded in the inpatient setting, when documented at the time of discharge. Thank you, Shy Bee [insert CDI's credentials] Extension: [4-digit phone extension] Please use your independent medical judgment in providing your response. THIS QUERY IS PART OF THE PERMANENT MEDICAL RECORD Provider Response: Other Other Diagnosis: seizure desorder
--- NOTE | 2022-01-06 10:16 | PM.HEMONCCN ---
Subjective - Subjective Chief complaint: Consult for: Bilateral lower extremity pain and swelling. 2. N.E Tumor. Patient: known to practice within the last 3 years Consult date: 01/06/22 Requesting Physician: Ricky. Primary Care Provider: Kylah Leahy DO Medical Summary: DIAGNOSIS: BILATERAL LOWER EXTREMITY EDEMA AND PAIN. CELLULITIS. 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 HPI - Consult Narrative Reason for consult: Consult for: 1. Lower extremity cellulitis. 2. N.E tumor of sm bowel Narrative: Rosendo Pedroza is a pleasant 57 year old man, presented to the hospital on 01/04 with lower extremity swelling and pain.? He reported that since leaving the hospital 2 weeks ago he noticed the edema building up gradually again with associated pain and erythema extending up to his groin with associated scrotal swelling.? He denied fever but reported having chills. Reports some difficulty breathing. Denies chest pain, no significant change in weight, no nausea, vomiting, change in bowel habit or urinary symptoms. He was started on IV doxycycline and received pain medication with IV Lasix.? PMH: Depression, Seizure disorder, Metastatic neuroendocrine tumor (appendix, small bowel, liver Mets). [facility] Medical History: Medical History (Last Reviewed 01/06/22 @ 12:29 by Radha Bucio MD) Anasarca Cellulitis Cocaine abuse Epilepsy Family hx of colon cancer Generalized seizure Hx of head injury Lymphedema MDD (major depressive disorder), recurrent episode, severe Metastatic carcinoid tumor Metastatic disease Family History: Family History (Last Reviewed 01/06/22 @ 12:29 by Radha Bucio MD) Paternal Grandmother Cancer Surgical History: Surgical History (Last Reviewed 01/06/22 @ 12:29 by Radha Bucio MD) History of surgery on wrist Hx of knee surgery Social History: Social History (Last Reviewed 01/06/22 @ 12:29 by Radha Bucio MD) Living Situation History: Household Members: Family Housing: Apartment Are you a primary child day care provider to a significant other at home: No Do you presently have visiting nurse or other home services: Yes Alcohol History: Unable to assess alcohol history related to: Unknown Tobacco History: Patient Tobacco Use Status: Current everyday Tobacco Tobacco use type: Cigarette Cigarette Packs Per Day: 1 Years Smoked: 37 e-Cigarette/Vaping Use: Never Used Second Hand Smoke Exposure: Yes Substance Use History: Substance Use Type: Crack/Cocaine Substance Use Type: Heroin Substance Use Type: Marijuana Advance Directives: Advance Directives Date on File: 11/13/21 Occupation Assessmet: service: No Current occupational status: disabled Sex/Gender Assessment: Sexual orientation: Straight/Heterosexual Home Medications and Allergies Current Medications: Current Medications Acetaminophen (Acetaminophen 325 Mg Tablet) 650 mg PO Q6H PRN PRN Reason: Pain, Mild (Pain Scale 1-3) Aripiprazole (Aripiprazole 10 Mg Tablet) 10 mg PO DAILY [facility] Last Admin: 01/06/22 08:09 Dose: 10 mg Documented by: Atorvastatin Calcium (Atorvastatin Calcium 10 Mg Tablet) 10 mg PO BEDTIME [facility] Last Admin: 01/05/22 20:14 Dose: 10 mg Documented by: Clotrimazole (Clotrimazole 1 % Cream 15 Gm Tube) 1 appl TOPICAL BID [facility]; Protocol Last Admin: 01/06/22 08:10 Dose: 1 appl Documented by: Enoxaparin Sodium (Enoxaparin Sodium 40 Mg/0.4 Ml Syringe) 40 mg SUBCUT Q24H [facility] Last Admin: 01/05/22 19:38 Dose: 40 mg Documented by: Famotidine (Famotidine 20 Mg Tablet) 20 mg PO DAILY [facility] Last Admin: 01/06/22 08:09 Dose: 20 mg Documented by: Fluticasone Propionate (Fluticasone Propionate Nasal 16 Gm [place]) 2 spray NOSTRIL-B DAILY [facility] Last Admin: 01/06/22 08:08 Dose: 2 spray Documented by: Furosemide (Furosemide 40 Mg/4 Ml Vial) 40 mg IVPUSH BID@0900,1800 [facility]; Protocol Last Admin: 01/06/22 08:08 Dose: 40 mg Documented by: Gabapentin (Gabapentin 300 Mg Capsule) 300 mg PO TID [facility] Last Admin: 01/06/22 08:09 Dose: 300 mg Documented by: Doxycycline Hyclate 100 mg/ (Sodium Chloride) 250 mls @ 166.67 mls/hr IV Q12H [facility] Last Infusion: 01/06/22 08:10 Dose: Infused Documented by: Loratadine (Loratadine 10 Mg Tablet) 10 mg PO DAILY [facility] Last Admin: 01/06/22 08:09 Dose: 10 mg Documented by: Morphine Sulfate (Morphine Sulfate 2 Mg/Ml Cartridge) 2 mg IVPUSH Q4H PRN; Protocol PRN Reason: Pain, Severe (Pain Scale 7-10) Last Admin: 01/06/22 05:15 Dose: 2 mg Documented by: Multivitamins/Vitamin C (Multivitamin Tablet) 1 tab PO DAILY [facility] Last Admin: 01/06/22 08:09 Dose: 1 tab Documented by: Nicotine (Nicotine 14 Mg Patch.Td24) 14 mg TRANSDERMA DAILY [facility] Last Admin: 01/06/22 08:09 Dose: 14 mg Documented by: Omeprazole (Omeprazole 40 Mg Capsule.Dr) 40 mg PO DAILY@30 [facility] Last Admin: 01/06/22 05:15 Dose: 40 mg Documented by: Ondansetron HCl (Ondansetron Hcl 4 Mg/2 Ml Vial) 4 mg IVPUSH Q8H PRN PRN Reason: Nausea and Vomiting Oxcarbazepine (Oxcarbazepine 150 Mg Tablet) 450 mg PO BID [facility] Last Admin: 01/06/22 08:09 Dose: 450 mg Documented by: Pharmacy Consult (Consult Rx Perform Med Rec) 1 each MISCELLANE ONCE PRN PRN Reason: Consult order Phenytoin Sodium (Phenytoin Sodium Extended 100 Mg Capsule) 300 mg PO BEDTIME [facility] Last Admin: 01/05/22 20:13 Dose: 300 mg Documented by: Phenytoin Sodium (Phenytoin Sodium Extended 100 Mg Capsule) 300 mg PO DAILY [facility] Last Admin: 01/06/22 08:09 Dose: 300 mg Documented by: Quetiapine Fumarate (Quetiapine Fumarate 200 Mg Tablet) 200 mg PO BEDTIME [facility] Last Admin: 01/05/22 20:13 Dose: 200 mg Documented by: Sodium Chloride (0.9 % Sodium Chloride Flush 3 Ml Syringe) 3 ml IVFLUSH QSHIFT [facility] Last Admin: 01/05/22 20:14 Dose: 3 ml Documented by: Trazodone HCl (Trazodone Hcl 100 Mg Tablet) 200 mg PO BEDTIME PRN PRN Reason: Insomnia Last Admin: 01/05/22 20:19 Dose: 200 mg Documented by: Home Medications Medication Instructions Recorded Confirmed Type aripiprazole 10 mg tablet 1 tab PO DAILY 10/25/20 01/04/22 History atorvastatin 10 mg tablet 1 tab PO BEDTIME 10/25/20 01/04/22 History gabapentin 300 mg capsule 1 cap PO TID 10/25/20 01/04/22 History loratadine 10 mg tablet 1 tab PO DAILY 10/25/20 01/04/22 History multivitamin (Daily-Qi) 1 tab PO DAILY 10/25/20 01/04/22 History pantoprazole 40 mg tablet,delayed 1 tab PO DAILY 10/25/20 01/04/22 History release quetiapine 200 mg tablet 200 mg PO BEDTIME 10/25/20 01/04/22 History trazodone 100 mg tablet 200 mg PO BEDTIME PRN Insomnia 10/25/20 01/04/22 History phenytoin sodium extended 100 mg 300 mg PO BEDTIME 05/10/21 01/04/22 History capsule famotidine 20 mg tablet 20 mg PO DAILY 12/11/21 01/04/22 History fluticasone propionate 50 2 spray intranasal DAILY 12/11/21 01/04/22 History mcg/actuation nasal spray,suspension oxcarbazepine 300 mg tablet 450 mg PO BID 12/11/21 01/04/22 History Allergies Allergy/AdvReac Type Severity Reaction Status Date / Time Penicillins Allergy Mild RASH Verified 11/25/21 22:44 Seafood Allergy Mild RASH Verified 11/25/21 22:44 diazepam [From VALIUM] Allergy Unknown ACTS OUT Verified 11/25/21 22:44 penicillin V Allergy Unknown anaphylaxis Verified 11/25/21 22:44 ibuprofen [From MOTRIN] AdvReac Mild RASH Verified 11/25/21 22:44 Morphine AdvReac Severe Unknown Uncoded 11/25/21 22:44 Physical Exam Vital signs: Vital Signs Temp 97.8 F 01/06/22 07:14 Pulse 82 01/06/22 07:14 Resp 18 01/06/22 07:14 BP 134/76 01/06/22 07:14 Pulse Ox 96 01/06/22 07:14 Intake & Output 01/05/22 01/06/22 01/06/22 18:59 06:59 18:59 Intake Total 836 / 1926 1090 / 1926 250 / 250 Output Total 1000 / 2675 1675 / 2675 Balance -164 / -749 -585 / -749 250 / 250 Urine Output (Average ml/kg/hr) 1.07 1.78 1.78 Intake: Intake, Oral Amount 480 / 1320 840 / 1320 Intake, IV Amount 356 / 606 250 / 606 250 / 250 Doxycycline Hyclate 100 mg In 0 250 / 500 250 / 500 250 / 250 .9 % Sodium Chloride 250 ml @ 166.67 mls/hr IV Q12H [facility] Rx#: [id number] Phenytoin Sodium 300 mg In 0.9 106 / 106 % Sodium Chloride 100 ml @ 105 mls/hr IV ONCE ONE Rx#: [id number] Output: Output, Urine Amount 1000 / 2675 1675 / 2675 Other: Meal Refused No No NPO No No Breakfast % Eaten 100% Lunch % Eaten 100% Dinner % Eaten 100% Urine Urinal Urinal Urine Color Yellow Last Bowel Movement 01/05/22 Stool Bathroom Stool Amount Moderate Stool Color Dark Brown Stool Consistency Soft Weight 78.2 kg Hem/Onc Consult Result - Labs CBC & Chem 7: 01/05/22 06:15 01/06/22 05:50 Labs: BMP 01/06/22 05:50 Sodium 139 Potassium 4.3 Chloride 104 Carbon Dioxide 28 BUN 15 D Creatinine 0.82 Calcium 8.1 L Assessment and Plan Patient Active problem list reviewed?: Yes (1) Cellulitis of both lower extremities Status: Acute Assessment and plan: 56 year-old gentleman with Metastatic Well-differentiated Neuroendocrine Tumor: 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 He also has Liver Metastases. He had partial surgical resection in September [address] Raffy Sharif. He has done really well. His labs are in the normal range. Most recent CT scan from 03/20/20: 1. Hepatic metastases slightly larger when compared with prior CT 07/27/2019. Pleural-based nodule right base slightly larger. No pleural effusion. New trace ascites. 2. No bowel obstruction or definite inflammatory changes in bowel or mesentery. I followed up on the chromogranin A level:3000. This was 443 in August of last year. Previously it was 260. Prior to that 252. CT scan of the abdomen from 11/13/21: Multiple liver masses with its previously noted liver masses increased in size. There are a few new lesions seen. There is a abnormal retroperitoneal lymph nodes which have increased in size. Also visualized is mesenteric lymph nodes and mesenteric stranding and mesenteric mass. There is a question of adhesion involving small bowel segment secondary to mesenteric abnormality. The above findings are suggestive of progression of metastatic disease. There is a sclerotic lesion S1 vertebra new since the previous study. In the past he has not been too keen on getting treated. Chromogranin level: 3000. He now presents with bilateral lower extremity swelling. DIFFERENTIAL DIAGNOSIS: 1. CHF: No features of heart failure and was given IV Lasix. 2. LOWER EXTREMITY CELLULITIS: He was started on Doxycline for possible cellulitis. Cultures have been negative. and to follow up with oncology for neuroendocrine cancer treatment. He wants to go home today He had seizure in the hospital. He was noted to have low dilantin level. His dilantin is always low raising concern for possible med non compliance. No further seziure. Seizure med was switched to Keppra 500 mg twice a day. PLAN: At this point there is no appreciable swelling in the legs. The plan is to complete 5 day course of Doxy for cellulitis. The patient has been rather noncompliant with his follow-up visits to Oncology. Will start him on his Sandostatin LAR, for treatment of the neuroendocrine tumor, as an outpatient. Other choices include: Everolimus and lenvatinib, which would be second-line therapy. I will see him next week for his follow-up. Thank you, - Time Spent With Patient Time Spent with Patient (in minutes): 30
--- NOTE | 2022-01-06 10:40 | MHC.CARE ---
[facility] referral completed for Pt
--- NOTE | 2022-01-06 11:51 | MHC.CM.PN ---
nurse case ronen note electronic medicql record reviewed along with case discssed with [facility] and staff nurse , met with patient he will be discharged home today discharge plan home lives with hios mom , and self resumption of his inclusion intern services, (daily bvid) nio vna orders by mns written medicare immm 01/05/22
[2022-01-06 12:00] VITALS: RESP 20
[2022-01-06 12:00] LABS: Phenytoin Dilantin 10.4 ug/mL (10.0-20.0)
--- NOTE | 2022-01-06 12:27 | P.CNID_ITS ---
History of Present Illness Data of Consult Service Date: 01/06/22 Requesting physician: Bryan Cunha Primary Care Provider: DO VIK Mason Reason for consult: swelling groin and legs,cellulitis He presents with redness and swelling groin area and penis and scrotum as well as bilateral lower extremities. Reportedly he had this before and was discharged on Doxycycline. He has no fever or chills. He has been getting chemotherapy for neuroendocrine malignancy. Review of Systems Review of Systems: Yes all other systems are reviewed and are negative PMFSH Past Medical History Medical History Anasarca Cellulitis Cocaine abuse Epilepsy Family hx of colon cancer Generalized seizure Hx of head injury Lymphedema MDD (major depressive disorder), recurrent episode, severe Metastatic carcinoid tumor Metastatic disease Family History Family History Paternal Grandmother Cancer Family history: reviewed and not pertinent Surgical History Surgical History History of surgery on wrist Hx of knee surgery Social History Social History Household Members: Family Housing: Apartment Are you a primary landcare officer to a significant other at home: No Do you presently have visiting nurse or other home services: Yes Unable to assess alcohol history related to: Unknown Alcohol intake: unknown Patient Tobacco Use Status: Current everyday Tobacco user Tobacco use type: Cigarette Cigarette Packs Per Day: 1 Years Smoked: 37 e-Cigarette/Vaping Use: Never Used Second Hand Smoke Exposure: Yes Substance Use Type: Crack/Cocaine, Heroin and Marijuana Advance Directives Date on File: 11/13/21 service: No Current occupational status: disabled Sexual orientation: Straight/Heterosexual Meds Allergies Allergy/AdvReac Type Severity Reaction Status Date / Time Penicillins Allergy Mild RASH Verified 11/25/21 22:44 Seafood Allergy Mild RASH Verified 11/25/21 22:44 diazepam [From VALIUM] Allergy Unknown ACTS OUT Verified 11/25/21 22:44 penicillin V Allergy Unknown anaphylaxis Verified 11/25/21 22:44 ibuprofen [From MOTRIN] AdvReac Mild RASH Verified 11/25/21 22:44 Morphine AdvReac Severe Unknown Uncoded 11/25/21 22:44 Active Medications: Current Medications Acetaminophen (Acetaminophen 325 Mg Tablet) 650 mg PO Q6H PRN PRN Reason: Pain, Mild (Pain Scale 1-3) Aripiprazole (Aripiprazole 10 Mg Tablet) 10 mg PO DAILY [facility] Last Admin: 01/06/22 08:09 Dose: 10 mg Documented by: Atorvastatin Calcium (Atorvastatin Calcium 10 Mg Tablet) 10 mg PO BEDTIME [facility] Last Admin: 01/05/22 20:14 Dose: 10 mg Documented by: Clotrimazole (Clotrimazole 1 % Cream 15 Gm Tube) 1 appl TOPICAL BID [facility]; Protocol Last Admin: 01/06/22 08:10 Dose: 1 appl Documented by: Doxycycline Hyclate (Doxycycline Hyclate 100 Mg Tablet) 100 mg PO Q12H [facility] Enoxaparin Sodium (Enoxaparin Sodium 40 Mg/0.4 Ml Syringe) 40 mg SUBCUT Q24H [facility] Last Admin: 01/05/22 19:38 Dose: 40 mg Documented by: Famotidine (Famotidine 20 Mg Tablet) 20 mg PO DAILY [facility] Last Admin: 01/06/22 08:09 Dose: 20 mg Documented by: Fluticasone Propionate (Fluticasone Propionate Nasal 16 Gm [place]) 2 spray NOSTRIL-B DAILY [facility] Last Admin: 01/06/22 08:08 Dose: 2 spray Documented by: Furosemide (Furosemide 40 Mg/4 Ml Vial) 40 mg IVPUSH BID@0900,1800 [facility]; Protocol Last Admin: 01/06/22 08:08 Dose: 40 mg Documented by: Gabapentin (Gabapentin 300 Mg Capsule) 300 mg PO TID [facility] Last Admin: 01/06/22 08:09 Dose: 300 mg Documented by: Loratadine (Loratadine 10 Mg Tablet) 10 mg PO DAILY [facility] Last Admin: 01/06/22 08:09 Dose: 10 mg Documented by: Morphine Sulfate (Morphine Sulfate 2 Mg/Ml Cartridge) 2 mg IVPUSH Q4H PRN; P rotocol PRN Reason: Pain, Severe (Pain Scale 7-10) Last Admin: 01/06/22 05:15 Dose: 2 mg Documented by: Multivitamins/Vitamin C (Multivitamin Tablet) 1 tab PO DAILY [facility] Last Admin: 01/06/22 08:09 Dose: 1 tab Documented by: Nicotine (Nicotine 14 Mg Patch.Td24) 14 mg TRANSDERMA DAILY [facility] Last Admin: 01/06/22 08:09 Dose: 14 mg Documented by: Omeprazole (Omeprazole 40 Mg Capsule.) 40 mg PO DAILY@0630 [facility] Last Admin: 01/06/22 05:15 Dose: 40 mg Documented by: Ondansetron HCl (Ondansetron Hcl 4 Mg/2 Ml Vial) 4 mg IVPUSH Q8H PRN PRN Reason: Nausea and Vomiting Oxcarbazepine (Oxcarbazepine 150 Mg Tablet) 450 mg PO BID [facility] Last Admin: 01/06/22 08:09 Dose: 450 mg Documented by: Pharmacy Consult (Consult Rx Perform Med Rec) 1 each MISCELLANE ONCE PRN PRN Reason: Consult order Phenytoin Sodium (Phenytoin Sodium Extended 100 Mg Capsule) 300 mg PO BEDTIME [facility] Last Admin: 01/05/22 20:13 Dose: 300 mg Documented by: Phenytoin Sodium (Phenytoin Sodium Extended 100 Mg Capsule) 300 mg PO DAILY [facility] Last Admin: 01/06/22 08:09 Dose: 300 mg Documented by: Quetiapine Fumarate (Quetiapine Fumarate 200 Mg Tablet) 200 mg PO BEDTIME [facility] Last Admin: 01/05/22 20:13 Dose: 200 mg Documented by: Sodium Chloride (0.9 % Sodium Chloride Flush 3 Ml Syringe) 3 ml IVFLUSH QSHIFT [facility] Last Admin: 01/05/22 20:14 Dose: 3 ml Documented by: Trazodone HCl (Trazodone Hcl 100 Mg Tablet) 200 mg PO BEDTIME PRN PRN Reason: Insomnia Last Admin: 01/05/22 20:19 Dose: 200 mg Documented by: Home Medications Medication Instructions Recorded Confirmed Last Taken Type aripiprazole 10 mg tablet 1 tab PO DAILY 10/25/20 01/04/22 12/11/21 History atorvastatin 10 mg tablet 1 tab PO BEDTIME 10/25/20 01/04/22 12/10/21 History gabapentin 300 mg capsule 1 cap PO TID 10/25/20 01/04/22 12/11/21 History loratadine 10 mg tablet 1 tab PO DAILY 10/25/20 01/04/22 12/11/21 History multivitamin (Daily-Qi) 1 tab PO DAILY 10/25/20 01/04/22 12/11/21 History pantoprazole 40 mg tablet,delayed 1 tab PO DAILY 10/25/20 01/04/22 12/11/21 History release quetiapine 200 mg tablet 200 mg PO BEDTIME 10/25/20 01/04/22 12/10/21 History trazodone 100 mg tablet 200 mg PO BEDTIME PRN 10/25/20 01/04/22 12/10/21 History phenytoin sodium extended 100 mg 200 mg PO DAILY 05/10/21 01/04/22 12/11/21 History capsule phenytoin sodium extended 100 mg 300 mg PO BEDTIME 05/10/21 01/04/22 12/10/21 History capsule famotidine 20 mg tablet 20 mg PO DAILY 12/11/21 01/04/22 12/11/21 History fluticasone propionate 50 2 spray INTRANASAL DAILY 12/11/21 01/04/22 12/11/21 History mcg/actuation nasal spray,suspension oxcarbazepine 300 mg tablet 450 mg PO BID 12/11/21 01/04/22 12/11/21 History Physical Exam Vital Signs: Vital Signs: Last Vital Signs Temp 97.8 F 01/06/22 07:14 Pulse 82 01/06/22 07:14 Resp 18 01/06/22 07:14 BP 134/76 01/06/22 07:14 Pulse Ox 96 01/06/22 07:14 BMI result Body Mass Index 27.0 Const: General: cooperative HEENT: Head: Yes normal to inspection Mouth: Normal oral and palatal mucosa present Resp: Effort & Inspection: normal respiratory effort Cardio: Rate: regular rate Rhythm: regular rhythm GI: Palpation (GI): Soft to palpation and nontender : Male General Exam: Yes other (decreased swelling,no redness scrotum,penile area) Extrem: General: Yes normal to inspection Results Labs CBC & Chem 7: 01/05/22 06:15 01/06/22 05:50 Labs: BMP 01/06/22 05:50 Sodium 139 Potassium 4.3 Chloride 104 Carbon Dioxide 28 BUN 15 D Creatinine 0.82 Calcium 8.1 L Microbiology Microbiology Results: Microbiology 01/04/22 18:08 Blood - Venous Blood Culture - Preliminary No growth after 24 hours. 01/04/22 15:57 Blood - Venous Blood Culture - Preliminary No growth after 24 hours. Assessment and Plan (1) Scrotal edema: Status: Acute (2) Lower extremity edema: Status: Acute (3) Cellulitis of both lower extremities: Status: Acute Dependent edema and cellulitis have resolved. It seems more related to edema and he feels well and ready to go. Plan Doxycycline for 10-14 days. Follow with Oncology.
[2022-01-06 14:40] VITALS: BMI 27.0
[2022-01-06 15:09] VITALS: BP 144/77; PULSE 87; RESP 18; TEMP 36.8; O2SAT 98
== END 2022-01-06 16:18 | disposition home health service (06) | DRG 603 ==
LOC: HO.ED 16:17 → HO.EDOVER 18:11 → HO.S3 18:18
PROVIDERS: Admitting Provider Student in an Organized Health Care Education/Training Program; Emergency Provider Emergency Medicine; PCP Family Medicine; Visit Provider Internal Medicine
DX: L03.116 Cellulitis of left lower limb (principal); C7A.8 Other malignant neuroendocrine tumors; L03.115 Cellulitis of right lower limb; G40.909 Epilepsy, unspecified, not intractable, without status epilepticus; F17.210 Nicotine dependence, cigarettes, uncomplicated; B35.3 Tinea pedis; Z20.822 Contact with and (suspected) exposure to COVID-19; R60.1 Generalized edema; F32.A Depression, unspecified; Z71.6 Tobacco abuse counseling; Z91.013 Allergy to seafood; Z91.14 Patient's other noncompliance with medication regimen; Z88.0 Allergy status to penicillin; Z88.5 Allergy status to narcotic agent; Z88.6 Allergy status to analgesic agent; Z79.899 Other long term (current) drug therapy
CPT/HCPCS: 36415; 71045; 80048; 80185; 83605; 83880; 84484; 85025; 85027; 85379; 87040; 87635; 96365; 96375; 99285; J1650; J1940; J2060; J2270

== ENCOUNTER → 2022-01-22 08:54 | Outpatient (BNVA) | payer MEDICARE, MEDICAID, SELFPAY | PROVIDERS: PCP Family Medicine; Visit Provider Nurse Practitioner Family | DX: Z12.11 Encounter for screening for malignant neoplasm of colon (principal) | CPT/HCPCS: 99202 ==

== ENCOUNTER 2022-01-26 06:43 | Emergency (ER) | payer MEDICARE, MEDICAID, SELFPAY ==
--- NOTE | ~2022-01-26 | XR_ITS ---
EXAMINATION: XR CHEST CLINICAL INFORMATION: Shortness of COMPARISON: 01/04/2022 and priors TECHNIQUE: AP portable upright (2 images) view of the chest was obtained. FINDINGS: Compared with priors there are new perihilar and lower zone reticular lung markings. This could represent acute airways disease or a atypical infection. Recommend short-term follow-up. No focal consolidation or effusion. No pneumothorax. Stable heart and mediastinum. XR/XR chest 1V IMPRESSION: Acute reticular markings as above. Suspect acute airways disease or atypical infection
[2022-01-26 06:49] VITALS: BP 150/79; PULSE 85; O2SAT 100
[2022-01-26 07:34] VITALS: BP 133/66; PULSE 80; RESP 16; TEMP 36.8; BMI 26.9
--- NOTE | 2022-01-26 08:17 | ED_ITS ---
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 complaint: groin pain Time Seen by Provider: 01/26/22 07:58 Source: patient Mode of arrival: EMS Limitations: language barrier (Patient's 1st language is Kyrgyz, he does speak some Amharic, front maker was used) History of Present Illness HPI Narrative: 57-year-old male who presents emergency department for evaluation of lower extre mity pain, lower back pain, testicular pain and swelling x4 months. 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 The patient has chronic lymphedema and anasarca secondary to his malignancy. The patient states that he has constant, dull to sharp in his lower back, lower extremities, testicles bilaterally. He states the pain has gotten progressively worse and today the pain is 10/10. He does not take any pain medications at home. He denied fever, chills, chest, shortness of breath. He denied nausea, vomiting or changes bowel movements. The patient was seen in the emergency department on 01/04/2022 and had a negative workup including negative DVT workup with bilateral lower extremity duplex ultrasounds. MD Complaint: testicle pain and testicle swelling Onset (ago): month(s) (4) Duration: constant Location: penis, right testicle, left testicle, right inguinal region and left inguinal region Radiation: abdomen Severity: severe Severity scale (1-10): 10 Quality: aching and dull Relieving factors: none Exacerbating factors: none Context: other (Metastatic neuroendocrine tumor (carcinoid involving appendix, small bowel, omentum, metastasis to the liver) ) Associated symptoms: Reports swelling Related Data Sexually active: No Home Medications Medication Instructions Recorded Confirmed aripiprazole 10 mg tablet 1 tab PO DAILY 10/25/20 01/04/22 atorvastatin 10 mg tablet 1 tab PO BEDTIME 10/25/20 01/04/22 gabapentin 300 mg capsule 1 cap PO TID 10/25/20 01/04/22 loratadine 10 mg tablet 1 tab PO DAILY 10/25/20 01/04/22 multivitamin (Daily-Qi) 1 tab PO DAILY 10/25/20 01/04/22 pantoprazole 40 mg tablet,delayed 1 tab PO DAILY 10/25/20 01/04/22 release quetiapine 200 mg tablet 200 mg PO BEDTIME 10/25/20 01/04/22 trazodone 100 mg tablet 200 mg PO BEDTIME PRN Insomnia 10/25/20 01/04/22 phenytoin sodium extended 100 mg 300 mg PO BEDTIME 05/10/21 01/04/22 capsule famotidine 20 mg tablet 20 mg PO DAILY 12/11/21 01/04/22 fluticasone propionate 50 2 spray intranasal DAILY 12/11/21 01/04/22 mcg/actuation nasal spray,suspension oxcarbazepine 300 mg tablet 450 mg PO BID 12/11/21 01/04/22 Previous Rx's Medication Instructions Recorded nicotine 14 mg/24 hr daily 14 mg transdermal DAILY #30 ea 12/15/21 transdermal patch doxycycline hyclate 100 mg tablet 100 mg PO Q12H #20 tabs 01/06/22 phenytoin sodium extended 100 mg 300 mg PO DAILY #9 caps 01/06/22 capsule bisacodyl 5 mg tablet,delayed 10 mg PO ONCE 1 day #2 tabs 01/22/22 release (Dulcolax (bisacodyl)) polyethylene glycol 3350 17 238 g PO ONCE #238 grams 01/22/22 gram/dose oral powder (Miralax) Allergies Allergy/AdvReac Type Severity Reaction Status Date / Time Penicillins Allergy Mild RASH Verified 01/22/22 09:02 Seafood Allergy Mild RASH Verified 01/22/22 09:02 diazepam [From VALIUM] Allergy Unknown ACTS OUT Verified 01/22/22 09:02 penicillin V Allergy Unknown anaphylaxis Verified 01/22/22 09:02 ibuprofen [From MOTRIN] AdvReac Mild RASH Verified 01/22/22 09:02 Morphine AdvReac Severe Unknown Uncoded 11/25/21 22:44 [facility] Past Medical History [facility] Narrative: Social history: He smokes 1 pack of cigarettes per day times 30 years. He denies alcohol use. He smokes marijuana. Medical History Anasarca Cellulitis Cocaine abuse Epilepsy Family hx of colon cancer Generalized seizure Hx of head injury Lymphedema MDD (major depressive disorder), recurrent episode, severe Metastatic carcinoid tumor Metastatic disease Surgical History History of surgery on wrist Hx of knee surgery Family History Family History Paternal Grandmother Cancer Social History Social History Household Members: Family Housing: Apartment Are you a primary hospice care sales consultant to a significant other at home: No Do you presently have visiting nurse or other home services: Yes Unable to assess alcohol history related to: Unknown Alcohol intake: never Patient Tobacco Use Status: Current everyday Tobacco user Tobacco use type: Cigarette Cigarette Packs Per Day: 1 Years Smoked: 37 Smoked in Last 30 Days: Yes e-Cigarette/Vaping Use: Never Used Second Hand Smoke Exposure: Yes Use of substances other than those prescribed or required for medical reasons: Yes Substance Use Type: Marijuana Substance Use Frequency: Daily Last Used Substance: Just Prior to Admission Any prior treatment program specific to substance use: No Advance Directives: No Advance Directives Information Provided: Yes Advance Directives Date on File: 11/13/21 service: No Current occupational status: disabled Sexual orientation: Straight/Heterosexual Physical Exam Vital Signs: Vital Signs: Last Vital Signs Temp 98.2 F 01/26/22 08:43 Pulse 93 01/26/22 13:00 Resp 20 01/26/22 13:00 BP 149/82 H 01/26/22 13:00 Pulse Ox 98 01/26/22 13:00 O2 Del Method 01/26/22 13:00 BMI result Body Mass Index 26.9 Const: Other: Patient appears to be in distress secondary to his pain General: cooperative Orientation/consciousness: oriented to person and oriented to place Limitations: no limitations HEENT: Head: Yes normal to inspection, Yes normocephalic and Yes atraumatic Ears: external ears normal General nose exam: Normal external nose present Face and sinus: Yes normal facial exam Mouth: Normal oral and palatal mucosa present Throat: Yes posterior oropharynx normal Eyes: General: appearance normal, both eyes and all related structures Pupils: Equal, round and reactive pupils present Neck: Neck: Yes normal visual inspection, Yes no lymphadenopathy, Yes trachea midline and Yes supple Chest: Chest palpation & inspection: normal inspection of the chest and normal palpation of entire chest wall Resp: Effort & Inspection: normal respiratory effort and able to speak in complete sentences Auscultation: clear to auscultation bilaterally Cardio: Rate: regular rate Rhythm: regular rhythm Heart sounds: S1 normal heart sound present, S2 normal heart sound present and no murmurs GI: Inspection: Yes normal to inspection Palpation (GI): Soft to palpation, nontender and no guarding Auscultation: normal bowel sounds : Other: Anasarca to his penis and scrotum bilaterally Skin: General skin exam: no rashes or lesions noted Neuro: General: oriented to person and oriented to place Cranial nerves: Yes CN's II-XII intact bilaterally and Yes Equal, round and reactive pupils present Cognition (Neuro): normal cognition Motor exam (neuro): 5/5 motor strength present throughout Extrem: Other: Nonpitting edema to his lower extremities which appears to be symmetric Psych: Appearance: grossly normal Speech and movement: Normal speech and movement present Affect: normal affect Attitude: cooperative Thought process: Normal thought process present Thought content: Normal thought content present Course Course Course Narrative: 57-year-old male with metastatic carcinoid neuroendocrine tumor with chronic anasarca and lymphedema of his lower extremities who presents emergency department for evaluation of increased pain in his scrotum, abdomen and lower extremities, this pain is chronic he has had it for 4 months. Vital signs were normal normal. The patient did appear to be in distress secondary to his pain. He does have anasarca of his penis and scrotum bilaterally with symmetric nonpitting edema of his lower extremities consistent with lymphedema. I did order laboratory evaluation includes CBC, CMP, lipase, troponin, UA. The yong ent's pain will be treated with morphine 4 mg IV. 1321: Laboratory evaluation: CBC normal, CMP normal, lipase normal. Radiology evaluation: Chest x-ray (two view): Radiologist impression: Acute reticular markings as above, suspect acute airway disease or atypical infection. Patient's laboratory evaluation was unremarkable. The patient it is presentation is not consistent with pneumonia. At this time, I suspect that the patient's pain is related to his lymphedema and anasarca. The patient did require 3 doses of morphine 4 mg IV with improvement of his pain. The patient will be discharged home. He was advised to follow-up with his oncologist Dr. Glover for further evaluation. MDM - Male Genitourinary Lab Data Result diagrams: 01/26/22 09:24 01/26/22 09:24 Labs: Lab Results 01/26/22 01/26/22 01/26/22 Range/Units 09:24 09:24 09:24 WBC 6.3 (4.8-10.8) X10*3/uL RBC 3.97 L (4.60-5.80) X10*6/uL Hgb 12.4 L (14.0-18.0) g/dl Hct 37.2 L (42.0-52.0) % MCV 93.7 (80.0-98.0) fL MCH 31.2 (27.0-33.0) pg MCHC 33.3 (31.0-36.0) g/dl RDW 12.7 (11.0-16.0) % Plt Count 303 (160-400) X10*3/uL MPV 8.6 L (9.4-12.4) fL Immature Gran % (Auto) 0.3 (0.0-0.4) % Neut % (Auto) 69.2 (45-73) % Lymph % (Auto) 12.2 L (20-40) % [place] % (Auto) 14.6 H (2-11) % Eos % (Auto) 2.7 (0-4) % Baso % (Auto) 1.0 (0-2) % Lymph # (Auto) 0.8 L (1.2-4.9) X10*3/uL [place] # (Auto) 0.9 (0.1-1.2) X10*3/uL Eos # (Auto) 0.2 (0.0-0.4) X10*3/uL Baso # (Auto) 0.1 (0.0-0.2) X10*3/uL Abs Immat Gran (auto) 0.02 (0.00-0.03) X10*3/uL Absolute Neuts (auto) 4.3 (2.0-8.3) x10*3/uL Absolute Nucleated RBC 0.000 (0.0-0.012) X10*3/uL Nucleated RBC % (auto) 0.0 (0.0-0.2) /100WBC Sodium 136 (135-145) mmol/L Potassium 4.2 (3.3-5.1) mmol/L Chloride 102 (96-108) mmol/L Carbon Dioxide 26 (22-29) mmol/L Anion Gap 12 (12-20) BUN 12 (9-16) mg/dL Creatinine 0.81 (0.5-1.4) mg/dL Estim Creat Clear Calc 97.3 Estimated GFR > 60 Random Glucose 73 (60-115) mg/dL Calcium 8.5 (8.4-10.2) mg/dL Total Bilirubin 0.4 (0.0-1.0) mg/dL AST 33 D (5-37) U/L ALT 22 (0-40) U/L Alkaline Phosphatase 122 H (39-117) U/L Troponin I High Sens < 3.5 (<3.5-35.0) ng/L Total Protein 6.6 (6.5-8.0) g/dL Albumin 3.9 (3.5-5.0) g/dL Lipase 31 (8-78) U/L Discharge Plan Discharge Clinical Impression: Abdominal pain, Pain in scrotum, Anasarca Patient Disposition: Home, Self-Care Instructions: Abdominal Pain (ED) Additional Instructions: Your laboratory evaluation was unremarkable Your swelling of your scrotum, penis and lower extremities is caused by your carcinoid tumor. You received morphine 4 mg IV x3. Take ibuprofen 200 mg pills, 3 pills every 6 hours as needed for pain. Take Tylenol (acetaminophen) 500 mg pills, 2 pills every 4 to 6 hours as needed for pain. Follow-up with your doctor in 2 days. Please return to the emergency department if your symptoms get worse or if you develop any symptoms that are concerning to you. Prescriptions: No Action multivitamin [Daily-Qi] Tablet 1 tab PO DAILY atorvastatin 10 mg tablet 1 tab PO BEDTIME quetiapine 200 mg tablet 200 mg PO BEDTIME trazodone 100 mg tablet 200 mg PO BEDTIME PRN (Reason: Insomnia) pantoprazole 40 mg tablet,delayed release (DR/EC) 1 tab PO DAILY gabapentin 300 mg capsule 1 cap PO TID loratadine 10 mg tablet 1 tab PO DAILY aripiprazole 10 mg tablet 1 tab PO DAILY doxycycline hyclate 100 mg Tablet 100 mg PO Q12H Qty: 20 0RF phenytoin sodium extended 100 mg capsule 300 mg PO DAILY Qty: 9 0RF phenytoin sodium extended 100 mg capsule 300 mg PO BEDTIME oxcarbazepine 300 mg tablet 450 mg PO BID famotidine 20 mg tablet 20 mg PO DAILY fluticasone propionate 50 mcg/actuation spray,suspension 2 spray intranasal DAILY nicotine 14 mg/24 hr Patch 24 Hour 14 mg transdermal DAILY Qty: 30 0RF bisacodyl [Dulcolax (bisacodyl)] 5 mg tablet,delayed release (DR/EC) 10 mg PO ONCE 1 Days Qty: 2 0RF Rx Instructions: take 2 tabs at noon the day before your colonoscopy polyethylene glycol 3350 [Miralax] 17 gram/dose powder 238 g PO ONCE Qty: 238 0RF Rx Instructions: As directed by gastroenterology department at [facility]
[2022-01-26 08:43] VITALS: BP 136/71; PULSE 80; RESP 20; TEMP 36.8
[2022-01-26 09:06] VITALS: BP 129/68; PULSE 79; RESP 18; O2SAT 97
[2022-01-26 09:29] LABS: MANUAL DIFF FLAG NO
[2022-01-26 09:31] LABS: Basophils Absolute Auto 0.1 X10*3/uL (0.0-0.2); Eosinophils Absolute Auto 0.2 X10*3/uL (0.0-0.4); Eosinophils Percent Auto 2.7 % (0-4); Hematocrit 37.2 % (42.0-52.0); Hemoglobin 12.4 g/dl (14.0-18.0); Imm Gran Abs Auto 0.02 X10*3/uL (0.00-0.03); Imm Gran Pct Auto 0.3 % (0.0-0.4); Lymphocytes Absolute Auto 0.8 X10*3/uL (1.2-4.9); Lymphocytes Percent Auto 12.2 % (20-40); Mean Corpuscular HGB Conc 33.3 g/dl (31.0-36.0); Mean Corpuscular Hemoglobin 31.2 pg (27.0-33.0); Mean Corpuscular Volume 93.7 fL (80.0-98.0); Mean Platelet Volume 8.6 fL (9.4-12.4); Monocytes Absolute Auto 0.9 X10*3/uL (0.1-1.2); Monocytes Percent Auto 14.6 % (2-11); Neutrophils Absolute Auto 4.3 x10*3/uL (2.0-8.3); Neutrophils Percent Auto 69.2 % (45-73); Platelet Count 303 X10*3/uL (160-400); Red Blood Count 3.97 X10*6/uL (4.60-5.80); Red Cell Distribution Width 12.7 % (11.0-16.0); White Blood Count 6.3 X10*3/uL (4.8-10.8)
[2022-01-26] MEDS: Morphine Sulfate 4 MG/ML CARTRIDGE IVPUSH ×3 (09:44→13:48)
[2022-01-26 09:49] LABS: Alanine Aminotransferase 22 U/L (0-40); Albumin Level 3.9 g/dL (3.5-5.0); Alkaline Phosphatase 122 U/L (39-117); Anion Gap 12 (12-20); Aspartate Amino Transferase 33 U/L (5-37); Bilirubin Total 0.4 mg/dL (0.0-1.0); Blood Urea Nitrogen 12 mg/dL (9-16); Calcium 8.5 mg/dL (8.4-10.2); Carbon Dioxide 26 mmol/L (22-29); Chloride 102 mmol/L (96-108); Creatinine Clr Calc Pharmacy 97.3; Estimated Glomerular Filt Rate > 60; Glucose Random 73 mg/dL (60-115); Lipase 31 U/L (8-78); Potassium 4.2 mmol/L (3.3-5.1); Sodium 136 mmol/L (135-145); Total Protein 6.6 g/dL (6.5-8.0)
[2022-01-26 09:50] LABS: Troponin-I High Sensitivity < 3.5 ng/L (<3.5-35.0)
[2022-01-26 13:00] VITALS: BP 149/82; PULSE 93; RESP 20; O2SAT 98
[2022-01-26 13:47] VITALS: BP 147/75; PULSE 87; RESP 20; O2SAT 96
== END 2022-01-26 16:53 | disposition home or self-care (01) ==
PROVIDERS: Emergency Provider Emergency Medicine Emergency Medical Services; PCP Family Medicine
DX: R10.31 Right lower quadrant pain (principal); R10.32 Left lower quadrant pain; N50.811 Right testicular pain; N50.812 Left testicular pain; R60.1 Generalized edema; C7A.8 Other malignant neuroendocrine tumors; C7B.8 Other secondary neuroendocrine tumors
CPT/HCPCS: 36415; 71045; 80053; 83690; 84484; 85025; 96374; 96376; 99284; J2270

== ENCOUNTER 2022-02-22 11:45 | Emergency (ER) | payer MEDICARE, MEDICAID, SELFPAY | END 2022-02-22 13:35 | disposition left against medical advice (07) | PROVIDERS: Emergency Provider Emergency Medicine | DX: R10.9 Unspecified abdominal pain (principal) ==

== ENCOUNTER 2022-03-10 16:38 | Inpatient (IN) | payer MEDICARE, MEDICAID, SELFPAY ==
--- NOTE | 2022-03-10 17:02 | ED_ITS ---
HPI - Psych General Chief Complaint: Psychiatric Symptoms Stated Complaint: SI, PSYCH EVAL, HISTORY OF SZ Time Seen by Provider: 03/10/22 17:01 Source: patient Mode of arrival: EMS Limitations: language barrier History of Present Illness HPI Narrative: HIstory obtained by home health billing specialist. Patients mother called the ambulance, patient has a lot of depression. Patient is hearing voices telling him to hurt himself. Patient thinking about jumping off the roof. Patient feels ghosts are following him. patient feels rejected by his family and this is making him feel worse. MD complaint: suicidal ideation and feels depressed Onset (ago): month(s) Duration: intermittent History of same: Yes Relieving factors: none Context: recent drug abuse Associated psychiatric symptoms: depression Associated symptoms: denies other symptoms If self harm: has plan Related Data Home Medications Medication Instructions Recorded Confirmed aripiprazole 10 mg tablet 1 tab PO DAILY 10/25/20 01/04/22 atorvastatin 10 mg tablet 1 tab PO BEDTIME 10/25/20 03/10/22 gabapentin 300 mg capsule 1 cap PO TID 10/25/20 01/04/22 loratadine 10 mg tablet 1 tab PO DAILY 10/25/20 01/04/22 multivitamin (Daily-Qi tablet) 1 tab PO DAILY 10/25/20 01/04/22 pantoprazole 40 mg tablet,delayed 1 tab PO DAILY 10/25/20 01/04/22 release quetiapine 200 mg tablet 200 mg PO BEDTIME 10/25/20 01/04/22 trazodone 100 mg tablet 200 mg PO BEDTIME PRN Insomnia 10/25/20 01/04/22 phenytoin sodium extended 100 mg 300 mg PO BEDTIME 05/10/21 01/04/22 capsule famotidine 20 mg tablet 20 mg PO DAILY 12/11/21 01/04/22 fluticasone propionate 50 2 spray intranasal DAILY 12/11/21 03/10/22 mcg/actuation nasal spray,suspension oxcarbazepine 300 mg tablet 450 mg PO BID 12/11/21 01/04/22 octreotide,microspheres 30 mg 30 mg IM Q4W 01/30/22 01/30/22 intramuscular kit Previous Rx's Medication Instructions Recorded nicotine 14 mg/24 hr daily 14 mg transdermal DAILY #30 ea 12/15/21 transdermal patch doxycycline hyclate 100 mg tablet 100 mg PO Q12H #20 tabs 01/06/22 phenytoin sodium extended 100 mg 300 mg PO DAILY #9 caps 01/06/22 capsule Allergies Allergy/AdvReac Type Severity Reaction Status Date / Time Penicillins Allergy Mild RASH Verified 01/22/22 09:02 Seafood Allergy Mild RASH Verified 01/22/22 09:02 diazepam [From VALIUM] Allergy Unknown ACTS OUT Verified 01/22/22 09:02 penicillin V Allergy Unknown anaphylaxis Verified 01/22/22 09:02 ibuprofen [From MOTRIN] AdvReac Mild RASH Verified 01/22/22 09:02 Morphine AdvReac Severe Unknown Uncoded 11/25/21 22:44 Review of Systems Constitutional: Constitutional: Reports no additional constitutional complaints Eyes: Eyes: Reports no additional eye complaints ENT: Denies dizziness Cardiovascular: Cardiovascular: Reports no additional cardiovascular complai nts Respiratory: Respiratory: Reports as per HPI Gastrointestinal: Gastrointestinal: Reports no additional gastrointestinal complaints Musculoskeletal: Musculoskeletal: Reports no additional musculoskeletal complaints Integumentary/Breasts: Skin/Breast: Denies rash Neurologic: Reports system reviewed and no additional complaints, except as documented, Denies dizziness and Denies Sensory deficit (Neuro) Psychiatric: Psychiatric: Denies anxiety PMFSH Past Medical History Medical History Anasarca Cellulitis Cocaine abuse Epilepsy Family hx of colon cancer Generalized seizure Hx of head injury Lymphedema MDD (major depressive disorder), recurrent episode, severe Metastatic carcinoid tumor Metastatic disease Surgical History History of surgery on wrist Hx of knee surgery Family History Family History Paternal Grandmother Cancer Social History Social History Household Members: Family Housing: Apartment Are you a primary long term care phlebotomist to a significant other at home: No Do you presently have visiting nurse or other home services: Yes Unable to assess alcohol history related to: Unknown Alcohol intake: never Patient Tobacco Use Status: Current everyday Tobacco user Tobacco use type: Cigarette Cigarette Packs Per Day: 1 Years Smoked: 37 e-Cigarette/Vaping Use: Never Used Second Hand Smoke Exposure: Yes Substance Use Type: Marijuana Advance Directives: No Advance Directives Information Provided: No Advance Directives Date on File: 11/13/21 service: No Current occupational status: disabled Sexual orientation: Straight/Heterosexual Physical Exam Vital Signs: Vital Signs: Last Vital Signs Temp 98.7 F 03/10/22 17:07 Pulse 71 03/10/22 18:56 Resp 16 03/10/22 18:56 BP 148/71 H 03/10/22 18:56 Pulse Ox 99 03/10/22 18:56 O2 Del Method 03/10/22 18:56 Oxygen Flow Rate 2 03/10/22 17:07 BMI result Body Mass Index 24.7 Const: Other: tearful, anxious Nutritional Appearance: average body habitus Orientation/consciousness: oriented to person and patient oriented x3 Limitations: no limitations HEENT: Head: Yes normal to inspection Ears: external ears normal General nose exam: Normal external nose present Mouth: Normal oral and palatal mucosa present and oropharynx normal Throat: Yes posterior oropharynx normal Eyes: General: appearance normal, both eyes and all related structures Neck: Other: supple Neck: Yes normal visual inspection Chest: Chest palpation & inspection: normal inspection of the chest Resp: Auscultation: clear to auscultation bilaterally Cardio: Jugular venous distension: no JVD Rate: regular rate Rhythm: regular rhythm Heart sounds: S1 normal heart sound present and S2 normal heart sound present GI: Inspection: Yes normal to inspection Palpation (GI): Soft to palpation, nontender and No hepatosplenomegaly present Auscultation: normal bowel sounds : General: Yes no CVA tenderness Back/Spine/Pelvis: Back: no CVA tenderness Skin: General skin exam: no rashes or lesions noted Neuro: General: oriented to person and patient oriented x3 Cranial nerves: Yes CN's II-XII intact bilaterally Motor exam (neuro): 5/5 motor strength present throughout Sensory Exam: No Sensory deficit (Neuro) Extrem: Other: bilateral edema Psych: Appearance: grossly normal Course Reevaluation(s) Reevaluation #1: patient is medically cleared for crisis. Will place in physician observation at this time. physical exam: lungs clear, CV RRR, abd nontender. more calm. Crisis to evaluate, using time to see if his depression improves Time: 20:47 MDM - Psych Lab Data Result diagrams: 03/10/22 17:51 03/10/22 17:51 Labs: Lab Results 03/10/22 03/10/22 03/10/22 Range/Units 17:51 17:51 17:51 WBC 6.2 (4.8-10.8) X10*3/uL RBC 3.97 L (4.60-5.80) X10*6/uL Hgb 12.4 L (14.0-18.0) g/dl Hct 37.6 L (42.0-52.0) % MCV 94.7 (80.0-98.0) fL MCH 31.2 (27.0-33.0) pg MCHC 33.0 (31.0-36.0) g/dl RDW 12.9 (11.0-16.0) % Plt Count 315 (160-400) X10*3/uL MPV 9.2 L (9.4-12.4) fL Immature Gran % (Auto) 0.3 (0.0-0.4) % Neut % (Auto) 62.5 (45-73) % Lymph % (Auto) 23.4 (20-40) % [place] % (Auto) 10.1 (2-11) % Eos % (Auto) 2.4 (0-4) % Baso % (Auto) 1.3 (0-2) % Lymph # (Auto) 1.4 (1.2-4.9) X10*3/uL [place] # (Auto) 0.6 (0.1-1.2) X10*3/uL Eos # (Auto) 0.2 (0.0-0.4) X10*3/uL Baso # (Auto) 0.1 (0.0-0.2) X10*3/uL Abs Immat Gran (auto) 0.02 (0.00-0.03) X10*3/uL Absolute Neuts (auto) 3.8 (2.0-8.3) x10*3/uL Absolute Nucleated RBC 0.000 (0.0-0.012) X10*3/uL Nucleated RBC % (auto) 0.0 (0.0-0.2) /100WBC Sodium 141 (135-145) mmol/L Potassium 4.4 (3.3-5.1) mmol/L Chloride 106 (96-108) mmol/L Carbon Dioxide 26 (22-29) mmol/L Anion Gap 13 (12-20) BUN 16 (9-16) mg/dL Creatinine 0.90 (0.5-1.4) mg/dL Estim Creat Clear Calc 90.5 Estimated GFR > 60 Random Glucose 109 (60-115) mg/dL Calcium 8.4 (8.4-10.2) mg/dL Total Bilirubin 0.2 (0.0-1.0) mg/dL AST 20 (5-37) U/L ALT 13 (0-40) U/L Alkaline Phosphatase 104 (39-117) U/L Total Protein 6.8 (6.5-8.0) g/dL Albumin 4.0 (3.5-5.0) g/dL Salicylates < 5.0 L (15-30) mg/dL Acetaminophen < 1 (<30) mcg/mL Ethyl Alcohol < 10 mg/dL Discharge Plan Discharge Clinical Impression: Suicidal ideation, Depression Patient Disposition: Still a Patient Prescriptions: No Action multivitamin [Daily-Qi] Tablet 1 tab PO DAILY atorvastatin 10 mg tablet 1 tab PO BEDTIME quetiapine 200 mg tablet 200 mg PO BEDTIME trazodone 100 mg tablet 200 mg PO BEDTIME PRN (Reason: Insomnia) pantoprazole 40 mg tablet,delayed release (DR/EC) 1 tab PO DAILY gabapentin 300 mg capsule 1 cap PO TID loratadine 10 mg tablet 1 tab PO DAILY aripiprazole 10 mg tablet 1 tab PO DAILY Sandostatin LAR [place] 30 mg Kit 30 mg IM Q4W doxycycline hyclate 100 mg Tablet 100 mg PO Q12H Qty: 20 0RF phenytoin sodium extended 100 mg capsule 300 mg PO DAILY Qty: 9 0RF phenytoin sodium extended 100 mg capsule 300 mg PO BEDTIME oxcarbazepine 300 mg tablet 450 mg PO BID famotidine 20 mg tablet 20 mg PO DAILY fluticasone propionate 50 mcg/actuation spray,suspension 2 spray intranasal DAILY nicotine 14 mg/24 hr Patch 24 Hour 14 mg transdermal DAILY Qty: 30 0RF
[2022-03-10 17:07] VITALS: BP 140/91; BP 192/100; PULSE 110; PULSE 84; RESP 16; TEMP 37.1; O2SAT 96; O2SAT 99; BMI 24.7
[2022-03-10] MEDS: Acetaminophen 325 MG TABLET 650 MG PO (17:53)
[2022-03-10 18:16] LABS: Ethanol < 10 mg/dL
[2022-03-10 18:18] LABS: Acetaminophen LAB < 1 mcg/mL (<30); Alanine Aminotransferase 13 U/L (0-40); Alkaline Phosphatase 104 U/L (39-117); Anion Gap 13 (12-20); Aspartate Amino Transferase 20 U/L (5-37); Bilirubin Total 0.2 mg/dL (0.0-1.0); Blood Urea Nitrogen 16 mg/dL (9-16); Calcium 8.4 mg/dL (8.4-10.2); Carbon Dioxide 26 mmol/L (22-29); Chloride 106 mmol/L (96-108); Creatinine Clr Calc Pharmacy 90.5; Estimated Glomerular Filt Rate > 60; Glucose Random 109 mg/dL (60-115); Potassium 4.4 mmol/L (3.3-5.1); Salicylate < 5.0 mg/dL (15-30); Sodium 141 mmol/L (135-145); Total Protein 6.8 g/dL (6.5-8.0)
[2022-03-10 18:28] LABS: Basophils Absolute Auto 0.1 X10*3/uL (0.0-0.2); Basophils Percent Auto 1.3 % (0-2); Eosinophils Absolute Auto 0.2 X10*3/uL (0.0-0.4); Eosinophils Percent Auto 2.4 % (0-4); Hematocrit 37.6 % (42.0-52.0); Hemoglobin 12.4 g/dl (14.0-18.0); Imm Gran Abs Auto 0.02 X10*3/uL (0.00-0.03); Imm Gran Pct Auto 0.3 % (0.0-0.4); Lymphocytes Absolute Auto 1.4 X10*3/uL (1.2-4.9); Lymphocytes Percent Auto 23.4 % (20-40); MANUAL DIFF FLAG NO; Mean Corpuscular Hemoglobin 31.2 pg (27.0-33.0); Mean Corpuscular Volume 94.7 fL (80.0-98.0); Mean Platelet Volume 9.2 fL (9.4-12.4); Monocytes Absolute Auto 0.6 X10*3/uL (0.1-1.2); Monocytes Percent Auto 10.1 % (2-11); Neutrophils Absolute Auto 3.8 x10*3/uL (2.0-8.3); Neutrophils Percent Auto 62.5 % (45-73); Platelet Count 315 X10*3/uL (160-400); Red Blood Count 3.97 X10*6/uL (4.60-5.80); Red Cell Distribution Width 12.9 % (11.0-16.0); White Blood Count 6.2 X10*3/uL (4.8-10.8)
[2022-03-10 18:56] VITALS: BP 148/71; PULSE 71; RESP 16; O2SAT 99
--- NOTE | 2022-03-10 19:34 | MHC.CARE ---
[facility] smart sheet submitted.
--- NOTE | 2022-03-11 | ECG_ITS ---
Test Reason : med clearance Blood Pressure : / mmHG Vent. Rate : 065 BPM Atrial Rate : 065 BPM P-R Int : 136 ms QRS Dur : 088 ms QT Int : 396 ms P-R-T Axes : 051 055 050 degrees QTc Int : 411 ms Normal sinus rhythm Normal ECG When compared with ECG of 22-DEC-2021 11:45, No significant change was found Referred By: Almaz Graves Electronically Signed By:HI BUTLER
[2022-03-11 04:03] LABS: Amphetamine Screen Urine Not Detected (Not Detect); Barbiturates, Urine Not Detected (Not Detect); Benzodiazepines Screen Urine Not Detected (Not Detect); Cannabinoid Screen Urine POSITIVE (Not Detect); Cocaine Screen Urine POSITIVE (Not Detect); Fentanyl, urine Not Detected (Not Detect); Opiate Screen Urine Not Detected (Not Detect); Phencyclidine Screen Urine Not Detected (Not Detect)
[2022-03-11 06:14] VITALS: BP 150/72; PULSE 82; RESP 18; TEMP 36.7; O2SAT 97
[2022-03-11 06:24] LABS: COVID-19 Test Negative (Negative)
--- NOTE | 2022-03-11 07:03 | PC.NURSE ---
Patient slept through the night, no distress observed/reported, ambulates steadily with walker, disposition per [facility] is section 12 inpatient bed search, med rec completed/pending provider's approval, VSS, will continue to monitor.
--- NOTE | 2022-03-11 07:32 | PC.NURSE ---
patient appears to remain asleep at present respirations are even and unlabored patient appears in no distress
--- NOTE | 2022-03-11 07:50 | PHA.MEDREC ---
Pharmacy Consult ? Medication Reconciliation Pharmacy has reviewed the medication reconciliation by Brayden. Eden Varela, PharmD
[2022-03-11] MEDS: ARIPiprazole 10 MG TABLET PO (08:45)
[2022-03-11] MEDS: Multivitamin TABLET 1 TAB PO (08:45)
[2022-03-11] MEDS: Gabapentin 300 MG CAPSULE PO ×3 (08:45→21:27)
[2022-03-11] MEDS: Omeprazole 20 MG CAPSULE.DR PO (08:45)
[2022-03-11] MEDS: Nicotine 14 MG PATCH.TD24 TRANSDERMA (08:46)
[2022-03-11] MEDS: OXcarbazepine 150 MG TABLET 450 MG PO ×2 (08:46→21:25)
[2022-03-11] MEDS: Loratadine 10 MG TABLET PO (08:46)
[2022-03-11] MEDS: Famotidine 20 MG TABLET PO (08:46)
[2022-03-11] MEDS: Phenytoin Sodium Extended 100 MG CAPSULE 200 MG PO (08:46)
[2022-03-11 08:56] VITALS: BP 133/66; PULSE 78; RESP 18; TEMP 36.9; O2SAT 99
[2022-03-11] MEDS: Acetaminophen 325 MG TABLET 650 MG PO ×2 (12:40→21:25)
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
[2022-03-11 18:52] LABS: Carbamazepine Tegretol < 2.0 mcg/mL (5.0-12.0)
[2022-03-11] MEDS: Phenytoin Sodium Extended 100 MG CAPSULE 300 MG PO (21:21)
[2022-03-11] MEDS: Atorvastatin Calcium 10 MG TABLET PO (21:26)
[2022-03-11] MEDS: traZODone HCL 100 MG TABLET 200 MG PO (21:26)
[2022-03-11] MEDS: QUEtiapine Fumarate 400 MG TABLET PO (21:26)
[2022-03-11 21:27] VITALS: BP 176/80; PULSE 74; RESP 16; TEMP 36.5; O2SAT 99
[2022-03-12] MEDS: Omeprazole 20 MG CAPSULE.DR PO (06:01)
[2022-03-12] MEDS: Nicotine 14 MG PATCH.TD24 TRANSDERMA (08:33)
[2022-03-12] MEDS: Phenytoin Sodium Extended 100 MG CAPSULE 200 MG PO (08:33)
[2022-03-12] MEDS: Gabapentin 300 MG CAPSULE PO ×3 (08:34→20:14)
[2022-03-12] MEDS: Famotidine 20 MG TABLET PO (08:34)
[2022-03-12] MEDS: Multivitamin TABLET 1 TAB PO (08:34)
[2022-03-12] MEDS: ARIPiprazole 10 MG TABLET PO (08:34)
[2022-03-12] MEDS: OXcarbazepine 150 MG TABLET 450 MG PO ×2 (08:34→20:14)
[2022-03-12] MEDS: Loratadine 10 MG TABLET PO (08:34)
[2022-03-12 08:37] VITALS: BP 162/74; PULSE 80; RESP 17; TEMP 36.9; O2SAT 100
[2022-03-12 09:10] LABS: Estimated Average Glucose 94 mg/dL; Hemoglobin A1c % 4.9 %
[2022-03-12] MEDS: Nicotine Polacrilex 2 MG GUM 4 MG BUCCAL ×2 (09:14→14:52)
[2022-03-12 09:56] LABS: Free T4 (Free Thyroxine) 0.69 ng/dL (0.71-1.85); Thyroid Stimulating Hormone 2.17 uIU/mL (0.32-4.0)
[2022-03-12 10:01] LABS: Alanine Aminotransferase 11 U/L (0-40); Albumin Level 3.6 g/dL (3.5-5.0); Alkaline Phosphatase 97 U/L (39-117); Anion Gap 14 (12-20); Aspartate Amino Transferase 17 U/L (5-37); Bilirubin Total 0.3 mg/dL (0.0-1.0); Blood Urea Nitrogen 14 mg/dL (9-16); Calcium 8.1 mg/dL (8.4-10.2); Carbon Dioxide 24 mmol/L (22-29); Chloride 104 mmol/L (96-108); Cholesterol 168 mg/dL; Creatinine Clr Calc Pharmacy 95.8; Estimated Glomerular Filt Rate > 60; Glucose Fasting 110 mg/dL (60-99); HDL Cholesterol 66 mg/dL; LDL Cholesterol Calculated 87 mg/dl; Potassium 4.9 mmol/L (3.3-5.1); Sodium 137 mmol/L (135-145); Total Protein 6.4 g/dL (6.5-8.0); Triglycerides 77 mg/dL
[2022-03-12 10:08] LABS: Folate 10.6 ng/mL (> or = 4.0); Vitamin B12 238 pg/mL (200-900)
[2022-03-12] MEDS: Hydrocortisone 2.5 % Rectal Cr 30 GM TUBE 1 APPL PR (17:57)
[2022-03-12 18:00] VITALS: BP 182/79; PULSE 84; RESP 18; TEMP 36.9; O2SAT 99
[2022-03-12] MEDS: Acetaminophen 325 MG TABLET 650 MG PO (19:11)
[2022-03-12] MEDS: traZODone HCL 100 MG TABLET 200 MG PO (20:14)
[2022-03-12] MEDS: QUEtiapine Fumarate 400 MG TABLET PO (20:15)
[2022-03-12] MEDS: Atorvastatin Calcium 10 MG TABLET PO (20:15)
[2022-03-12] MEDS: Phenytoin Sodium Extended 100 MG CAPSULE 300 MG PO (20:15)
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
[2022-03-13] MEDS: Omeprazole 20 MG CAPSULE.DR PO (06:36)
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
[2022-03-13] MEDS: Nicotine 14 MG PATCH.TD24 TRANSDERMA (08:49)
[2022-03-13] MEDS: Phenytoin Sodium Extended 100 MG CAPSULE 200 MG PO (08:50)
[2022-03-13] MEDS: Gabapentin 300 MG CAPSULE PO (08:50)
[2022-03-13] MEDS: Multivitamin TABLET 1 TAB PO (08:50)
[2022-03-13] MEDS: OXcarbazepine 150 MG TABLET 450 MG PO (08:50)
[2022-03-13] MEDS: Loratadine 10 MG TABLET PO (08:50)
[2022-03-13] MEDS: ARIPiprazole 10 MG TABLET PO (08:50)
[2022-03-13] MEDS: Famotidine 20 MG TABLET PO (08:50)
[2022-03-13] MEDS: Nicotine Polacrilex 2 MG GUM 4 MG BUCCAL (08:56)
[2022-03-13 09:36] VITALS: BP 154/80; PULSE 85; RESP 16; TEMP 36.2; O2SAT 99; BMI 24.3
[2022-03-13] MEDS: Hydrocortisone 2.5 % Rectal Cr 30 GM TUBE 1 APPL PR (09:41)
[2022-03-13] MEDS: Fluticasone Propionate Nasal 16 GM SPRAY 2 SPRAY NOSTRIL-B (10:16)
== END 2022-03-13 12:05 | disposition home or self-care (01) | DRG 885 ==
LOC: HO.ED 03-11 11:50 → HO.PADLT16 03-11 14:22
PROVIDERS: Admitting Provider Psychiatry & Neurology Psychiatry; Emergency Provider Emergency Medicine; PCP Family Medicine; Visit Provider Registered Nurse
DX: F25.1 Schizoaffective disorder, depressive type (principal); R45.851 Suicidal ideations; G40.909 Epilepsy, unspecified, not intractable, without status epilepticus; F17.210 Nicotine dependence, cigarettes, uncomplicated; Z71.6 Tobacco abuse counseling; Z91.013 Allergy to seafood; Z88.0 Allergy status to penicillin; Z88.5 Allergy status to narcotic agent; Z88.6 Allergy status to analgesic agent; Z79.51 Long term (current) use of inhaled steroids; Z79.899 Other long term (current) drug therapy
CPT/HCPCS: 36415; 80053; 80061; 80143; 80156; 80179; 80307; 82077; 82607; 82746; 83036; 84439; 84443; 85025; 87635; 93005; 99285

== ENCOUNTER 2022-04-08 09:52 | Emergency (ER) | payer MEDICARE, MEDICAID, SELFPAY ==
--- NOTE | ~2022-04-08 | CT_ITS ---
EXAMINATION: CT ABDOMEN AND PELVIS WITHOUT CONTRAST CLINICAL INFORMATION: Hematuria. Prior exams indicates history of carcinoid tumor. COMPARISON: Previous CT of the abdomen and pelvis most recent December 2021 TECHNIQUE: Multidetector volumetric imaging was performed from the superior aspect of the liver through the pubic symphysis. Sagittal and coronal reformatted images were obtained on the technologist's workstation. This CT examination was performed using dose optimization techniques as appropriate, variously including the following: *Automated exposure control *Adjustment of mA and/or kV according to patient size (this includes techniques or standardized protocols for targeted exams where dose is matched to indication/reason for exam; i.e. extremities or head) *Use of iterative reconstruction technique DLP: 456 mGy-cm FINDINGS: LUNG BASES: There are small clustered peribronchial nodules and increased peribronchial attenuation in the right lower lobe. Appearance is questionable for airways disease. There is an enlarged right cardiophrenic angle or anterior diaphragmatic lymph node not appreciably changed. There is a right diaphragmatic nodule along the pleural surface measuring 1.4 x 1.8 cm axial image 10 series 8 that appears unchanged. LIVER, GALLBLADDER, AND BILIARY TREE: The liver is enlarged. There are innumerable low-attenuation liver lesions. These are gradually increasing compared to prior exams. For example largest lesion in the lateral segment of the left lobe of the liver measures 4.6 cm compared to 4 cm December 2021 exam. Largest lesion in the right lobe measures 8 x 8 cm compared to 7 x 8 cm December 2021 exam. The gallbladder is contracted. There is no biliary duct dilatation. PANCREAS: Unremarkable. SPLEEN: Unremarkable. ADRENAL GLANDS: Unremarkable. KIDNEYS AND URETERS: The kidneys are normal in size, shape, and attenuation. No hydronephrosis. The ureters are difficult to follow. The ureters do not appear dilated. No definite ureteral stone is seen. BLADDER: Unremarkable. GASTROINTESTINAL TRACT: There is stool throughout the colon suggestive of constipation. There are postsurgical changes to the small bowel with anastomotic staple lines. There is question of a thick-walled loop of small bowel in the right lower quadrant for example axial image 40-50 series 3. ABDOMINAL WALL: No significant hernia is appreciated. There is diffuse anasarca. LYMPH NODES: There is increased soft tissue seen in the root of the small bowel mesentery questionable for adenopathy or mass. Largest area measures 1.9 cm axial image 40 series. There is diffuse fat stranding of the small bowel mesentery. There are small retroperitoneal lymph nodes. There is trace ascites. VASCULAR: Unremarkable. PELVIC VISCERA: Unremarkable. OSSEOUS STRUCTURES: There are degenerative changes of the spine. There is a 1.8 cm sclerotic lesion in the S1 vertebral body questionable for metastatic disease. CT/CT abdomen pelvis wo IV con IMPRESSION: No cause of hematuria seen. Enlarged liver and gradual interval increase in size in liver lesions. 1.8 cm sclerotic lesion in the S1 vertebral body worrisome for metastatic disease. Otherwise stable abdominal and pelvic findings. Fleischner guidelines were followed.
[2022-04-08 09:59] VITALS: BP 134/76; BP 142/72; PULSE 71; PULSE 80; RESP 18; TEMP 36.8; O2SAT 93; O2SAT 99; BMI 25.0
--- NOTE | 2022-04-08 10:22 | ED.MALEGU ---
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 complaint: BLOOD IN URINE AND STOOL X'S 3 DAYS,H/O LIVER CA Time Seen by Provider: 04/08/22 10:11 Source: patient and EMS Mode of arrival: EMS History of Present Illness HPI Narrative: The patient presented to the emergency department via ambulance with the chief complaint of hematuria lower abdominal pain for about 3 days. He has history of depression/anxiety liver cancer. Denies any blood in the stool to me MD Complaint: other (hematuria) Onset (ago): day(s) (3) Duration: constant Severity: mild Quality: aching Relieving factors: none Exacerbating factors: none Related Data Home Medications Medication Instructions Recorded Confirmed atorvastatin 10 mg tablet 1 tab PO BEDTIME 10/25/20 03/27/22 loratadine 10 mg tablet 1 tab PO QAM 10/25/20 03/27/22 multivitamin (Daily-Qi tablet) 1 tab PO DAILY 10/25/20 03/27/22 pantoprazole 40 mg tablet,delayed 1 tab PO DAILY 10/25/20 03/27/22 release famotidine 20 mg tablet 20 mg PO DAILY 12/11/21 03/27/22 fluticasone propionate 50 2 spray intranasal DAILY 12/11/21 03/27/22 mcg/actuation nasal spray,suspension phenytoin sodium extended 100 mg 200 mg PO QAM 03/10/22 03/27/22 capsule phenytoin sodium extended 100 mg 300 mg PO BEDTIME 03/10/22 03/27/22 capsule Previous Rx's Medication Instructions Recorded aripiprazole 10 mg tablet 10 mg PO DAILY #30 tabs 03/13/22 gabapentin 300 mg capsule 300 mg PO TID #90 caps 03/13/22 nicotine 14 mg/24 hr daily 14 mg transdermal DAILY #28 ea 03/13/22 transdermal patch oxcarbazepine 300 mg tablet 450 mg PO BID #90 tabs 03/13/22 (Trileptal) quetiapine 400 mg tablet 400 mg PO BEDTIME #30 tabs 03/13/22 trazodone 100 mg tablet 200 mg PO BEDTIME #60 tabs 03/13/22 trolamine salicylate 10 % topical 1 appl topical QID PRN mod-severe 03/13/22 cream (Arthricream) arthritis #85 grams Allergies Allergy/AdvReac Type Severity Reaction Status Date / Time Penicillins Allergy Mild RASH Verified 03/27/22 10:50 Seafood Allergy Mild RASH Verified 03/27/22 10:50 diazepam [From VALIUM] Allergy Unknown ACTS OUT Verified 03/27/22 10:50 penicillin V Allergy Unknown anaphylaxis Verified 03/27/22 10:50 ibuprofen [From MOTRIN] AdvReac Mild RASH Verified 03/27/22 10:50 Morphine AdvReac Severe Unknown Uncoded 03/27/22 10:50 Review of Systems Eyes: Eyes: Reports no additional eye complaints ENT: Reports system reviewed and no additional complaints, except as documented Gastrointestinal: Gastrointestinal: Reports no additional gastrointestinal complaints Genitourinary: Genitourinary: Reports other (hematuria) [facility] Past Medical History Medical History Anasarca Cellulitis Cocaine abuse Epilepsy Family hx of colon cancer Generalized seizure Hx of head injury Lymphedema MDD (major depressive disorder), recurrent episode, severe Metastatic carcinoid tumor Metastatic disease Schizoaffective disorder, depressive type Surgical History History of surgery on wrist Hx of knee surgery Family History Family History Paternal Grandmother Cancer Social History Social History Household Members: Family Housing: Apartment Are you a primary healthcare specialist to a significant other at home: No Do you presently have visiting nurse or other home services: No Unable to assess alcohol history related to: Unknown Alcohol intake: never Patient Tobacco Use Status: Current everyday Tobacco user Tobacco use type: Cigarette Cigarette Packs Per Day: 1 Cigarettes Per Day: 20.0 Years Smoked: 37 e-Cigarette/Vaping Use: Currently Using Second Hand Smoke Exposure: Yes Substance Use Type: Crack/Cocaine and Marijuana Advance Directives: No Advance Directives Information Provided: Yes Advance Directives Date on File: 11/13/21 service: No Current occupational status: disabled Sexual orientation: Don't Know Physical Exam Vital Signs: Vital Signs: Last Vital Signs Temp 98.3 F 04/08/22 09:59 Pulse 71 04/08/22 09:59 Resp 18 04/08/22 09:59 BP 134/76 04/08/22 09:59 Pulse Ox 99 04/08/22 09:59 O2 Del Method 04/08/22 09:59 BMI result Body Mass Index 25.0 Const: General: cooperative and anxious Orientation/consciousness: patient oriented x3 HEENT: Head: Yes normal to inspection Face and sinus: Yes normal facial exam Mouth: Normal oral and palatal mucosa present Throat: Yes posterior oropharynx normal Neck: Neck: Yes full ROM Chest: Chest palpation & inspection: normal inspection of the chest Resp: Effort & Inspection: normal respiratory effort Auscultation: clear to auscultation bilaterally Cardio: Jugular venous distension: no JVD Rate: regular rate Rhythm: regular rhythm GI: Inspection: Yes normal to inspection Palpation (GI): Soft to palpation, not firm, nontender and no guarding Skin: General skin exam: no rashes or lesions noted, elasticity normal and turgor normal Lesions: no lesions Rashes: no rashes Hair: normal Neuro: General: patient oriented x3 and gait normal Cranial nerves: Yes CN's II-XII intact bilaterally Cognition (Neuro): normal cognition Gait exam (Neuro): Normal gait present Course Reevaluation(s) Reevaluation #1: Pt wasnts to leave AMA before UA result ,sign AMA Reevaluation #2: LEFT AMA UA WAS CLEAR,STOOLS HEME NEGATIVE FOR BLOOD WELL MDM - Male Genitourinary Lab Data Result diagrams: 04/08/22 11:03 04/08/22 11:03 Labs: Lab Results 04/08/22 04/08/22 04/08/22 Range/Units 11:03 11:03 11:03 WBC 5.8 (4.8-10.8) X10*3/uL RBC 4.30 L (4.60-5.80) X10*6/uL Hgb 13.1 L (14.0-18.0) g/dl Hct 40.4 L (42.0-52.0) % MCV 94.0 (80.0-98.0) fL MCH 30.5 (27.0-33.0) pg MCHC 32.4 (31.0-36.0) g/dl RDW 13.7 (11.0-16.0) % Plt Count 292 (160-400) X10*3/uL MPV 9.1 L (9.4-12.4) fL Immature Gran % (Auto) 0.3 (0.0-0.4) % Neut % (Auto) 65.1 (45-73) % Lymph % (Auto) 19.9 L (20-40) % [place] % (Auto) 11.2 H (2-11) % Eos % (Auto) 2.8 (0-4) % Baso % (Auto) 0.7 (0-2) % Lymph # (Auto) 1.2 (1.2-4.9) X10*3/uL [place] # (Auto) 0.7 (0.1-1.2) X10*3/uL Eos # (Auto) 0.2 (0.0-0.4) X10*3/uL Baso # (Auto) 0.0 (0.0-0.2) X10*3/uL Abs Immat Gran (auto) 0.02 (0.00-0.03) X10*3/uL Absolute Neuts (auto) 3.8 (2.0-8.3) x10*3/uL Absolute Nucleated RBC 0.000 (0.0-0.012) X10*3/uL Nucleated RBC % (auto) 0.0 (0.0-0.2) /100WBC Sodium 142 (135-145) mmol/L Potassium 5.2 H (3.3-5.1) mmol/L Chloride 104 (96-108) mmol/L Carbon Dioxide 28 (22-29) mmol/L Anion Gap 15 (12-20) BUN 13 (9-16) mg/dL Creatinine 0.97 (0.5-1.4) mg/dL Estim Creat Clear Calc 81.2 Estimated GFR > 60 Random Glucose 77 (60-115) mg/dL Calcium 8.7 (8.4-10.2) mg/dL Total Bilirubin 0.2 (0.0-1.0) mg/dL AST 25 (5-37) U/L ALT 16 (0-40) U/L Alkaline Phosphatase 129 H (39-117) U/L Total Protein 7.2 (6.5-8.0) g/dL Albumin 4.1 (3.5-5.0) g/dL Urine Color Urine Appearance Urine pH (5.0-9.0) Ur Specific [place] (1.005-1.025) Urine Protein (Neg-Trace) mg/dL Urine Glucose (UA) (Negative) mg/dL Urine Ketones (Negative) mg/dL Urine Blood (Negative) Urine Nitrite (Negative) Ur Leukocyte Esterase (Negative) Urine RBC (0-2) /HPF Urine WBC (0-5) /HPF Ur Squamous Epith Cells (0-2) /HPF Urine Bacteria (None Seen) Hyaline Casts (0-2) /LPF Stool Occult Blood (NEGATIVE) Phenytoin 6.7 L* (10.0-20.0) ug/mL 04/08/22 04/08/22 Range/Units 11:03 13:33 WBC (4.8-10.8) X10*3/uL RBC (4.60-5.80) X10*6/uL Hgb (14.0-18.0) g/dl Hct (42.0-52.0) % MCV (80.0-98.0) fL MCH (27.0-33.0) pg MCHC (31.0-36.0) g/dl RDW (11.0-16.0) % Plt Count (160-400) X10*3/uL MPV (9.4-12.4) fL Immature Gran % (Auto) (0.0-0.4) % Neut % (Auto) (45-73) % Lymph % (Auto) (20-40) % [place] % (Auto) (2-11) % Eos % (Auto) (0-4) % Baso % (Auto) (0-2) % Lymph # (Auto) (1.2-4.9) X10*3/uL [place] # (Auto) (0.1-1.2) X10*3/uL Eos # (Auto) (0.0-0.4) X10*3/uL Baso # (Auto) (0.0-0.2) X10*3/uL Abs Immat Gran (auto) (0.00-0.03) X10*3/uL Absolute Neuts (auto) (2.0-8.3) x10*3/uL Absolute Nucleated RBC (0.0-0.012) X10*3/uL Nucleated RBC % (auto) (0.0-0.2) /100WBC Sodium (135-145) mmol/L Potassium (3.3-5.1) mmol/L Chloride (96-108) mmol/L Carbon Dioxide (22-29) mmol/L Anion Gap (12-20) BUN (9-16) mg/dL Creatinine (0.5-1.4) mg/dL Estim Creat Clear Calc Estimated GFR Random Glucose (60-115) mg/dL Calcium (8.4-10.2) mg/dL Total Bilirubin (0.0-1.0) mg/dL AST (5-37) U/L ALT (0-40) U/L Alkaline Phosphatase (39-117) U/L Total Protein (6.5-8.0) g/dL Albumin (3.5-5.0) g/dL Urine Color Yellow Urine Appearance Clear Urine pH 6.5 (5.0-9.0) Ur Specific [place] 1.010 (1.005-1.025) Urine Protein Negative (Neg-Trace) mg/dL Urine Glucose (UA) Negative (Negative) mg/dL Urine Ketones Negative (Negative) mg/dL Urine Blood Negative (Negative) Urine Nitrite Negative (Negative) Ur Leukocyte Esterase Negative (Negative) Urine RBC 0-2 (0-2) /HPF Urine WBC 0-5 (0-5) /HPF Ur Squamous Epith Cells 0-2 (0-2) /HPF Urine Bacteria None Seen (None Seen) Hyaline Casts 0-2 (0-2) /LPF Stool Occult Blood NEGATIVE (NEGATIVE) Phenytoin (10.0-20.0) ug/mL Imaging Data CT scan - abdomen: Radiologist's impression: cc: Les Yarbrough MD~ EXAMINATION: XR CHEST ABDOMINAL WALL: No significant hernia is appreciated. There is diffuse anasarca. LYMPH NODES: There is increased soft tissue seen in the root of the small bowel mesentery questionable for adenopathy or mass. Largest area measures 1.9 cm axial image 40 series. There is diffuse fat stranding of the small bowel mesentery. There are small retroperitoneal lymph nodes. There is trace ascites. VASCULAR: Unremarkable. PELVIC VISCERA: Unremarkable.? OSSEOUS STRUCTURES: There are degenerative changes of the spine. There is a 1.8 cm sclerotic lesion in the S1 vertebral body questionable for metastatic disease. CT/CT abdomen pelvis wo IV con IMPRESSION: No cause of hematuria seen. Enlarged liver and gradual interval increase in size in liver lesions. 1.8 cm sclerotic lesion in the S1 vertebral body worrisome for metastatic disease. Otherwise stable abdominal and pelvic findings. ? Fleischner guidelines were followed. Dictated By: Almaz Harris MD Signed By: <Electronically signed by Almaz Harris MD in OV> 04/08/22 1206 Discharge Plan Discharge Clinical Impression: Hematuria, Anxiety Patient Disposition: Left Against Medical Advice Prescriptions: No Action multivitamin [Daily-Qi] Tablet 1 tab PO DAILY atorvastatin 10 mg tablet 1 tab PO BEDTIME pantoprazole 40 mg tablet,delayed release (DR/EC) 1 tab PO DAILY loratadine 10 mg tablet 1 tab PO QAM famotidine 20 mg tablet 20 mg PO DAILY fluticasone propionate 50 mcg/actuation spray,suspension 2 spray intranasal DAILY phenytoin sodium extended 100 mg capsule 200 mg PO QAM phenytoin sodium extended 100 mg capsule 300 mg PO BEDTIME nicotine 14 mg/24 hr Patch 24 Hour 14 mg transdermal DAILY Qty: 28 0RF trazodone 100 mg Tablet 200 mg PO BEDTIME Qty: 60 0RF gabapentin 300 mg Capsule 300 mg PO TID Qty: 90 0RF trolamine salicylate [Arthricream] 10 % Cream 1 appl topical QID PRN (Reason: mod-severe arthritis) Qty: 85 0RF aripiprazole 10 mg Tablet 10 mg PO DAILY Qty: 30 0RF quetiapine 400 mg Tablet 400 mg PO BEDTIME Qty: 30 0RF oxcarbazepine [Trileptal] 300 mg tablet 450 mg PO BID Qty: 90 0RF Referrals: Kylah Leahy DO [Primary Care Provider] - 2 days Stand Alone Forms: Against Medical Advice Interventions: ED Discharge Assessment Last Done: 04/08/22 14:01 Discharge Date/Time: 04/08/22 14:02
[2022-04-08 11:08] LABS: MANUAL DIFF FLAG NO
[2022-04-08 11:09] LABS: Basophils Percent Auto 0.7 % (0-2); Eosinophils Absolute Auto 0.2 X10*3/uL (0.0-0.4); Eosinophils Percent Auto 2.8 % (0-4); Hematocrit 40.4 % (42.0-52.0); Hemoglobin 13.1 g/dl (14.0-18.0); Imm Gran Abs Auto 0.02 X10*3/uL (0.00-0.03); Imm Gran Pct Auto 0.3 % (0.0-0.4); Lymphocytes Absolute Auto 1.2 X10*3/uL (1.2-4.9); Lymphocytes Percent Auto 19.9 % (20-40); Mean Corpuscular HGB Conc 32.4 g/dl (31.0-36.0); Mean Corpuscular Hemoglobin 30.5 pg (27.0-33.0); Mean Platelet Volume 9.1 fL (9.4-12.4); Monocytes Absolute Auto 0.7 X10*3/uL (0.1-1.2); Monocytes Percent Auto 11.2 % (2-11); Neutrophils Absolute Auto 3.8 x10*3/uL (2.0-8.3); Neutrophils Percent Auto 65.1 % (45-73); OBS Int Ctl Valid YES; OBS1 NEGATIVE (NEGATIVE); Platelet Count 292 X10*3/uL (160-400); Red Cell Distribution Width 13.7 % (11.0-16.0); White Blood Count 5.8 X10*3/uL (4.8-10.8)
[2022-04-08 11:28] LABS: Alanine Aminotransferase 16 U/L (0-40); Albumin Level 4.1 g/dL (3.5-5.0); Alkaline Phosphatase 129 U/L (39-117); Anion Gap 15 (12-20); Aspartate Amino Transferase 25 U/L (5-37); Bilirubin Total 0.2 mg/dL (0.0-1.0); Blood Urea Nitrogen 13 mg/dL (9-16); Calcium 8.7 mg/dL (8.4-10.2); Carbon Dioxide 28 mmol/L (22-29); Chloride 104 mmol/L (96-108); Creatinine Clr Calc Pharmacy 81.2; Estimated Glomerular Filt Rate > 60; Glucose Random 77 mg/dL (60-115); Potassium 5.2 mmol/L (3.3-5.1); Sodium 142 mmol/L (135-145); Total Protein 7.2 g/dL (6.5-8.0)
[2022-04-08] MEDS: oxyCODONE HCl Immed Release 5 MG TABLET PO (13:13)
[2022-04-08 13:18] LABS: Phenytoin Dilantin 6.7 ug/mL (10.0-20.0)
[2022-04-08 13:47] LABS: Appearance Urine Clear; Color Urine Yellow; Glucose Urine UA Negative (Negative); Leukocyte Esterase Urine Negative (Negative); Nitrite Urine Negative (Negative); PH 6.5 (5.0-9.0); Urine Blood Negative (Negative); Urine Ketones Negative (Negative); Urine Protein Negative (Neg-Trace)
[2022-04-08 13:52] LABS: Bacteria Urine None Seen (None Seen); Hyaline Casts Urine 0-2 /LPF (0-2); RBC Urine 0-2 /HPF (0-2); Squamous Epithelial Cell Urine 0-2 /HPF (0-2); WBC Urine 0-5 /HPF (0-5)
== END 2022-04-08 14:02 | disposition left against medical advice (07) ==
PROVIDERS: Emergency Provider Emergency Medicine; PCP Family Medicine
DX: R31.9 Hematuria, unspecified (principal); F41.1 Generalized anxiety disorder; F43.0 Acute stress reaction; R10.32 Left lower quadrant pain; F17.210 Nicotine dependence, cigarettes, uncomplicated; Z71.6 Tobacco abuse counseling; Z79.899 Other long term (current) drug therapy
CPT/HCPCS: 36415; 74176; 80053; 80185; 81001; 82272; 85025; 99283; 99284

== ENCOUNTER → 2022-05-01 11:06 | Day surgery (SDC) | payer MEDICARE, MEDICAID, SELFPAY ==
--- NOTE | 2022-04-30 12:54 | P.CONAN_ITS ---
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, small bowel and omentum) Polysub use PMFSH Active Problems Active Problems: All Active Problems (Updated 04/09/22 @ 00:02 by Background Daemon) Cellulitis of both lower extremities (Acute) Past Medical History Medical History (Updated 05/06/22 @ 00:01 by Background Daemon) Anasarca Cellulitis Cocaine abuse Epilepsy Family hx of colon cancer Generalized seizure Hx of head injury Lymphedema MDD (major depressive disorder), recurrent episode, severe Metastatic carcinoid tumor Metastatic disease Schizoaffective disorder, depressive type Family History Family History Paternal Grandmother Cancer Surgical History Surgical History (Updated 05/04/22 @ 11:11 by Willam Glover MD) History of liver biopsy History of surgery on wrist Hx of knee surgery Social History Social History Household Members: Family Housing: Apartment Are you a primary spiritual care coordinator to a significant other at home: No Do you presently have visiting nurse or other home services: No Unable to assess alcohol history related to: Unknown Alcohol intake: current Alcohol intake frequency: does not drink Patient Tobacco Use Status: Current everyday Tobacco user Tobacco use type: Cigarette Cigarette Packs Per Day: 1 Years Smoked: 37 e-Cigarette/Vaping Use: Currently Using Second Hand Smoke Exposure: Yes Use of substances other than those prescribed or required for medical reasons: No Substance Use Type: Crack/Cocaine and Marijuana Advance Directives Date on File: 11/13/21 Recently lost weight without trying: No service: No Current occupational status: disabled Sexual orientation: Don't Know Meds Allergies Allergy/AdvReac Type Severity Reaction Status Date / Time Penicillins Allergy Mild RASH Verified 04/22/22 10:02 Seafood Allergy Mild RASH Verified 04/22/22 10:02 diazepam [From VALIUM] Allergy Unknown ACTS OUT Verified 04/22/22 10:02 penicillin V Allergy Unknown anaphylaxis Verified 04/22/22 10:02 ibuprofen [From MOTRIN] AdvReac Mild RASH Verified 04/22/22 10:02 Morphine AdvReac Severe Unknown Uncoded 04/22/22 10:02 Home Medications Medication Instructions Recorded Confirmed Last Taken Type atorvastatin 10 mg tablet 1 tab PO BEDTIME 10/25/20 04/25/22 12/10/21 History loratadine 10 mg tablet 1 tab PO QAM 10/25/20 04/25/22 12/11/21 History multivitamin (Daily-Qi tablet) 1 tab PO DAILY 10/25/20 04/25/22 12/11/21 History pantoprazole 40 mg tablet,delayed 1 tab PO DAILY 10/25/20 04/25/22 05/01/22 His tory release famotidine 20 mg tablet 20 mg PO DAILY 12/11/21 04/25/22 12/11/21 History fluticasone propionate 50 2 spray intranasal DAILY 12/11/21 04/25/22 12/11/21 History mcg/actuation nasal spray,suspension phenytoin sodium extended 100 mg 200 mg PO QAM 03/10/22 04/25/22 05/01/22 History capsule phenytoin sodium extended 100 mg 300 mg PO BEDTIME 03/10/22 04/25/22 Unknown History capsule Exam Exam Date and Time: April 30, 2022 1254 Pertinent Lab Results Pertinent Lab Results: Laboratory Tests 04/22/22 04/22/22 09:49 09:49 WBC 5.8 Hgb 13.2 L Hct 40.2 L Plt Count 291 Sodium 140 Potassium 4.3 Chloride 104 Carbon Dioxide 26 BUN 13 Creatinine 0.83 Narrative Narrative: EKG 03/2022 Vent. Rate : 065 BPM ? ? Atrial Rate : 065 BPM ?? P-R Int : 136 ms? QRS Dur : 088 ms ? ? QT Int : 396 ms ? ? ? P-R-T Axes : 051 055 050 degrees ?? QTc Int : 411 ms ? Normal sinus rhythm Normal ECG When compared with ECG of 22-DEC-2021 11:45, No significant change was found Assessment and Plan Assessment Anesthesia Assessment: Chart Reviewed
--- NOTE | 2022-05-01 11:20 | P.HPSUR_ITS ---
Pre-Procedural Eval Section A Date of Service: 05/01/22 Section B Chief Complaint: screening Relevant Family History (Specify if Yes): No Relevant Social History: Tobacco Use Present Medications: see Short Stay Collaborative assessment Medical History: Significant History (Anasarca Cellulitis Cocaine abuse Epilepsy Family hx of colon cancer Generalized seizure Hx of head injury Lymphedema MDD (major depressive disorder), recurrent episode, severe Metastatic carcinoid tumor Metastatic disease Schizoaffective disorder, depressive type) Allergies: Allergies Allergy/AdvReac Type Severity Reaction Status Date / Time Penicillins Allergy Mild RASH Verified 04/22/22 10:02 Seafood Allergy Mild RASH Verified 04/22/22 10:02 diazepam [From VALIUM] Allergy Unknown ACTS OUT Verified 04/22/22 10:02 penicillin V Allergy Unknown anaphylaxis Verified 04/22/22 10:02 ibuprofen [From MOTRIN] AdvReac Mild RASH Verified 04/22/22 10:02 Morphine AdvReac Severe Unknown Uncoded 04/22/22 10:02 Review of Systems Sugical H&P ROS: Negative: Constitution, Cardiovascular, Respiratory, Neurol ogical, Psychiatric, Hem-Onc, Allergic/Immunologic, Gastrointestinal, Genitourinary, Musculoskeletal, Integumentary, Endocrine and Eyes/Ears/Nose/Throat Exam Surgical H&P Exam: Normal: HEENT, Normal: Heart, Normal: Lungs, Normal: Extremities, Normal: Abdomen, Normal: Skin and Normal: Neurological Plan Diagnosis/Plan: Unchanged I have reviewed the history and physical and performed a pertinent physical examination on my patient. No changes have occurred unless specified.
[2022-05-01 11:39] VITALS: BP 130/78; PULSE 76; RESP 18; TEMP 36.9; O2SAT 97; BMI 23.4
[2022-05-01 12:23] LABS: Amphetamine Screen Urine Not Detected (Not Detect); Barbiturates, Urine Not Detected (Not Detect); Benzodiazepines Screen Urine Not Detected (Not Detect); Cannabinoid Screen Urine POSITIVE (Not Detect); Cocaine Screen Urine POSITIVE (Not Detect); Fentanyl, urine Not Detected (Not Detect); Opiate Screen Urine Not Detected (Not Detect); Phencyclidine Screen Urine Not Detected (Not Detect)
== END ==
PROVIDERS: Nurse Practitioner; PCP Family Medicine; Visit Provider Internal Medicine Gastroenterology
DX: Z12.11 Encounter for screening for malignant neoplasm of colon (principal); Z53.8 Procedure and treatment not carried out for other reasons; F14.10 Cocaine abuse, uncomplicated; G40.909 Epilepsy, unspecified, not intractable, without status epilepticus
CPT/HCPCS: 80307

== ENCOUNTER 2022-05-05 08:00 | Emergency (ER) | payer MEDICARE, MEDICAID, SELFPAY ==
[2022-05-05] VITALS (7 sets, daily range): BP systolic 124–137; BP diastolic 69–79; PULSE 58–75; RESP 17–20; TEMP 36.6–36.9; O2SAT 96–98; BMI 22.8
--- NOTE | ~2022-05-05 | CT_ITS ---
EXAMINATION: CT ABDOMEN AND PELVIS WITH CONTRAST CLINICAL INFORMATION: Right-sided abdominal pain and tenderness. History of carcinoid tumor. COMPARISON: 12/11/2021 and 04/08/2022 TECHNIQUE: Multidetector volumetric images were obtained from the superior aspect of the liver through the pubic symphysis following administration 85 mL of Omnipaque 350 intravenous contrast. Sagittal and coronal reformatted images were obtained on the technologist's workstation. This CT examination was performed using dose optimization techniques as appropriate, variously including the following: *Automated exposure control *Adjustment of mA and/or kV according to patient size (this includes techniques or standardized protocols for targeted exams where dose is matched to indication/reason for exam; i.e. extremities or head) *Use of iterative reconstruction technique DLP: 434 mGy-cm FINDINGS: LUNG BASES: Mild centrilobular emphysema. The finding of chronic centrilobular nodular opacity requires clinical correlation. This could represent respiratory bronchiolitis from chronic cigarette smoking, if in the right clinical context. Mild atelectasis in dependent aspect of each lower lobe and chronic thickening of septa and periphery of lower lobes. A few stable nodular foci are observed in the periphery of lower lobes, including 0.6 cm focus at the posterior right lower lobe, possible metastasis (image 14, series 4). No pericardial or pleural effusion. LIVER: Again noted are multiple hypodense liver lesions consistent with metastatic disease. These are not significantly changed in size or number compared to 04/08/2022, including a 4.7 cm focus of the lateral hepatic segment (image 194, series 4). The largest partially necrotic lesion of the anterior hepatic segment is approximately 7 cm transverse diameter and unchanged. Findings include stable nodular foci along the undersurface of the right diaphragm. No new liver abnormality. GALLBLADDER AND BILIARY TREE: Gallbladder is without radiopaque stones, wall thickening or pericholecystic fluid. No dilated bile ducts. PANCREAS: Normal. No edema, pancreatic ductal dilatation or mass. SPLEEN: Normal. ADRENAL GLANDS: Normal. KIDNEYS AND URETERS: The kidneys have normal size and cortical thickness. No perinephric edema or fluid collection. No urolithiasis or hydroureteronephrosis. BLADDER: No acute findings in the bladder compared to 04/08/2022. No focal wall thickening or calculi. BOWEL AND PERITONEUM: No dilated bowel loops. Surgical clips are seen in the right pelvis and there is an intact bowel anastomosis in the anterior pelvis. No evidence of edematous thickening of bowel [place]. There are segments of bowel that are suboptimally evaluated due to lack of distention. Trace amount of abdominal/mesenteric fluid is noted. Within the lower pelvis, superior to the level of the seminal vesicles, there is a nodular focus of tissue enhancement that measures 3.5 cm transverse and is stable compared to the prior intravenous contrast-enhanced exam of 11/13/2021. This could represent a stable metastatic deposit in the pelvis. ABDOMINAL WALL: No abdominal wall hernia. Mild edema of subcutaneous tissues of the abdominal wall. VASCULATURE: Atherosclerosis of the abdominal aorta without aneurysm. LYMPH NODES: There is stable enlargement of an epiphrenic lymph node of the right paracardiac fat pad. Also, there is stable mild enlargement of multiple retroperitoneal lymph nodes. Largest lymph node at the level of the proximal left external iliac vessels is 1 cm short axis dimension. Also, stable appearance of mildly enlarged lymph nodes in the central mesentery. No enlarging lymph nodes compared to 04/08/2022. PELVIC VISCERA: Prostate gland is grossly unremarkable. SKELETAL: Patchy sclerosis involving the S1 vertebra is unchanged (image 430, series 4). No new bone lesions. CT/CT abdomen pelvis w IV con IMPRESSION: * No acute imaging findings in the abdomen or pelvis compared to 04/08/2022. Specifically, there is no overt acute inflammatory change or obstruction along the gastrointestinal tract. * The findings of metastatic disease have a stable appearance compared to 04/08/2022. No interval enlargement of the liver metastases compared to 04/08/2022. * The patchy sclerosis within S1 is likely from metastatic disease. No new skeletal metastases. * Mild anasarca.
--- NOTE | ~2022-05-05 | XR_ITS ---
EXAMINATION: XR CHEST CLINICAL INFORMATION: Wheezing. COMPARISON: 01/26/2022 chest radiograph. TECHNIQUE: Frontal view of the chest was obtained. FINDINGS: No significant abnormality is noted involving the heart, lungs, mediastinum, bony thorax or soft tissues. XR/XR chest 1V IMPRESSION: No acute cardiopulmonary process.
--- NOTE | 2022-05-05 08:12 | ED_ITS ---
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 He also reports lightheadedness and dizziness. He reports the pain in his abdomen started in the right side and intensified over the last 3 days. It is constant. He states every time he tries to eat or drink he vomits. He states his vomit is foamy with small amounts of blood streak. No gross hematemesis or coffee- ground emesis. He states he has had bloody bowel movements, 3 times a day for the last 3 days as well. He is not on anticoagulation. He reports history of GI bleed in the past but cannot recall when. He was due for colonoscopy last week but did not go because of his frequent cocaine use. He reports his last cocaine use was 2 days ago. MD elicited complaint: abdominal pain and other (Bloody diarrhea) Pertinent past history: other Onset (ago): day(s) (3) Pain Consistency: constant Location: RUQ and RLQ Severity: severe Pain scale (0-10): 9 Quality: stabbing and aching Radiation: none Migration to: no migration Exacerbating factors: eating Relieving factors: nothing Context: history of similar episodes Associated symptoms: nausea, vomiting, diarrhea, chills and hematochezia Related Data Home Medications Medication Instructions Recorded Confirmed atorvastatin 10 mg tablet 1 tab PO BEDTIME 10/25/20 04/25/22 loratadine 10 mg tablet 1 tab PO QAM 10/25/20 04/25/22 multivitamin (Daily-Qi tablet) 1 tab PO DAILY 10/25/20 04/25/22 pantoprazole 40 mg tablet,delayed 1 tab PO DAILY 10/25/20 04/25/22 release famotidine 20 mg tablet 20 mg PO DAILY 12/11/21 04/25/22 fluticasone propionate 50 2 spray intranasal DAILY 12/11/21 04/25/22 mcg/actuation nasal spray,suspension phenytoin sodium extended 100 mg 200 mg PO QAM 03/10/22 04/25/22 capsule phenytoin sodium extended 100 mg 300 mg PO BEDTIME 03/10/22 04/25/22 capsule Previous Rx's Medication Instructions Recorded aripiprazole 10 mg tablet 10 mg PO DAILY #30 tabs 03/13/22 gabapentin 300 mg capsule 300 mg PO TID #90 caps 03/13/22 nicotine 14 mg/24 hr daily 14 mg transdermal DAILY #28 ea 03/13/22 transdermal patch oxcarbazepine 300 mg tablet 450 mg PO BID #90 tabs 03/13/22 (Trileptal) quetiapine 400 mg tablet 400 mg PO BEDTIME #30 tabs 03/13/22 trazodone 100 mg tablet 200 mg PO BEDTIME #60 tabs 03/13/22 trolamine salicylate 10 % topical 1 appl topical QID PRN mod-severe 03/13/22 cream (Arthricream) arthritis #85 grams everolimus (antineoplastic) 10 mg 10 mg PO DAILY #30 tabs 04/22/22 tablet (Afinitor) dicyclomine 10 mg capsule 10 mg PO TID PRN abdominal pain 05/05/22 #14 caps ondansetron 4 mg disintegrating 4 mg PO Q8H PRN nausea and 05/05/22 tablet vomiting #10 tabs Allergies Allergy/AdvReac Type Severity Reaction Status Date / Time Penicillins Allergy Mild RASH Verified 04/22/22 10:02 Seafood Allergy Mild RASH Verified 04/22/22 10:02 diazepam [From VALIUM] Allergy Unknown ACTS OUT Verified 04/22/22 10:02 penicillin V Allergy Unknown anaphylaxis Verified 04/22/22 10:02 ibuprofen [From MOTRIN] AdvReac Mild RASH Verified 04/22/22 10:02 Morphine AdvReac Severe Unknown Uncoded 04/22/22 10:02 Review of Systems Review of Systems Constitutional: No Fever, + Chills ENT/Mouth: No sore throat, No Rhinorrhea, No Swallowing Difficulty Cardiovascular: No Chest Pain, No SOB, No Orthopnea, + Edema Respiratory: No Cough, No Sputum, + Wheezing, No dyspnea Gastrointestinal: + Nausea, +Vomiting, No Diarrhea, + abdominal Pain, +Hematochezia, No Melena Genitourinary: No Dysuria, No Urinary Frequency, No Hematuria Musculoskeletal: No joint pain, No Myalgias Skin: No Skin Lesions, No rash Neuro: No Weakness, No Numbness, + Dizziness, No Headache Psych: No Anxiety/Panic, No Depression Heme/Lymph: No Bruising, No Lymphadenopathy Endocrine: No Polyuria, No Polydipsia PMFSH Past Medical History Medical History (Updated 05/05/22 @ 14:53 by LELAND Car) Anasarca Cellulitis Cocaine abuse Epilepsy Family hx of colon cancer Generalized seizure Hx of head injury Lymphedema MDD (major depressive disorder), recurrent episode, severe Metastatic carcinoid tumor Metastatic disease Schizoaffective disorder, depressive type Surgical History (Updated 05/04/22 @ 11:11 by Willam Glover MD) History of liver biopsy History of surgery on wrist Hx of knee surgery Family History Family History Paternal Grandmother Cancer Social History Social History Household Members: Family Housing: Apartment Are you a primary out of school hours care worker to a significant other at home: No Do you presently have visiting nurse or other home services: No Unable to assess alcohol history related to: Unknown Alcohol intake: current Alcohol intake frequency: does not drink Patient Tobacco Use Status: Current everyday Tobacco user Tobacco use type: Cigarette Cigarette Packs Per Day: 1 Years Smoked: 37 e-Cigarette/Vaping Use: Currently Using Second Hand Smoke Exposure: Yes Substance Use Type: Crack/Cocaine and Marijuana Advance Directives: No Advance Directives Information Provided: Yes Advance Directives Date on File: 11/13/21 service: No Current occupational status: disabled Sexual orientation: Don't Know Physical Exam ED Vital Signs: Vital Signs - 24 hr 05/05/22 08:16 05/05/22 10:46 05/05/22 11:11 Temperature 98 F 98.5 F Pulse Rate 61 62 Respiratory Rate 18 20 18 Blood Pressure 133/79 125/72 137/69 Pulse Oximetry 97 98 97 Oxygen Delivery Method Room Air Room Air Room Air 05/05/22 12:30 05/05/22 12:41 05/05/22 14:22 Temperature 98.1 F Pulse Rate 68 58 Respiratory Rate 19 17 18 Blood Pressure 124/77 131/72 Pulse Oximetry 97 98 Oxygen Delivery Method Room Air BMI result Body Mass Index 22.8 Appearance: Alert. Oriented X3. No acute distress. Eyes: Pupils equal, round and reactive to light. ENT: Pharynx normal. Neck: Normal inspection. Neck supple. CVS: Normal heart rate and rhythm. Pulses normal. Respiratory: No respiratory distress. Breath sounds with apical wheezes b ilateral Abdomen: Right sided abdominal, both upper and lower tenderness with guarding. Normal BS x4. DHIRAJ: light brown stool in rectal vault, normal tone, no hemorrhoids Skin: Skin warm and dry. Normal skin color. Normal skin turgor. No rashes. Extremities: 1+ lower extremity edema of the lower legs Neuro: Oriented X 3. No motor deficit. No sensory deficit. Course Course Course Narrative: 57-year-old male with a history of metastatic, well-differentiated neuroendocrine tumor involving the appendix, small bowel and omentum, with liver metastasis on LAR Octreotide, had 3rd dose with Dr. Glover on 04/22/22. Last imaging was done in December. He has diffuse tenderness on the right side of his a bdomen with reports of bloody bowel movements. He also is nauseous with reports of vomiting after he tries any oral intake. Will get lab workup, CT scan of the abdomen with contrast, medicate with IV fluids, antiemetics and pain medications. Will re-evaluate. Dispo pending results and improvement. Reevaluation(s) Reevaluation #1: CT scan abd/pelvis: *? No acute imaging findings in the abdomen or pelvis ash red to 04/08/2022. Specifically, there is no overt acute inflammatory change or obstruction along the gastrointestinal tract. *? The findings of metastatic disease have a stable appearance compared to 04/08/2022. No interval enlargement of the liver metastases compared to 04/08/2022. *? The patchy sclerosis within S1 is likely from metastatic disease. No new skeletal metastases. *? Mild anasarca. H/H is stable from prior. Heme negative stool on rectal exam. No hemorrhoids. Continue to complain of pain and nausea after morphine and zofran. Will try reglan and dilaudid. Pain may be cancer related vs acute gastroenteritis. Reevaluation #2: Pain resolved. nausea improved. Tolerating PO. Would like to go home. stable for d/c with GI and Onc follow up. MDM - Abdominal Pain Medical Records Attestation: I reviewed the patient's medical records. Lab Data Attestation: I reviewed the patient's lab results. Result diagrams: 05/05/22 08:32 05/05/22 08:32 Labs: Lab Results 05/05/22 05/05/22 05/05/22 Range/Units 08:32 08:32 08:32 WBC 6.1 (4.8-10.8) X10*3/uL RBC 4.29 L (4.60-5.80) X10*6/uL Hgb 13.1 L (14.0-18.0) g/dl Hct 40.3 L (42.0-52.0) % MCV 93.9 (80.0-98.0) fL MCH 30.5 (27.0-33.0) pg MCHC 32.5 (31.0-36.0) g/dl RDW 14.0 (11.0-16.0) % Plt Count 283 (160-400) X10*3/uL MPV 9.1 L (9.4-12.4) fL Immature Gran % (Auto) 0.3 (0.0-0.4) % Neut % (Auto) 62.7 (45-73) % Lymph % (Auto) 20.4 (20-40) % Crosby % (Auto) 11.4 H (2-11) % Eos % (Auto) 3.9 (0-4) % Baso % (Auto) 1.3 (0-2) % Lymph # (Auto) 1.3 (1.2-4.9) X10*3/uL Crosby # (Auto) 0.7 (0.1-1.2) X10*3/uL Eos # (Auto) 0.2 (0.0-0.4) X10*3/uL Baso # (Auto) 0.1 (0.0-0.2) X10*3/uL Abs Immat Gran (auto) 0.02 (0.00-0.03) X10*3/uL Absolute Neuts (auto) 3.9 (2.0-8.3) x10*3/uL Absolute Nucleated RBC 0.000 (0.0-0.012) X10*3/uL Nucleated RBC % (auto) 0.0 (0.0-0.2) /100WBC PT (10.0-13.1) SEC INR (0.9-1.1) APTT (26.0-36.4) SEC Sodium 141 (135-145) mmol/L Potassium 4.8 (3.3-5.1) mmol/L Chloride 107 (96-108) mmol/L Carbon Dioxide 26 (22-29) mmol/L Anion Gap 13 (12-20) BUN 11 (9-16) mg/dL Creatinine 0.86 (0.5-1.4) mg/dL Estim Creat Clear Calc 82.4 Estimated GFR > 60 Random Glucose 85 (60-115) mg/dL Calcium 8.5 (8.4-10.2) mg/dL Magnesium 1.9 (1.6-2.6) mg/dL Total Bilirubin 0.2 (0.0-1.0) mg/dL Direct Bilirubin < 0.2 (0.0-0.5) mg/dL AST 21 (5-37) U/L ALT 15 (0-40) U/L Alkaline Phosphatase 116 (39-117) U/L B-Natriuretic Peptide (<100) pg/mL Total Protein 6.5 (6.5-8.0) g/dL Albumin 4.0 (3.5-5.0) g/dL Urine Color Urine Appearance Urine pH (5.0-9.0) Ur Specific [place] (1.005-1.025) Urine Protein (Neg-Trace) mg/dL Urine Glucose (UA) (Negative) mg/dL Urine Ketones (Negative) mg/dL Urine Blood (Negative) Urine Nitrite (Negative) Ur Leukocyte Esterase (Negative) Stool Occult Blood (NEGATIVE) Urine Opiates Screen (Not Detect) Urine Fentanyl Screen (Not Detect) Ur Barbiturates Screen (Not Detect) Ur Phencyclidine Scrn (Not Detect) Ur Amphetamines Screen (Not Detect) U Benzodiazepines Scrn (Not Detect) Urine Cocaine Screen (Not Detect) U Marijuana (THC) Screen (Not Detect) Ethyl Alcohol mg/dL COVID-19 (MELLISA) Negative (Negative) COVID-19 Clin Com See Note 05/05/22 05/05/2205/05/22 Range/Units 08:32 08:32 08:32 WBC (4.8-10.8) X10*3/uL RBC (4.60-5.80) X10*6/uL Hgb (14.0-18.0) g/dl Hct (42.0-52.0) % MCV (80.0-98.0) fL MCH (27.0-33.0) pg MCHC (31.0-36.0) g/dl RDW (11.0-16.0) % Plt Count (160-400) X10*3/uL MPV (9.4-12.4) fL Immature Gran % (Auto) (0.0-0.4) % Neut % (Auto) (45-73) % Lymph % (Auto) (20-40) % Crosby % (Auto) (2-11) % Eos % (Auto) (0-4) % Baso % (Auto) (0-2) % Lymph # (Auto) (1.2-4.9) X10*3/uL Crosby # (Auto) (0.1-1.2) X10*3/uL Eos # (Auto) (0.0-0.4) X10*3/uL Baso # (Auto) (0.0-0.2) X10*3/uL Abs Immat Gran (auto) (0.00-0.03) X10*3/uL Absolute Neuts (auto) (2.0-8.3) x10*3/uL Absolute Nucleated RBC (0.0-0.012) X10*3/uL Nucleated RBC % (auto) (0.0-0.2) /100WBC PT 12.8 (10.0-13.1) SEC INR 1.1 (0.9-1.1) APTT 29.6 (26.0-36.4) SEC Sodium (135-145) mmol/L Potassium (3.3-5.1) mmol/L Chloride (96-108) mmol/L Carbon Dioxide (22-29) mmol/L Anion Gap (12-20) BUN (9-16) mg/dL Creatinine (0.5-1.4) mg/dL Estim Creat Clear Calc Estimated GFR Random Glucose (60-115) mg/dL Calcium (8.4-10.2) mg/dL Magnesium (1.6-2.6) mg/dL Total Bilirubin (0.0-1.0) mg/dL Direct Bilirubin (0.0-0.5) mg/dL AST (5-37) U/L ALT (0-40) U/L Alkaline Phosphatase (39-117) U/L B-Natriuretic Peptide 35 (<100) pg/mL Total Protein (6.5-8.0) g/dL Albumin (3.5-5.0) g/dL Urine Color Urine Appearance Urine pH (5.0-9.0) Ur Specific [place] (1.005-1.025) Urine Protein (Neg-Trace) mg/dL Urine Glucose (UA) (Negative) mg/dL Urine Ketones (Negative) mg/dL Urine Blood (Negative) Urine Nitrite (Negative) Ur Leukocyte Esterase (Negative) Stool Occult Blood (NEGATIVE) Urine Opiates Screen (Not Detect) Urine Fentanyl Screen (Not Detect) Ur Barbiturates Screen (Not Detect) Ur Phencyclidine Scrn (Not Detect) Ur Amphetamines Screen (Not Detect) U Benzodiazepines Scrn (Not Detect) Urine Cocaine Screen (Not Detect) U Marijuana (THC) Screen (Not Detect) Ethyl Alcohol < 10 mg/dL COVID-19 (MELLISA) (Negative) COVID-19 Clin Com 05/05/22 05/05/22 05/05/22 Range/Units 09:59 09:59 12:46 WBC (4.8-10.8) X10*3/uL RBC (4.60-5.80) X10*6/uL Hgb (14.0-18.0) g/dl Hct (42.0-52.0) % MCV (80.0-98.0) fL MCH (27.0-33.0) pg MCHC (31.0-36.0) g/dl RDW (11.0-16.0) % Plt Count (160-400) X10*3/uL MPV (9.4-12.4) fL Immature Gran % (Auto) (0.0-0.4) % Neut % (Auto) (45-73) % Lymph % (Auto) (20-40) % Crosby % (Auto) (2-11) % Eos % (Auto) (0-4) % Baso % (Auto) (0-2) % Lymph # (Auto) (1.2-4.9) X10*3/uL Crosby # (Auto) (0.1-1.2) X10*3/uL Eos # (Auto) (0.0-0.4) X10*3/uL Baso # (Auto) (0.0-0.2) X10*3/uL Abs Immat Gran (auto) (0.00-0.03) X10*3/uL Absolute Neuts (auto) (2.0-8.3) x10*3/uL Absolute Nucleated RBC (0.0-0.012) X10*3/uL Nucleated RBC % (auto) (0.0-0.2) /100WBC PT (10.0-13.1) SEC INR (0.9-1.1) APTT (26.0-36.4) SEC Sodium (135-145) mmol/L Potassium (3.3-5.1) mmol/L Chloride (96-108) mmol/L Carbon Dioxide (22-29) mmol/L Anion Gap (12-20) BUN (9-16) mg/dL Creatinine (0.5-1.4) mg/dL Estim Creat Clear Calc Estimated GFR Random Glucose (60-115) mg/dL Calcium (8.4-10.2) mg/dL Magnesium (1.6-2.6) mg/dL Total Bilirubin (0.0-1.0) mg/dL Direct Bilirubin (0.0-0.5) mg/dL AST (5-37) U/L ALT (0-40) U/L Alkaline Phosphatase (39-117) U/L B-Natriuretic Peptide (<100) pg/mL Total Protein (6.5-8.0) g/dL Albumin (3.5-5.0) g/dL Urine Color Yellow Urine Appearance Clear Urine pH 5.5 (5.0-9.0) Ur Specific Waldron 1.015 (1.005-1.025) Urine Protein Negative (Neg-Trace) mg/dL Urine Glucose (UA) Negative (Negative) mg/dL Urine Ketones Negative (Negative) mg/dL Urine Blood Negative (Negative) Urine Nitrite Negative (Negative) Ur Leukocyte Esterase Negative (Negative) Stool Occult Blood NEGATIVE (NEGATIVE) Urine Opiates Screen Not Detected (Not Detect) Urine Fentanyl Screen Not Detected (Not Detect) Ur Barbiturates Screen Not Detected (Not Detect) Ur Phencyclidine Scrn Not Detected (Not Detect) Ur Amphetamines Screen Not Detected (Not Detect) U Benzodiazepines Scrn Not Detected (Not Detect) Urine Cocaine Screen POSITIVE H (Not Detect) U Marijuana (THC) Screen POSITIVE H (Not Detect) Ethyl Alcohol mg/dL COVID-19 (MELLISA) (Negative) COVID-19 Clin Com ECG Data Attestation: I personally reviewed and interpreted this ECG as follows: ECG interpretation date: 05/05/22 ECG interpretation time: 10:02 Prior ECG tracings: available for review Interpretation: Normal sinus rhythm, ventricular rate 67 beats per minute, normal DC interval, normal QTC, no ST segment elevations or depressions Discharge Plan Discharge Clinical Impression: Abdominal pain, Gastroenteritis Patient Disposition: Home, Self-Care Instructions: Gastroenteritis (ED), Abdominal Pain (ED) Additional Instructions: Your CT scan did not show any significant acute findings. Your lab workup was unremarkable. No evidence of GI bleeding. Recommend taking the prescribed medications as needed for nausea and abdominal pains. Recommend following up with Dr. Glover and GI. You need a colonoscopy. Stop using cocaine If you develop new or worsening symptoms call 911 or come back to the ER for further evaluation. Prescriptions: New ondansetron 4 mg tablet,disintegrating 4 mg PO Q8H PRN (Reason: nausea and vomiting) Qty: 10 0RF dicyclomine 10 mg capsule 10 mg PO TID PRN (Reason: abdominal pain) Qty: 14 0RF No Action multivitamin [Daily-Qi] Tablet 1 tab PO DAILY atorvastatin 10 mg tablet 1 tab PO BEDTIME pantoprazole 40 mg tablet,delayed release (DR/EC) 1 tab PO DAILY loratadine 10 mg tablet 1 tab PO QAM everolimus (antineoplastic) [Afinitor] 10 mg Tablet 10 mg PO DAILY Qty: 30 11RF famotidine 20 mg tablet 20 mg PO DAILY fluticasone propionate 50 mcg/actuation spray,suspension 2 spray intranasal DAILY phenytoin sodium extended 100 mg capsule 200 mg PO QAM phenytoin sodium extended 100 mg capsule 300 mg PO BEDTIME nicotine 14 mg/24 hr Patch 24 Hour 14 mg transdermal DAILY Qty: 28 0RF trazodone 100 mg Tablet 200 mg PO BEDTIME Qty: 60 0RF gabapentin 300 mg Capsule 300 mg PO TID Qty: 90 0RF trolamine salicylate [Arthricream] 10 % Cream 1 appl topical QID PRN (Reason: mod-severe arthritis) Qty: 85 0RF aripiprazole 10 mg Tablet 10 mg PO DAILY Qty: 30 0RF quetiapine 400 mg Tablet 400 mg PO BEDTIME Qty: 30 0RF oxcarbazepine [Trileptal] 300 mg tablet 450 mg PO BID Qty: 90 0RF Referrals: [facility] [place] Services [Provider Group] [facility] [place]/Hematology [Provider Group] Print Language: Sudanese
--- NOTE | 2022-05-05 08:13 | ECG_ITS ---
Test Reason : nvd Blood Pressure : / mmHG Vent. Rate : 067 BPM Atrial Rate : 067 BPM P-R Int : 140 ms QRS Dur : 080 ms QT Int : 392 ms P-R-T Axes : 051 061 047 degrees QTc Int : 414 ms Normal sinus rhythm Septal infarct , age undetermined Abnormal ECG When compared with ECG of 11-MAR-2022 10:32, No significant change was found Referred By: Jillian Wilkins Electronically Signed By:JOSELITO NUÑEZ
--- NOTE | 2022-05-05 08:36 | PC.NURSE ---
Pt is A &O X 3. Respiration is even, Pupils are PERRLA, and clear. Lung sounds clear, heart sound is regular. Skin is pink, dry and warm, non pitting edema in both ankles. Bowel sounds present in all quads, c/0 of10/10 pain in the mid umbilical region. Pt stated he has been having bloody diarrhea nausea and vomiting x 3 days. Unable to keep down food or water. Lightheadedness and slight chest pain. Denies SOB. Pt is aware of plan of care.
[2022-05-05 08:37] LABS: MANUAL DIFF FLAG NO
[2022-05-05 08:40] LABS: Basophils Absolute Auto 0.1 X10*3/uL (0.0-0.2); Basophils Percent Auto 1.3 % (0-2); Eosinophils Absolute Auto 0.2 X10*3/uL (0.0-0.4); Eosinophils Percent Auto 3.9 % (0-4); Hematocrit 40.3 % (42.0-52.0); Hemoglobin 13.1 g/dl (14.0-18.0); Imm Gran Abs Auto 0.02 X10*3/uL (0.00-0.03); Imm Gran Pct Auto 0.3 % (0.0-0.4); Lymphocytes Absolute Auto 1.3 X10*3/uL (1.2-4.9); Lymphocytes Percent Auto 20.4 % (20-40); Mean Corpuscular HGB Conc 32.5 g/dl (31.0-36.0); Mean Corpuscular Hemoglobin 30.5 pg (27.0-33.0); Mean Corpuscular Volume 93.9 fL (80.0-98.0); Mean Platelet Volume 9.1 fL (9.4-12.4); Monocytes Absolute Auto 0.7 X10*3/uL (0.1-1.2); Monocytes Percent Auto 11.4 % (2-11); Neutrophils Absolute Auto 3.9 x10*3/uL (2.0-8.3); Neutrophils Percent Auto 62.7 % (45-73); Platelet Count 283 X10*3/uL (160-400); Red Blood Count 4.29 X10*6/uL (4.60-5.80); White Blood Count 6.1 X10*3/uL (4.8-10.8)
--- OUTSIDE RECORDS SUMMARY | 2022-05-05 08:43 | XMS_ITS | Continuity of Care Document ---
:1965 Author Organization [facility] Address [address], 3rd Floor, [address] [place] [id number]- Care Team Providers Name Role Phone Kylah Leahy DO Primary Care Physician Encounter [facility] [place](s): 01/03/22 - 05/03/22 [facility] [address], [address]rd [facility], [address] [place] [id number]- Attending Physician: Mary Thapa MD Admitting Physician: Mary Thapa MD Referring Physician: Kylah Leahy DO Allergies, Adverse Reactions, Alerts Substance Reaction Severity Status penicillin Active Valium Active Haldol Active Seafood Penicillin allergy Active Immunizations Given and Recorded Vaccine Date Status Refusal Reason SARS-CoV-2 (COVID-19) mRNA-1273 vaccine 07/04/21 Recorded SARS-CoV-2 (COVID-19) mRNA-1273 vaccine 11/12/20 Recorded SARS-CoV-2 (COVID-19) mRNA-1273 vaccine 10/15/20 Recorded tetanus/diphtheria/pertussis, acel(Tdap) 01/06/21 Given Medications albuterol CFC free 90 mcg/inh inhalation aerosol 2, puffs, Inhalation, Every 4 hours, PRN, # 2 each, Refills 2, Tot. Refills 2, Maintenance, 09/06/1909:52:34 EST, Inhaler, Route to Pharmacy Electronically, [id number], [facility] - Start Date: 09/06/18 Status: OrderedARIPiprazole 10 mg oral tablet 10 mg, 1, tablet, By Mouth, Daily, # 30 tablet, Refills 2, Tot. Refills 2, Maintenance, 09/06/18 10:52:42 EST, Route to Pharmacy Electronically, [id number], [facility] Start Date: 09/06/18 Status: Orderedatorvastatin 10 mg oral tablet TAKE 1 TABLET BY MOUTH AT BEDTIME Start Date: 01/14/22 Status: Ordereddoxycycline hyclate 100 mg oral tablet 1 tablet = 100 mg, By Mouth, 2 times a day, # 20 tablet, 0 Refills, Maintenance, 01/14/22 0:56:00 EDT, Tablet, Partial fill upon patient request if the prescription is for a schedule II opioid drug. Start Date: 01/14/22 Stop Date: 01/24/22 Status: Orderedfamotidine 20 mg oral tablet 20 mg, 1, tablet, By Mouth, Daily, # 30 tablet, Refills 0, Maintenance, 01/14/22 0:57:00 EDT, Partial fill upon patient request if the prescription is for a schedule II opioid drug. Start Date: 01/14/22 Status: Orderedfluticasone 50 mcg/inh nasal spray 2 sprays = 100 mcg, Nares, Both, Daily, # 16 Gm, 0 Refills, Maintenance, 09/06/18 10:52:46 EST, Nasal [place], 2 sprays Nares, Both Daily Start Date: 09/06/18 Status: Orderedgabapentin 300 mg oral capsule 300 mg, 1, capsule, By Mouth, 3 times a day, # 90 capsule, Refills 2, Tot. Refills 2, Maintenance, 09/06/18 10:52:51 EST, Route to Pharmacy Electronically, [id number], [facility] Start Date: 09/06/18 Status: Orderedlactulose 10 gm/15 ml oral syrup 30 mL = 20 Gm, By Mouth, 2 times a day, 0 Refills, Maintenance, 09/01/18 11:03:20 EST Start Date: 09/01/18 Status: Orderedlidocaine 2% topical gel with applicator 10 mL = 0.2 Gm, Topically, Once, # 30 mL, 0 Refills, Soft Stop, 01/06/21 15:20:00 EDT, Gel, Partial fill upon patient request if the prescription is for a schedule II opioid drug. Start Date: 01/06/21 Status: Orderedloratadine 10 mg oral tablet 10 mg, 1, tablet, By Mouth, Daily, # 30 tablet, Refills 0, Tot. Refills 0, Maintenance, 09/06/18 10:52:59 EST, Route to Pharmacy Electronically, [id number], [facility] Start Date: 09/06/18 Status: OrderedMapap Arthritis Pain 650 mg oral tablet, extended release 1 tablet = 650 mg, By Mouth, Every 8 hours, PRN Pain , Moderate, 0 Refills, Maintenance, 09/01/18 11:02:25 EST Start Date: 09/01/18 Status: Orderedmultivitamin Multiple Vitamins oral tablet 1 tablet, By Mouth, Daily, # 30 tablet, 0 Refills, Maintenance, 09/06/18 10:53:04 EST, Tablet, 1 tablet By Mouth Daily Start Date: 09/06/18 Status: Orderednicotine 14 mg/24 hr daily transdermal patch APPLY 1 PATCH TOPICALLY TO THE SKIN DAILY IN THE MORNING THEN REMOVE AT BEDTIME DIRECTED. DO NOT SMOKE WHILE USING PATCH Start Date: 01/14/22 Status: OrderedOXcarbazepine 300 mg oral tablet 450 mg, By Mouth, 2 times a day, TAKE 1 AND 1/2 TABLETS BY MOUTH IN THE MORNING AND AT BEDTIME Start Date: 01/14/22 Status: Orderedphenytoin 100 mg oral capsule, extended release 2 capsule = 200 mg, By Mouth, 2 times a day, # 120 capsule, 2 Refills, Maintenance, 09/06/18 10:53:33 EST, ER Capsule Start Date: 09/06/18 Status: OrderedSEROquel 200 mg oral tablet 200 mg, 1, tablet, By Mouth, Daily at bedtime, # 30 tablet, Refills 2, Tot. Refills 2, Maintenance, 09/06/18 10:55:11 EST, Route to Pharmacy Electronically, [id number], [facility] Start Date: 09/06/18 Status: OrderedtraZODone 100 mg oral tablet 100 mg, 1, tablet, By Mouth, Daily at bedtime, # 30 tablet, Refills 2, Tot. Refills 2, Maintenance, 09/06/18 10:55:13 EST, Route to Pharmacy Electronically, [id number], [facility] - Start Date: 09/06/18 Status: Ordered Problem List Condition Confirmation Course Effective Dates Status Health I nformant Status GERD Confirmed Active (gastroesophageal reflux disease) Hyperlipidemia Confirmed Active Colon cancer Confirmed Active Schizophrenia Confirmed Active Seizure disorder Confirmed Active Patient Care team information PersonnelName: Kylah Leahy DO Address: Address: [address] [place] [id number]
--- OUTSIDE RECORDS SUMMARY | 2022-05-05 08:43 | XMS_ITS | Continuity of Care Document ---
:1965 Author Organization [facility] Address [address] [facility], 3rd Floor, [address] [place] [id number]- Care Team Providers Name Role Phone Kylah Leahy DO Primary Care Physician Encounter [facility] [place] [place] Date(s): 04/03/22 - 05/03/22 [facility] [address] [facility], 3rd [facility], [address] [place] [address]- Attending Physician: AdmGeorgie rizzo Admitting Physician: Admtr, Georgie Referring Physician: Admtr, Ar8 Allergies, Adverse Reactions, Alerts Substance Reaction Severity [...] 09/06/1909:52:34 EST, Inhaler, Route to Pharmacy Electronically, [id number], [facility] - Start Date: 09/06/18 Status: OrderedARIPiprazole 10 mg oral tablet 10 mg, 1, tablet, By Mouth, Daily, # 30 tablet, Refills 2, Tot. Refills 2, Maintenance, 09/06/18 10:52:42 EST, Route to Pharmacy Electronically, [id number], [facility] Start Date: 09/06/18 Status: Orderedatorvastatin 10 mg [...] 0 Refills, Maintenance, 09/06/18 10:52:46 EST, Nasal [place], 2 sprays Nares, Both Daily Start Date: 09/06/18 Status: Orderedgabapentin 300 mg oral capsule 300 mg, 1, capsule, By Mouth, 3 times a day, # 90 capsule, Refills 2, Tot. Refills 2, Maintenance, 09/06/18 10:52:51 EST, Route to Pharmacy Electronically, [id number], [facility] Start Date: 09/06/18 Status: Orderedlactulose 10 gm/15 [...] 09/06/18 10:52:59 EST, Route to Pharmacy Electronically, [id number], [facility] Start Date: 09/06/18 Status: OrderedMapap Arthritis [...] 09/06/18 10:55:11 EST, Route to Pharmacy Electronically, [id number], [facility] Start Date: 09/06/18 Status: OrderedtraZODone 100 mg oral tablet 100 mg, 1, tablet, By Mouth, Daily at bedtime, # 30 tablet, Refills 2, Tot. Refills 2, Maintenance, 09/06/18 10:55:13 EST, Route to Pharmacy Electronically, [id number], [facility] - Start Date: 09/06/18 Status: Ordered Problem List Condition Confirmation Course Effective Dates Status Health I nformant Status GERD Confirmed Active (gastroesophageal reflux disease) Hyperlipidemia Confirmed Active Colon cancer Confirmed Active Schizophrenia Confirmed Active Seizure disorder Confirmed Active Patient Care team information PersonnelName: Kylah Leahy DO Address: Address: [address] [place] [id number]
[2022-05-05 08:50] LABS: INTERNATIONAL NORM RATIO 1.1 (0.9-1.1); Prothrombin Time 12.8 SEC (10.0-13.1)
[2022-05-05 08:53] LABS: Partial Thromboplastin Time 29.6 SEC (26.0-36.4)
[2022-05-05 08:55] LABS: Ethanol < 10 mg/dL
[2022-05-05 08:57] LABS: Alanine Aminotransferase 15 U/L (0-40); Alkaline Phosphatase 116 U/L (39-117); Anion Gap 13 (12-20); Aspartate Amino Transferase 21 U/L (5-37); Bilirubin Direct < 0.2 mg/dL (0.0-0.5); Bilirubin Total 0.2 mg/dL (0.0-1.0); Blood Urea Nitrogen 11 mg/dL (9-16); COVID-19 Test Negative (Negative); Calcium 8.5 mg/dL (8.4-10.2); Carbon Dioxide 26 mmol/L (22-29); Chloride 107 mmol/L (96-108); Creatinine Clr Calc Pharmacy 82.4; Estimated Glomerular Filt Rate > 60; Glucose Random 85 mg/dL (60-115); IDNOW Serial# 16C4AD1C; Magnesium 1.9 mg/dL (1.6-2.6); Potassium 4.8 mmol/L (3.3-5.1); Sodium 141 mmol/L (135-145); Total Protein 6.5 g/dL (6.5-8.0)
[2022-05-05 09:00] LABS: B Type Natriuretic Peptide 35 pg/mL (<100)
[2022-05-05] MEDS: 0.9 % Sodium Chloride 1,000 ML 999 ML IVCONT (09:28)
[2022-05-05] MEDS: Morphine Sulfate 4 MG/ML CARTRIDGE IVPUSH (09:29)
[2022-05-05] MEDS: ondansetron HCL 4 MG/2 ML VIAL IVPUSH (09:29)
[2022-05-05] MEDS: iohexoL 350 MG/ML 100 ML INFUS..BTL IV (09:43)
[2022-05-05 10:19] LABS: Appearance Urine Clear; Color Urine Yellow; Glucose Urine UA Negative (Negative); Leukocyte Esterase Urine Negative (Negative); Nitrite Urine Negative (Negative); PH 5.5 (5.0-9.0); Specific Gravity - Urine 1.015 (1.005-1.025); Urine Blood Negative (Negative); Urine Ketones Negative (Negative); Urine Protein Negative (Neg-Trace)
[2022-05-05 10:22] LABS: Amphetamine Screen Urine Not Detected (Not Detect); Barbiturates, Urine Not Detected (Not Detect); Benzodiazepines Screen Urine Not Detected (Not Detect); Cannabinoid Screen Urine POSITIVE (Not Detect); Cocaine Screen Urine POSITIVE (Not Detect); Fentanyl, urine Not Detected (Not Detect); Opiate Screen Urine Not Detected (Not Detect); Phencyclidine Screen Urine Not Detected (Not Detect)
[2022-05-05] MEDS: Ketorolac Tromethamine 30 MG/ML VIAL IVPUSH (12:29)
[2022-05-05] MEDS: HYDROmorphone HCl 0.5 MG/0.5 ML SYRINGE 1 MG IVPUSH (12:30)
[2022-05-05] MEDS: Metoclopramide HCl 10 MG/2 ML VIAL IVPUSH (12:30)
[2022-05-05] MEDS: Dicyclomine HCl 10 MG CAPSULE PO (12:31)
[2022-05-05] MEDS: Magnesium Hydrox/Alum Hydrox 30 ML ORAL.SUSP PO (12:31)
[2022-05-05 12:51] LABS: OBS Int Ctl Valid YES; OBS1 NEGATIVE (NEGATIVE)
== END 2022-05-05 15:00 | disposition home or self-care (01) ==
PROVIDERS: Physician Assistant; Emergency Provider Emergency Medicine
DX: K52.9 Noninfective gastroenteritis and colitis, unspecified (principal); R10.9 Unspecified abdominal pain; R11.2 Nausea with vomiting, unspecified; Z20.822 Contact with and (suspected) exposure to COVID-19; F14.10 Cocaine abuse, uncomplicated; R60.1 Generalized edema; R06.2 Wheezing; C7A.8 Other malignant neuroendocrine tumors; C7A.020 Malignant carcinoid tumor of the appendix; C7B.02 Secondary carcinoid tumors of liver; I89.0 Lymphedema, not elsewhere classified; F17.210 Nicotine dependence, cigarettes, uncomplicated; Z79.899 Other long term (current) drug therapy; Z79.02 Long term (current) use of antithrombotics/antiplatelets
CPT/HCPCS: 36415; 71045; 74177; 80048; 80076; 80307; 81003; 82077; 82272; 83735; 83880; 85025; 85610; 85730; 87635; 93005; 96361; 96374; 96375; 99285; J1170; J1885; J2270; J2405; J2765; Q9967

== ENCOUNTER 2022-05-11 04:49 | Observation (INO) | payer MEDICARE, MEDICAID, SELFPAY ==
[2022-05-11] VITALS (7 sets, daily range): BP systolic 128–150; BP diastolic 72–90; PULSE 60–86; RESP 14–19; TEMP 36.7–36.8; O2SAT 97–99; BMI 27.4
[2022-05-11 06:16] LABS: Basophils Absolute Auto 0.1 X10*3/uL (0.0-0.2); Basophils Percent Auto 0.9 % (0-2); Eosinophils Absolute Auto 0.3 X10*3/uL (0.0-0.4); Hemoglobin 12.8 g/dl (14.0-18.0); Imm Gran Abs Auto 0.01 X10*3/uL (0.00-0.03); Imm Gran Pct Auto 0.2 % (0.0-0.4); Lymphocytes Absolute Auto 1.8 X10*3/uL (1.2-4.9); Lymphocytes Percent Auto 27.7 % (20-40); MANUAL DIFF FLAG NO; Mean Corpuscular HGB Conc 33.7 g/dl (31.0-36.0); Mean Corpuscular Hemoglobin 31.1 pg (27.0-33.0); Mean Corpuscular Volume 92.5 fL (80.0-98.0); Mean Platelet Volume 9.2 fL (9.4-12.4); Monocytes Absolute Auto 0.7 X10*3/uL (0.1-1.2); Monocytes Percent Auto 11.1 % (2-11); Neutrophils Absolute Auto 3.6 x10*3/uL (2.0-8.3); Neutrophils Percent Auto 55.1 % (45-73); Platelet Count 258 X10*3/uL (160-400); Red Blood Count 4.11 X10*6/uL (4.60-5.80); Red Cell Distribution Width 14.1 % (11.0-16.0); White Blood Count 6.5 X10*3/uL (4.8-10.8)
[2022-05-11 06:17] LABS: Appearance Urine Clear; Color Urine Yellow; Glucose Urine UA Negative (Negative); Leukocyte Esterase Urine Negative (Negative); Nitrite Urine Negative (Negative); Specific Gravity - Urine 1.015 (1.005-1.025); Urine Blood Negative (Negative); Urine Ketones Negative (Negative); Urine Protein Negative (Neg-Trace)
[2022-05-11 06:30] LABS: Anion Gap 13 (12-20); Blood Urea Nitrogen 14 mg/dL (9-16); Calcium 8.3 mg/dL (8.4-10.2); Carbon Dioxide 26 mmol/L (22-29); Chloride 103 mmol/L (96-108); Creatinine Clr Calc Pharmacy 88.5; Estimated Glomerular Filt Rate > 60; Glucose Random 87 mg/dL (60-115); Potassium 4.3 mmol/L (3.3-5.1); Sodium 138 mmol/L (135-145)
--- NOTE | 2022-05-11 06:55 | ED.GENADULT ---
HPI - General Adult General Chief complaint: General Medical Stated complaint: SICK Time Seen by Provider: 05/11/22 06:48 Source: patient, EMS and paraprofessional interpreter Mode of arrival: EMS Limitations: no limitations History of Present Illness HPI narrative: 56-year-old male Bermudian-speaking only with past medical history significant for metastatic neuroendocrine tumor, depression, presented with increased lower abdominal pain, pain started 3 days, as a constant severe pain 10/10 mostly localized to the suprapubic area radiates to both flank area, patient noticed little blood in the bowel movement 1 time, pain is associated with nausea and vomiting for the past 3 days. nothing makes the pain worse nothing make it relieved, the pain is not related to food, patient had a normal bowel movement yesterday, no dysuria, no frequency urination, no fever, no chills. Related Data Home Medications Medication Instructions Recorded Confirmed atorvastatin 10 mg tablet 1 tab PO BEDTIME 10/25/20 04/25/22 loratadine 10 mg tablet 1 tab PO QAM 10/25/20 04/25/22 multivitamin (Daily-Qi tablet) 1 tab PO DAILY 10/25/20 04/25/22 pantoprazole 40 mg tablet,delayed 1 tab PO DAILY 10/25/20 04/25/22 release famotidine 20 mg tablet 20 mg PO DAILY 12/11/21 04/25/22 fluticasone propionate 50 2 spray intranasal DAILY 12/11/21 04/25/22 mcg/actuation nasal spray,suspension phenytoin sodium extended 100 mg 200 mg PO QAM 03/10/22 04/25/22 capsule phenytoin sodium extended 100 mg 300 mg PO BEDTIME 03/10/22 04/25/22 capsule Previous Rx's Medication Instructions Recorded aripiprazole 10 mg tablet 10 mg PO DAILY #30 tabs 03/13/22 gabapentin 300 mg capsule 300 mg PO TID #90 caps 03/13/22 nicotine 14 mg/24 hr daily 14 mg transdermal DAILY #28 ea 03/13/22 transdermal patch oxcarbazepine 300 mg tablet 450 mg PO BID #90 tabs 03/13/22 (Trileptal) quetiapine 400 mg tablet 400 mg PO BEDTIME #30 tabs 03/13/22 trazodone 100 mg tablet 200 mg PO BEDTIME #60 tabs 03/13/22 trolamine salicylate 10 % topical 1 appl topical QID PRN mod-severe 03/13/22 cream (Arthricream) arthritis #85 grams everolimus (antineoplastic) 10 mg 10 mg PO DAILY #30 tabs 04/22/22 tablet (Afinitor) dicyclomine 10 mg capsule 10 mg PO TID PRN abdominal pain 05/05/22 #14 caps ondansetron 4 mg disintegrating 4 mg PO Q8H PRN nausea and 05/05/22 tablet vomiting #10 tabs ondansetron 8 mg disintegrating 8 mg PO Q8H PRN Nausea And 05/08/22 tablet Vomiting #50 tabs ondansetron 8 mg disintegrating 8 mg PO Q8H PRN Nausea And 05/08/22 tablet Vomiting #50 tabs Allergies Allergy/AdvReac Type Severity Reaction Status Date / Time Penicillins Allergy Mild RASH Verified 04/22/22 10:02 Seafood Allergy Mild RASH Verified 04/22/22 10:02 diazepam [From VALIUM] Allergy Unknown ACTS OUT Verified 04/22/22 10:02 penicillin V Allergy Unknown anaphylaxis Verified 04/22/22 10:02 ibuprofen [From MOTRIN] AdvReac Mild RASH Verified 04/22/22 10:02 Morphine AdvReac Severe Unknown Uncoded 04/22/22 10:02 Review of Systems Review of Systems: All other systems are reviewed and are negative Constitutional: Reports as per HPI and Reports no additional constitutional complaints Eyes: Reports as per HPI and Reports no additional eye complaints Reports system reviewed and no additional complaints, except as documented Cardiovascular: Reports as per HPI and Reports no additional cardiovascular complaints Respiratory: Reports as per HPI and Reports no additional respiratory complaints Gastrointestinal: Reports as per HPI and Reports no additional gastrointestinal complaints Genitourinary: Reports no additional female genitourinary complaints Musculoskeletal: Reports no additional musculoskeletal complaints Skin/Breast: Reports system reviewed and no additional complaints, except as docu Psychiatric: Reports no additional psychiatric complaints Endocrine: Reports no additional endocrine complaints Hematologic/Lymphatic: Reports no additional hematologic/lymphatic complaints Allergic/Immunologic: Reports no additional allergic/immunologic complaints Reports system reviewed and no additional complaints, except as documented and Reports Abnormal speech present PMFSH Past Medical History Medical History Anasarca Cellulitis Cocaine abuse Epilepsy Family hx of colon cancer Generalized seizure Hx of head injury Lymphedema MDD (major depressive disorder), recurrent episode, severe Metastatic carcinoid tumor Metastatic disease Schizoaffective disorder, depressive type Surgical History History of liver biopsy History of surgery on wrist Hx of knee surgery Family History Family History Paternal Grandmother Cancer Social History Social History Household Members: Family Housing: Apartment Are you a primary patient care technician to a significant other at home: No Do you presently have visiting nurse or other home services: No Unable to assess alcohol history related to: Unknown Alcohol intake: current Alcohol intake frequency: does not drink Patient Tobacco Use Status: Current everyday Tobacco user Tobacco use type: Cigarette Cigarette Packs Per Day: 1 Cigarettes Per Day: 4 Years Smoked: 37 e-Cigarette/Vaping Use: Currently Using Second Hand Smoke Exposure: Yes Substance Use Type: Crack/Cocaine and Marijuana Advance Directives: No Advance Directives Information Provided: No Advance Directives Date on File: 11/13/21 service: No Current occupational status: disabled Sexual orientation: Don't Know Physical Exam ED Vital Signs: Vital Signs - 24 hr 05/11/22 05:14 05/11/22 07:25 05/11/22 07:56 Temperature 98.1 F 98.2 F Pulse Rate 86 71 Respiratory Rate 16 18 14 Blood Pressure 144/72 H 148/81 H Pulse Oximetry 99 97 Oxygen Delivery Method Room Air Room Air 05/11/22 09:18 Temperature Pulse Rate Respiratory Rate 16 Blood Pressure Pulse Oximetry Oxygen Delivery Method BMI result Body Mass Index 27.4 Vital signs have been reviewed as appeared to be correct. Blood pressure normal. Heart rate normal. Respiration rate normal. Temperature normal. Oxygen saturation normal. Appearance: Alert. Oriented X3. No acute distress. Head: Normal external exam. Normocephalic. Atraumatic. No Chou signs noted. No raccoon eyes noted Eyes: PERRLA. EOMI. Conjunctiva and sclera normal. Eyelids normal. ENT: TM's Normal. Pharynx normal. Uvula midline. Moist mucous membranes. No trismus noted. No drooling noted. No muffled voice noted. Neck: Normal inspection. Neck supple. FROM. No adenopathy. Thyroid Normal. No meningeal signs. No neck mass noted. CVS: Normal heart rate and rhythm. Heart sound normal. No murmurs noted. Pulses normal throughout. Respiratory: No respiratory distress. Painless inspiration. Breath sounds normal. No wheezes/rales/rhonchi noted. Chest nontender. No accessory muscle usage noted or decreased air movement noted. Abdomen: Soft, suprapubic tenderness, no guarding, no rebound tenderness.. Bowel sounds normal in all 4 quadrants. No distention noted. No organomegaly noted. No visible injury noted. Rectal exam: Brown stool trace of guaiac-positive. exam: Circumcised, no testicular swelling, intact cremasteric reflexes bilaterally. Back: No CVA tenderness. Full range of motion noted. Skin: Skin warm and dry. Normal skin color. Normal skin turgor. No rashes/lesions/lacerations noted. Extremities: No lower extremity edema. Extremities exhibit normal range of motion. Extremities nontender. Neuro: Oriented X 3. Cranial nerve exam: II-XII are grossly intact No motor deficit. No sensory deficit. Reflexes normal. Course Course Course Narrative: 57-year-old male history of metastatic neuroendocrine tumor with chronic pain, presented with abdominal pain. Require multiple doses of Dilaudid to control his pain and Zofran to control his nausea and vomiting, CT no significance for severe problems, CT could not rule out small-bowel obstruction clinically patient having bowel movement and passing flatus with no persistent vomiting not likely patient having SBO. Will admit the patient for further evaluation. Medical Decision Making Medical Records Medical records reviewed: Yes I reviewed the patient's medical records. Lab Data Lab results reviewed: Yes I reviewed the patient's lab results. Result diagrams: 05/11/22 06:04 05/11/22 06:04 Labs: Lab Results 05/11/22 05/11/22 05/11/22 Range/Units 06:04 06:04 06:04 WBC 6.5 (4.8-10.8) X10*3/uL RBC 4.11 L (4.60-5.80) X10*6/uL Hgb 12.8 L (14.0-18.0) g/dl Hct 38.0 L (42.0-52.0) % MCV 92.5 (80.0-98.0) fL MCH 31.1 (27.0-33.0) pg MCHC 33.7 (31.0-36.0) g/dl RDW 14.1 (11.0-16.0) % Plt Count 258 (160-400) X10*3/uL MPV 9.2 L (9.4-12.4) fL Immature Gran % (Auto) 0.2 (0.0-0.4) % Neut % (Auto) 55.1 (45-73) % Lymph % (Auto) 27.7 (20-40) % [place] % (Auto) 11.1 H (2-11) % Eos % (Auto) 5.0 H (0-4) % Baso % (Auto) 0.9 (0-2) % Lymph # (Auto) 1.8 (1.2-4.9) X10*3/uL [place] # (Auto) 0.7 (0.1-1.2) X10*3/uL Eos # (Auto) 0.3 (0.0-0.4) X10*3/uL Baso # (Auto) 0.1 (0.0-0.2) X10*3/uL Abs Immat Gran (auto) 0.01 (0.00-0.03) X10*3/uL Absolute Neuts (auto) 3.6 (2.0-8.3) x10*3/uL Absolute Nucleated RBC 0.000 (0.0-0.012) X10*3/uL Nucleated RBC % (auto) 0.0 (0.0-0.2) /100WBC Sodium 138 (135-145) mmol/L Potassium 4.3 (3.3-5.1) mmol/L Chloride 103 (96-108) mmol/L Carbon Dioxide 26 (22-29) mmol/L Anion Gap 13 (12-20) BUN 14 (9-16) mg/dL Creatinine 0.87 (0.5-1.4) mg/dL Estim Creat Clear Calc 88.5 Estimated GFR > 60 Random Glucose 87 (60-115) mg/dL Lactic Acid 1.0 (0.5-2.0) mmol/L Calcium 8.3 L (8.4-10.2) mg/dL Total Bilirubin 0.3 (0.0-1.0) mg/dL Direct Bilirubin < 0.2 (0.0-0.5) mg/dL AST 19 (5-37) U/L ALT 11 (0-40) U/L Alkaline Phosphatase 110 (39-117) U/L Total Protein 6.3 L (6.5-8.0) g/dL Albumin 3.9 (3.5-5.0) g/dL Lipase 18 (8-78) U/L Urine Color Urine Appearance Urine pH (5.0-9.0) Ur Specific [place] (1.005-1.025) Urine Protein (Neg-Trace) mg/dL Urine Glucose (UA) (Negative) mg/dL Urine Ketones (Negative) mg/dL Urine Blood (Negative) Urine Nitrite (Negative) Ur Leukocyte Esterase (Negative) Stool Occult Blood (NEGATIVE) 05/11/22 05/11/22 Range/Units 06:04 07:59 WBC (4.8-10.8) X10*3/uL RBC (4.60-5.80) X10*6/uL Hgb (14.0-18.0) g/dl Hct (42.0-52.0) % MCV (80.0-98.0) fL MCH (27.0-33.0) pg MCHC (31.0-36.0) g/dl RDW (11.0-16.0) % Plt Count (160-400) X10*3/uL MPV (9.4-12.4) fL Immature Gran % (Auto) (0.0-0.4) % Neut % (Auto) (45-73) % Lymph % (Auto) (20-40) % [place] % (Auto) (2-11) % Eos % (Auto) (0-4) % Baso % (Auto) (0-2) % Lymph # (Auto) (1.2-4.9) X10*3/uL [place] # (Auto) (0.1-1.2) X10*3/uL Eos # (Auto) (0.0-0.4) X10*3/uL Baso # (Auto) (0.0-0.2) X10*3/uL Abs Immat Gran (auto) (0.00-0.03) X10*3/uL Absolute Neuts (auto) (2.0-8.3) x10*3/uL Absolute Nucleated RBC (0.0-0.012) X10*3/uL Nucleated RBC % (auto) (0.0-0.2) /100WBC Sodium (135-145) mmol/L Potassium (3.3-5.1) mmol/L Chloride (96-108) mmol/L Carbon Dioxide (22-29) mmol/L Anion Gap (12-20) BUN (9-16) mg/dL Creatinine (0.5-1.4) mg/dL Estim Creat Clear Calc Estimated GFR Random Glucose (60-115) mg/dL Lactic Acid (0.5-2.0) mmol/L Calcium (8.4-10.2) mg/dL Total Bilirubin (0.0-1.0) mg/dL Direct Bilirubin (0.0-0.5) mg/dL AST (5-37) U/L ALT (0-40) U/L Alkaline Phosphatase (39-117) U/L Total Protein (6.5-8.0) g/dL Albumin (3.5-5.0) g/dL Lipase (8-78) U/L Urine Color Yellow Urine Appearance Clear Urine pH 7.0 (5.0-9.0) Ur Specific [place] 1.015 (1.005-1.025) Urine Protein Negative (Neg-Trace) mg/dL Urine Glucose (UA) Negative (Negative) mg/dL Urine Ketones Negative (Negative) mg/dL Urine Blood Negative (Negative) Urine Nitrite Negative (Negative) Ur Leukocyte Esterase Negative (Negative) Stool Occult Blood POSITIVE (NEGATIVE) Imaging Data CT scan - abdomen: Attestation: I personally reviewed and interpreted this imaging study as follows: Radiologist's impression: 1. Multiple abnormalities are seen in the abdomen and pelvis, suspicious for metastatic disease, similar in appearance to recent prior study and including lung nodularity, epicardiac adenopathy, multiple large hepatic/perihepatic masses, pelvic mass, and patchy sclerotic density in the S1 segment. 2. Nonspecific mild fluid distention of small bowel loops is seen. There may be subtle bowel wall thickening involving a relatively decompressed terminal ileum and focal inflammatory change in this region causing minimal partial obstruction of the small bowel cannot be entirely excluded. Close clinical correlation is requested. If clinical suspicion is high, further assessment with MR enterography could be performed for more sensitive assessment. ? Discharge Plan Discharge Clinical Impression: Intractable abdominal pain, Intractable vomiting Patient Disposition: Admitted As Inpatient Prescriptions: No Action multivitamin [Daily-Qi] Tablet 1 tab PO DAILY atorvastatin 10 mg tablet 1 tab PO BEDTIME pantoprazole 40 mg tablet,delayed release (DR/EC) 1 tab PO DAILY loratadine 10 mg tablet 1 tab PO QAM everolimus (antineoplastic) [Afinitor] 10 mg Tablet 10 mg PO DAILY Qty: 30 11RF ondansetron 8 mg Tablet,Disintegrating 8 mg PO Q8H PRN (Reason: Nausea And Vomiting) Qty: 50 5RF ondansetron 8 mg Tablet,Disintegrating 8 mg PO Q8H PRN (Reason: Nausea And Vomiting) Qty: 50 6RF famotidine 20 mg tablet 20 mg PO DAILY fluticasone propionate 50 mcg/actuation spray,suspension 2 spray intranasal DAILY phenytoin sodium extended 100 mg capsule 200 mg PO QAM phenytoin sodium extended 100 mg capsule 300 mg PO BEDTIME nicotine 14 mg/24 hr Patch 24 Hour 14 mg transdermal DAILY Qty: 28 0RF trazodone 100 mg Tablet 200 mg PO BEDTIME Qty: 60 0RF gabapentin 300 mg Capsule 300 mg PO TID Qty: 90 0RF trolamine salicylate [Arthricream] 10 % Cream 1 appl topical QID PRN (Reason: mod-severe arthritis) Qty: 85 0RF aripiprazole 10 mg Tablet 10 mg PO DAILY Qty: 30 0RF quetiapine 400 mg Tablet 400 mg PO BEDTIME Qty: 30 0RF oxcarbazepine [Trileptal] 300 mg tablet 450 mg PO BID Qty: 90 0RF ondansetron 4 mg tablet,disintegrating 4 mg PO Q8H PRN (Reason: nausea and vomiting) Qty: 10 0RF dicyclomine 10 mg capsule 10 mg PO TID PRN (Reason: abdominal pain) Qty: 14 0RF
[2022-05-11 07:11] LABS: Alanine Aminotransferase 11 U/L (0-40); Albumin Level 3.9 g/dL (3.5-5.0); Alkaline Phosphatase 110 U/L (39-117); Aspartate Amino Transferase 19 U/L (5-37); Bilirubin Direct < 0.2 mg/dL (0.0-0.5); Bilirubin Total 0.3 mg/dL (0.0-1.0); Lipase 18 U/L (8-78); Total Protein 6.3 g/dL (6.5-8.0)
[2022-05-11] MEDS: HYDROmorphone HCl 1 MG/ML SYRINGE IVPUSH (07:25)
[2022-05-11] MEDS: ondansetron HCL 4 MG/2 ML VIAL IVPUSH ×2 (07:25→16:59)
[2022-05-11] MEDS: 0.9 % Sodium Chloride 1,000 ML 999 ML IV (07:27)
[2022-05-11 08:11] LABS: OBS Int Ctl Valid YES; OBS1 POSITIVE (NEGATIVE)
--- NOTE | 2022-05-11 08:43 | ECG_ITS ---
Test Reason : MED REACTION Blood Pressure : / mmHG Vent. Rate : 071 BPM Atrial Rate : 071 BPM P-R Int : 144 ms QRS Dur : 078 ms QT Int : 390 ms P-R-T Axes : 042 071 051 degrees QTc Int : 423 ms Normal sinus rhythm Normal ECG When compared with ECG of 05-MAY-2022 08:19, No significant change was found Referred By: Kapil Brown Electronically Signed By:BIANCA PEREZ MD
[2022-05-11] MEDS: HYDROmorphone HCl 2 MG/ML VIAL IVPUSH (09:18)
--- NOTE | 2022-05-11 12:06 | PHA.MEDREC ---
Pharmacy Consult ? Medication Reconciliation Pharmacy has completed the medication reconciliation.
[2022-05-11 13:48] LABS: COVID-19 Test Negative (Negative); IDNOW Serial# 16C4AD1C
--- NOTE | 2022-05-11 14:27 | PM.IMHP ---
History of Present Illness Date of Service: 05/11/22 Chief Complaint: Intractable pain A 56 years old male with PMH of depression, seizure disorder, metastatic neuroendocrine tumor (appendix, small bowel, liver Mets) who has been followed by Dr. Glover presents to the hospital with increased abdominal pain and decreased oral intake. The patient reports that for the last 2 days he has been having worsening abdominal pain is not resolving at home associated with decreased oral intake and feeling sick to his stomach with nausea and vomiting. He denies fever or chills, no chest pain, no significant change in weight, change in bowel habit or urinary symptoms. In the emergency he was started on IV diluted with fair response but pain did not resolve requiring extra doses. ?Will be admitted for further evaluation and treatment. Review of Systems Review of Systems: No fever, chills or weakness No chest pain, palpitation No shortness of breath or coughing Reporting abdominal pain associated with nausea or vomiting No urinary symptoms No any rash or wounds PMFSH Medical History Anasarca Cellulitis Cocaine abuse Epilepsy Family hx of colon cancer Generalized seizure Hx of head injury Lymphedema MDD (major depressive disorder), recurrent episode, severe Metastatic carcinoid tumor Metastatic disease Schizoaffective disorder, depressive type Family History Paternal Grandmother Cancer Surgical History History of liver biopsy History of surgery on wrist Hx of knee surgery Social History Household Members: Family Housing: Apartment Are you a primary child care centre director to a significant other at home: No Do you presently have visiting nurse or other home services: No Unable to assess alcohol history related to: Unknown Alcohol intake: current Alcohol intake frequency: does not drink Patient Tobacco Use Status: Current everyday Tobacco user Tobacco use type: Cigarette Cigarette Packs Per Day: 1 Cigarettes Per Day: 4 Years Smoked: 37 e-Cigarette/Vaping Use: Currently Using Second Hand Smoke Exposure: Yes Substance Use Type: Crack/Cocaine and Marijuana Advance Directives: No Advance Directives Information Provided: No Advance Directives Date on File: 11/13/21 service: No Current occupational status: disabled Sexual orientation: Don't Know Meds Allergies Allergy/AdvReac Type Severity Reaction Status Date / Time Penicillins Allergy Mild RASH Verified 04/22/22 10:02 Seafood Allergy Mild RASH Verified 04/22/22 10:02 diazepam [From VALIUM] Allergy Unknown ACTS OUT Verified 04/22/22 10:02 penicillin V Allergy Unknown anaphylaxis Verified 04/22/22 10:02 ibuprofen [From MOTRIN] AdvReac Mild RASH Verified 04/22/22 10:02 Morphine AdvReac Severe Unknown Uncoded 04/22/22 10:02 Home Medications Medication Instructions Recorded Confirmed Last Taken Type atorvastatin 10 mg tablet 1 tab PO BEDTIME 10/25/20 05/11/22 12/10/21 History loratadine 10 mg tablet 10 mg PO DAILY 10/25/20 05/11/22 12/11/21 History multivitamin (Daily-Qi tablet) 1 tab PO DAILY 10/25/20 05/11/22 12/11/21 History pantoprazole 40 mg tablet,delayed 40 mg PO DAILY@0630 10/25/20 05/11/22 05/01/22 History release famotidine 20 mg tablet 20 mg PO DAILY 12/11/21 05/11/22 12/11/21 History fluticasone propionate 50 2 spray intranasal DAILY PRN Nasal 12/11/21 05/11/22 12/11/21 History mcg/actuation nasal Congestion spray,suspension phenytoin sodium extended 100 mg 200 mg PO DAILY 03/10/22 05/11/22 05/01/22 History capsule phenytoin sodium extended 100 mg 300 mg PO BEDTIME 03/10/22 05/11/22 Unknown History capsule Physical Exam Vital Signs and Narrative: Vital Signs: Last Vital Signs Temp 98.2 F 05/11/22 07:56 Pulse 60 05/11/22 12:00 Resp 19 05/11/22 12:00 BP 128/76 05/11/22 12:00 Pulse Ox 97 05/11/22 07:56 O2 Del Method 05/11/22 07:56 BMI result Body Mass Index 27.4 Const: Other: Constitutional : Alert, oriented, not in distress Neck : Normal inspection, Supple Cardiovascular : RRR, no JVP, trace bilateral lower extremity edema Respiratory : fair bilateral air entry, no crackles, wheezes or rhonchi Gastrointestinal: soft, lax, Normal bowel sounds, generalized abdominal tenderness with palpation mainly in the lower abdomen Skin : Warm, Dry Neurological : Alert & oriented x3, No focal deficit , CN 2-12 within normal Results Labs CBC and Chem 7: 05/11/22 06:04 05/11/22 06:04 Labs: Laboratory Results - last 24 hr 05/11/22 05/11/22 05/11/22 06:04 06:04 06:04 MCV 92.5 MCH 31.1 MCHC 33.7 RDW 14.1 Plt Count 258 MPV 9.2 L Immature Gran % (Auto) 0.2 Neut % (Auto) 55.1 Lymph % (Auto) 27.7 Scurry % (Auto) 11.1 H Eos % (Auto) 5.0 H Baso % (Auto) 0.9 Lymph # (Auto) 1.8 Scurry # (Auto) 0.7 Eos # (Auto) 0.3 Baso # (Auto) 0.1 Abs Immat Gran (auto) 0.01 Absolute Neuts (auto) 3.6 Absolute Nucleated RBC 0.000 Nucleated RBC % (auto) 0.0 Anion Gap 13 Estim Creat Clear Calc 88.5 Estimated GFR > 60 Random Glucose 87 Lactic Acid 1.0 Calcium 8.3 L Total Bilirubin 0.3 Direct Bilirubin < 0.2 AST 19 ALT 11 Alkaline Phosphatase 110 Total Protein 6.3 L Albumin 3.9 Lipase 18 Urine Color Urine Appearance Urine pH Ur Specific [place] Urine Protein Urine Glucose (UA) Urine Ketones Urine Blood Urine Nitrite Ur Leukocyte Esterase Stool Occult Blood COVID-19 ([facility]) COVID-19 Clin Com 05/11/22 05/11/22 05/11/22 06:04 07:59 13:16 MCV MCH MCHC RDW Plt Count MPV Immature Gran % (Auto) Neut % (Auto) Lymph % (Auto) Scurry % (Auto) Eos % (Auto) Baso % (Auto) Lymph # (Auto) Scurry # (Auto) Eos # (Auto) Baso # (Auto) Abs Immat Gran (auto) Absolute Neuts (auto) Absolute Nucleated RBC Nucleated RBC % (auto) Anion Gap Estim Creat Clear Calc Estimated GFR Random Glucose Lactic Acid Calcium Total Bilirubin Direct Bilirubin AST ALT Alkaline Phosphatase Total Protein Albumin Lipase Urine Color Yellow Urine Appearance Clear Urine pH 7.0 Ur Specific [place] 1.015 Urine Protein Negative Urine Glucose (UA) Negative Urine Ketones Negative Urine Blood Negative Urine Nitrite Negative Ur Leukocyte Esterase Negative Stool Occult Blood POSITIVE COVID-19 ([facility]) Negative COVID-19 Clin Com See Note Imaging Radiologist's Impressions: Impressions Abdomen/Pelvis CT 05/11/22 07:28 IMPRESSION: 1. Multiple abnormalities are seen in the abdomen and pelvis, suspicious for metastatic disease, similar in appearance to recent prior study and including lung nodularity, epicardiac adenopathy, multiple large hepatic/perihepatic masses, pelvic mass, and patchy sclerotic density in the S1 segment. 2. Nonspecific mild fluid distention of small bowel loops is seen. There may be subtle bowel wall thickening involving a relatively decompressed terminal ileum and focal inflammatory change in this region causing minimal partial obstruction of the small bowel cannot be entirely excluded. Close clinical correlation is requested. If clinical suspicion is high, further assessment with MR enterography could be performed for more sensitive assessment. Assessment and Plan (1) Intractable abdominal pain: Status: Acute (2) Intractable vomiting: Status: Acute Plan A 56 years old male with PMH of depression, seizure disorder, metastatic neuroendocrine tumor (appendix, small bowel, liver Mets) who has been followed by Dr. Glover presents to the hospital with increased abdominal pain and decreased oral intake. Intractable abdominal pain 2/2 metastatic neuroendocrine tumor Continue Afinitor Dilaudid p.r.n. Gentle hydration Zofran for nausea Athlete foot Clotrimazole cream history of Seizure disorder Controlled Continue phenytoin, oxcarbazepine continue Seroquel, gabapentin GERD continue omeprazole DVT PPX Eliquis Quality Stroke Does the patient have a stroke diagnosis?: No VTE Prior VTE?: No VTE Risk Level:: Medical - moderate - high VTE Device Contraindication: Treatment Not Indicated VTE Drug Contraindication: N/A - Med Ordered
[2022-05-11] MEDS: Gabapentin 300 MG CAPSULE PO ×2 (14:57→21:10)
[2022-05-11] MEDS: Enoxaparin Sodium 40 MG/0.4 ML SYRINGE SUBCUT (14:58)
[2022-05-11] MEDS: Dextrose 5 % and 0.9 % NaCl 1,000 ML 75 ML IVCONT (15:00)
[2022-05-11] MEDS: HYDROmorphone HCl 1 MG/ML SYRINGE 0.5 MG IVPUSH (16:59)
--- NOTE | 2022-05-11 18:20 | PC.NURSE ---
PT A&Ox3, resting quietly, reports choric pain 03/12. Meds given as documented.
[2022-05-11] MEDS: OXcarbazepine 150 MG TABLET 450 MG PO (21:10)
[2022-05-11] MEDS: Phenytoin Sodium Extended 100 MG CAPSULE 300 MG PO (21:11)
[2022-05-11] MEDS: Atorvastatin Calcium 10 MG TABLET PO (21:12)
[2022-05-11] MEDS: traZODone HCL 100 MG TABLET 200 MG PO (21:12)
[2022-05-11] MEDS: QUEtiapine Fumarate 400 MG TABLET PO (21:12)
--- NOTE | 2022-05-11 22:36 | PC.NURSE ---
report Given to Marci in [facility].
[2022-05-12] VITALS: BP 131/65; PULSE 80; RESP 16; TEMP 36.9; O2SAT 91
[2022-05-12] MEDS: HYDROmorphone HCl 1 MG/ML SYRINGE 0.5 MG IVPUSH ×2 (01:40→07:25)
[2022-05-12] MEDS: 0.9 % Sodium Chloride Flush 3 ML SYRINGE IVFLUSH (01:40)
[2022-05-12] MEDS: Dextrose 5 % and 0.9 % NaCl 1,000 ML 75 ML IVCONT (03:41)
[2022-05-12 04:54] VITALS: BP 139/70; PULSE 63; RESP 20; TEMP 36.6; O2SAT 94
[2022-05-12 06:32] LABS: Anion Gap 13 (12-20); Blood Urea Nitrogen 10 mg/dL (9-16); Calcium 8.2 mg/dL (8.4-10.2); Carbon Dioxide 25 mmol/L (22-29); Chloride 105 mmol/L (96-108); Creatinine Clr Calc Pharmacy 97.5; Estimated Glomerular Filt Rate > 60; Glucose Random 88 mg/dL (60-115); Potassium 4.2 mmol/L (3.3-5.1); Sodium 139 mmol/L (135-145)
[2022-05-12] MEDS: ondansetron HCL 4 MG/2 ML VIAL IVPUSH (07:28)
--- NOTE | 2022-05-12 09:21 | P.DS_ITS ---
DS: Providers Provider Date of Service: 05/12/22 Date of admission: 05/11/22 14:24 Primary care physician: Unknown Physician DS: Diagnosis Discharge Diagnosis (1) Intractable abdominal pain: Status: Acute (2) Intractable vomiting: Status: Acute DS: Summary Hospital Course Hospital Course: Admission note HPI A 56 years old male with PMH of depression, seizure disorder, metastatic neuroendocrine tumor (appendix, small bowel, liver Mets) who has been followed by Dr. Glover presents to the hospital with increased abdominal pain and decreased oral intake. The patient reports that for the last 2 days he has been having worsening abdominal pain is not resolving at home associated with decreased oral intake and feeling sick to his stomach with nausea and vomiting. He denies fever or chills, no chest pain,? no significant change in weight, change in bowel habit or urinary symptoms. In the emergency he was started on IV diluted with fair response but pain did not resolve requiring extra doses. ?Will be admitted for further evaluation and treatment. Hospital course The patient was admitted for intractable abdominal pain and vomiting 2/2 metastatic cancer. improved with hydration, IV dilaudid and Zofran as the pain i mproved significantly and he was able to tolerate diet. CT abdomen was suspecious for possible partial obstruction. the patient was able to tolerate diet and move his bowels. will be discharged home on Zofran and Oxycodone as needed to follow with oncology team as outpatient. Use Oxycodone as needed for pain Use Zofran as needed for nausea To follow up with you oncologist as outpatient Time Spent with Patient Time attestation: Total time spent providing and/or coordinating discharge services: Discharge coordination time: Less than 30 minutes Quality: Safe Use of Opioids Does Pt have an Active Cancer Diagnosis on the Problem List?: Yes Opioid Measure Date for [facility] Report: 04/12/22 Opioid Measure Time for [facility] Report: 09:48 Quality: Stroke Does the patient have a stroke diagnosis?: No Physical Exam Vital Signs: Vital Signs: Last Vital Signs Temp 97.8 F 05/12/22 04:54 Pulse 63 05/12/22 04:54 Resp 20 05/12/22 04:54 BP 139/70 05/12/22 04:54 Pulse Ox 94 05/12/22 04:54 O2 Del Method 05/12/22 04:54 BMI result Body Mass Index 27.4 Const: Other: Constitutional : Alert, oriented, not in distress Neck : Normal inspection, Supple Cardiovascular : RRR, no JVP, no lower extremity edema Respiratory : fair bilateral air entry, no crackles, wheezes or rhonchi Gastrointestinal: soft, lax, Normal bowel sounds, Non tender Skin : Warm, Dry Neurological : Alert & oriented x3, No focal deficit , CN 2-12 within normal DS: Data Data Completed and Pending Labs on day of discharge: Laboratory Results - last 24 hr 05/11/22 05/12/22 13:16 05:44 Sodium 139 Potassium 4.2 Chloride 105 Carbon Dioxide 25 Anion Gap 13 BUN 10 Creatinine 0.79 Estim Creat Clear Calc 97.5 Estimated GFR > 60 Random Glucose 88 Calcium 8.2 L COVID-19 ([facility]) Negative COVID-19 Clin Com See Note Preliminary micro results at discharge 05/11/22 06:04 Blood Culture - Preliminary Blood - Venous No growth after 24 hours. 05/11/22 06:04 Blood Culture - Preliminary Blood - Venous No growth after [address] scan - abdomen: Radiologist's impression: ITS Impressions Abdomen/Pelvis CT 05/11/22 07:28 IMPRESSION: 1. Multiple abnormalities are seen in the abdomen and pelvis, suspicious for metastatic disease, similar in appearance to recent prior study and including lung nodularity, epicardiac adenopathy, multiple large hepatic/perihepatic masses, pelvic mass, and patchy sclerotic density in the S1 segment. 2. Nonspecific mild fluid distention of small bowel loops is seen. There may be subtle bowel wall thickening involving a relatively decompressed terminal ileum and focal inflammatory change in this region causing minimal partial obstruction of the small bowel cannot be entirely excluded. Close clinical correlation is requested. If clinical suspicion is high, further assessment with MR enterography could be performed for more sensitive assessment. Discharge Plan Discharge Patient Disposition: Home, Self-Care Discharge Diagnosis: Intractable abdominal pain and vomiting Referrals: Physician,Unknown J [Primary Care Provider] - 1 Week Discharge Medications: New oxycodone 5 mg tablet 5 mg PO Q8H PRN (Reason: pain (scale score 7-10)) Qty: 20 0RF Rx Instructions: Partial Fill upon patient request. ondansetron 4 mg tablet,disintegrating 4 mg PO Q8H PRN (Reason: nausea and vomiting) Qty: 20 0RF Continued multivitamin [Daily-Qi] Tablet 1 tab PO DAILY atorvastatin 10 mg tablet 1 tab PO BEDTIME pantoprazole 40 mg tablet,delayed release (DR/EC) 40 mg PO DAILY@0630 loratadine 10 mg tablet 10 mg PO DAILY everolimus (antineoplastic) [Afinitor] 10 mg Tablet 10 mg PO DAILY Qty: 30 11RF ondansetron 8 mg Tablet,Disintegrating 8 mg PO Q8H PRN (Reason: Nausea And Vomiting) Qty: 50 5RF famotidine 20 mg tablet 20 mg PO DAILY fluticasone propionate 50 mcg/actuation spray,suspension 2 spray intranasal DAILY PRN (Reason: Nasal Congestion) phenytoin sodium extended 100 mg capsule 200 mg PO DAILY phenytoin sodium extended 100 mg capsule 300 mg PO BEDTIME nicotine 14 mg/24 hr Patch 24 Hour 14 mg transdermal DAILY Qty: 28 0RF trazodone 100 mg Tablet 200 mg PO BEDTIME Qty: 60 0RF gabapentin 300 mg Capsule 300 mg PO TID Qty: 90 0RF aripiprazole 10 mg Tablet 10 mg PO DAILY Qty: 30 0RF quetiapine 400 mg Tablet 400 mg PO BEDTIME Qty: 30 0RF oxcarbazepine [Trileptal] 300 mg tablet 450 mg PO BID Qty: 90 0RF dicyclomine 10 mg capsule 10 mg PO TID PRN (Reason: abdominal pain) Qty: 14 0RF Discharge Orders: Discharge Order (Routine); Ordered 05/12/22 Ordered By: Genia Malloy Diet: Advance to usual diet Activity on Discharge: As tolerated Stand Alone Forms: Patient Portal Discharge page Care Plan Goals: Read below Health Concerns: Read below Plan of Treatment: Read below Assessment: You were admitted to the hospital for evaluation of abdominal pain and vomiting. treated with pain and nausea medications with good response. Use Oxycodone as needed for pain Use Zofran as needed for nausea To follow up with you oncologist as outpatient
== END 2022-05-12 11:30 | disposition home or self-care (01) ==
LOC: HO.ED 11:31 → HO.EDOVER 14:29
PROVIDERS: Admitting Provider Student in an Organized Health Care Education/Training Program; Emergency Provider Emergency Medicine; PCP Family Medicine; Visit Provider Student in an Organized Health Care Education/Training Program
DX: R11.10 Vomiting, unspecified (principal); R10.9 Unspecified abdominal pain; F14.90 Cocaine use, unspecified, uncomplicated; F17.210 Nicotine dependence, cigarettes, uncomplicated; Z20.822 Contact with and (suspected) exposure to COVID-19; Z71.6 Tobacco abuse counseling; Z79.899 Other long term (current) drug therapy
CPT/HCPCS: 36415; 74176; 80048; 80076; 81003; 82272; 83605; 83690; 85025; 87040; 87635; 93005; 96365; 96372; 96376; 99219; 99284; J1170; J1650; J2405

== ENCOUNTER 2022-06-05 13:55 | Inpatient (IN) | payer MEDICARE, MEDICAID, SELFPAY ==
--- NOTE | ~2022-06-05 | XR_ITS ---
EXAMINATION: XR CHEST CLINICAL INFORMATION: Chest pain. Liver metastases. COMPARISON: 05/05/2022 TECHNIQUE: Frontal view of the chest was obtained. FINDINGS: Lungs are well expanded. No acute findings compared to prior radiograph from 05/05/2022. No evidence of pulmonary edema, consolidation or pneumothorax. No pleural effusion. Cardiac silhouette is normal in size. The hilar contours are normal. The visualized bones are intact. XR/XR chest 1V IMPRESSION: No acute pulmonary disease compared to 05/05/2022.
--- NOTE | 2022-06-05 14:05 | ECG_ITS ---
Test Reason : Chest Pain Blood Pressure : / mmHG Vent. Rate : 071 BPM Atrial Rate : 071 BPM P-R Int : 144 ms QRS Dur : 082 ms QT Int : 384 ms P-R-T Axes : 068 067 052 degrees QTc Int : 417 ms Normal sinus rhythm Normal ECG When compared with ECG of 11-MAY-2022 05:28, No significant change was found Referred By: Rebecca Farias Electronically Signed By:BIANCA PEREZ MD
[2022-06-05 14:07] VITALS: BP 139/88; PULSE 79; RESP 18; TEMP 36.7; O2SAT 99; BMI 24.1
--- NOTE | 2022-06-05 14:10 | ED_ITS ---
HPI - General Adult General Chief complaint: Psychiatric Symptoms Stated complaint: ? SUBSTANCE USE PER EMS Time Seen by Provider: 06/05/22 14:00 Source: patient and EMS Mode of arrival: EMS Limitations: no limitations History of Present Illness HPI narrative: Patient comes to the emergency room via EMS. According to EMS, police department was in the patient's neighborhood, when they were walking around his floor, patient started acting erratic, making SI statements. PD called EMS, patient was brought to the emergency room. Patient admits that he has been using heroin, cocaine and Percocets. 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 Patient states that he wants to take his life the way, does not want to live anymore. Related Data Home Medications Medication Instructions Recorded Confirmed atorvastatin 10 mg tablet 1 tab PO BEDTIME 10/25/20 05/20/22 loratadine 10 mg tablet 10 mg PO DAILY 10/25/20 05/20/22 multivitamin (Daily-Qi tablet) 1 tab PO DAILY 10/25/20 05/20/22 pantoprazole 40 mg tablet,delayed 40 mg PO DAILY@0630 10/25/20 05/20/22 release famotidine 20 mg tablet 20 mg PO DAILY 12/11/21 05/20/22 fluticasone propionate 50 2 spray intranasal DAILY PRN Nasal 12/11/21 05/20/22 mcg/actuation nasal Congestion spray,suspension phenytoin sodium extended 100 mg 200 mg PO DAILY 03/10/22 05/20/22 capsule phenytoin sodium extended 100 mg 300 mg PO BEDTIME 03/10/22 05/20/22 capsule Previous Rx's Medication Instructions Recorded aripiprazole 10 mg tablet 10 mg PO DAILY #30 tabs 03/13/22 gabapentin 300 mg capsule 300 mg PO TID #90 caps 03/13/22 nicotine 14 mg/24 hr daily 14 mg transdermal DAILY #28 ea 03/13/22 transdermal patch oxcarbazepine 300 mg tablet 450 mg PO BID #90 tabs 03/13/22 (Trileptal) quetiapine 400 mg tablet 400 mg PO BEDTIME #30 tabs 03/13/22 trazodone 100 mg tablet 200 mg PO BEDTIME #60 tabs 03/13/22 everolimus (antineoplastic) 10 mg 10 mg PO DAILY #30 tabs 04/22/22 tablet (Afinitor) dicyclomine 10 mg capsule 10 mg PO TID PRN abdominal pain 05/05/22 #14 caps ondansetron 4 mg disintegrating 4 mg PO Q8H PRN nausea and 05/12/22 tablet vomiting #20 tabs oxycodone 5 mg tablet 5 mg PO Q8H PRN pain (scale score 05/12/22 7-10) #20 tabs Allergies Allergy/AdvReac Type Severity Reaction Status Date / Time Penicillins Allergy Mild RASH Verified 05/20/22 09:33 Seafood Allergy Mild RASH Verified 05/20/22 09:33 diazepam [From VALIUM] Allergy Unknown ACTS OUT Verified 05/20/22 09:33 penicillin V Allergy Unknown anaphylaxis Verified 05/20/22 09:33 ibuprofen [From MOTRIN] AdvReac Mild RASH Verified 05/20/22 09:33 Morphine AdvReac Severe Unknown Uncoded 05/20/22 09:33 Review of Systems Review of Systems: Constitutional : No Weight loss, No Fever, No Chills, No Night Sweats, complaint fatigue, generalized malaise ENT/Mouth : No Hearing loss, No Ear Pain, No Nasal Congestion, No Sinus Pain, No Hoarseness, No sore throat, No Rhinorrhea, No Swallowing Difficulty Eyes: No Eye Pain, No Swelling, No Redness, No Foreign Body, No Discharge, No Vision Changes Cardiovascular : Complaining of bilateral chest pain for 9 days, No SOB, No Dyspnea on Exertion, No Orthopnea, No Edema, No Palpitations Respiratory : No Cough, No Sputum, No Wheezing, No Smoke Exposure, No Dyspnea Gastrointestinal : No Nausea, No Vomiting, No Diarrhea, No Constipation, complaining of chronic right upper quadrant pain secondary to 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, No Hematochezia, No Melena Genitourinary : no irregular bleeding, No Dysuria, No Urinary Frequency, No Hematuria, No Urinary Incontinence, No Urgency, No Flank Pain, No Urinary Flow Changes, No Hesitancy Musculoskeletal : No joint pain, No Myalgias, No Joint Swelling Skin : No Skin Lesions, No rash Neuro : No Weakness, No Numbness, No Paresthesias, No Loss of Consciousness, No Dizziness, No Headache Psych : No Anxiety/Panic, No Depression, No SI/HI/AH/VH, No Social Issues, Heme/Lymph: No Bruising, No Bleeding,No Lymphadenopathy Endocrine : No Polyuria, No Polydipsia, No Temperature Intolerance [facility] Past Medical History Medical History Anasarca Cellulitis Cocaine abuse Epilepsy Family hx of colon cancer Generalized seizure Hx of head injury Lymphedema MDD (major depressive disorder), recurrent episode, severe Metastatic carcinoid tumor Metastatic disease Schizoaffective disorder, depressive type Surgical History History of liver biopsy History of surgery on wrist Hx of knee surgery Family History Family History Paternal Grandmother Cancer Social History Social History Household Members: Family Housing: Apartment Are you a primary health care social worker to a significant other at home: No Do you presently have visiting nurse or other home services: No Unable to assess alcohol history related to: Unknown Alcohol intake: current Alcohol intake frequency: does not drink Patient Tobacco Use Status: Current everyday Tobacco user Tobacco use type: Cigarette Cigarette Packs Per Day: 1 Cigarettes Per Day: 4 Years Smoked: 37 e-Cigarette/Vaping Use: Currently Using Second Hand Smoke Exposure: Yes Substance Use Type: Crack/Cocaine and Marijuana Advance Directives: No Advance Directives Date on File: 11/13/21 service: No Current occupational status: disabled Sexual orientation: Don't Know Physical Exam ED Vital Signs: Vital Signs - 24 hr 06/05/22 14:07 Temperature 98.1 F Pulse Rate 79 Respiratory Rate 18 Blood Pressure 139/88 Pulse Oximetry 99 Oxygen Delivery Method Room Air BMI result Body Mass Index 24.1 Const Other: Appearance: Alert. Oriented X3. Disheveled Eyes: Pupils equal, round and reactive to light. ENT: Pharynx normal. Neck: Normal inspection. Neck supple. No lymph nodes noted. No crepitus CVS: Normal heart rate and rhythm. Pulses normal. Normal S1 and S2 Respiratory: No respiratory distress. Breath sounds normal. No Wheezing. No rales Abdomen: Soft , complaining of chronic right upper quadrant pain with exaggerated response to minimal palpation Skin: Skin warm and dry. Normal skin color. Normal skin turgor. Extremities: No lower extremity edema. No Lacerations. No Rash Neuro: Oriented X 3. No motor deficit. No sensory deficit. Moving all extremities. No slurred speech. CN 2 through 12 grossly intact Psych: calm, anxious Course Course Course Narrative: Within the 1st few minutes the patient was in his room, patient had a pseudo- seizure. While patient was purposely simulating a seizure, patient was screaming ?mucho dolor . Patient keep shaking his extremities and body, I told the patient that once he settles and we can plan IV, we he can get pain medication. Immediately, patient stop shaking his limbs. Patient is on a Section 12. All of patient's labs and imaging pending, once patient is medically cleared, [facility] will be consulted. Chest x-ray does not show any acute disease, patient's labs are baseline, patient given IV Toradol and feeling better. [facility] evaluated the patient, patient is on a Section 12, patient told N that he plans to hang himself, patient is now an inpatient bed search. Physician observation started at 15:55 Medical Decision Making Lab Data Result diagrams: 06/05/22 14:52 06/05/22 14:52 Labs: Lab Results 06/05/22 06/05/22 06/05/22 Range/Units 14:52 14:52 14:52 WBC 7.8 (4.8-10.8) X10*3/uL RBC 4.48 L (4.60-5.80) X10*6/uL Hgb 13.8 L (14.0-18.0) g/dl Hct 41.2 L (42.0-52.0) % MCV 92.0 (80.0-98.0) fL MCH 30.8 (27.0-33.0) pg MCHC 33.5 (31.0-36.0) g/dl RDW 13.2 (11.0-16.0) % Plt Count 236 (160-400) X10*3/uL MPV 10.0 (9.4-12.4) fL Immature Gran % (Auto) 0.3 (0.0-0.4) % Neut % (Auto) 71.7 (45-73) % Lymph % (Auto) 18.0 L (20-40) % [place] % (Auto) 7.1 (2-11) % Eos % (Auto) 2.3 (0-4) % Baso % (Auto) 0.6 (0-2) % Lymph # (Auto) 1.4 (1.2-4.9) X10*3/uL [place] # (Auto) 0.6 (0.1-1.2) X10*3/uL Eos # (Auto) 0.2 (0.0-0.4) X10*3/uL Baso # (Auto) 0.1 (0.0-0.2) X10*3/uL Abs Immat Gran (auto) 0.02 (0.00-0.03) X10*3/uL Absolute Neuts (auto) 5.6 (2.0-8.3) x10*3/uL Absolute Nucleated RBC 0.000 (0.0-0.012) X10*3/uL Nucleated RBC % (auto) 0.0 (0.0-0.2) /100WBC PT (10.0-13.1) SEC INR (0.9-1.1) Sodium 139 (135-145) mmol/L Potassium 3.9 (3.3-5.1) mmol/L Chloride 103 (96-108) mmol/L Carbon Dioxide 24 (22-29) mmol/L Anion Gap 16 (12-20) BUN 14 (9-16) mg/dL Creatinine 0.85 (0.5-1.4) mg/dL Estim Creat Clear Calc 92.7 Estimated GFR > 60 Random Glucose 131 H (60-115) mg/dL Lactic Acid (0.5-2.0) mmol/L Calcium 8.8 (8.4-10.2) mg/dL Magnesium 1.9 (1.6-2.6) mg/dL Total Bilirubin 0.3 (0.0-1.0) mg/dL Direct Bilirubin 0.2 (0.0-0.5) mg/dL AST 48 H D (5-37) U/L ALT 27 (0-40) U/L Alkaline Phosphatase 135 H (39-117) U/L Troponin I High Sens < 3.5 (<3.5-35.0) ng/L Total Protein 7.1 (6.5-8.0) g/dL Albumin 4.3 (3.5-5.0) g/dL Lipase 22 (8-78) U/L Ethyl Alcohol mg/dL COVID-19 (MELLISA) (Negative) COVID-19 Clin Com 06/05/22 06/05/22 06/05/22 Range/Units 14:52 14:52 14:52 WBC (4.8-10.8) X10*3/uL RBC (4.60-5.80) X10*6/uL Hgb (14.0-18.0) g/dl Hct (42.0-52.0) % MCV (80.0-98.0) fL MCH (27.0-33.0) pg MCHC (31.0-36.0) g/dl RDW (11.0-16.0) % Plt Count (160-400) X10*3/uL MPV (9.4-12.4) fL Immature Gran % (Auto) (0.0-0.4) % Neut % (Auto) (45-73) % Lymph % (Auto) (20-40) % [place] % (Auto) (2-11) % Eos % (Auto) (0-4) % Baso % (Auto) (0-2) % Lymph # (Auto) (1.2-4.9) X10*3/uL [place] # (Auto) (0.1-1.2) X10*3/uL Eos # (Auto) (0.0-0.4) X10*3/uL Baso # (Auto) (0.0-0.2) X10*3/uL Abs Immat Gran (auto) (0.00-0.03) X10*3/uL Absolute Neuts (auto) (2.0-8.3) x10*3/uL Absolute Nucleated RBC (0.0-0.012) X10*3/uL Nucleated RBC % (auto) (0.0-0.2) /100WBC PT 14.1 H (10.0-13.1) SEC INR 1.2 H (0.9-1.1) Sodium (135-145) mmol/L Potassium (3.3-5.1) mmol/L Chloride (96-108) mmol/L Carbon Dioxide (22-29) mmol/L Anion Gap (12-20) BUN (9-16) mg/dL Creatinine (0.5-1.4) mg/dL Estim Creat Clear Calc Estimated GFR Random Glucose (60-115) mg/dL Lactic Acid 1.5 (0.5-2.0) mmol/L Calcium (8.4-10.2) mg/dL Magnesium (1.6-2.6) mg/dL Total Bilirubin (0.0-1.0) mg/dL Direct Bilirubin (0.0-0.5) mg/dL AST (5-37) U/L ALT (0-40) U/L Alkaline Phosphatase (39-117) U/L Troponin I High Sens (<3.5-35.0) ng/L Total Protein (6.5-8.0) g/dL Albumin (3.5-5.0) g/dL Lipase (8-78) U/L Ethyl Alcohol mg/dL COVID-19 (MELLISA) Negative (Negative) COVID-19 Clin Com See Note 06/05/22 Range/Units 14:52 WBC (4.8-10.8) X10*3/uL RBC (4.60-5.80) X10*6/uL Hgb (14.0-18.0) g/dl Hct (42.0-52.0) % MCV (80.0-98.0) fL MCH (27.0-33.0) pg MCHC (31.0-36.0) g/dl RDW (11.0-16.0) % Plt Count (160-400) X10*3/uL MPV (9.4-12.4) fL Immature Gran % (Auto) (0.0-0.4) % Neut % (Auto) (45-73) % Lymph % (Auto) (20-40) % [place] % (Auto) (2-11) % Eos % (Auto) (0-4) % Baso % (Auto) (0-2) % Lymph # (Auto) (1.2-4.9) X10*3/uL [place] # (Auto) (0.1-1.2) X10*3/uL Eos # (Auto) (0.0-0.4) X10*3/uL Baso # (Auto) (0.0-0.2) X10*3/uL Abs Immat Gran (auto) (0.00-0.03) X10*3/uL Absolute Neuts (auto) (2.0-8.3) x10*3/uL Absolute Nucleated RBC (0.0-0.012) X10*3/uL Nucleated RBC % (auto) (0.0-0.2) /100WBC PT (10.0-13.1) SEC INR (0.9-1.1) Sodium (135-145) mmol/L Potassium (3.3-5.1) mmol/L Chloride (96-108) mmol/L Carbon Dioxide (22-29) mmol/L Anion Gap (12-20) BUN (9-16) mg/dL Creatinine (0.5-1.4) mg/dL Estim Creat Clear Calc Estimated GFR Random Glucose (60-115) mg/dL Lactic Acid (0.5-2.0) mmol/L Calcium (8.4-10.2) mg/dL Magnesium (1.6-2.6) mg/dL Total Bilirubin (0.0-1.0) mg/dL Direct Bilirubin (0.0-0.5) mg/dL AST (5-37) U/L ALT (0-40) U/L Alkaline Phosphatase (39-117) U/L Troponin I High Sens (<3.5-35.0) ng/L Total Protein (6.5-8.0) g/dL Albumin (3.5-5.0) g/dL Lipase (8-78) U/L Ethyl Alcohol < 10 mg/dL COVID-19 (MELLISA) (Negative) COVID-19 Clin Com Imaging Data Chest x-ray: Radiologist's impression: ECHNIQUE: Frontal view of the chest was obtained. FINDINGS: Lungs are well expanded. No acute findings compared to prior radiograph from 05/05/2022. No evidence of pulmonary edema, consolidation or pneumothorax. No pleural effusion. Cardiac silhouette is normal in size. The hilar contours are normal. The visualized bones are intact. XR/XR chest 1V IMPRESSION: No acute pulmonary disease compared to 05/05/2022. Discharge Plan Discharge Clinical Impression: Suicidal ideation, Chronic pain Patient Disposition: Still a Patient Prescriptions: No Action multivitamin [Daily-Qi] Tablet 1 tab PO DAILY atorvastatin 10 mg tablet 1 tab PO BEDTIME pantoprazole 40 mg tablet,delayed release (DR/EC) 40 mg PO DAILY@0630 loratadine 10 mg tablet 10 mg PO DAILY everolimus (antineoplastic) [Afinitor] 10 mg Tablet 10 mg PO DAILY Qty: 30 11RF oxycodone 5 mg tablet 5 mg PO Q8H PRN (Reason: pain (scale score 7-10)) Qty: 20 0RF Rx Instructions: Partial Fill upon patient request. ondansetron 4 mg tablet,disintegrating 4 mg PO Q8H PRN (Reason: nausea and vomiting) Qty: 20 0RF famotidine 20 mg tablet 20 mg PO DAILY fluticasone propionate 50 mcg/actuation spray,suspension 2 spray intranasal DAILY PRN (Reason: Nasal Congestion) phenytoin sodium extended 100 mg capsule 200 mg PO DAILY phenytoin sodium extended 100 mg capsule 300 mg PO BEDTIME nicotine 14 mg/24 hr Patch 24 Hour 14 mg transdermal DAILY Qty: 28 0RF trazodone 100 mg Tablet 200 mg PO BEDTIME Qty: 60 0RF gabapentin 300 mg Capsule 300 mg PO TID Qty: 90 0RF aripiprazole 10 mg Tablet 10 mg PO DAILY Qty: 30 0RF quetiapine 400 mg Tablet 400 mg PO BEDTIME Qty: 30 0RF oxcarbazepine [Trileptal] 300 mg tablet 450 mg PO BID Qty: 90 0RF dicyclomine 10 mg capsule 10 mg PO TID PRN (Reason: abdominal pain) Qty: 14 0RF
[2022-06-05 14:56] LABS: MANUAL DIFF FLAG NO
[2022-06-05 14:59] LABS: Basophils Absolute Auto 0.1 X10*3/uL (0.0-0.2); Basophils Percent Auto 0.6 % (0-2); Eosinophils Absolute Auto 0.2 X10*3/uL (0.0-0.4); Eosinophils Percent Auto 2.3 % (0-4); Hematocrit 41.2 % (42.0-52.0); Hemoglobin 13.8 g/dl (14.0-18.0); Imm Gran Abs Auto 0.02 X10*3/uL (0.00-0.03); Imm Gran Pct Auto 0.3 % (0.0-0.4); Lymphocytes Absolute Auto 1.4 X10*3/uL (1.2-4.9); Mean Corpuscular HGB Conc 33.5 g/dl (31.0-36.0); Mean Corpuscular Hemoglobin 30.8 pg (27.0-33.0); Monocytes Absolute Auto 0.6 X10*3/uL (0.1-1.2); Monocytes Percent Auto 7.1 % (2-11); Neutrophils Absolute Auto 5.6 x10*3/uL (2.0-8.3); Neutrophils Percent Auto 71.7 % (45-73); Platelet Count 236 X10*3/uL (160-400); Red Blood Count 4.48 X10*6/uL (4.60-5.80); Red Cell Distribution Width 13.2 % (11.0-16.0); White Blood Count 7.8 X10*3/uL (4.8-10.8)
[2022-06-05 15:05] LABS: INTERNATIONAL NORM RATIO 1.2 (0.9-1.1); Prothrombin Time 14.1 SEC (10.0-13.1)
[2022-06-05 15:11] LABS: Ethanol < 10 mg/dL; Lactic Acid 1.5 mmol/L (0.5-2.0)
[2022-06-05 15:13] LABS: COVID-19 Test Negative (Negative); IDNOW Serial# 16C4AD1C
[2022-06-05 15:15] LABS: Alanine Aminotransferase 27 U/L (0-40); Albumin Level 4.3 g/dL (3.5-5.0); Alkaline Phosphatase 135 U/L (39-117); Anion Gap 16 (12-20); Aspartate Amino Transferase 48 U/L (5-37); Bilirubin Direct 0.2 mg/dL (0.0-0.5); Bilirubin Total 0.3 mg/dL (0.0-1.0); Blood Urea Nitrogen 14 mg/dL (9-16); Calcium 8.8 mg/dL (8.4-10.2); Carbon Dioxide 24 mmol/L (22-29); Chloride 103 mmol/L (96-108); Creatinine Clr Calc Pharmacy 92.7; Estimated Glomerular Filt Rate > 60; Glucose Random 131 mg/dL (60-115); Lipase 22 U/L (8-78); Magnesium 1.9 mg/dL (1.6-2.6); Potassium 3.9 mmol/L (3.3-5.1); Sodium 139 mmol/L (135-145); Total Protein 7.1 g/dL (6.5-8.0)
[2022-06-05 15:21] LABS: Troponin-I High Sensitivity < 3.5 ng/L (<3.5-35.0)
[2022-06-05] MEDS: Ketorolac Tromethamine 30 MG/ML VIAL IVPUSH (16:17)
[2022-06-05] MEDS: 0.9 % Sodium Chloride 1,000 ML 999 ML IVCONT (16:19)
--- NOTE | 2022-06-05 16:22 | PC.NURSE ---
Pt aox4. Reports lower abd/pubic pain, 05/12. Reports auditory and visual hallucinations. Pt sect 12 at this time. Pt aware of plan of care.
[2022-06-05 16:32] LABS: Appearance Urine Clear; Color Urine Yellow; Glucose Urine UA Negative (Negative); Leukocyte Esterase Urine Negative (Negative); Nitrite Urine Negative (Negative); PH 6.5 (5.0-9.0); Specific Gravity - Urine 1.025 (1.005-1.025); Urine Blood Negative (Negative); Urine Ketones Negative (Negative); Urine Protein Negative (Neg-Trace)
[2022-06-05 16:46] LABS: Amphetamine Screen Urine Not Detected (Not Detect); Barbiturates, Urine Not Detected (Not Detect); Benzodiazepines Screen Urine Not Detected (Not Detect); Cannabinoid Screen Urine Not Detected (Not Detect); Cocaine Screen Urine POSITIVE (Not Detect); Fentanyl, urine Not Detected (Not Detect); Opiate Screen Urine Not Detected (Not Detect); Phencyclidine Screen Urine Not Detected (Not Detect)
--- NOTE | 2022-06-05 18:45 | PC.NURSE ---
RN to RN report provided to ALFONSO aHrp. Pt going to M3 bed 323-1.
--- NOTE | 2022-06-05 19:33 | PC.NURSE ---
Med rec completed.
--- NOTE | 2022-06-05 20:38 | PC.NURSE ---
Pt going to M3 with ALFONSO Harp and security and pts belongings. IV removed.
[2022-06-05 20:45] VITALS: BP 158/74; PULSE 83; RESP 16; TEMP 36.6; O2SAT 96
[2022-06-05] MEDS: QUEtiapine Fumarate 400 MG TABLET PO (22:21)
[2022-06-05] MEDS: Phenytoin Sodium Extended 100 MG CAPSULE 300 MG PO (22:21)
[2022-06-05] MEDS: Atorvastatin Calcium 10 MG TABLET PO (22:21)
[2022-06-05] MEDS: OXcarbazepine 150 MG TABLET 450 MG PO (22:21)
[2022-06-05] MEDS: Gabapentin 300 MG CAPSULE PO (22:21)
[2022-06-05] MEDS: traZODone HCL 100 MG TABLET 200 MG PO (22:21)
--- NOTE | 2022-06-05 22:38 | PC.NURSE ---
Rosendo was admitted to [facility]3 at 2044 from [facility] a CV for treatment of Schizoaffective disorder, depressive type; Mild cocaine stimulant use disorder. Precipitant of admission includes decompensation after stopping medication, erratic behavior statements of SI with plan to hang self. Intake reports pt tired of living due to all the issues in his life. Pt was A&O, INAD, sometimes tearful with no apparent cause, labile, cooperative, responds appropriately.? Mood is depressed. Affect is blunted. VH, AH, CAH.? Appears internally preoccupied. Thought process disorganized. Denies homicidal Ideation/plan/intent. Appetite good, ate two sandwiches and other snacks with beverages on unit. C/o insomnia, took medication for sleep. Focus appropriate. Substance issues: Cocaine use prior to admission. States this is infrequent and he would like to stop. Medical issues: [place]asc[place], cellulitis, cocaine abuse, epilepsy, generalized seizure, hx head injury, lymphedema, metastic carcinoid tumor/neuroendocrine ca, metastatic disease. 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
[2022-06-06 06:00] VITALS: BP 136/82; PULSE 88; RESP 16; TEMP 36.6; O2SAT 96
[2022-06-06 09:27] LABS: Estimated Average Glucose 105 mg/dL; Hemoglobin A1c % 5.3 %
[2022-06-06 10:19] LABS: Alanine Aminotransferase 22 U/L (0-40); Alkaline Phosphatase 125 U/L (39-117); Anion Gap 16 (12-20); Aspartate Amino Transferase 35 U/L (5-37); Bilirubin Total 0.3 mg/dL (0.0-1.0); Blood Urea Nitrogen 14 mg/dL (9-16); Calcium 8.3 mg/dL (8.4-10.2); Carbon Dioxide 21 mmol/L (22-29); Chloride 106 mmol/L (96-108); Cholesterol 211 mg/dL; Creatinine Clr Calc Pharmacy 91.6; Estimated Glomerular Filt Rate > 60; Glucose Fasting 148 mg/dL (60-99); HDL Cholesterol 64 mg/dL; LDL Cholesterol Calculated 115 mg/dl; Potassium 4.3 mmol/L (3.3-5.1); Sodium 139 mmol/L (135-145); Total Protein 6.7 g/dL (6.5-8.0); Triglycerides 160 mg/dL
[2022-06-06] MEDS: Nicotine 14 MG PATCH.TD24 TRANSDERMA (10:22)
[2022-06-06] MEDS: Multivitamin TABLET 1 TAB PO (10:23)
[2022-06-06] MEDS: ARIPiprazole 10 MG TABLET PO (10:23)
[2022-06-06] MEDS: Omeprazole 20 MG CAPSULE.DR PO (10:23)
[2022-06-06] MEDS: Loratadine 10 MG TABLET PO (10:23)
[2022-06-06] MEDS: Famotidine 20 MG TABLET PO (10:23)
[2022-06-06] MEDS: Phenytoin Sodium Extended 100 MG CAPSULE 200 MG PO (10:23)
[2022-06-06] MEDS: Gabapentin 300 MG CAPSULE PO ×3 (10:23→21:02)
[2022-06-06] MEDS: OXcarbazepine 150 MG TABLET 450 MG PO ×2 (10:23→21:02)
[2022-06-06 10:31] LABS: Thyroid Stimulating Hormone 0.97 uIU/mL (0.32-4.0)
[2022-06-06 10:48] LABS: Folate 7.9 ng/mL (> or = 4.0); Vitamin B12 252 pg/mL (200-900)
[2022-06-06] MEDS: oxyCODONE HCl Immed Release 5 MG TABLET PO ×3 (13:27→21:03)
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
[2022-06-06 20:30] VITALS: BP 158/91; PULSE 87; RESP 18; TEMP 36.6; O2SAT 97
[2022-06-06] MEDS: Atorvastatin Calcium 10 MG TABLET PO (21:02)
[2022-06-06] MEDS: traZODone HCL 100 MG TABLET 200 MG PO (21:02)
[2022-06-06] MEDS: Phenytoin Sodium Extended 100 MG CAPSULE 300 MG PO (21:02)
[2022-06-06] MEDS: QUEtiapine Fumarate 400 MG TABLET PO (21:02)
[2022-06-06] MEDS: Fluticasone Propionate Nasal 16 GM SPRAY 2 SPRAY NOSTRIL-B (21:03)
[2022-06-07] MEDS: Dicyclomine HCl 10 MG CAPSULE PO ×2 (05:53→20:51)
[2022-06-07] MEDS: Omeprazole 20 MG CAPSULE.DR PO (05:53)
[2022-06-07 09:30] VITALS: BP 159/74; PULSE 73; RESP 20; TEMP 36.6; O2SAT 100
[2022-06-07] MEDS: OXcarbazepine 150 MG TABLET 450 MG PO ×2 (09:38→20:51)
[2022-06-07] MEDS: Loratadine 10 MG TABLET PO (09:38)
[2022-06-07] MEDS: Nicotine 14 MG PATCH.TD24 TRANSDERMA (09:38)
[2022-06-07] MEDS: ARIPiprazole 10 MG TABLET PO (09:38)
[2022-06-07] MEDS: Famotidine 20 MG TABLET PO (09:38)
[2022-06-07] MEDS: Multivitamin TABLET 1 TAB PO (09:38)
[2022-06-07] MEDS: Phenytoin Sodium Extended 100 MG CAPSULE 200 MG PO (09:38)
[2022-06-07] MEDS: Gabapentin 300 MG CAPSULE PO ×3 (09:38→20:51)
[2022-06-07] MEDS: oxyCODONE HCl Immed Release 5 MG TABLET PO ×2 (10:13→18:50)
--- NOTE | 2022-06-07 10:20 | P.PNPSI_ITS ---
Subjective Subjective Date of Service: 06/07/22 Reason For Visit: SI Interim History: pt presents anxious and depressed; he reports he is here at hospital because he could not get his meds filled while outpatient. he feels better on current meds; he slept well. he feels safe. Medication Compliance: Yes Side effects from medications: No Review of Systems hemorrhoid pain Medical Review of Systems: unchanged Review of Systems Review of Systems Constitutional : No Weight loss, No Fever, No Chills, No Night Sweats, complaint fatigue, generalized malaise ENT/Mouth : No Hearing loss, No Ear Pain, No Nasal Congestion, No Sinus Pain, No Hoarseness, No sore throat, No Rhinorrhea, No Swallowing Difficulty Eyes: No Eye Pain, No Swelling, No Redness, No Foreign Body, No Discharge, No Vision Changes Cardiovascular : Complaining of bilateral chest pain for 9 days, No SOB, No Dyspnea on Exertion, No Orthopnea, No Edema, No Palpitations Respiratory : No Cough, No Sputum, No Wheezing, No Smoke Exposure, No Dyspnea Gastrointestinal : No Nausea, No Vomiting, No Diarrhea, No Constipation, compla ining of chronic right upper quadrant pain secondary to 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, No Hematochezia, No Melena Genitourinary : no irregular bleeding, No Dysuria, No Urinary Frequency, No Hematuria, No Urinary Incontinence, No Urgency, No Flank Pain, No Urinary Flow Changes, No Hesitancy Musculoskeletal : No joint pain, No Myalgias, No Joint Swelling Skin : No Skin Lesions, No rash Neuro : No Weakness, No Numbness, No Paresthesias, No Loss of Consciousness, No Dizziness, No Headache Psych : No Anxiety/Panic, No Depression, No SI/HI/AH/VH, No Social Issues, Heme/Lymph: No Bruising, No Bleeding,No Lymphadenopathy Endocrine : No Polyuria, No Polydipsia, No Temperature Intolerance Mental Status Exam Mental Status Exam Narrative: A&O. Casual attire, lying in bed in street clothes, appears older than stated age. fair eye contact, attentive. No Tics or Tremors. No abnormal involuntary movements. Calm, cooperative, engaged for the most part. Non-pressured speech, spontaneous with regular rate and rhythm, normal volume and prosody. No prolonged speech latency or dysarthria. Mood is improved, affect constricted. Currently denies SI/SIB/HI upon inquiry. endorses A/VH currently, although much improved since restarting his medications. Thoughts are coherent, organized. No known cognitive or memory impairment, although per chart pt has hx of TBI. Insight/ Judgment impaired.. Diagnostics Vital Signs (24Hr): Vital Signs - 24 hr 06/06/22 20:30 Temperature 97.8 F Pulse Rate 87 Respiratory Rate 18 Blood Pressure 158/91 H Pulse Oximetry 97 Oxygen Delivery Method Room Air BMI result Body Mass Index 24.1 Labs Results: 06/05/22 14:52 06/06/22 08:52 Labs: Laboratory Results - last 48 hr 06/05/22 06/05/22 06/05/22 14:52 14:52 14:52 WBC 7.8 RBC 4.48 L Hgb 13.8 L Hct 41.2 L MCV 92.0 MCH 30.8 MCHC 33.5 RDW 13.2 Plt Count 236 MPV 10.0 Immature Gran % (Auto) 0.3 Neut % (Auto) 71.7 Lymph % (Auto) 18.0 L Crawford % (Auto) 7.1 Eos % (Auto) 2.3 Baso % (Auto) 0.6 Lymph # (Auto) 1.4 Crawford # (Auto) 0.6 Eos # (Auto) 0.2 Baso # (Auto) 0.1 Abs Immat Gran (auto) 0.02 Absolute Neuts (auto) 5.6 Absolute Nucleated RBC 0.000 Nucleated RBC % (auto) 0.0 PT INR Sodium 139 Potassium 3.9 Chloride 103 Carbon Dioxide 24 Anion Gap 16 BUN 14 Creatinine 0.85 Estim Creat Clear Calc 92.7 Estimated GFR > 60 Random Glucose 131 H Fasting Glucose Estimat Average Glucose Hemoglobin A1c % Lactic Acid Calcium 8.8 Magnesium 1.9 Total Bilirubin 0.3 Direct Bilirubin 0.2 AST 48 H D ALT 27 Alkaline Phosphatase 135 H Troponin I High Sens < 3.5 Total Protein 7.1 Albumin 4.3 Triglycerides Cholesterol LDL Cholesterol, Calc HDL Cholesterol Lipase 22 Vitamin B12 Folate TSH Urine Color Urine Appearance Urine pH Ur Specific [place] Urine Protein Urine Glucose (UA) Urine Ketones Urine Blood Urine Nitrite Ur Leukocyte Esterase Urine Opiates Screen Urine Fentanyl Screen Ur Barbiturates Screen Ur Phencyclidine Scrn Ur Amphetamines Screen U Benzodiazepines Scrn Urine Cocaine Screen U Marijuana (THC) Screen Ethyl Alcohol COVID-19 ([facility]) COVID-19 Clin Com 06/05/22 06/05/22 06/05/22 14:52 14:52 14:52 WBC RBC Hgb Hct MCV MCH MCHC RDW Plt Count MPV Immature Gran % (Auto) Neut % (Auto) Lymph % (Auto) Crawford % (Auto) Eos % (Auto) Baso % (Auto) Lymph # (Auto) Crawford # (Auto) Eos # (Auto) Baso # (Auto) Abs Immat Gran (auto) Absolute Neuts (auto) Absolute Nucleated RBC Nucleated RBC % (auto) PT 14.1 H INR 1.2 H Sodium Potassium Chloride Carbon Dioxide Anion Gap BUN Creatinine Estim Creat Clear Calc Estimated GFR Random Glucose Fasting Glucose Estimat Average Glucose Hemoglobin A1c % Lactic Acid 1.5 Calcium Magnesium Total Bilirubin Direct Bilirubin AST ALT Alkaline Phosphatase Troponin I High Sens Total Protein Albumin Triglycerides Cholesterol LDL Cholesterol, Calc HDL Cholesterol Lipase Vitamin B12 Folate TSH Urine Color Urine Appearance Urine pH Ur Specific [place] Urine Protein Urine Glucose (UA) Urine Ketones Urine Blood Urine Nitrite Ur Leukocyte Esterase Urine Opiates Screen Urine Fentanyl Screen Ur Barbiturates Screen Ur Phencyclidine Scrn Ur Amphetamines Screen U Benzodiazepines Scrn Urine Cocaine Screen U Marijuana (THC) Screen Ethyl Alcohol COVID-19 (MELLISA) Negative COVID-19 [employer] Com See Note 06/05/22 06/05/22 06/05/22 14:52 16:25 16:25 WBC RBC Hgb Hct MCV MCH MCHC RDW Plt Count MPV Immature Gran % (Auto) Neut % (Auto) Lymph % (Auto) Crawford % (Auto) Eos % (Auto) Baso % (Auto) Lymph # (Auto) Crawford # (Auto) Eos # (Auto) Baso # (Auto) Abs Immat Gran (auto) Absolute Neuts (auto) Absolute Nucleated RBC Nucleated RBC % (auto) PT INR Sodium Potassium Chloride Carbon Dioxide Anion Gap BUN Creatinine Estim Creat Clear Calc Estimated GFR Random Glucose Fasting Glucose Estimat Average Glucose Hemoglobin A1c % Lactic Acid Calcium Magnesium Total Bilirubin Direct Bilirubin AST ALT Alkaline Phosphatase Troponin I High Sens Total Protein Albumin Triglycerides Cholesterol LDL Cholesterol, Calc HDL Cholesterol Lipase Vitamin B12 Folate TSH Urine Color Yellow Urine Appearance Clear Urine pH 6.5 Ur Specific [place] 1.025 Urine Protein Negative Urine Glucose (UA) Negative Urine Ketones Negative Urine Blood Negative Urine Nitrite Negative Ur Leukocyte Esterase Negative Urine Opiates Screen Not Detected Urine Fentanyl Screen Not Detected Ur Barbiturates Screen Not Detected Ur Phencyclidine Scrn Not Detected Ur Amphetamines Screen Not Detected U Benzodiazepines Scrn Not Detected Urine Cocaine Screen POSITIVE H U Marijuana (THC) Screen Not Detected Ethyl Alcohol < 10 COVID-19 ([facility]LLISA) COVID-19 Clin Com 06/06/22 06/06/22 06/06/22 08:52 08:52 08:52 WBC RBC Hgb Hct MCV MCH MCHC RDW Plt Count MPV Immature Gran % (Auto) Neut % (Auto) Lymph % (Auto) [place] % (Auto) Eos % (Auto) Baso % (Auto) Lymph # (Auto) Crawford # (Auto) Eos # (Auto) Baso # (Auto) Abs Immat Gran (auto) Absolute Neuts (auto) Absolute Nucleated RBC Nucleated RBC % (auto) PT INR Sodium 139 Potassium 4.3 Chloride 106 Carbon Dioxide 21 L Anion Gap 16 BUN 14 Creatinine 0.86 Estim Creat Clear Calc 91.6 Estimated GFR > 60 Random Glucose Fasting Glucose 148 H Estimat Average Glucose 105 Hemoglobin A1c % 5.3 Lactic Acid Calcium 8.3 L Magnesium Total Bilirubin 0.3 Direct Bilirubin AST 35 ALT 22 Alkaline Phosphatase 125 H Troponin I High Sens Total Protein 6.7 Albumin 4.0 Triglycerides 160 Cholesterol 211 D LDL Cholesterol, Calc 115 HDL Cholesterol 64 Lipase Vitamin B12 252 Folate 7.9 TSH 0.97 Urine Color Urine Appearance Urine pH Ur Specific [place] Urine Protein Urine Glucose (UA) Urine Ketones Urine Blood Urine Nitrite Ur Leukocyte Esterase Urine Opiates Screen Urine Fentanyl Screen Ur Barbiturates Screen Ur Phencyclidine Scrn Ur Amphetamines Screen U Benzodiazepines Scrn Urine Cocaine Screen U Marijuana (THC) Screen Ethyl Alcohol COVID-19 ([facility]LLISA) COVID-19 Clin Com Imaging Radiology Impressions: ITS Impressions Chest X-Ray 06/05/22 14:32 IMPRESSION: No acute pulmonary disease compared to 05/05/2022. Medications Medications Current Medications Acetaminophen (Acetaminophen 325 Mg Tablet) 650 mg PO QID PRN PRN Reason: Pain, Moderate (Pain Scale 4-6 Al Hydroxide/Mg Hydroxide (Magnesium Hydrox/Alum Hydrox 30 Ml Oral.Susp) 30 ml PO Q6H PRN PRN Reason: Heartburn/Nausea Aripiprazole (Aripiprazole 10 Mg Tablet) 10 mg PO DAILY [facility] Last Admin: 06/07/22 09:38 Dose: 10 mg Atorvastatin Calcium (Atorvastatin Calcium 10 Mg Tablet) 10 mg PO BEDTIME [facility] Last Admin: 06/06/22 21:02 Dose: 10 mg Dicyclomine HCl (Dicyclomine Hcl 10 Mg Capsule) 10 mg PO TID PRN PRN Reason: abdominal pain Last Admin: 06/07/22 05:53 Dose: 10 mg Famotidine (Famotidine 20 Mg Tablet) 20 mg PO DAILY [facility] Last Admin: 06/07/22 09:38 Dose: 20 mg Fluticasone Propionate (Fluticasone Propionate Nasal 16 Gm [place]) 2 spray NOSTRIL-B DAILY PRN PRN Reason: Nasal Congestion Last Admin: 06/06/22 21:03 Dose: 2 spray Gabapentin (Gabapentin 300 Mg Capsule) 300 mg PO TID [facility] Last Admin: 06/07/22 09:38 Dose: 300 mg Hydroxyzine HCl (Hydroxyzine Hcl 25 Mg Tablet) 25 mg PO Q6H PRN PRN Reason: Anxiety Loratadine (Loratadine 10 Mg Tablet) 10 mg PO DAILY [facility] Last Admin: 06/07/22 09:38 Dose: 10 mg Magnesium Hydroxide (Milk Of Magnesia 30 Ml Oral.Susp) 30 ml PO DAILY PRN PRN Reason: Constipation Multivitamins/Vitamin C (Multivitamin Tablet) 1 tab PO DAILY [facility] Last Admin: 06/07/22 09:38 Dose: 1 tab Nicotine (Nicotine 14 Mg Patch.Td24) 14 mg TRANSDERMA DAILY [facility] Last Admin: 06/07/22 09:38 Dose: 14 mg Nicotine Polacrilex (Nicotine Polacrilex 2 Mg Gum) 4 mg BUCCAL Q2H PRN PRN Reason: Nicotine Cravings Patient Own ( Everolimus ( Antineoplastic) [ Afinitor] 10 Mg Tablet) 10 mg PO DAILY [facility] Last Admin: 06/07/22 10:13 Dose: 10 mg Omeprazole (Omeprazole 20 Mg Capsule.Dr) 20 mg PO DAILY@0630 [facility] Last Admin: 06/07/22 05:53 Dose: 20 mg Ondansetron HCl (Ondansetron Odt 4 Mg Tab.Rapdis) 4 mg TRANSLINGU Q8H PRN PRN Reason: nausea and vomiting Oxcarbazepine (Oxcarbazepine 150 Mg Tablet) 450 mg PO BID [facility] Last Admin: 06/07/22 09:38 Dose: 450 mg Oxycodone HCl (Oxycodone Hcl Immed Release 5 Mg Tablet) 5 mg PO Q8H PRN PRN Reason: pain (scale score 7-10) Last Admin: 06/07/22 10:13 Dose: 5 mg Phenytoin Sodium (Phenytoin Sodium Extended 100 Mg Capsule) 200 mg PO DAILY [facility] Last Admin: 06/07/22 09:38 Dose: 200 mg Phenytoin Sodium (Phenytoin Sodium Extended 100 Mg Capsule) 300 mg PO BEDTIME [facility] Last Admin: 06/06/22 21:02 Dose: 300 mg Quetiapine Fumarate (Quetiapine Fumarate 400 Mg Tablet) 400 mg PO BEDTIME [facility] Last Admin: 06/06/22 21:02 Dose: 400 mg Trazodone HCl (Trazodone Hcl 100 Mg Tablet) 200 mg PO BEDTIME [facility] Last Admin: 06/06/22 21:02 Dose: 200 mg Trazodone HCl (Trazodone Hcl 50 Mg Tablet) 50 mg PO BEDTIME PRN PRN Reason: Insomnia Allergies Allergies Allergy/AdvReac Type Severity Reaction Status Date / Time Penicillins Allergy Mild RASH Verified 05/20/22 09:33 Seafood Allergy Mild RASH Verified 05/20/22 09:33 diazepam [From VALIUM] Allergy Unknown ACTS OUT Verified 05/20/22 09:33 penicillin V Allergy Unknown anaphylaxis Verified 05/20/22 09:33 ibuprofen [From MOTRIN] AdvReac Mild RASH Verified 05/20/22 09:33 Morphine AdvReac Severe Unknown Uncoded 05/20/22 09:33 Assessment & Plan Assessment & Plan (1) Neuro-endocrine cancer: Status: Acute Code(s): C7A.8 - Other malignant neuroendocrine tumors (2) Suicidal ideation: Status: Acute Code(s): R45.851 - Suicidal ideations (3) Chronic pain: Status: Acute Code(s): G89.29 - Other chronic pain (4) Cellulitis of both lower extremities: Status: Acute Code(s): L03.115 - Cellulitis of right lower limb; L03.116 - Cellulitis of left lower limb Plan Plan: Continue with current treatment plan prior meds restarted, pt already reporting improvement. states he is interested in pain management (reportedly due to metastatic neurendocrine cancer) and referral to outpt mental health treatment. I spent ___15___ minutes with the patient and/or on the patient floor today, greater than?50% of which was spent counseling/coordinating care. Reason for contiued inpatient stay Substantial Risk for: inability to function and rapid decompensation
[2022-06-07 19:20] VITALS: BP 166/90; PULSE 89; RESP 16; TEMP 36.6; O2SAT 99
[2022-06-07] MEDS: traZODone HCL 100 MG TABLET 200 MG PO (20:51)
[2022-06-07] MEDS: QUEtiapine Fumarate 400 MG TABLET PO (20:51)
[2022-06-07] MEDS: Phenytoin Sodium Extended 100 MG CAPSULE 300 MG PO (20:51)
[2022-06-07] MEDS: Atorvastatin Calcium 10 MG TABLET PO (20:51)
[2022-06-08] MEDS: Omeprazole 20 MG CAPSULE.DR PO (05:53)
[2022-06-08] MEDS: Fluticasone Propionate Nasal 16 GM SPRAY 2 SPRAY NOSTRIL-B (05:58)
[2022-06-08 08:00] VITALS: BP 143/73; PULSE 79; RESP 18; TEMP 36.7; O2SAT 98
[2022-06-08] MEDS: Multivitamin TABLET 1 TAB PO (08:53)
[2022-06-08] MEDS: OXcarbazepine 150 MG TABLET 450 MG PO ×2 (08:53→21:58)
[2022-06-08] MEDS: Loratadine 10 MG TABLET PO (08:53)
[2022-06-08] MEDS: Gabapentin 300 MG CAPSULE PO ×3 (08:53→21:58)
[2022-06-08] MEDS: Phenytoin Sodium Extended 100 MG CAPSULE 200 MG PO (08:53)
[2022-06-08] MEDS: Famotidine 20 MG TABLET PO (08:53)
[2022-06-08] MEDS: ARIPiprazole 10 MG TABLET PO (08:53)
[2022-06-08] MEDS: oxyCODONE HCl Immed Release 5 MG TABLET PO ×2 (09:14→17:22)
[2022-06-08] MEDS: Nicotine 14 MG PATCH.TD24 TRANSDERMA (09:17)
[2022-06-08] MEDS: Acetaminophen 325 MG TABLET 650 MG PO (15:45)
[2022-06-08] MEDS: Dicyclomine HCl 10 MG CAPSULE PO (15:46)
--- NOTE | 2022-06-08 18:47 | P.PNPSI_ITS ---
Subjective Subjective Date of Service: 06/08/22 Reason For Visit: SI Interim History: pt presents less anxious and depressed; he reports he feels better on current meds; he slept well. he feels safe. taking more care with ADLS Medication Compliance: Yes Side effects from medications: No Review of Systems Acute medical concerns: No Medical Review of Systems: unchanged Review of Systems Review of Systems Constitutional : No Weight loss, No Fever, No Chills, No Night Sweats, complaint fatigue, generalized malaise ENT/Mouth : No Hearing loss, No Ear Pain, No Nasal Congestion, No Sinus Pain, No Hoarseness, No sore throat, No Rhinorrhea, No Swallowing Difficulty Eyes: No Eye Pain, No Swelling, No Redness, No Foreign Body, No Discharge, No Vision Changes Cardiovascular : Complaining of bilateral chest pain for 9 days, No SOB, No Dyspnea on Exertion, No Orthopnea, No Edema, No Palpitations Respiratory : No Cough, No Sputum, No Wheezing, No Smoke Exposure, No Dyspnea Gastrointestinal : No Nausea, No Vomiting, No Diarrhea, No Constipation, complaining of chronic right upper quadrant pain secondary to 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, No Hematochezia, No Melena Genitourinary : no irregular bleeding, No Dysuria, No Urinary Frequency, No Hematuria, No Urinary Incontinence, No Urgency, No Flank Pain, No Urinary Flow Changes, No Hesitancy Musculoskeletal : No joint pain, No Myalgias, No Joint Swelling Skin : No Skin Lesions, No rash Neuro : No Weakness, No Numbness, No Paresthesias, No Loss of Consciousness, No Dizziness, No Headache Psych : No Anxiety/Panic, No Depression, No SI/HI/AH/VH, No Social Issues, Heme/Lymph: No Bruising, No Bleeding,No Lymphadenopathy Endocrine : No Polyuria, No Polydipsia, No Temperature Intolerance Mental Status Exam Mental Status Exam Narrative: A&O. Casual attire, lying in bed in street clothes, appears older than stated age. fair eye contact, attentive. No Tics or Tremors. No abnormal involuntary movements. Calm, cooperative, engaged for the most part. Non-pressured speech, spontaneous with regular rate and rhythm, normal volume and prosody. No prolonged speech latency or dysarthria. Mood is improved, affect constricted. Currently denies SI/SIB/HI upon inquiry. endorses A/VH currently, although much improved since restarting his medications. Thoughts are coherent, organized. No known cognitive or memory impairment, although per chart pt has hx of TBI. Insight/ Judgment impaired.. Diagnostics Vital Signs (24Hr): Vital Signs - 24 hr 06/08/22 08:00 Temperature 98.0 F Pulse Rate 79 Respiratory Rate 18 Blood Pressure 143/73 H Pulse Oximetry 98 Oxygen Delivery Method Room Air BMI result Body Mass Index 24.1 Labs Results: 06/05/22 14:52 06/06/22 08:52 Imaging Radiology Impressions: ITS Impressions Chest X-Ray 06/05/22 14:32 IMPRESSION: No acute pulmonary disease compared to 05/05/2022. Medications Medications Current Medications Acetaminophen (Acetaminophen 325 Mg Tablet) 650 mg PO QID PRN PRN Reason: Pain, Moderate (Pain Scale 4-6 Last Admin: 06/08/22 15:45 Dose: 650 mg Al Hydroxide/Mg Hydroxide (Magnesium Hydrox/Alum Hydrox 30 Ml Oral.Susp) 30 ml PO Q6H PRN PRN Reason: Heartburn/Nausea Aripiprazole (Aripiprazole 10 Mg Tablet) 10 mg PO DAILY [facility] Last Admin: 06/08/22 08:53 Dose: 10 mg Atorvastatin Calcium (Atorvastatin Calcium 10 Mg Tablet) 10 mg PO BEDTIME [facility]ARYBETH Last Admin: 06/07/22 20:51 Dose: 10 mg Dibucaine (Dibucaine 1 % Oint 28 Gm Tube) 1 appl TOPICAL TID PRN; Protocol PRN Reason: Hemorrhoids Last Admin: 06/07/22 21:07 Dose: 1 appl Dicyclomine HCl (Dicyclomine Hcl 10 Mg Capsule) 10 mg PO TID PRN PRN Reason: abdominal pain Last Admin: 06/08/22 15:46 Dose: 10 mg Famotidine (Famotidine 20 Mg Tablet) 20 mg PO DAILY [facility] Last Admin: 06/08/22 08:53 Dose: 20 mg Fluticasone Propionate (Fluticasone Propionate Nasal 16 Gm [place]) 2 spray NOSTRIL-B DAILY PRN PRN Reason: Nasal Congestion Last Admin: 06/08/22 05:58 Dose: 2 spray Gabapentin (Gabapentin 300 Mg Capsule) 300 mg PO TID MARYBETH Last Admin: 06/08/22 14:32 Dose: 300 mg Hydroxyzine HCl (Hydroxyzine Hcl 25 Mg Tablet) 25 mg PO Q6H PRN PRN Reason: Anxiety Loratadine (Loratadine 10 Mg Tablet) 10 mg PO DAILY [facility] Last Admin: 06/08/22 08:53 Dose: 10 mg Magnesium Hydroxide (Milk Of Magnesia 30 Ml Oral.Susp) 30 ml PO DAILY PRN PRN Reason: Constipation Multivitamins/Vitamin C (Multivitamin Tablet) 1 tab PO DAILY [facility] Last Admin: 06/08/22 08:53 Dose: 1 tab Nicotine (Nicotine 14 Mg Patch.Td24) 14 mg TRANSDERMA DAILY [facility] Last Admin: 06/08/22 09:17 Dose: 14 mg Nicotine Polacrilex (Nicotine Polacrilex 2 Mg Gum) 4 mg BUCCAL Q2H PRN PRN Reason: Nicotine Cravings Patient Own ( Everolimus ( Antineoplastic) [ Afinitor] 10 Mg Tablet) 10 mg PO DAILY [facility] Last Admin: 06/08/22 08:53 Dose: 10 mg Omeprazole (Omeprazole 20 Mg Capsule.Dr) 20 mg PO DAILY@0630 [facility] Last Admin: 06/08/22 05:53 Dose: 20 mg Ondansetron HCl (Ondansetron Odt 4 Mg Tab.Rapdis) 4 mg TRANSLINGU Q8H PRN PRN Reason: nausea and vomiting Oxcarbazepine (Oxcarbazepine 150 Mg Tablet) 450 mg PO BID [facility] Last Admin: 06/08/22 08:53 Dose: 450 mg Oxycodone HCl (Oxycodone Hcl Immed Release 5 Mg Tablet) 5 mg PO Q8H PRN PRN Reason: pain (scale score 7-10) Last Admin: 06/08/22 17:22 Dose: 5 mg Phenytoin Sodium (Phenytoin Sodium Extended 100 Mg Capsule) 200 mg PO DAILY [facility] Last Admin: 06/08/22 08:53 Dose: 200 mg Phenytoin Sodium (Phenytoin Sodium Extended 100 Mg Capsule) 300 mg PO BEDTIME [facility] Last Admin: 06/07/22 20:51 Dose: 300 mg Quetiapine Fumarate (Quetiapine Fumarate 400 Mg Tablet) 400 mg PO BEDTIME [facility] Last Admin: 06/07/22 20:51 Dose: 400 mg Trazodone HCl (Trazodone Hcl 100 Mg Tablet) 200 mg PO BEDTIME [facility] Last Admin: 06/07/22 20:51 Dose: 200 mg Trazodone HCl (Trazodone Hcl 50 Mg Tablet) 50 mg PO BEDTIME PRN PRN Reason: Insomnia Allergies Allergies Allergy/AdvReac Type Severity Reaction Status Date / Time Penicillins Allergy Mild RASH Verified 05/20/22 09:33 Seafood Allergy Mild RASH Verified 05/20/22 09:33 diazepam [From VALIUM] Allergy Unknown ACTS OUT Verified 05/20/22 09:33 penicillin V Allergy Unknown anaphylaxis Verified 05/20/22 09:33 ibuprofen [From MOTRIN] AdvReac Mild RASH Verified 05/20/22 09:33 Morphine AdvReac Severe Unknown Uncoded 05/20/22 09:33 Assessment & Plan Assessment & Plan (1) Neuro-endocrine cancer: Status: Acute Code(s): C7A.8 - Other malignant neuroendocrine tumors (2) Suicidal ideation: Status: Acute Code(s): R45.851 - Suicidal ideations (3) Chronic pain: Status: Acute Code(s): G89.29 - Other chronic pain (4) Cellulitis of both lower extremities: Status: Acute Code(s): L03.115 - Cellulitis of right lower limb; L03.116 - Cellulitis of left lower limb Plan 06/08: Plan: Continue with current treatment plan prior meds restarted, pt already reporting improvement. states he is interested in pain management (reportedly due to metastatic neurendocrine cancer) and referral to outpt mental health treatment. I spent ____15__ minutes with the patient and/or on the patient floor today, greater than?50% of which was spent counseling/coordinating care. Reason for contiued inpatient stay Substantial Risk for: harm to self, inability to function and med/psych decompensation
[2022-06-08 19:30] VITALS: BP 147/75; PULSE 86; RESP 16; TEMP 36.4; O2SAT 99
[2022-06-08] MEDS: traZODone HCL 100 MG TABLET 200 MG PO (21:59)
[2022-06-08] MEDS: Phenytoin Sodium Extended 100 MG CAPSULE 300 MG PO (21:59)
[2022-06-08] MEDS: QUEtiapine Fumarate 400 MG TABLET PO (21:59)
[2022-06-08] MEDS: Atorvastatin Calcium 10 MG TABLET PO (21:59)
[2022-06-08] MEDS: LORazepam 1 MG TABLET PO (22:24)
[2022-06-09] MEDS: Omeprazole 20 MG CAPSULE.DR PO (05:26)
[2022-06-09] MEDS: Fluticasone Propionate Nasal 16 GM SPRAY 2 SPRAY NOSTRIL-B (05:28)
[2022-06-09 08:40] VITALS: BP 149/69; PULSE 83; RESP 20; TEMP 36.7; O2SAT 97
[2022-06-09] MEDS: Phenytoin Sodium Extended 100 MG CAPSULE 200 MG PO (08:56)
[2022-06-09] MEDS: OXcarbazepine 150 MG TABLET 450 MG PO (08:57)
[2022-06-09] MEDS: Gabapentin 300 MG CAPSULE PO (08:58)
[2022-06-09] MEDS: Multivitamin TABLET 1 TAB PO (08:58)
[2022-06-09] MEDS: ARIPiprazole 10 MG TABLET PO (08:58)
[2022-06-09] MEDS: Famotidine 20 MG TABLET PO (08:59)
[2022-06-09] MEDS: Loratadine 10 MG TABLET PO (08:59)
[2022-06-09] MEDS: Nicotine 14 MG PATCH.TD24 TRANSDERMA (09:01)
--- NOTE | 2022-06-09 11:39 | PC.NURSE ---
Patient evaluated w/ medical interpreter. Patient reports that he is eager to return home to his and to his dog. Patient reports that he plans to return to his 'old ways,' including mandaeism, which he finds to be supportive. Patient denied SI/HI, denies AH/VH- reports that since resuming medications, he is feeling much better. Patient denies any concerns.
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
--- NOTE | 2022-06-09 13:15 | PC.NURSE ---
Reviewed discharge instructions w/ [employer] principal present. Patient verbalized understanding of instructions, denied any concerns or questions, reports he feels safe to return home. Reviewed belongings with patient- no concerns reported.
--- NOTE | 2022-06-09 13:32 | PC.NURSE ---
Patient report his [employer] will be transporting him home.
== END 2022-06-09 13:15 | disposition home or self-care (01) | DRG 885 ==
LOC: HO.ED 15:58 → HO.PADLT16 20:04
PROVIDERS: Admitting Provider Psychiatry & Neurology Psychiatry; Emergency Provider Emergency Medicine; Visit Provider Psychiatry & Neurology Psychiatry
DX: F39 Unspecified mood [affective] disorder (principal); R45.851 Suicidal ideations; L03.116 Cellulitis of left lower limb; L03.115 Cellulitis of right lower limb; C7A.8 Other malignant neuroendocrine tumors; C78.7 Secondary malignant neoplasm of liver and intrahepatic bile duct; G40.909 Epilepsy, unspecified, not intractable, without status epilepticus; G89.29 Other chronic pain; G89.3 Neoplasm related pain (acute) (chronic); F17.210 Nicotine dependence, cigarettes, uncomplicated; Z71.6 Tobacco abuse counseling; Z20.822 Contact with and (suspected) exposure to COVID-19; Z91.013 Allergy to seafood; Z88.0 Allergy status to penicillin; Z88.5 Allergy status to narcotic agent; Z88.6 Allergy status to analgesic agent; Z79.51 Long term (current) use of inhaled steroids; Z79.899 Other long term (current) drug therapy
CPT/HCPCS: 36415; 71045; 80048; 80053; 80061; 80076; 80307; 81003; 82077; 82607; 82746; 83036; 83605; 83690; 83735; 84443; 84484; 85025; 85610; 87040; 87635; 93005; 99285; J1885

== ENCOUNTER 2022-06-20 09:25 | Outpatient (REF) | payer MEDICARE, MEDICAID, SELFPAY ==
[2022-06-20 10:26] LABS: Creatinine Urine 43.36 mg/dL; Microalbumin Urine < 5.0 mg/L
[2022-06-20 10:42] LABS: Estimated Average Glucose 114 mg/dL; Hemoglobin A1c % 5.6 %
[2022-06-20 10:44] LABS: Alanine Aminotransferase 16 U/L (0-40); Alkaline Phosphatase 127 U/L (39-117); Aspartate Amino Transferase 23 U/L (5-37); Bilirubin Direct < 0.2 mg/dL (0.0-0.5); Bilirubin Total 0.2 mg/dL (0.0-1.0); Cholesterol 237 mg/dL; HDL Cholesterol 68 mg/dL; LDL Cholesterol Calculated 144 mg/dl; Total Protein 7.1 g/dL (6.5-8.0); Triglycerides 126 mg/dL
[2022-06-20 10:46] LABS: ~HepC Num1 0.11 S/CO (0.00-0.79); ~Hepatitis C Antibody Nonreactive (Nonreactive)
[2022-06-20 10:51] LABS: Thyroid Stimulating Hormone 1.25 uIU/mL (0.32-4.0)
[2022-06-20 11:17] LABS: Albumin Level 4.2 g/dL (3.5-5.0); Vitamin D 25-OH Total 20.3 ng/mL (>30)
[2022-06-20 12:00] LABS: CT PCR NOT DETECTED (Not Detect.); NG PCR NOT DETECTED (Not Detect.)
[2022-06-20 12:01] LABS: Syphilis Screen Nonreactive (Nonreactive)
[2022-06-20 14:28] LABS: Hepatitis A Antibody IgG Nonreactive (Nonreactive); ~Hepatitis A Antibody IgG 0.22 S/CO (0.00-0.99)
[2022-06-23 05:05] LABS: HBS Num1 0.83 mIU/mL (0-7.99); HBsAGNum1 0.22 S/CO (0.00-0.99); HIV AB/AG Nonreactive (Nonreactive); HIV Num 1 0.08 S/CO (0.00-0.99); Hepatitis B Surface Antigen Negative (Negative); ~Hepatitis B Surface Antibody NONREACTIVE (Nonreactive)
== END 2022-06-20 09:26 | disposition home or self-care (01) ==
LOC: HO.LAB 09:25
PROVIDERS: PCP Family Medicine; Visit Provider Family Medicine
DX: Z00.00 Encounter for general adult medical examination without abnormal findings (principal); Z11.3 Encounter for screening for infections with a predominantly sexual mode of transmission; Z11.4 Encounter for screening for human immunodeficiency virus [HIV]; E78.5 Hyperlipidemia, unspecified; R03.0 Elevated blood-pressure reading, without diagnosis of hypertension; C7A.8 Other malignant neuroendocrine tumors; E55.9 Vitamin D deficiency, unspecified
CPT/HCPCS: 80061; 80076; 82043; 82306; 83036; 84439; 84443; 86706; 86708; 86780; 86803; 87340; 87389; 87491; 87591

== ENCOUNTER 2022-07-13 10:31 | Emergency (ER) | payer MEDICARE, MEDICAID, SELFPAY ==
--- NOTE | ~2022-07-13 | XR_ITS ---
EXAMINATION: XR ANKLE, LEFT CLINICAL INFORMATION: Pain for 3 weeks. Rule out fracture. COMPARISON: None TECHNIQUE: AP, lateral, and mortise views of the left ankle. FINDINGS: The bones and soft tissues are normal. No fracture. Alignment is anatomic. Joint spaces are maintained. No joint effusion. XR/XR ankle LT min 3V IMPRESSION: Normal left ankle.
--- NOTE | ~2022-07-13 | XR_ITS ---
EXAMINATION: XR CHEST CLINICAL INFORMATION: Shortness of breath. Rule out pneumonia. COMPARISON: Previous chest x-ray June 2022 TECHNIQUE: 2 views of the chest were obtained. FINDINGS: The cardiac and mediastinal contours are normal. There is a 6 mm nodular density at the left lung base between the fifth and sixth anterior ribs. This may represent a nipple shadow. The lungs are otherwise clear. There is no pleural effusion or pneumothorax. There are degenerative changes of the spine. XR/XR chest 2V IMPRESSION: No evidence for acute disease in the chest. Question nipple shadow at the left lung base.
[2022-07-13 10:43] VITALS: BP 121/77; PULSE 71; RESP 14; TEMP 36.6; O2SAT 95; BMI 24.8
--- NOTE | 2022-07-13 11:49 | ED.GENADULT ---
HPI - General Adult General Chief complaint: General Medical Stated complaint: ANKLE PAIN Time Seen by Provider: 07/13/22 10:53 Source: patient Mode of arrival: EMS Limitations: language barrier (Malay speaking only, energy sales broker used) History of Present Illness HPI narrative: 57-year-old male who presents emergency department for evaluation of flu like illness and left ankle pain. The patient states that 3 weeks prior he twisted his ankle and since that time he has had difficulty walking he has had a use a cane. He states that his ankle is black and blue. He states that he has a constant, throbbing pain which is 6/10. Patient states that he also thinks that he has the flu. He states that his mother was recently diagnosed with the flu as well pain he states he is feeling weak, he has had fever and chills at home, he feels short of breath. He has had nausea and has vomited multiple times. He denies any diarrhea. He complains of diffuse myalgias arthralgias. Related Data Previous Rx's Medication Instructions Recorded oxycodone 5 mg tablet 5 mg PO Q8H PRN pain (scale score 05/12/22 7-10) #20 tabs everolimus (antineoplastic) 10 mg 10 mg PO DAILY 30 days #30 tabs 06/06/22 tablet (Afinitor) Everolimus (Antineoplastic) 10 mg PO DAILY 30 days #30 tabs 06/09/22 [Afinitor] aripiprazole 10 mg tablet 10 mg PO DAILY 30 days #30 tabs 06/09/22 atorvastatin 10 mg tablet 1 tab PO BEDTIME 30 days #30 tabs 06/09/22 dibucaine 1 % topical ointment 1 appl topical TID PRN Hemorrhoids 06/09/22 30 days #28 grams dicyclomine 10 mg capsule 10 mg PO TID PRN abdominal pain 30 06/09/22 days #90 caps famotidine 20 mg tablet 20 mg PO DAILY 30 days #30 tabs 06/09/22 fluticasone propionate 50 2 spray intranasal DAILY PRN Nasal 06/09/22 mcg/actuation nasal Congestion 30 days #1 inhaler spray,suspension gabapentin 300 mg capsule 300 mg PO TID 30 days #90 caps 06/09/22 loratadine 10 mg tablet 10 mg PO DAILY 30 days #30 tabs 11/07/22 multivitamin (Daily-Qi tablet) 1 tab PO DAILY 30 days #30 tabs 06/09/22 nicotine (polacrilex) 2 mg gum 4 mg buccal Q2H PRN Nicotine 06/09/22 Cravings 30 days #40 ea nicotine 14 mg/24 hr daily 14 mg transdermal DAILY 28 days 06/09/22 transdermal patch #28 ea ondansetron 4 mg disintegrating 4 mg PO Q8H PRN nausea and 06/09/22 tablet vomiting 30 days #30 tabs oxcarbazepine 300 mg tablet 450 mg PO BID 30 days #90 tabs 06/09/22 (Trileptal) pantoprazole 40 mg tablet,delayed 40 mg PO DAILY@0630 30 days #30 06/09/22 release tabs phenytoin sodium extended 100 mg 200 mg PO DAILY 30 days #60 caps 06/09/22 capsule phenytoin sodium extended 100 mg 300 mg PO BEDTIME 30 days #90 caps 06/09/22 capsule quetiapine 400 mg tablet 400 mg PO BEDTIME 30 days #30 tabs 06/09/22 trazodone 100 mg tablet 200 mg PO BEDTIME 30 days #60 tabs 06/09/22 Allergies Allergy/AdvReac Type Severity Reaction Status Date / Time Penicillins Allergy Mild RASH Verified 06/20/22 10:02 Seafood Allergy Mild RASH Verified 06/20/22 10:02 diazepam [From VALIUM] Allergy Unknown ACTS OUT Verified 06/20/22 10:02 penicillin V Allergy Unknown anaphylaxis Verified 06/20/22 10:02 ibuprofen [From MOTRIN] AdvReac Mild RASH Verified 06/20/22 10:02 Morphine AdvReac Severe Unknown Uncoded 06/20/22 10:02 Review of Systems Review of Systems: Yes all other systems are reviewed and are negative [facility] Past Medical History [facility] Narrative: Social history: Patient smokes 2 packs of cigarettes per day times many years. He denies alcohol use. He states that he uses intranasal cocaine 2 times a day. Medical History Anasarca Cellulitis Cocaine abuse Epilepsy Family hx of colon cancer Generalized seizure Hx of head injury Lymphedema MDD (major depressive disorder), recurrent episode, severe Metastatic carcinoid tumor Metastatic disease Schizoaffective disorder, depressive type Surgical History History of liver biopsy History of surgery on wrist Hx of knee surgery Family History Family History Paternal Grandmother Cancer Social History Social History Household Members: Unknown / Unable to assess Housing: Apartment Are you a primary home child care provider to a significant other at home: No Do you presently have visiting nurse or other home services: Yes (MECHANICAL SYSTEMS ENGINEER helps with meals, bathing.) Unable to assess alcohol history related to: Unknown Alcohol intake: current Alcohol intake frequency: does not drink Patient Tobacco Use Status: Never used Tobacco Tobacco use type: Cigarette Cigarette Packs Per Day: 1 Cigarettes Per Day: 4 Years Smoked: 37 e-Cigarette/Vaping Use: Currently Using Second Hand Smoke Exposure: Yes Substance Use Type: Crack/Cocaine Advance Directives: No Advance Directives Date on File: 11/13/21 service: No Current occupational status: disabled Sexual orientation: Don't Know Physical Exam ED Vital Signs: Vital Signs - 24 hr 07/13/22 10:43 Temperature 97.9 F Pulse Rate 71 Respiratory Rate 14 Blood Pressure 121/77 Pulse Oximetry 95 Oxygen Delivery Method Room Air BMI result Body Mass Index 24.8 Const General: cooperative and no acute distress Orientation/consciousness: oriented to person and oriented to place Limitations: no limitations HENMT Head: Yes normal to inspection, Yes normocephalic and Yes atraumatic Ears: external ears normal General nose exam: Normal external nose present Face and sinus: Yes normal facial exam Mouth: Normal oral and palatal mucosa present Throat: Yes posterior oropharynx normal Eyes General: appearance normal, both eyes and all related structures Pupils: Equal, round and reactive pupils present Neck Neck: Yes normal visual inspection, Yes no lymphadenopathy, Yes trachea midline and Yes supple Chest Chest palpation & inspection: normal inspection of the chest and normal palpation of entire chest wall Resp Effort & Inspection: normal respiratory effort and able to speak in complete sentences Auscultation: clear to auscultation bilaterally Cardio Rate: regular rate Rhythm: regular rhythm Heart sounds: S1 normal heart sound present, S2 normal heart sound present and no murmurs GI Inspection: Yes normal to inspection Palpation (GI): Soft to palpation, nontender and no guarding Auscultation: normal bowel sounds General: Yes no CVA tenderness Back/Spine/Pelvis Back: no CVA tenderness Skin General skin exam: no rashes or lesions noted Neuro General: oriented to person and oriented to place Cranial nerves: Yes CN's II-XII intact bilaterally and Yes Equal, round and reactive pupils present Cognition (Neuro): normal cognition Motor exam (neuro): 5/5 motor strength present throughout Extrem Other: Patient does have ecchymosis over his left ankle with no soft tissue swelling, patient does have tenderness palpation over the lateral and malleolus areas, he has increased pain with flexion, extension, lateral and medial stress of the ankle. Extremities neurovascular intact Psych Appearance: grossly normal Speech and movement: Normal speech and movement present Affect: normal affect Attitude: cooperative Thought process: Normal thought process present Thought content: Normal thought content present Course Course Course Narrative: 57-year-old male who presents emergency department for evaluation of 1 week of viral-like illness with fever, chills, shortness of breath, nausea, vomiting, myalgias arthralgias and 3 weeks of left ankle pain after an ankle injury. Patient's vital signs were normal. Exam did reveal tenderness with palpation of the left ankle and pain with range of motion of the left ankle. I did order laboratory evaluation to include CBC, CMP, alcohol level, COVID-19, influenza and RSV. Laboratory evaluation revealed low WBC 3400, elevated alk-phos 140, alcohol below detectable limits, COVID-19 positive. Influenza negative. RSV negative. Laboratory evaluation revealed a normal chest x-ray. Left ankle x-ray revealed no acute fracture Patient's symptoms are consistent with COVID-19 infection at this time I do not think that he has pneumonia. Patient has been sick for at least 7 days therefore does not qualify for Paxlovid. The patient was not interested in remdesivir. The patient was discharged home. Medications Administered Discontinued Medications Generic Name Dose Route Start Last Admin Trade Name Freq PRN Reason Stop Dose Admin Sodium Chloride 1,000 mls @ 999 mls/hr 07/13/22 11:50 07/13/22 14:35 Ns IV 07/13/22 12:50 Infused .Q1H1M STA Infusion Morphine Sulfate 4 mg 07/13/22 11:50 07/13/22 12:15 Morphine Sulfate 4 Mg/Ml Cartridge IVPUSH 07/13/22 11:51 4 mg ONCE STA Administration Protocol Ondansetron HCl 4 mg 07/13/22 11:50 07/13/22 12:15 Ondansetron Hcl 4 Mg/2 Ml Vial IVPUSH 07/13/22 11:51 4 mg ONCE ONE Administration Discharge Plan Discharge Clinical Impression: COVID-19 virus infection, Left ankle sprain Patient Disposition: Home, Self-Care Additional Instructions: The patient left prior to getting his instructions but I did tell him about his laboratory evaluation, his x-rays and is positive COVID-19 test. Prescriptions: No Action oxycodone 5 mg tablet 5 mg PO Q8H PRN (Reason: pain (scale score 7-10)) Qty: 20 0RF Rx Instructions: Partial Fill upon patient request. everolimus (antineoplastic) [Afinitor] 10 mg Tablet 10 mg PO DAILY 30 Days Qty: 30 11RF Everolimus (Antineoplastic) [Afinitor] 10 mg tablet 10 mg PO DAILY 30 Days Qty: 30 0RF nicotine (polacrilex) 2 mg Gum 4 mg buccal Q2H PRN (Reason: Nicotine Cravings) 30 Days Qty: 40 0RF dibucaine 1 % Ointment 1 appl topical TID PRN (Reason: Hemorrhoids) 30 Days Qty: 28 0RF Protocol: Apply to: Apply to: affected area multivitamin [Daily-Qi] Tablet 1 tab PO DAILY 30 Days Qty: 30 0RF nicotine 14 mg/24 hr Patch 24 Hour 14 mg transdermal DAILY 28 Days Qty: 28 0RF atorvastatin 10 mg tablet 1 tab PO BEDTIME 30 Days Qty: 30 0RF oxcarbazepine [Trileptal] 300 mg tablet 450 mg PO BID 30 Days Qty: 90 0RF phenytoin sodium extended 100 mg capsule 200 mg PO DAILY 30 Days Qty: 60 0RF phenytoin sodium extended 100 mg capsule 300 mg PO BEDTIME 30 Days Qty: 90 0RF famotidine 20 mg tablet 20 mg PO DAILY 30 Days Qty: 30 0RF trazodone 100 mg Tablet 200 mg PO BEDTIME 30 Days Qty: 60 0RF pantoprazole 40 mg tablet,delayed release (DR/EC) 40 mg PO DAILY@0630 30 Days Qty: 30 0RF gabapentin 300 mg Capsule 300 mg PO TID 30 Days Qty: 90 0RF ondansetron 4 mg tablet,disintegrating 4 mg PO Q8H PRN (Reason: nausea and vomiting) 30 Days Qty: 30 0RF fluticasone propionate 50 mcg/actuation spray,suspension 2 spray intranasal DAILY PRN (Reason: Nasal Congestion) 30 Days Qty: 1 0RF dicyclomine 10 mg capsule 10 mg PO TID PRN (Reason: abdominal pain) 30 Days Qty: 90 0RF loratadine 10 mg tablet 10 mg PO DAILY 30 Days Qty: 30 0RF aripiprazole 10 mg Tablet 10 mg PO DAILY 30 Days Qty: 30 0RF quetiapine 400 mg Tablet 400 mg PO BEDTIME 30 Days Qty: 30 0RF
[2022-07-13 12:11] LABS: MANUAL DIFF FLAG NO
[2022-07-13] MEDS: ondansetron HCL 4 MG/2 ML VIAL IVPUSH (12:15)
[2022-07-13] MEDS: Morphine Sulfate 4 MG/ML CARTRIDGE IVPUSH (12:15)
[2022-07-13] MEDS: 0.9 % Sodium Chloride 1,000 ML 999 ML IV (12:15)
[2022-07-13 12:30] LABS: Alanine Aminotransferase 20 U/L (0-40); Albumin Level 4.1 g/dL (3.5-5.0); Alkaline Phosphatase 140 U/L (39-117); Anion Gap 12 (12-20); Aspartate Amino Transferase 33 U/L (5-37); Bilirubin Total 0.2 mg/dL (0.0-1.0); Blood Urea Nitrogen 13 mg/dL (9-16); Calcium 8.4 mg/dL (8.4-10.2); Carbon Dioxide 27 mmol/L (22-29); Chloride 101 mmol/L (96-108); Creatinine Clr Calc Pharmacy 96.4; Estimated Glomerular Filt Rate > 60; Ethanol < 10 mg/dL; Glucose Random 76 mg/dL (60-115); Potassium 3.9 mmol/L (3.3-5.1); Sodium 136 mmol/L (135-145); Total Protein 6.9 g/dL (6.5-8.0)
[2022-07-13 12:57] LABS: Basophils Percent Auto 1.2 % (0-2); Eosinophils Absolute Auto 0.1 X10*3/uL (0.0-0.4); Eosinophils Percent Auto 3.8 % (0-4); Hematocrit 43.5 % (42.0-52.0); Imm Gran Abs Auto 0.01 X10*3/uL (0.00-0.03); Imm Gran Pct Auto 0.3 % (0.0-0.4); Lymphocytes Absolute Auto 1.3 X10*3/uL (1.2-4.9); Lymphocytes Percent Auto 38.2 % (20-40); Mean Corpuscular HGB Conc 34.5 g/dl (31.0-36.0); Mean Corpuscular Hemoglobin 30.8 pg (27.0-33.0); Mean Corpuscular Volume 89.3 fL (80.0-98.0); Monocytes Absolute Auto 0.6 X10*3/uL (0.1-1.2); Monocytes Percent Auto 16.6 % (2-11); Neutrophils Absolute Auto 1.4 x10*3/uL (2.0-8.3); Neutrophils Percent Auto 39.9 % (45-73); Platelet Count 234 X10*3/uL (160-400); Red Blood Count 4.87 X10*6/uL (4.60-5.80); Red Cell Distribution Width 12.8 % (11.0-16.0); White Blood Count 3.4 X10*3/uL (4.8-10.8)
[2022-07-13 13:00] LABS: Influenza A PCR NEGATIVE (Negative); Influenza B PCR NEGATIVE (Negative); Resp Syncy Virus RNA Qual PCR NEGATIVE (Negative); SARS COV2 PCR INHOUSE POSITIVE (Negative)
--- NOTE | 2022-07-13 14:35 | PC.NURSE ---
Pt resting in bed, respirations even and unlabored.
== END 2022-07-13 16:58 | disposition home or self-care (01) ==
PROVIDERS: Emergency Provider Emergency Medicine Emergency Medical Services; PCP Family Medicine
DX: S93.402A Sprain of unspecified ligament of left ankle, initial encounter (principal); U07.1 COVID-19; R07.89 Other chest pain; X50.1XXA Overexertion from prolonged static or awkward postures, initial encounter; Y93.9 Activity, unspecified; Y92.9 Unspecified place or not applicable; Y99.9 Unspecified external cause status; Z79.899 Other long term (current) drug therapy
CPT/HCPCS: 0241U; 36415; 71046; 73610; 80053; 82077; 85025; 96361; 96374; 96375; 99283; 99284; J2270; J2405

== ENCOUNTER 2022-09-09 22:24 | Emergency (ER) | payer MEDICARE, MEDICAID, SELFPAY ==
[2022-09-09 22:33] VITALS: BP 179/79; PULSE 84; PULSE 89; RESP 18; TEMP 36.7; O2SAT 98; BMI 25.8
[2022-09-09 22:57] LABS: Hematocrit 39.1 % (42.0-52.0); Hemoglobin 13.4 g/dl (14.0-18.0); Mean Corpuscular HGB Conc 34.3 g/dl (31.0-36.0); Mean Corpuscular Hemoglobin 30.5 pg (27.0-33.0); Mean Corpuscular Volume 88.9 fL (80.0-98.0); Mean Platelet Volume 9.1 fL (9.4-12.4); Platelet Count 341 X10*3/uL (160-400); Red Cell Distribution Width 12.6 % (11.0-16.0); White Blood Count 7.9 X10*3/uL (4.8-10.8)
[2022-09-09 23:12] LABS: Alanine Aminotransferase 23 U/L (0-40); Albumin Level 4.1 g/dL (3.5-5.0); Alkaline Phosphatase 136 U/L (39-117); Anion Gap 15 (12-20); Aspartate Amino Transferase 39 U/L (5-37); Bilirubin Total 0.4 mg/dL (0.0-1.0); Blood Urea Nitrogen 16 mg/dL (9-16); Calcium 8.7 mg/dL (8.4-10.2); Carbon Dioxide 24 mmol/L (22-29); Chloride 102 mmol/L (96-108); Creatinine Clr Calc Pharmacy 92.7; Estimated Glomerular Filt Rate > 60; Glucose Random 103 mg/dL (60-115); Potassium 3.9 mmol/L (3.3-5.1); Sodium 137 mmol/L (135-145); Total Protein 6.8 g/dL (6.5-8.0)
--- NOTE | 2022-09-09 23:48 | ED.LOWEXIN ---
HPI - Extremity Injury (Lower) General Chief Complaint: Extremity Injury, Lower Stated Complaint: Bilateral Leg Pain for 10 Days Time Seen by Provider: 09/09/22 23:31 Source: patient Mode of arrival: EMS Limitations: language barrier (Portuguese speaking only, natural resource officer used) History of Present Illness HPI Narrative: 57-year-old male who presents emergency department for evaluation of lower extremity pain. Patient states he has been having lower extremity pain for approximately 2-3 months. He denies any injury. He states that the pain is gotten worse over the past 2-3 days to the point where he is having difficulty walking. He states the pain is located in his feet, ankles and knees. States the pain is a constant, throbbing pain. He denies any injury. He denied fever, chills, nausea, vomiting, abdominal pain. Patient states that he has had oxycodone the past for his abdominal pain and this is also help with his leg pain. 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 Glover. The patient was seen by Dr. Glover on 09/08/2022 for follow-up of his at neuroendocrine tumors. The patient states that he took his trazodone and Seroquel prior to coming to the emergency department. Related Data Previous Rx's Medication Instructions Recorded oxycodone 5 mg tablet 5 mg PO Q8H PRN pain (scale score 05/12/22 7-10) #20 tabs everolimus (antineoplastic) 10 mg 10 mg PO DAILY 30 days #30 tabs 06/06/22 tablet (Afinitor) Everolimus (Antineoplastic) 10 mg PO DAILY 30 days #30 tabs 06/09/22 [Afinitor] aripiprazole 10 mg tablet 10 mg PO DAILY 30 days #30 tabs 06/09/22 atorvastatin 10 mg tablet 1 tab PO BEDTIME 30 days #30 tabs 06/09/22 dibucaine 1 % topical ointment 1 appl topical TID PRN Hemorrhoids 06/09/22 30 days #28 grams dicyclomine 10 mg capsule 10 mg PO TID PRN abdominal pain 30 06/09/22 days #90 caps famotidine 20 mg tablet 20 mg PO DAILY 30 days #30 tabs 06/09/22 fluticasone propionate 50 2 spray intranasal DAILY PRN Nasal 06/09/22 mcg/actuation nasal Congestion 30 days #1 inhaler spray,suspension gabapentin 300 mg capsule 300 mg PO TID 30 days #90 caps 06/09/22 loratadine 10 mg tablet 10 mg PO DAILY 30 days #30 tabs 06/09/22 multivitamin (Daily-Iq tablet) 1 tab PO DAILY 30 days #30 tabs 06/09/22 nicotine (polacrilex) 2 mg gum 4 mg buccal Q2H PRN Nicotine 06/09/22 Cravings 30 days #40 ea nicotine 14 mg/24 hr daily 14 mg transdermal DAILY 28 days 06/09/22 transdermal patch #28 ea ondansetron 4 mg disintegrating 4 mg PO Q8H PRN nausea and 06/09/22 tablet vomiting 30 days #30 tabs oxcarbazepine 300 mg tablet 450 mg PO BID 30 days #90 tabs 06/09/22 (Trileptal) pantoprazole 40 mg tablet,delayed 40 mg PO DAILY@0630 30 days #30 06/09/22 release tabs phenytoin sodium extended 100 mg 200 mg PO DAILY 30 days #60 caps 06/09/22 capsule phenytoin sodium extended 100 mg 300 mg PO BEDTIME 30 days #90 caps 06/09/22 capsule quetiapine 400 mg tablet 400 mg PO BEDTIME 30 days #30 tabs 06/09/22 trazodone 100 mg tablet 200 mg PO BEDTIME 30 days #60 tabs 06/09/22 ibuprofen 400 mg tablet 400 mg PO TID PRN fever or pain 09/10/22 #30 tabs oxycodone 5 mg tablet 5 mg PO Q4H PRN pain #10 tabs 09/10/22 Allergies Allergy/AdvReac Type Severity Reaction Status Date / Time morphine Allergy Severe Unknown Verified 09/08/22 11:14 Penicillins Allergy Severe rash, Verified 09/08/22 11:14 anaphylaxis seafood Allergy Mild Rash Verified 09/08/22 11:14 diazepam [From VALIUM] Allergy Unknown ACTS OUT Verified 09/08/22 11:14 ibuprofen [From MOTRIN] AdvReac Mild RASH Verified 09/08/22 11:14 Review of Systems Review of Systems: Yes all other systems are reviewed and are negative [facility] Past Medical History [facility] Narrative: Past medical history: Reviewed below. Social history: The patient does smoke cigarettes. He denies alcohol use. He states that he does use cocaine on a regular basis. Medical History Anasarca Cellulitis Cocaine abuse Epilepsy Family hx of colon cancer Generalized seizure Hx of head injury Lymphedema MDD (major depressive disorder), recurrent episode, severe Metastatic carcinoid tumor Metastatic disease Schizoaffective disorder, depressive type Surgical History History of liver biopsy History of surgery on wrist Hx of knee surgery Family History Family History Paternal Grandmother Cancer Social History Social History Household Members: Unknown / Unable to assess Housing: Apartment Are you a primary healthcare recruiter to a significant other at home: No Do you presently have visiting nurse or other home services: Yes (LICENSED AND CERTIFIED MIDWIFE helps with meals, bathing.) Unable to assess alcohol history related to: Unknown Alcohol intake: current Alcohol intake frequency: does not drink Patient Tobacco Use Status: Never used Tobacco Tobacco use type: Cigarette Cigarette Packs Per Day: 1 Cigarettes Per Day: 4 Years Smoked: 37 e-Cigarette/Vaping Use: Currently Using Second Hand Smoke Exposure: Yes Substance Use Type: Crack/Cocaine Advance Directives: No Advance Directives Information Provided: No Advance Directives Date on File: 11/13/21 service: No Current occupational status: disabled Sexual orientation: Don't Know Physical Exam Vital Signs: Vital Signs: Last Vital Signs Temp 98.0 F 09/09/22 22:33 Pulse 84 09/09/22 22:33 Resp 18 09/09/22 22:33 Pulse Ox 98 09/09/22 22:33 O2 Del Method 09/09/22 22:33 BMI result Body Mass Index 25.8 Vital signs were normal General: Awake male patient, answers questions appropriately, appears to be in distress secondary to his lower extremity pain HEENT: Head normocephalic atraumatic, pupils equal round reactive light, sclera conjunctiva normal, mouth revealed moist membranes with no erythema or exudate Neck: Supple Lungs: Clear to auscultation Heart: Regular rate rhythm normal S1-S2 no murmurs rubs or gallops Abdomen: Soft, nontender, nondistended Extremities: The patient's lower extremities appear to be symmetric with no significant soft tissue swelling, the patient's feet are warm, there is no erythema, the patient has good posterior tibial and dorsalis pedis pulses bilaterally, he does have tenderness with palpation of his feet, ankles, calves and knees, the joints are not warm, erythematous or inflamed. Neuro: Nonfocal Medical Decision Making Medical Decision Making [facility] Narrative: 57-year-old male who presents emergency department by ambulance for evaluation of bilateral lower extremity pain times 2-3 months, worse over the past several days. Patient is complaining of pain in his feet, ankles, calves and knees, his examination was unremarkable. The patient has normal pulses and warm skin. He does have pain with palpation of his feet, ankles, calves and knees with no increased joint erythema or swelling. The patient does have neuroendocrine tumors of his abdomen metastatic to the liver and is being treated by Dr. Glover. I do not have a clear etiology for the patient's pain but I suspect he may have some type of neuropathy. He is gabapentin which is not helping his pain. Patient was given oxycodone 10 mg orally and ibuprofen 400 mg orally. The patient was prescribed oxycodone and ibuprofen for pain and he will need to follow-up with his PCP for re-evaluation. 0010: Start physician observation Patient states that he is too sleepy to go home since he took his nighttime medications (Seroquel and trazodone), therefore the patient will be placed in physician observation and kept in the emergency department until the morning when he is more awake and can be discharged home. Differential Diagnosis Differential diagnosis includes but is not limited to cellulitis, bilateral DVT, bilateral arterial disease, neuropathy of unclear etiology Lab Data [facility] Lab Attestation statement: I reviewed the patient's lab results. WBC was normal 7900, he has mild anemia with an H&H of 13.4 and 39.1 which is unchanged from his baseline. CMP was unremarkable except for elevated AST of 39 elevated alk-phos of 136. 09/09/22 22:49 09/09/22 22:49 Labs: Lab Results 09/09/22 09/09/22 Range/Units 22:49 22:49 WBC 7.9 (4.8-10.8) X10*3/uL RBC 4.40 L (4.60-5.80) X10*6/uL Hgb 13.4 L (14.0-18.0) g/dl Hct 39.1 L (42.0-52.0) % MCV 88.9 (80.0-98.0) fL MCH 30.5 (27.0-33.0) pg MCHC 34.3 (31.0-36.0) g/dl RDW 12.6 (11.0-16.0) % Plt Count 341 (160-400) X10*3/uL MPV 9.1 L (9.4-12.4) fL Absolute Nucleated RBC 0.000 (0.0-0.012) X10*3/uL Nucleated RBC % (auto) 0.0 (0.0-0.2) /100WBC Sodium 137 (135-145) mmol/L Potassium 3.9 (3.3-5.1) mmol/L Chloride 102 (96-108) mmol/L Carbon Dioxide 24 (22-29) mmol/L Anion Gap 15 (12-20) BUN 16 (9-16) mg/dL Creatinine 0.85 (0.5-1.4) mg/dL Estim Creat Clear Calc 92.7 Estimated GFR > 60 Random Glucose 103 (60-115) mg/dL Calcium 8.7 (8.4-10.2) mg/dL Total Bilirubin 0.4 (0.0-1.0) mg/dL AST 39 H (5-37) U/L ALT 23 (0-40) U/L Alkaline Phosphatase 136 H (39-117) U/L Total Protein 6.8 (6.5-8.0) g/dL Albumin 4.1 (3.5-5.0) g/dL Discharge Plan Discharge Clinical Impression: Bilateral lower extremity pain Patient Disposition: Still a Patient Additional Instructions: At this time I do not have a clear cause for your lower extremity pain. It is possible that you may be experiencing nerve pain/neuropathy. You should discuss this possibility with your primary care doctor and your oncologist. Continue taking your medications as prescribed. Take ibuprofen for her mg pills, 1 pills every 6 hours as needed for pain. Take Tylenol (acetaminophen) 325 mg pills, 2 pills every 4-6 hours as needed for pain. For pain not relieved by ibuprofen or Tylenol take oxycodone 5 mg pills, 1 pill every 4 hours as needed for pain. Do not drive or work while taking this medication since they can cause sleepiness. Oxycodone is a narcotic medication that can be addicting. If you are concerned about addiction you can ask the pharmacist for less pills or do not get this prescription filled. Follow-up with your doctor in 2 days. Please return to the emergency department if your symptoms get worse or if you develop any symptoms that are concerning to you. Prescriptions: New ibuprofen 400 mg tablet 400 mg PO TID PRN (Reason: fever or pain) Qty: 30 0RF oxycodone 5 mg tablet 5 mg PO Q4H PRN (Reason: pain) Qty: 10 0RF Rx Instructions: Patient may request partial fill; Partial Fill upon patient request. No Action oxycodone 5 mg tablet 5 mg PO Q8H PRN (Reason: pain (scale score 7-10)) Qty: 20 0RF Rx Instructions: Partial Fill upon patient request. everolimus (antineoplastic) [Afinitor] 10 mg Tablet 10 mg PO DAILY 30 Days Qty: 30 11RF Everolimus (Antineoplastic) [Afinitor] 10 mg tablet 10 mg PO DAILY 30 Days Qty: 30 0RF nicotine (polacrilex) 2 mg Gum 4 mg buccal Q2H PRN (Reason: Nicotine Cravings) 30 Days Qty: 40 0RF dibucaine 1 % Ointment 1 appl topical TID PRN (Reason: Hemorrhoids) 30 Days Qty: 28 0RF Protocol: Apply to: Apply to: affected area multivitamin [Daily-Qi] Tablet 1 tab PO DAILY 30 Days Qty: 30 0RF nicotine 14 mg/24 hr Patch 24 Hour 14 mg transdermal DAILY 28 Days Qty: 28 0RF atorvastatin 10 mg tablet 1 tab PO BEDTIME 30 Days Qty: 30 0RF oxcarbazepine [Trileptal] 300 mg tablet 450 mg PO BID 30 Days Qty: 90 0RF phenytoin sodium extended 100 mg capsule 200 mg PO DAILY 30 Days Qty: 60 0RF phenytoin sodium extended 100 mg capsule 300 mg PO BEDTIME 30 Days Qty: 90 0RF famotidine 20 mg tablet 20 mg PO DAILY 30 Days Qty: 30 0RF trazodone 100 mg Tablet 200 mg PO BEDTIME 30 Days Qty: 60 0RF pantoprazole 40 mg tablet,delayed release (DR/EC) 40 mg PO DAILY@0630 30 Days Qty: 30 0RF gabapentin 300 mg Capsule 300 mg PO TID 30 Days Qty: 90 0RF ondansetron 4 mg tablet,disintegrating 4 mg PO Q8H PRN (Reason: nausea and vomiting) 30 Days Qty: 30 0RF fluticasone propionate 50 mcg/actuation spray,suspension 2 spray intranasal DAILY PRN (Reason: Nasal Congestion) 30 Days Qty: 1 0RF dicyclomine 10 mg capsule 10 mg PO TID PRN (Reason: abdominal pain) 30 Days Qty: 90 0RF loratadine 10 mg tablet 10 mg PO DAILY 30 Days Qty: 30 0RF aripiprazole 10 mg Tablet 10 mg PO DAILY 30 Days Qty: 30 0RF quetiapine 400 mg Tablet 400 mg PO BEDTIME 30 Days Qty: 30 0RF
[2022-09-10] MEDS: oxyCODONE HCl Immed Release 5 MG TABLET 10 MG PO
[2022-09-10] MEDS: Ibuprofen 400 MG TABLET PO (00:01)
[2022-09-10 02:50] VITALS: BP 109/51; PULSE 75; RESP 16; TEMP 36.6; O2SAT 97
--- NOTE | 2022-09-10 02:54 | MHC.EDTECH ---
Pt urinal emptied at 500 cc
--- NOTE | 2022-09-10 03:28 | PC.NURSE ---
Took over care at 1am. pt is sleeping in bed with no sign of distress. Will continue to monitor.
[2022-09-10 06:00] VITALS: BP 157/88; PULSE 77; RESP 14; TEMP 36.8; O2SAT 97
--- NOTE | 2022-09-10 06:33 | PC.NURSE ---
Reviewed discharge instructions with pt. pt verbalized understanding.
== END 2022-09-10 06:33 | disposition home or self-care (01) ==
PROVIDERS: Emergency Provider Emergency Medicine Emergency Medical Services
DX: M79.604 Pain in right leg (principal); M79.605 Pain in left leg; F17.210 Nicotine dependence, cigarettes, uncomplicated; Z71.6 Tobacco abuse counseling; Z79.899 Other long term (current) drug therapy
CPT/HCPCS: 36415; 80053; 85027; 99283; 99284

== ENCOUNTER 2022-11-11 06:54 | Outpatient (REF) | payer MEDICARE, MEDICAID, SELFPAY ==
--- NOTE | ~2022-11-11 | CT_ITS ---
EXAMINATION: CT ABDOMEN AND PELVIS WITH CONTRAST CLINICAL INFORMATION: Follow-up neuroendocrine tumor. COMPARISON: CT abdomen/pelvis without IV contrast 05/11/2022 and with IV contrast 05/05/2022. TECHNIQUE: Multidetector volumetric images were obtained from the superior aspect of the liver through the pubic symphysis following administration 85 mL of Omnipaque 350 intravenous contrast. Sagittal and coronal reformatted images were obtained on the technologist's workstation. Oral contrast: No This CT examination was performed using dose optimization techniques as appropriate, variously including the following: *Automated exposure control *Adjustment of mA and/or kV according to patient size (this includes techniques or standardized protocols for targeted exams where dose is matched to indication/reason for exam; i.e. extremities or head) *Use of iterative reconstruction technique DLP: 237 mGy-cm FINDINGS: LUNG BASES: Emphysematous changes and mild bronchial wall thickening. No focal consolidation or pleural effusion. LIVER, GALLBLADDER, AND BILIARY TREE: Redemonstration of innumerable liver lesions not convincingly changed compared to CT from 05/05/2022, for instance a large ill-defined heterogeneous dominant mass in the right hepatic lobe measuring up to 9.3 cm (3:14). Peritoneal implants along the undersurface of the right hemidiaphragm, for instance measuring 1.3 cm on coronal image 38, series 6 are stable. Normal appearance of the gallbladder. No biliary ductal dilatation. PANCREAS: Unremarkable. SPLEEN: A few very small low density lesions, for instance on image 12, series 3 are stable. ADRENAL GLANDS: Unremarkable. KIDNEYS AND URETERS: Symmetric nephrograms. No hydronephrosis. No nephrolithiasis. BLADDER: Decompressed limiting its evaluation. GASTROINTESTINAL TRACT: Redemonstration of surgical anastomosis within loops of small bowel in the lower abdomen (3:51) with similar patulous appearance of the adjacent small bowel. Stable nonspecific thickening of the terminal ileum (3:54). No abnormal bowel dilatation to suspect obstruction. Similar luminal narrowing and distortion of the rectosigmoid junction when passing in proximity to a pelvic mass (3:60). Similar degree of nonspecific circumferential rectal wall thickening (3:68). Again noted is small volume of ascites. ABDOMINAL WALL: No significant hernia is appreciated. LYMPH NODES: Evaluation of lymph nodes is limited due to paucity of abdominal fat, however, accounting for these limitations extensive abdominopelvic lymphadenopathy is not significantly changed, some examples (series 3): A 1.2 cm short axis right anterior perinephric lymph node, image 5. A 1.5 cm short axis periportal lymph node, image 26. A 1.5 cm short axis right common iliac lymph node, image 39. A 1.1 cm short axis right external iliac lymph node, image 61. A mesenteric nodule mass measuring 2.9 x 1.9 cm, image 34 craniocaudally measuring 5.2 cm image 33 series 6. There is similar degree of engorgement and tortuosity of the mesentery vasculature with diffuse mesenteric haziness. VASCULAR: Abdominal aorta is normal in diameter. Scattered atherosclerotic disease. PELVIC VISCERA: A hyperenhancing mass within the lower pelvis, contacting the seminal vesicles and prostatic base measuring 3.4 x 2.2 cm (3:61) is unchanged. Enlarged prostate, similar to prior. OSSEOUS STRUCTURES: Patchy sclerosis of the S1 vertebral body and right upper hemisacrum, stable. No acute or aggressive appearing osseous abnormalities. CT/CT abdomen pelvis w IV con IMPRESSION: Complex examination with extensive metastatic disease, not significantly changed compared to 05/05/2022. This result was discussed with Dr Graves at 11/13/2022 1:27 AM and it was ascertained that the content of the report was understood at the time of direct communication.
[2022-11-11] MEDS: iohexoL 350 MG/ML 100 ML INFUS..BTL IV (08:13)
== END 2022-11-11 06:55 | disposition home or self-care (01) ==
LOC: HO.CT 06:54
PROVIDERS: Visit Provider Internal Medicine Medical Oncology
DX: C7A.8 Other malignant neuroendocrine tumors (principal)
CPT/HCPCS: 74177; Q9967

== ENCOUNTER 2022-11-12 20:46 | Observation (INO) | payer MEDICARE, MEDICAID, SELFPAY ==
--- NOTE | ~2022-11-12 | US_ITS ---
EXAMINATION: US VENOUS ULTRASOUND WITH DOPPLER LOWER EXTREMITY, BILATERAL CLINICAL INFORMATION: Pain and swelling COMPARISON: 12/11/2021 TECHNIQUE: Ultrasound of the deep veins is performed from the hip to the calf with compression sonography and color and pulse Doppler assessment. Spectral analysis with color-flow imaging is performed. FINDINGS: RIGHT: There is normal venous compression and respiratory variation and augmented flow. The visualized common femoral vein, superficial femoral vein, profunda femoral vein, popliteal vein, and the trifurcation region shows no evidence of deep venous thrombosis. There is no significant popliteal fossa cyst. LEFT: There is normal venous compression and respiratory variation and augmented flow. The visualized common femoral vein, superficial femoral vein, profunda femoral vein, popliteal vein, and the trifurcation region shows no evidence of deep venous thrombosis. There is a 3.6 x 1.3 cm complicated popliteal cyst. If the patient's symptoms persist, followup ultrasound in 5 days 7 days might be of value to exclude proximal propagation from a non-visualized calf vein. US/US venous duplex LE BI IMPRESSION: * No DVT demonstrated in the bilateral lower extremities. * There is a 3.6 cm complicated left popliteal cyst.
[2022-11-12 21:08] VITALS: BP 139/76; BP 157/85; PULSE 87; PULSE 91; RESP 20; TEMP 36.7; O2SAT 97; O2SAT 98; BMI 23.5
[2022-11-12 22:33] VITALS: BP 129/70; RESP 16; TEMP 36.7; O2SAT 98
--- NOTE | 2022-11-12 22:41 | ECG_ITS ---
Test Reason : PAIN Blood Pressure : / mmHG Vent. Rate : 083 BPM Atrial Rate : 083 BPM P-R Int : 150 ms QRS Dur : 086 ms QT Int : 398 ms P-R-T Axes : 066 061 055 degrees QTc Int : 467 ms Normal sinus rhythm Normal ECG When compared with ECG of 05-JUN-2022 14:39, QT has lengthened Referred By: Almaz Graves Electronically Signed By:COLLIN SAENZ MD
[2022-11-12 23:29] VITALS: BP 124/63; PULSE 81; RESP 16; TEMP 36.8; O2SAT 98
--- NOTE | 2022-11-12 23:47 | MHC.EDTECH ---
pt was incontinent of urine ,care given ,bedding change ,ekg done and was read by provider ,blood culture ,blood and lactic acid drawn and sent to lab .
[2022-11-12 23:50] LABS: MANUAL DIFF FLAG NO
[2022-11-12 23:52] LABS: Basophils Absolute Auto 0.1 X10*3/uL (0.0-0.2); Basophils Percent Auto 0.7 % (0-2); Eosinophils Absolute Auto 0.2 X10*3/uL (0.0-0.4); Eosinophils Percent Auto 2.9 % (0-4); Hematocrit 35.8 % (42.0-52.0); Hemoglobin 12.3 g/dl (14.0-18.0); Imm Gran Abs Auto 0.02 X10*3/uL (0.00-0.03); Imm Gran Pct Auto 0.3 % (0.0-0.4); Lymphocytes Absolute Auto 1.7 X10*3/uL (1.2-4.9); Mean Corpuscular HGB Conc 34.4 g/dl (31.0-36.0); Mean Corpuscular Hemoglobin 30.8 pg (27.0-33.0); Mean Corpuscular Volume 89.5 fL (80.0-98.0); Mean Platelet Volume 9.5 fL (9.4-12.4); Monocytes Absolute Auto 0.7 X10*3/uL (0.1-1.2); Monocytes Percent Auto 10.3 % (2-11); Neutrophils Absolute Auto 4.1 x10*3/uL (2.0-8.3); Neutrophils Percent Auto 60.8 % (45-73); Platelet Count 269 X10*3/uL (160-400); Red Cell Distribution Width 12.3 % (11.0-16.0); White Blood Count 6.8 X10*3/uL (4.8-10.8)
--- NOTE | 2022-11-12 23:57 | MHC.EDTECH ---
BLADDER SCAN DONE ,RESULT 106 ML PRIOR TO BEING INCONTINENT ,WARM BLANKET GIVEN .
[2022-11-12 23:59] LABS: INTERNATIONAL NORM RATIO 1.2 (0.9-1.1); Prothrombin Time 13.8 SEC (10.0-13.1)
[2022-11-13] VITALS (7 sets, daily range): BP systolic 110–138; BP diastolic 68–79; PULSE 64–78; RESP 16–20; TEMP 36.3–36.7; O2SAT 94–98
[2022-11-13 00:03] LABS: Lactic Acid 0.9 mmol/L (0.5-2.0)
[2022-11-13 00:08] LABS: Alanine Aminotransferase 27 U/L (0-40); Albumin Level 3.6 g/dL (3.5-5.0); Alkaline Phosphatase 117 U/L (39-117); Anion Gap 12 (12-20); Aspartate Amino Transferase 42 U/L (5-37); Bilirubin Total 0.3 mg/dL (0.0-1.0); Blood Urea Nitrogen 12 mg/dL (9-16); Calcium 8.1 mg/dL (8.4-10.2); Carbon Dioxide 25 mmol/L (22-29); Chloride 105 mmol/L (96-108); Estimated Glomerular Filt Rate > 60; Glucose Random 76 mg/dL (60-115); Potassium 3.7 mmol/L (3.3-5.1); Sodium 138 mmol/L (135-145); Total Protein 5.9 g/dL (6.5-8.0)
[2022-11-13 00:12] LABS: Troponin-I High Sensitivity 3.2 ng/L (<3.5-35.0)
--- NOTE | 2022-11-13 00:24 | ED.MALEGU ---
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 complaint: groin pain Time Seen by Provider: 11/12/22 21:25 Source: patient Mode of arrival: EMS History of Present Illness HPI Narrative: 57-year-old male who presents with pain from the waist down and complaint of suprapubic pain primarily as well as overall weakness and states that he is having so much pain in the left lower extremity that he is unable to walk on it. Patient was unable to keep his an appointment with Dr. Glover week before last for his current chemotherapy regimen as he has a metastatic well-differentiated neuroendocrine tumor. Patient states that he was unable to handle the pain and came into the emergency room. Related Data Previous Rx's Medication Instructions Recorded oxycodone 5 mg tablet 5 mg PO Q8H PRN pain (scale score 05/12/22 7-10) #20 tabs everolimus (antineoplastic) 10 mg 10 mg PO DAILY 30 days #30 tabs 06/06/22 tablet (Afinitor) Everolimus (Antineoplastic) 10 mg PO DAILY 30 days #30 tabs 06/09/22 [Afinitor] aripiprazole 10 mg tablet 10 mg PO DAILY 30 days #30 tabs 06/09/22 atorvastatin 10 mg tablet 1 tab PO BEDTIME 30 days #30 tabs 06/09/22 dibucaine 1 % topical ointment 1 appl topical TID PRN Hemorrhoids 06/09/22 30 days #28 grams dicyclomine 10 mg capsule 10 mg PO TID PRN abdominal pain 30 06/09/22 days #90 caps famotidine 20 mg tablet 20 mg PO DAILY 30 days #30 tabs 06/09/22 fluticasone propionate 50 2 spray intranasal DAILY PRN Nasal 06/09/22 mcg/actuation nasal Congestion 30 days #1 inhaler spray,suspension gabapentin 300 mg capsule 300 mg PO TID 30 days #90 caps 06/09/22 loratadine 10 mg tablet 10 mg PO DAILY 30 days #30 tabs 06/09/22 multivitamin (Daily-Qi tablet) 1 tab PO DAILY 30 days #30 tabs 06/09/22 nicotine (polacrilex) 2 mg gum 4 mg buccal Q2H PRN Nicotine 06/09/22 Cravings 30 days #40 ea nicotine 14 mg/24 hr daily 14 mg transdermal DAILY 28 days 06/09/22 transdermal patch #28 ea ondansetron 4 mg disintegrating 4 mg PO Q8H PRN nausea and 06/09/22 tablet vomiting 30 days #30 tabs oxcarbazepine 300 mg tablet 450 mg PO BID 30 days #90 tabs 06/09/22 (Trileptal) pantoprazole 40 mg tablet,delayed 40 mg PO DAILY@0630 30 days #30 06/09/22 release tabs phenytoin sodium extended 100 mg 200 mg PO DAILY 30 days #60 caps 06/09/22 capsule phenytoin sodium extended 100 mg 300 mg PO BEDTIME 30 days #90 caps 06/09/22 capsule quetiapine 400 mg tablet 400 mg PO BEDTIME 30 days #30 tabs 06/09/22 trazodone 100 mg tablet 200 mg PO BEDTIME 30 days #60 tabs 06/09/22 ibuprofen 400 mg tablet 400 mg PO TID PRN fever or pain 09/10/22 #30 tabs oxycodone 5 mg tablet 5 mg PO Q4H PRN pain #10 tabs 09/10/22 Allergies Allergy/AdvReac Type Severity Reaction Status Date / Time Penicillins Allergy Severe rash, Verified 09/08/22 11:14 anaphylaxis seafood Allergy Mild Rash Verified 09/08/22 11:14 diazepam [From VALIUM] Allergy Unknown ACTS OUT Verified 09/08/22 11:14 ibuprofen [From MOTRIN] AdvReac Mild RASH Verified 09/08/22 11:14 Review of Systems Review of Systems: Pertinent positives and negatives as stated in HPI FORMERLY [facility], [facility] Past Medical History Source: nursing notes reviewed Medical History Anasarca Cellulitis Cocaine abuse Epilepsy Family hx of colon cancer Generalized seizure Hx of head injury Lymphedema MDD (major depressive disorder), recurrent episode, severe Metastatic carcinoid tumor Metastatic disease Schizoaffective disorder, depressive type Surgical History History of liver biopsy History of surgery on wrist Hx of knee surgery Family History Family History Paternal Grandmother Cancer Social History Social History Household Members: Unknown / Unable to assess Housing: Apartment Are you a primary care professional to a significant other at home: No Do you presently have visiting nurse or other home services: Yes (PHARMACEUTICAL WORKER helps with meals, bathing.) Unable to assess alcohol history related to: Unknown Alcohol intake: current Alcohol intake frequency: holidays/special occasions only Patient Tobacco Use Status: Never used Tobacco Tobacco use type: Cigarette Cigarette Packs Per Day: 1 Cigarettes Per Day: 4 Years Smoked: 37 e-Cigarette/Vaping Use: Currently Using Second Hand Smoke Exposure: Yes Substance Use Type: Crack/Cocaine Advance Directives: No Advance Directives Information Provided: Yes Advance Directives Date on File: 11/13/21 service: No Current occupational status: disabled Sexual orientation: Don't Know Physical Exam Vital Signs: Vital Signs: Last Vital Signs Temp 97.6 F 11/13/22 00:40 Pulse 81 11/12/22 23:29 Resp 16 11/12/22 23:29 BP 124/63 11/12/22 23:29 Pulse Ox 98 11/12/22 23:29 O2 Del Method Room Air 11/12/22 23:29 BMI result Body Mass Index 23.5 VITAL SIGNS: Reviewed. GENERAL: Well developed, well nourished, in no acute distress. HEAD: Normocephalic/atraumatic EYES: PERRLA, EOMI EARS: Ext canals without abnormality NOSE: Nares patent bilateral OROPHARYNX: no oral lesions noted, posterior pharynx clear NECK: Supple, no adenopathy LUNGS: Normal breath sounds. No adventitious sounds or accessory muscle use. SpO2<98> CARDIOVASCULAR: Regular rate and rhythm without noted murmurs, no JVD ABDOMEN: Soft, diffuse abdominal discomfort to include suprapubic area, non-distended with bowel sounds. MUSCULOSKELETAL: No tenderness, deformities, or effusions noted on gross inspection. EXTREMITIES: No cyanosis, clubbing or edema; BILATERAL LOWER EXTREMITIES: There is edema in both lower extremities, left greater than right, the left lower extremity is significantly edematous with tenderness on palpation from approximate knee distal to foot. SKIN: Inspection of the skin reveals no rashes NEUROLOGIC: Alert and oriented x 4. Strength and sensation to light touch were grossly intact x 4. Medications Administered Discontinued Medications Generic Name Dose Route Start Last Admin Trade Name Freq PRN Reason Stop Dose Admin Fentanyl 25 mcg 11/13/22 00:29 11/13/22 01:14 Fentanyl Citrate/Pf 100 Mcg/2 Ml Vial IVPUSH 11/13/22 00:30 25 mcg ONCE ONE Administration Protocol Medical Decision Making Medical Decision Making [facility] Narrative: 57-year-old male who presents with worsening abdominal and left lower extremity pain he is not noted to be febrile and on review of laboratory workup does not appear to have a leukocytosis or left shift and on review of documentation and prior workup it is noted that he had an outpatient CT scan of abdomen and pelvis on 11/11 and I have requested that radiology read that scan. Will also pursue bilateral venous duplex. Provided patient with pain medication as well. 0034: [facility] contacted me regarding patient's CT scan and reports that there is nothing acute although the lesions in the liver for appear to be somewhat enlarged compared to prior. When I specifically questioned regarding any abnormalities around the suprapubic/bladder area the radiologist did point out that there is a mass superior to the bladder that may be contributing to patient's discomfort. 0054: Discussed with inpt hospitalist who accepts admission. Pending urinalysis/venous duplex. Differential Diagnosis Please see the discussion above Lab Data Please see the discussion above 11/12/22 23:44 11/12/22 23:44 Labs: Lab Results 11/12/22 11/12/22 11/12/22 Range/Units 23:44 23:44 23:44 WBC 6.8 (4.8-10.8) X10*3/uL RBC 4.00 L (4.60-5.80) X10*6/uL Hgb 12.3 L (14.0-18.0) g/dl Hct 35.8 L (42.0-52.0) % MCV 89.5 (80.0-98.0) fL MCH 30.8 (27.0-33.0) pg MCHC 34.4 (31.0-36.0) g/dl RDW 12.3 (11.0-16.0) % Plt Count 269 (160-400) X10*3/uL MPV 9.5 (9.4-12.4) fL Immature Gran % (Auto) 0.3 (0.0-0.4) % Neut % (Auto) 60.8 (45-73) % Lymph % (Auto) 25.0 (20-40) % [place] % (Auto) 10.3 (2-11) % Eos % (Auto) 2.9 (0-4) % Baso % (Auto) 0.7 (0-2) % Lymph # (Auto) 1.7 (1.2-4.9) X10*3/uL [place] # (Auto) 0.7 (0.1-1.2) X10*3/uL Eos # (Auto) 0.2 (0.0-0.4) X10*3/uL Baso # (Auto) 0.1 (0.0-0.2) X10*3/uL Abs Immat Gran (auto) 0.02 (0.00-0.03) X10*3/uL Absolute Neuts (auto) 4.1 (2.0-8.3) x10*3/uL Absolute Nucleated RBC 0.000 (0.0-0.012) X10*3/uL Nucleated RBC % (auto) 0.0 (0.0-0.2) /100WBC PT 13.8 H (10.0-13.1) SEC INR 1.2 H (0.9-1.1) Sodium 138 (135-145) mmol/L Potassium 3.7 (3.3-5.1) mmol/L Chloride 105 (96-108) mmol/L Carbon Dioxide 25 (22-29) mmol/L Anion Gap 12 (12-20) BUN 12 (9-16) mg/dL Creatinine 0.71 (0.5-1.4) mg/dL Estim Creat Clear Calc 111.0 Estimated GFR > 60 Random Glucose 76 (60-115) mg/dL Lactic Acid (0.5-2.0) mmol/L Calcium 8.1 L (8.4-10.2) mg/dL Total Bilirubin 0.3 (0.0-1.0) mg/dL AST 42 H (5-37) U/L ALT 27 (0-40) U/L Alkaline Phosphatase 117 (39-117) U/L Troponin I High Sens (<3.5-35.0) ng/L Total Protein 5.9 L (6.5-8.0) g/dL Albumin 3.6 (3.5-5.0) g/dL 11/12/22 11/12/22 Range/Units 23:44 23:44 WBC (4.8-10.8) X10*3/uL RBC (4.60-5.80) X10*6/uL Hgb (14.0-18.0) g/dl Hct (42.0-52.0) % MCV (80.0-98.0) fL MCH (27.0-33.0) pg MCHC (31.0-36.0) g/dl RDW (11.0-16.0) % Plt Count (160-400) X10*3/uL MPV (9.4-12.4) fL Immature Gran % (Auto) (0.0-0.4) % Neut % (Auto) (45-73) % Lymph % (Auto) (20-40) % [place] % (Auto) (2-11) % Eos % (Auto) (0-4) % Baso % (Auto) (0-2) % Lymph # (Auto) (1.2-4.9) X10*3/uL [place] # (Auto) (0.1-1.2) X10*3/uL Eos # (Auto) (0.0-0.4) X10*3/uL Baso # (Auto) (0.0-0.2) X10*3/uL Abs Immat Gran (auto) (0.00-0.03) X10*3/uL Absolute Neuts (auto) (2.0-8.3) x10*3/uL Absolute Nucleated RBC (0.0-0.012) X10*3/uL Nucleated RBC % (auto) (0.0-0.2) /100WBC PT (10.0-13.1) SEC INR (0.9-1.1) Sodium (135-145) mmol/L Potassium (3.3-5.1) mmol/L Chloride (96-108) mmol/L Carbon Dioxide (22-29) mmol/L Anion Gap (12-20) BUN (9-16) mg/dL Creatinine (0.5-1.4) mg/dL Estim Creat Clear Calc Estimated GFR Random Glucose (60-115) mg/dL Lactic Acid 0.9 (0.5-2.0) mmol/L Calcium (8.4-10.2) mg/dL Total Bilirubin (0.0-1.0) mg/dL AST (5-37) U/L ALT (0-40) U/L Alkaline Phosphatase (39-117) U/L Troponin I High Sens 3.2 (<3.5-35.0) ng/L Total Protein (6.5-8.0) g/dL Albumin (3.5-5.0) g/dL Independent Interpretation I performed an independent interpretation of an: EKG Interpretation: Normal sinus rhythm, HR-83, no STEMI, OR/QRS/QTC is within normal limits Radiology Impression Radiologist Impression: My interpretation is in agreement with radiology's impression of the imaging studies. External Record Review External record reviewed: Office record, Outpatient record and Prior outpatient labs Discharge Plan Discharge Clinical Impression: Neuroendocrine carcinoma metastatic to multiple sites, Intractable pain, Pain and swelling of left lower extremity Patient Disposition: Admitted As Inpatient
--- NOTE | 2022-11-13 00:45 | PC.NURSE ---
rectal temp taken by feed mill supervisor per dr heart order. temp 97.6 rectally. aware
[2022-11-13] MEDS: fentaNYL citrate/PF 100 MCG/2 ML VIAL 25 MCG IVPUSH (01:14)
--- NOTE | 2022-11-13 01:15 | PM.IMHP ---
History of Present Illness Date of Service: 11/13/22 Chief Complaint: Abdominal Pain This is a 57-year-old with metastatic neuroendocrine tumor followed by Dr. Glover, mood disorder, seizure disorder who presents to the emergency department for evaluation of abdominal discomfort and decreased p.o. intake. Patient states he started having lower abdominal pain on the day of presentation, constant, nonradiating and without any relieving factors. Patient also reports generalized weakness and decreased p.o. intake. He denies fever, chills, chest discomfort, palpitations, shortness of breath, changes in urinary habits In the emergency department, imaging with extensive metastatic disease. Pain controlled with fentanyl in the ER Review of Systems Constitutional: Constitutional: Reports fatigue, Reports lethargy and Reports malaise Cardiovascular: Cardiovascular: Reports no additional cardiovascular complaints Respiratory: Respiratory: Reports no additional respiratory complaints Gastrointestinal: Gastrointestinal: Reports abdominal pain Genitourinary: Genitourinary: Reports no additional male genitourinary complaints Endocrine: Endocrine: Reports fatigue [facility] Medical History Anasarca Cellulitis Cocaine abuse Epilepsy Family hx of colon cancer Generalized seizure Hx of head injury Lymphedema MDD (major depressive disorder), recurrent episode, severe Metastatic carcinoid tumor Metastatic disease Schizoaffective disorder, depressive type Family History Paternal Grandmother Cancer Surgical History History of liver biopsy History of surgery on wrist Hx of knee surgery Social History Household Members: Unknown / Unable to assess Housing: Apartment Are you a primary care mgr to a significant other at home: No Do you presently have visiting nurse or other home services: Yes ([employer] helps with meals, bathing.) Unable to assess alcohol history related to: Unknown Alcohol intake: current Alcohol intake frequency: holidays/special occasions only Patient Tobacco Use Status: Never used Tobacco Tobacco use type: Cigarette Cigarette Packs Per Day: 1 Cigarettes Per Day: 4 Years Smoked: 37 e-Cigarette/Vaping Use: Currently Using Second Hand Smoke Exposure: Yes Substance Use Type: Crack/Cocaine Advance Directives: No Advance Directives Information Provided: Yes Advance Directives Date on File: 11/13/21 service: No Current occupational status: disabled Sexual orientation: Don't Know Meds Allergies Allergy/AdvReac Type Severity Reaction Status Date / Time Penicillins Allergy Severe rash, Verified 09/08/22 11:14 anaphylaxis seafood Allergy Mild Rash Verified 09/08/22 11:14 diazepam [From VALIUM] Allergy Unknown ACTS OUT Verified 09/08/22 11:14 ibuprofen [From MOTRIN] AdvReac Mild RASH Verified 09/08/22 11:14 Physical Exam Vital Signs and Narrative: Vital Signs: Last Vital Signs Temp 97.6 F 11/13/22 00:40 Pulse 81 11/12/22 23:29 Resp 16 11/12/22 23:29 BP 124/63 11/12/22 23:29 Pulse Ox 98 11/12/22 23:29 O2 Del Method Room Air 11/12/22 23:29 BMI result Body Mass Index 23.5 Middle-aged male lying in bed in mild distress Neck supple, no JVD Regular rate and rhythm, S1-S2 heard Regular breath sounds bilaterally, no wheezing or crackles appreciated Abdomen with tenderness in the lower region, no guarding, no rigidity, no rebound tenderness Patient is awake, alert and oriented to place, time and person Psych: Normal mood Results Labs 11/12/22 23:44 11/12/22 23:44 Labs: Laboratory Results - last 24 hr 11/12/22 11/12/22 11/12/22 23:44 23:44 23:44 MCV 89.5 MCH 30.8 MCHC 34.4 RDW 12.3 Plt Count 269 MPV 9.5 Immature Gran % (Auto) 0.3 Neut % (Auto) 60.8 Lymph % (Auto) 25.0 [place] % (Auto) 10.3 Eos % (Auto) 2.9 Baso % (Auto) 0.7 Lymph # (Auto) 1.7 [place] # (Auto) 0.7 Eos # (Auto) 0.2 Baso # (Auto) 0.1 Abs Immat Gran (auto) 0.02 Absolute Neuts (auto) 4.1 Absolute Nucleated RBC 0.000 Nucleated RBC % (auto) 0.0 PT 13.8 H INR 1.2 H Anion Gap 12 Estim Creat Clear Calc 111.0 Estimated GFR > 60 Random Glucose 76 Lactic Acid Calcium 8.1 L Total Bilirubin 0.3 AST 42 H ALT 27 Alkaline Phosphatase 117 Troponin I High Sens Total Protein 5.9 L Albumin 3.6 11/12/22 11/12/22 23:44 23:44 MCV MCH MCHC RDW Plt Count MPV Immature Gran % (Auto) Neut % (Auto) Lymph % (Auto) [place] % (Auto) Eos % (Auto) Baso % (Auto) Lymph # (Auto) [place] # (Auto) Eos # (Auto) Baso # (Auto) Abs Immat Gran (auto) Absolute Neuts (auto) Absolute Nucleated RBC Nucleated RBC % (auto) PT INR Anion Gap Estim Creat Clear Calc Estimated GFR Random Glucose Lactic Acid 0.9 Calcium Total Bilirubin AST ALT Alkaline Phosphatase Troponin I High Sens 3.2 Total Protein Albumin Assessment and Plan (1) Neuroendocrine carcinoma metastatic to multiple sites: Status: Acute (2) Intractable pain: Status: Acute Plan This is a 57-year-old with metastatic neuroendocrine tumor followed by Dr. Glover, mood disorder, seizure disorder who presents to the emergency department for evaluation of abdominal discomfort and decreased p.o. intake. #. Intractable abdominal pain due to metastatic neuroendocrine tumor: Will admit for pain control, initiating IV Dilaudid p.r.n.. Continue Afinitor. #. Seizure disorder: Continue phenytoin and Trileptal #. Mood disorder: Continue home mood stabilizers #. Gastroesophageal reflux disease: On PPI Med rec pending DVT prophylaxis: Lovenox 40 mg Full code Regular diet Time Spent With Patient Time: Total time managing care of this patient today ____ minutes. Quality Stroke Does the patient have a stroke diagnosis?: No VTE Prior VTE?: No VTE Risk Level:: Medical - moderate - high VTE Device Contraindication: Treatment Not Indicated VTE Drug Contraindication: N/A - Med Ordered
--- NOTE | 2022-11-13 02:05 | MHC.EDTECH ---
rounding done ,vitals sign taken ,pt urine sample collected and sent to lab .
[2022-11-13 02:11] LABS: Appearance Urine Clear; Color Urine Yellow; Glucose Urine UA Negative (Negative); Leukocyte Esterase Urine Negative (Negative); Nitrite Urine Negative (Negative); Specific Gravity - Urine 1.015 (1.005-1.025); Urine Blood Negative (Negative); Urine Ketones Negative (Negative); Urine Protein Negative (Neg-Trace)
--- NOTE | 2022-11-13 02:30 | PC.NURSE ---
pt medicated according to [facility]. [place] catheter placed on pt. urine sample obtained
[2022-11-13] MEDS: Enoxaparin Sodium 40 MG/0.4 ML SYRINGE SUBCUT (02:52)
--- NOTE | 2022-11-13 04:26 | MHC.EDTECH ---
Pt bed linen soiled. Pt given wipes for pericare. Pt bed linen changed. Pt given juice and a snack and call goncalves in reach. warm blanket given
[2022-11-13 05:28] LABS: MANUAL DIFF FLAG NO
--- NOTE | 2022-11-13 05:30 | PC.NURSE ---
this rn and service technician boosted pt up in bed. pt repositioned to L side. pt provided with additional pillow
[2022-11-13 05:31] LABS: Basophils Absolute Auto 0.1 X10*3/uL (0.0-0.2); Basophils Percent Auto 1.3 % (0-2); Eosinophils Absolute Auto 0.3 X10*3/uL (0.0-0.4); Eosinophils Percent Auto 5.3 % (0-4); Hematocrit 37.1 % (42.0-52.0); Hemoglobin 12.5 g/dl (14.0-18.0); Imm Gran Abs Auto 0.01 X10*3/uL (0.00-0.03); Imm Gran Pct Auto 0.2 % (0.0-0.4); Lymphocytes Absolute Auto 1.5 X10*3/uL (1.2-4.9); Lymphocytes Percent Auto 31.8 % (20-40); Mean Corpuscular HGB Conc 33.7 g/dl (31.0-36.0); Mean Platelet Volume 9.6 fL (9.4-12.4); Monocytes Absolute Auto 0.6 X10*3/uL (0.1-1.2); Monocytes Percent Auto 12.3 % (2-11); Neutrophils Absolute Auto 2.3 x10*3/uL (2.0-8.3); Neutrophils Percent Auto 49.1 % (45-73); Platelet Count 292 X10*3/uL (160-400); Red Blood Count 4.17 X10*6/uL (4.60-5.80); Red Cell Distribution Width 12.4 % (11.0-16.0); White Blood Count 4.7 X10*3/uL (4.8-10.8)
[2022-11-13 05:50] LABS: Anion Gap 11 (12-20); Blood Urea Nitrogen 10 mg/dL (9-16); Calcium 8.3 mg/dL (8.4-10.2); Carbon Dioxide 26 mmol/L (22-29); Chloride 107 mmol/L (96-108); Creatinine Clr Calc Pharmacy 105.1; Estimated Glomerular Filt Rate > 60; Glucose Random 107 mg/dL (60-115); Potassium 3.8 mmol/L (3.3-5.1); Sodium 140 mmol/L (135-145)
[2022-11-13] MEDS: HYDROmorphone HCl 1 MG/ML SYRINGE IVPUSH ×5 (06:20→22:27)
--- NOTE | 2022-11-13 08:09 | PC.NURSE ---
Pt appears to be resting on stretcher, respirations even and unlabored. Call goncalves within reach.
--- NOTE | 2022-11-13 08:45 | PC.NURSE ---
Pt noted by PCT to have seizure like activity. Following seizure, patient immediately asking for pain medication, not post ictal. Medicated with tylenol for pain. Condom catheter in place, call goncalves in reach.
[2022-11-13] MEDS: Acetaminophen 325 MG TABLET 650 MG PO (08:47)
[2022-11-13] MEDS: 0.9 % Sodium Chloride Flush 3 ML SYRINGE IVFLUSH ×3 (08:49→21:07)
--- NOTE | 2022-11-13 09:33 | PHA.MEDREC ---
Pharmacy Consult ? Medication Reconciliation Pharmacy has completed the medication reconciliation. Patient is poor historian and doesn't remember any of his medications or doses. He states he only takes what the pharmacy gives him so I used claim history to complete med rec. He does state that even though he filled oxycodone and tramadol recently, he has run out and stopped taking them both.
--- NOTE | 2022-11-13 10:10 | PC.NURSE ---
Patient continues to complain of 10/10 pain, educated on when next PRN medication is due. Call goncalves within reach
--- NOTE | 2022-11-13 12:53 | PM.EVENT ---
Event Note Date of Service: 11/13/22 Event Note: Chart reviewed patient examined. Agree with H&P and assessment and plan as outlined. Continue current therapies Time Spent With Patient Time: Total time managing care of this patient today ____ minutes.
[2022-11-13] MEDS: Loratadine 10 MG TABLET PO (14:46)
[2022-11-13] MEDS: Multivitamin TABLET 1 TAB PO (14:46)
[2022-11-13] MEDS: hydroCHLOROthiazide 25 MG TABLET PO (14:46)
[2022-11-13] MEDS: Famotidine 20 MG TABLET PO (14:46)
[2022-11-13] MEDS: Phenytoin Sodium Extended 100 MG CAPSULE 200 MG PO (14:50)
[2022-11-13] MEDS: OXcarbazepine 150 MG TABLET 450 MG PO ×2 (14:50→21:06)
[2022-11-13] MEDS: Lactulose 20 GM/30 ML SOLUTION PO ×2 (14:53→21:06)
[2022-11-13] MEDS: ARIPiprazole 10 MG TABLET PO (15:51)
[2022-11-13] MEDS: Phenytoin Sodium Extended 100 MG CAPSULE 300 MG PO (21:06)
[2022-11-13] MEDS: traZODone HCL 100 MG TABLET 200 MG PO (21:06)
[2022-11-13] MEDS: Gabapentin 300 MG CAPSULE PO (21:07)
[2022-11-13] MEDS: Atorvastatin Calcium 10 MG TABLET PO (21:07)
[2022-11-13] MEDS: QUEtiapine Fumarate 400 MG TABLET PO (21:07)
[2022-11-14 03:32] VITALS: BP 132/80; PULSE 101; RESP 18; TEMP 37.2; O2SAT 97
[2022-11-14] MEDS: Enoxaparin Sodium 40 MG/0.4 ML SYRINGE SUBCUT (03:42)
[2022-11-14] MEDS: Omeprazole 20 MG CAPSULE.DR PO (05:53)
[2022-11-14] MEDS: Famotidine 20 MG TABLET PO (05:53)
[2022-11-14] MEDS: HYDROmorphone HCl 1 MG/ML SYRINGE IVPUSH (05:59)
[2022-11-14 07:46] VITALS: BP 147/72; PULSE 87; RESP 18; TEMP 37.2; O2SAT 95
[2022-11-14] MEDS: Phenytoin Sodium Extended 100 MG CAPSULE 200 MG PO (08:39)
[2022-11-14] MEDS: Lactulose 20 GM/30 ML SOLUTION PO (08:39)
[2022-11-14] MEDS: Loratadine 10 MG TABLET PO (08:40)
[2022-11-14] MEDS: ARIPiprazole 10 MG TABLET PO (08:40)
[2022-11-14] MEDS: Gabapentin 300 MG CAPSULE PO ×2 (08:40→12:00)
[2022-11-14] MEDS: OXcarbazepine 150 MG TABLET 450 MG PO (08:40)
[2022-11-14] MEDS: 0.9 % Sodium Chloride Flush 3 ML SYRINGE IVFLUSH (08:40)
[2022-11-14] MEDS: hydroCHLOROthiazide 25 MG TABLET PO (08:40)
[2022-11-14] MEDS: Multivitamin TABLET 1 TAB PO (08:40)
--- NOTE | 2022-11-14 12:31 | P.DS_ITS ---
DS: Providers Provider Date of Service: 11/14/22 Date of admission: 11/13/22 01:13 Date of discharge: 11/14/22 Primary care physician: [facility] DS: Diagnosis Discharge Diagnosis (1) Neuroendocrine carcinoma metastatic to multiple sites: Status: Acute (2) Intractable pain: Status: Acute DS: Summary Hospital Course Hospital Course: 57-year-old with metastatic neuroendocrine tumor followed by Dr. Glover, mood disorder, seizure disorder who presents to the emergency department for evaluation of abdominal discomfort and decreased p.o. intake.? Patient states he started having lower abdominal pain on the day of presentation, constant, nonradiating and without any relieving factors.? Patient also reports generalized weakness and decreased p.o. intake.? He denies fever, chills, chest discomfort, palpitations, shortness of breath, changes in urinary habits In the emergency department, imaging with extensive metastatic disease.? Pain controlled with fentanyl in the ER Hospital course Admitted to the general medical floor given pulse dose Dilaudid for pain. No acute medical issues during this admission. On the day of discharge, patient states (via commercial real estate agent) that he is pain-free and wishes to go home. At this point he will be discharged home to resume all pre-hospital meds and follow-up with Oncology as scheduled Time Spent with Patient Time attestation: Total time managing care of this patient today ____ minutes. Discharge coordination time: Greater than 30 minutes Quality: Safe Use of Opioids Does Pt have an Active Cancer Diagnosis on the Problem List?: No Quality: Stroke Does the patient have a stroke diagnosis?: No Physical Exam Vital Signs: Vital Signs: Last Vital Signs Temp 98.9 F 11/14/22 07:46 Pulse 87 11/14/22 07:46 Resp 18 11/14/22 07:46 BP 147/72 H 11/14/22 07:46 Pulse Ox 95 11/14/22 07:46 O2 Del Method Room Air 11/14/22 07:46 O2 Flow Rate 96 11/14/22 03:32 BMI result Body Mass Index 23.5 Const: Other: Awake alert oriented x3 no acute distress Resp: Other: Clear to auscultation bilaterally no rales rhonchi or wheezes Cardio: Other: No S4; positive S1-S2; no S3 murmurs rubs gallops GI: Other: Soft nontender nondistended normoactive bowel sounds Extrem: Other: No edema bilaterally DS: Data Data Completed and Pending Labs on day of discharge: Preliminary micro results at discharge 11/12/22 23:44 Blood Culture - Preliminary Blood - Venous No growth after 24 hours. 11/12/22 23:44 Blood Culture - Preliminary Blood - Venous No growth after 24 hours. Discharge Plan Discharge Anticipated Discharge Date/Time: 11/14/22 12:29 Patient Disposition: Home, Self-Care Discharge Diagnosis: Neuroendocrine carcinoma metastatic to multiple sites with pain [facility]errals: [facility] [Primary Care Provider] - 1 Week Discharge Medications: Continued everolimus (antineoplastic) [Afinitor] 10 mg Tablet 10 mg PO DAILY 30 Days Qty: 30 11RF multivitamin [Daily-Qi] Tablet 1 tab PO DAILY 30 Days Qty: 30 0RF atorvastatin 10 mg tablet 1 tab PO BEDTIME 30 Days Qty: 30 0RF oxcarbazepine [Trileptal] 300 mg tablet 450 mg PO BID 30 Days Qty: 90 0RF phenytoin sodium extended 100 mg capsule 200 mg PO DAILY 30 Days Qty: 60 0RF phenytoin sodium extended 100 mg capsule 300 mg PO BEDTIME 30 Days Qty: 90 0RF trazodone 100 mg Tablet 200 mg PO BEDTIME 30 Days Qty: 60 0RF pantoprazole 40 mg tablet,delayed release (DR/EC) 40 mg PO DAILY@0630 30 Days Qty: 30 0RF fluticasone propionate 50 mcg/actuation spray,suspension 2 spray intranasal DAILY PRN (Reason: Nasal Congestion) 30 Days Qty: 1 0RF loratadine 10 mg tablet 10 mg PO DAILY 30 Days Qty: 30 0RF aripiprazole 10 mg Tablet 10 mg PO DAILY 30 Days Qty: 30 0RF quetiapine 400 mg Tablet 400 mg PO BEDTIME 30 Days Qty: 30 0RF hydrochlorothiazide 25 mg tablet 25 mg PO DAILY naproxen 500 mg tablet 500 mg PO BID@0900,2100 PRN (Reason: Mild Pain (Scale Score 1-4)) lactulose 10 gram/15 mL solution 30 ml PO BID diclofenac sodium 1 % gel 2 g topical BID@0900,2100 famotidine 20 mg tablet 20 mg PO DAILY@0630 gabapentin 300 mg capsule 300 mg PO TID@0900,1200,2100 Discharge Orders: Discharge Order (Routine); Ordered 11/14/22 Ordered By: Dennis Dash Diet: Advance to usual diet Activity on Discharge: As tolerated Stand Alone Forms: Patient Portal Discharge page Care Plan Goals: Resume all previous medicines Health Concerns: Follow-up with Oncology as scheduled Plan of Treatment: Avoid alcohol Assessment: See discharge summary
== END 2022-11-14 13:07 | disposition home or self-care (01) ==
LOC: HO.ED 11-13 00:56 → HO.EDOVER 11-13 01:18 → HO.S3 11-13 10:50
PROVIDERS: Admitting Provider Student in an Organized Health Care Education/Training Program; Emergency Provider Student in an Organized Health Care Education/Training Program; Visit Provider Hospitalist
DX: C7A.8 Other malignant neuroendocrine tumors (principal); C7B.8 Other secondary neuroendocrine tumors; R10.30 Lower abdominal pain, unspecified; M79.606 Pain in leg, unspecified; F39 Unspecified mood [affective] disorder; G40.909 Epilepsy, unspecified, not intractable, without status epilepticus; Z79.60 Long term (current) use of unspecified immunomodulators and immunosuppressants; M79.89 Other specified soft tissue disorders
CPT/HCPCS: 36415; 80048; 80053; 81003; 83605; 84484; 85025; 85610; 87040; 93005; 93970; 96372; 96374; 96375; 96376; 99221; 99285; J1170; J1650; J3010

== ENCOUNTER 2023-01-14 17:44 | Emergency (ER) | payer MEDICARE, MEDICAID, SELFPAY ==
[2023-01-14 18:05] VITALS: BP 153/92; PULSE 84; RESP 16; TEMP 36.8; O2SAT 99; BMI 25.2
--- NOTE | 2023-01-14 18:10 | ED.GENADULT ---
HPI - General Adult General Chief complaint: General Medical Stated complaint: POSSIBLE OVERDOSE Time Seen by Provider: 01/14/23 17:50 Source: patient Mode of arrival: EMS Limitations: no limitations History of Present Illness HPI narrative: Patient comes to the emergency room complaining of depression, suicidal ideation, use cocaine. Patient states that he feels very sad that his family does not care about him even though his battling cancer, only his mother cares about him. Patient states that when his brother's/nephews call the house, he picks up the phone and they never ask how he is doing. The only want to talk to the patient's mother. Patient states that he is desperate to feel loved by the rest of his family but no one besides his mother and his dog cares about him. Patient states that he does not want to use drugs, but he uses cocaine to try to seek his family's attention but they still do not care. Related Data Home Medications Medication Instructions Recorded Confirmed diclofenac sodium 1 % topical gel 2 g topical BID@0900,2100 pain 11/13/22 12/12/22 famotidine 20 mg tablet 20 mg PO DAILY@0630 11/13/22 12/12/22 gabapentin 300 mg capsule 300 mg PO TID@0900,1200,2100 11/13/22 12/12/22 hydrochlorothiazide 25 mg tablet 25 mg PO DAILY 11/13/22 12/12/22 lactulose 10 gram/15 mL oral 30 ml PO BID 11/13/22 12/12/22 solution naproxen 500 mg tablet 500 mg PO BID@0900,2100 PRN Mild 11/13/22 12/12/22 Pain (Scale Score 1-4) Previous Rx's Medication Instructions Recorded everolimus (antineoplastic) 10 mg 10 mg PO DAILY 30 days #30 tabs 06/06/22 tablet (Afinitor) aripiprazole 10 mg tablet 10 mg PO DAILY 30 days #30 tabs 06/09/22 atorvastatin 10 mg tablet 1 tab PO BEDTIME 30 days #30 tabs 06/09/22 fluticasone propionate 50 2 spray intranasal DAILY PRN Nasal 06/09/22 mcg/actuation nasal Congestion 30 days #1 inhaler spray,suspension loratadine 10 mg tablet 10 mg PO DAILY 30 days #30 tabs 06/09/22 multivitamin (Daily-Qi tablet) 1 tab PO DAILY 30 days #30 tabs 06/09/22 oxcarbazepine 300 mg tablet 450 mg PO BID 30 days #90 tabs 06/09/22 (Trileptal) pantoprazole 40 mg tablet,delayed 40 mg PO DAILY@0630 30 days #30 06/09/22 release tabs phenytoin sodium extended 100 mg 200 mg PO DAILY 30 days #60 caps 06/09/22 capsule phenytoin sodium extended 100 mg 300 mg PO BEDTIME 30 days #90 caps 06/09/22 capsule quetiapine 400 mg tablet 400 mg PO BEDTIME 30 days #30 tabs 06/09/22 trazodone 100 mg tablet 200 mg PO BEDTIME 30 days #60 tabs 06/09/22 Allergies Allergy/AdvReac Type Severity Reaction Status Date / Time Penicillins Allergy Severe rash, Verified 12/12/22 10:36 anaphylaxis seafood Allergy Mild Rash Verified 12/12/22 10:36 diazepam [From VALIUM] Allergy Unknown ACTS OUT Verified 12/12/22 10:36 ibuprofen [From MOTRIN] AdvReac Mild RASH Verified 12/12/22 10:36 Review of Systems Review of Systems: Constitutional : No Weight loss, No Fever, No Chills, No Night Sweats, No Fatigue, No Malaise ENT/Mouth : No Hearing loss, No Ear Pain, No Nasal Congestion, No Sinus Pain, No Hoarseness, No sore throat, No Rhinorrhea, No Swallowing Difficulty Eyes: No Eye Pain, No Swelling, No Redness, No Foreign Body, No Discharge, No Vision Changes Cardiovascular : No Chest Pain, No SOB, No Dyspnea on Exertion, No Orthopnea, No Edema, No Palpitations Respiratory : No Cough, No Sputum, No Wheezing, No Smoke Exposure, No Dyspnea Gastrointestinal : No Nausea, No Vomiting, No Diarrhea, No Constipation, No abdominal Pain, No Hematochezia, No Melena Genitourinary : no irregular bleeding, No Dysuria, No Urinary Frequency, No Hematuria, No Urinary Incontinence, No Urgency, No Flank Pain, No Urinary Flow Changes, No Hesitancy Musculoskeletal : No joint pain, No Myalgias, No Joint Swelling Skin : No Skin Lesions, No rash Neuro : No Weakness, No Numbness, No Paresthesias, No Loss of Consciousness, No Dizziness, No Headache Psych : No Anxiety/Panic, complaining of depression, vague suicidal ideation, no homicidal ideation Heme/Lymph: No Bruising, No Bleeding,No Lymphadenopathy Endocrine : No Polyuria, No Polydipsia, No Temperature Intolerance [facility] Past Medical History Medical History Anasarca Cellulitis Cocaine abuse Epilepsy Family hx of colon cancer Generalized seizure Hx of head injury Lymphedema MDD (major depressive disorder), recurrent episode, severe Metastatic carcinoid tumor Metastatic disease Schizoaffective disorder, depressive type Surgical History History of liver biopsy History of surgery on wrist Hx of knee surgery Family History Family History Paternal Grandmother Cancer Social History Social History Household Members: Unknown / Unable to assess Housing: Apartment Are you a primary resident care provider to a significant other at home: No Do you presently have visiting nurse or other home services: Yes (ARCHAEOLOGY PROFESSOR helps with meals, bathing.) Unable to assess alcohol history related to: Unknown Alcohol intake: former Patient Tobacco Use Status: Never used Tobacco Tobacco use type: Cigarette Cigarette Packs Per Day: 1 Cigarettes Per Day: 4 Years Smoked: 37 e-Cigarette/Vaping Use: Currently Using Second Hand Smoke Exposure: Yes Substance Use Type: Crack/Cocaine Advance Directives Date on File: 11/13/21 service: No Current occupational status: disabled Sexual orientation: Don't Know Physical Exam ED Vital Signs: Vital Signs - 24 hr 01/14/23 18:05 Temperature 98.3 F Pulse Rate 84 Respiratory Rate 16 Blood Pressure 153/92 H Pulse Oximetry 99 Oxygen Delivery Method Room Air BMI result Body Mass Index 25.2 Const Other: Appearance: Alert. Oriented X3. Crying Eyes: Pupils equal, round and reactive to light. ENT: Pharynx normal. Neck: Normal inspection. Neck supple. No lymph nodes noted. No crepitus CVS: Normal heart rate and rhythm. Pulses normal. Normal S1 and S2 Respiratory: No respiratory distress. Breath sounds normal. No Wheezing. No rales Abdomen: Soft and nontender. No rigidity. No distention. Skin: Skin warm and dry. Normal skin color. Normal skin turgor. Extremities: No lower extremity edema. No Lacerations. No Rash Neuro: Oriented X 3. No motor deficit. No sensory deficit. Moving all extremities. No slurred speech. CN 2 through 12 grossly intact Psych: calm, cooperative, crying Course Course Course Narrative: -vague SI, patient depressed. -care team consult pending -physician observations started at 18:15 Discharge Plan Discharge Clinical Impression: Depression Patient Disposition: Still a Patient Prescriptions: No Action everolimus (antineoplastic) [Afinitor] 10 mg Tablet 10 mg PO DAILY 30 Days Qty: 30 11RF multivitamin [Daily-Qi] Tablet 1 tab PO DAILY 30 Days Qty: 30 0RF atorvastatin 10 mg tablet 1 tab PO BEDTIME 30 Days Qty: 30 0RF oxcarbazepine [Trileptal] 300 mg tablet 450 mg PO BID 30 Days Qty: 90 0RF phenytoin sodium extended 100 mg capsule 200 mg PO DAILY 30 Days Qty: 60 0RF phenytoin sodium extended 100 mg capsule 300 mg PO BEDTIME 30 Days Qty: 90 0RF trazodone 100 mg Tablet 200 mg PO BEDTIME 30 Days Qty: 60 0RF pantoprazole 40 mg tablet,delayed release (DR/EC) 40 mg PO DAILY@0630 30 Days Qty: 30 0RF fluticasone propionate 50 mcg/actuation spray,suspension 2 spray intranasal DAILY PRN (Reason: Nasal Congestion) 30 Days Qty: 1 0RF loratadine 10 mg tablet 10 mg PO DAILY 30 Days Qty: 30 0RF aripiprazole 10 mg Tablet 10 mg PO DAILY 30 Days Qty: 30 0RF quetiapine 400 mg Tablet 400 mg PO BEDTIME 30 Days Qty: 30 0RF hydrochlorothiazide 25 mg tablet 25 mg PO DAILY naproxen 500 mg tablet 500 mg PO BID@0900,2100 PRN (Reason: Mild Pain (Scale Score 1-4)) lactulose 10 gram/15 mL solution 30 ml PO BID diclofenac sodium 1 % gel 2 g topical BID@0900,2100 famotidine 20 mg tablet 20 mg PO DAILY@0630 gabapentin 300 mg capsule 300 mg PO TID@0900,1200,2100
[2023-01-14 19:01] LABS: Amphetamine Screen Urine Not Detected (Not Detect); Barbiturates, Urine Not Detected (Not Detect); Benzodiazepines Screen Urine Not Detected (Not Detect); Cannabinoid Screen Urine POSITIVE (Not Detect); Cocaine Screen Urine POSITIVE (Not Detect); Fentanyl, urine Not Detected (Not Detect); Opiate Screen Urine Not Detected (Not Detect); Phencyclidine Screen Urine Not Detected (Not Detect)
[2023-01-14 22:23] VITALS: BP 157/78; PULSE 80; RESP 16; TEMP 37.1; O2SAT 97
--- NOTE | 2023-01-14 22:24 | MHC.EDTECH ---
THIS PCT JUST ASSUMED CARE OF PT AT THIS TIME ,VITALS SIGN TAKEN ,PT SLEEPING .
--- NOTE | 2023-01-14 22:44 | MHC.EDTECH ---
PATIENT BELONGING ARE LOCKED UP IN LOCKER # 9 IN POD .
--- NOTE | 2023-01-14 23:01 | PC.NURSE ---
pt assessed, sleeping, arousable to voice, denies any SI
[2023-01-15 00:05] VITALS: BP 144/62; PULSE 92; RESP 14; TEMP 37.7; O2SAT 95
[2023-01-15 02:11] VITALS: BP 144/69; PULSE 85; RESP 18; O2SAT 96
[2023-01-15 04:11] VITALS: BP 133/77; PULSE 85; RESP 18; O2SAT 97
[2023-01-15 06:11] VITALS: BP 130/74; PULSE 79; RESP 18; O2SAT 96
--- NOTE | 2023-01-15 06:12 | PC.NURSE ---
pt slept during the shift, c/o mild lower abd pain
[2023-01-15 07:53] VITALS: BP 131/71; PULSE 82; RESP 18; TEMP 37.1; O2SAT 96
== END 2023-01-15 08:21 | disposition home or self-care (01) ==
PROVIDERS: Emergency Provider Emergency Medicine; PCP Family Medicine
DX: F32.A Depression, unspecified (principal); F14.90 Cocaine use, unspecified, uncomplicated; F10.90 Alcohol use, unspecified, uncomplicated; Z79.899 Other long term (current) drug therapy
CPT/HCPCS: 80307; 99284

== ENCOUNTER 2023-03-06 10:04 | Outpatient (REF) | payer MEDICARE, MEDICAID, SELFPAY ==
[2023-03-06 13:36] LABS: Phenytoin Dilantin 12.7 ug/mL (10.0-20.0)
[2023-03-06 15:01] LABS: Anion Gap 19 (12-20); Blood Urea Nitrogen 12 mg/dL (9-16); Carbon Dioxide 22 mmol/L (22-29); Chloride 101 mmol/L (96-108); Estimated Glomerular Filt Rate > 60; Glucose Random 101 mg/dL (60-115); Potassium 3.6 mmol/L (3.3-5.1); Sodium 138 mmol/L (135-145)
[2023-03-11 12:39] LABS: Oxcarbazepine 15.9 mcg/mL (8.0-35.0)
== END 2023-03-06 10:05 | disposition home or self-care (01) ==
LOC: HO.HHCL 10:04
PROVIDERS: Visit Provider Internal Medicine
DX: G40.909 Epilepsy, unspecified, not intractable, without status epilepticus (principal); M79.604 Pain in right leg; M79.605 Pain in left leg
CPT/HCPCS: 36415; 80048; 80185; 80339

== ENCOUNTER 2023-03-16 08:52 | Outpatient (REF) | payer MEDICARE, MEDICAID, SELFPAY | END 2023-03-16 08:53 | disposition home or self-care (01) | LOC: HO.CT 08:52 | PROVIDERS: PCP Family Medicine; Visit Provider Internal Medicine Medical Oncology | DX: Z13.89 Encounter for screening for other disorder (principal) ==

== ENCOUNTER 2024-12-13 20:14 | Emergency (ER) | payer MEDICAID, SELFPAY ==
[2024-12-13 20:18] VITALS: BP 141/67; BP 150/74; PULSE 86; PULSE 93; RESP 16; TEMP 36.8; O2SAT 94; O2SAT 97; BMI 24.0
[2024-12-13 20:49] LABS: MANUAL DIFF FLAG NO
[2024-12-13 20:51] LABS: Basophils Absolute Auto 0.1 X10*3/uL (0.0-0.2); Basophils Percent Auto 0.8 % (0-2); Eosinophils Absolute Auto 0.9 X10*3/uL (0.0-0.4); Eosinophils Percent Auto 10.5 % (0-4); Hematocrit 33.8 % (42.0-52.0); Hemoglobin 11.4 g/dl (14.0-18.0); Imm Gran Abs Auto 0.03 X10*3/uL (0.00-0.03); Imm Gran Pct Auto 0.3 % (0.0-0.4); Lymphocytes Absolute Auto 1.2 X10*3/uL (1.2-4.9); Lymphocytes Percent Auto 13.4 % (20-40); Mean Corpuscular HGB Conc 33.7 g/dl (31.0-36.0); Mean Corpuscular Hemoglobin 28.5 pg (27.0-33.0); Mean Corpuscular Volume 84.5 fL (80.0-98.0); Mean Platelet Volume 8.4 fL (9.4-12.4); Monocytes Absolute Auto 0.9 X10*3/uL (0.1-1.2); Monocytes Percent Auto 9.7 % (2-11); Neutrophils Absolute Auto 5.7 x10*3/uL (2.0-8.3); Neutrophils Percent Auto 65.3 % (45-73); Platelet Count 369 X10*3/uL (160-400); Red Cell Distribution Width 13.8 % (11.0-16.0); White Blood Count 8.8 X10*3/uL (4.8-10.8)
[2024-12-13 21:03] LABS: Anion Gap 15 (12-20); Blood Urea Nitrogen 13 mg/dL (9-16); Calcium 8.2 mg/dL (8.4-10.2); Carbon Dioxide 27 mmol/L (22-29); Chloride 105 mmol/L (96-108); Creatinine Clr Calc Pharmacy 108.3; Estimated Glomerular Filt Rate > 60; Glucose Random 107 mg/dL (60-115); Potassium 3.5 mmol/L (3.3-5.1); Sodium 143 mmol/L (135-145)
[2024-12-13 21:24] LABS: Appearance Urine Clear; Color Urine Yellow; Glucose Urine UA Negative (Negative); Leukocyte Esterase Urine Negative (Negative); Nitrite Urine Negative (Negative); PH 5.5 (5.0-9.0); Urine Blood Negative (Negative); Urine Ketones Negative (Negative); Urine Protein Negative (Neg-Trace)
--- NOTE | 2024-12-13 23:35 | ED_ITS ---
HPI - General Adult General Chief complaint: General Medical Stated complaint: bilateral lower extremity edema, uti symptoms Time Seen by Provider: 12/13/24 22:42 Source: patient Limitations: language barrier History of Present Illness ED Provider: Linda Fraser PA-C HPI narrative: 59-year-old male with a history of chronic anasarca and lymphedema, cocaine abuse, schizoaffective disorder, epilepsy, depression, neuroendocrine carcinoma metastatic to multiple sites, presents with lower extremity pain and swelling of unclear duration. Associated scrotal and penile edema. No fever. Related Data Home Medications ?Medication ?Instructions ?Recorded ?Confirmed diclofenac sodium 1 % topical gel 2 g topical BID@0900,2100 pain 11/13/22 08/11/24 famotidine 20 mg tablet 20 mg PO DAILY@0630 11/13/22 08/11/24 gabapentin 300 mg capsule 300 mg PO TID@0900,1200,2100 11/13/22 08/11/24 hydrochlorothiazide 25 mg tablet 25 mg PO DAILY 11/13/22 08/11/24 lactulose 10 gram/15 mL oral 30 ml PO BID 11/13/22 08/11/24 solution naproxen 500 mg tablet 500 mg PO BID@0900,2100 PRN Mild 11/13/22 08/11/24 Pain (Scale Score 1-4) Previous Rx's ?Medication ?Instructions ?Recorded aripiprazole 10 mg tablet 10 mg PO DAILY 30 days #30 tabs 06/09/22 atorvastatin 10 mg tablet 1 tab PO BEDTIME 30 days #30 tabs 06/09/22 fluticasone propionate 50 2 spray intranasal DAILY PRN Nasal 06/09/22 mcg/actuation nasal Congestion 30 days #1 inhaler spray,suspension loratadine 10 mg tablet 10 mg PO DAILY 30 days #30 tabs 06/09/22 multivitamin (Daily-Qi tablet) 1 tab PO DAILY 30 days #30 tabs 06/09/22 oxcarbazepine 300 mg tablet 450 mg (1.5 x 300 mg) PO BID 30 06/09/22 (Trileptal) days #90 tabs pantoprazole 40 mg tablet,delayed 40 mg PO DAILY@0630 30 days #30 06/09/22 release tabs phenytoin sodium extended 100 mg 200 mg (2 x 100 mg) PO DAILY 30 06/09/22 capsule days #60 caps phenytoin sodium extended 100 mg 300 mg (3 x 100 mg) PO BEDTIME 30 06/09/22 capsule days #90 caps quetiapine 400 mg tablet 400 mg PO BEDTIME 30 days #30 tabs 06/09/22 trazodone 100 mg tablet 200 mg (2 x 100 mg) PO BEDTIME 30 06/09/22 days #60 tabs ondansetron 8 mg disintegrating 8 mg PO Q8H #60 tabs 11/09/23 tablet everolimus (antineoplastic) 10 mg 10 mg PO DAILY #30 tabs 08/12/24 tablet Allergies Allergy/AdvReac Type Severity Reaction Status Date / Time Penicillins Allergy Severe rash, Verified 08/11/24 11:57 anaphylaxis seafood Allergy Mild Rash Verified 08/11/24 11:57 diazepam [From VALIUM] Allergy Unknown ACTS OUT Verified 08/11/24 11:57 barium sulfate Allergy Unknown Verified 12/13/24 20:26 ibuprofen [From MOTRIN] AdvReac Mild RASH Verified 08/11/24 11:57 Review of Systems 2 Review of Systems: Yes all other systems are reviewed and are negative Constitutional: Constitutional: Denies fatigue and Denies fever(s) Cardiovascular: Cardiovascular: Denies chest pain and Denies dyspnea Respiratory: Respiratory: Denies dyspnea Integumentary/Breasts: Skin/Breast: Reports swelling, Denies erythema and Denies wounds Endocrine: Endocrine: Denies fatigue PMFSH Past Medical History Attestation statement: The following information was validated with the patient. Medical History Anasarca Cellulitis Cocaine abuse Epilepsy Family hx of colon cancer Generalized seizure Hx of head injury Lymphedema MDD (major depressive disorder), recurrent episode, severe Metastatic carcinoid tumor Metastatic disease Schizoaffective disorder, depressive type Surgical History History of liver biopsy History of surgery on wrist Hx of knee surgery Family History Family History Paternal Grandmother Cancer Social History Social History Household Members: Unknown / Unable to assess Housing: Apartment Are you a primary personal care assistant to a significant other at home: No Do you presently have visiting nurse or other home services: Yes (ASSISTIVE TECHNOLOGY SPECIALIST helps with meals, bathing.) Unable to assess alcohol history related to: Unknown Alcohol intake: current Alcohol intake frequency: holidays/special occasions only Comment: d/t seizure activity Patient Tobacco Use Status: Never used Tobacco Tobacco use type: Cigarette Cigarette Packs Per Day: 1 Cigarettes Per Day: 4 Years Smoked: 37 Smoked in Last 30 Days: Yes e-Cigarette/Vaping Use: Currently Using Second Hand Smoke Exposure: Yes Substance Use Type: Crack/Cocaine and Marijuana Substance Use Frequency: Occasionally Advance Directives: No Advance Directives Information Provided: No Advance Directives Date on File: 11/13/21 Do you have a plan to hurt others: No Plan service: No Current occupational status: disabled Sexual orientation: Don't Know Physical Exam ED Vital Signs: Vital Signs - 24 hr 12/13/24 20:18 12/13/24 23:54 Temperature 98.2 F 99.1 F Pulse Rate 86 84 Respiratory Rate 16 17 Blood Pressure 141/67 H 120/58 L Pulse Oximetry 97 95 Oxygen Delivery Method Room Air Room Air BMI result Body Mass Index 24.0 Const Other: Alert Orientation/consciousness: patient oriented x3 Resp Effort & Inspection: normal respiratory effort Cardio Other: Pitting edema bilaterally Other: There was no objective swelling of the penis or scrotum Skin Other: Warm dry no rash Neuro General: patient oriented x3, no focal motor deficits and CN's II-XI intact bilaterally Psych Other: Cooperative Medications Administered Discontinued Medications Generic Name Dose Route Start Last Admin Trade Name Freq PRN Reason Stop Dose Admin Ketorolac Tromethamine 15 mg 12/13/24 23:46 12/13/24 23:52 Ketorolac Tromethamine 15 Mg/Ml Vial IM 12/13/24 23:47 15 mg ONCE ONE Administration Ondansetron HCl 4 mg 12/13/24 23:46 12/13/24 23:53 Ondansetron Odt 4 Mg Tab.Rapdis TRANSLINGU 12/13/24 23:47 4 mg ONCE ONE Administration Medical Decision Making Medical Decision Making MDM Narrative: 59-year-old male with a history of chronic anasarca and lymphedema, cocaine abuse, schizoaffective disorder, epilepsy, depression, neuroendocrine carcinoma metastatic to multiple sites, presents with lower extremity pain and swelling of unclear duration. Associated scrotal and penile edema. No fever. Problem: Chronic anasarca and lymphedema, psychiatric illness, drug abuse History: Per patient I have considered the following differential diagnoses: Cardiac dysfunction, renal dysfunction, liver dysfunction, chronic lymphedema , cellulitis, Plan: Screening labs including liver function were obtained from triage, he does not have dysfunction in these organ systems, he does not have cellulitis, there was no leukocytosis, the appearance of his skin and the swelling of his legs are at his baseline. This has been ongoing for several years from what I can discern from chart review. He can continue to follow up with the his healthcare providers as an outpatient. I have independently reviewed the following tests: Labs: No leukocytosis, not anemic, no electrolyte abnormality, LFTs are not elevated, urine not infected, Lab Data 12/13/24 20:45 12/13/24 20:45 Labs: Lab Results 12/13/24 12/13/24 Range/Units 20:45 21:18 WBC 8.8 (4.8-10.8) X10*3/uL RBC 4.00 L (4.60-5.80) X10*6/uL Hgb 11.4 L (14.0-18.0) g/dl Hct 33.8 L (42.0-52.0) % MCV 84.5 (80.0-98.0) fL MCH 28.5 (27.0-33.0) pg MCHC 33.7 (31.0-36.0) g/dl RDW 13.8 (11.0-16.0) % Plt Count 369 (160-400) X10*3/uL MPV 8.4 L (9.4-12.4) fL Immature Gran % (Auto) 0.3 (0.0-0.4) % Neut % (Auto) 65.3 (45-73) % Lymph % (Auto) 13.4 L (20-40) % [place] % (Auto) 9.7 (2-11) % Eos % (Auto) 10.5 H (0-4) % Baso % (Auto) 0.8 (0-2) % Lymph # (Auto) 1.2 (1.2-4.9) X10*3/uL [place] # (Auto) 0.9 (0.1-1.2) X10*3/uL Eos # (Auto) 0.9 H (0.0-0.4) X10*3/uL Baso # (Auto) 0.1 (0.0-0.2) X10*3/uL Abs Immat Gran (auto) 0.03 (0.00-0.03) X10*3/uL Absolute Neuts (auto) 5.7 (2.0-8.3) x10*3/uL Absolute Nucleated RBC 0.000 (0.0-0.012) X10*3/uL Nucleated RBC % (auto) 0.0 (0.0-0.2) /100WBC Sodium 143 (135-145) mmol/L Potassium 3.5 (3.3-5.1) mmol/L Chloride 105 (96-108) mmol/L Carbon Dioxide 27 (22-29) mmol/L Anion Gap 15 (12-20) BUN 13 (9-16) mg/dL Creatinine 0.71 (0.5-1.4) mg/dL Estim Creat Clear Calc 108.3 Estimated GFR > 60 Random Glucose 107 (60-115) mg/dL Calcium 8.2 L (8.4-10.2) mg/dL Total Bilirubin 0.3 (0.0-1.0) mg/dL Direct Bilirubin 0.1 (0.0-0.5) mg/dL AST 32 (5-37) U/L ALT 21 (0-40) U/L Alkaline Phosphatase 125 H (39-117) U/L Total Protein 6.9 (6.5-8.0) g/dL Albumin 3.6 (3.5-5.0) g/dL Urine Color Yellow Urine Appearance Clear Urine pH 5.5 (5.0-9.0) Ur Specific [place] 1.020 (1.005-1.025) Urine Protein Negative (Neg-Trace) mg/dL Urine Glucose (UA) Negative (Negative) mg/dL Urine Ketones Negative (Negative) mg/dL Urine Blood Negative (Negative) Urine Nitrite Negative (Negative) Ur Leukocyte Esterase Negative (Negative) Discharge Plan Discharge Clinical Impression: Dependent edema Patient Disposition: Home, Self-Care Instructions: Leg Edema (ED) Additional Instructions: All of your labs were normal, you have chronic lower extremity edema. See home care instructions. You should be using compression stockings while ambulating. When you rest remove the stockings and elevate your legs above your heart. Continue to follow up with your healthcare providers. Prescriptions: No Action ondansetron 8 mg Tablet,Disintegrating 8 mg PO Q8H Qty: 60 4RF everolimus (antineoplastic) 10 mg Tablet 10 mg PO DAILY Qty: 30 4RF multivitamin [Daily-Qi] Tablet 1 tab PO DAILY 30 Days Qty: 30 0RF atorvastatin 10 mg tablet 1 tab PO BEDTIME 30 Days Qty: 30 0RF oxcarbazepine [Trileptal] 300 mg tablet 450 mg PO BID 30 Days Qty: 90 0RF phenytoin sodium extended 100 mg capsule 200 mg PO DAILY 30 Days Qty: 60 0RF phenytoin sodium extended 100 mg capsule 300 mg PO BEDTIME 30 Days Qty: 90 0RF trazodone 100 mg Tablet 200 mg PO BEDTIME 30 Days Qty: 60 0RF pantoprazole 40 mg tablet,delayed release (DR/EC) 40 mg PO DAILY@0630 30 Days Qty: 30 0RF fluticasone propionate 50 mcg/actuation spray,suspension 2 spray intranasal DAILY PRN (Reason: Nasal Congestion) 30 Days Qty: 1 0RF loratadine 10 mg tablet 10 mg PO DAILY 30 Days Qty: 30 0RF aripiprazole 10 mg Tablet 10 mg PO DAILY 30 Days Qty: 30 0RF quetiapine 400 mg Tablet 400 mg PO BEDTIME 30 Days Qty: 30 0RF hydrochlorothiazide 25 mg tablet 25 mg PO DAILY naproxen 500 mg tablet 500 mg PO BID@0900,2100 PRN (Reason: Mild Pain (Scale Score 1-4)) lactulose 10 gram/15 mL solution 30 ml PO BID diclofenac sodium 1 % gel 2 g topical BID@0900,2100 famotidine 20 mg tablet 20 mg PO DAILY@0630 gabapentin 300 mg capsule 300 mg PO TID@0900,1200,2100 Print Language: Hungarian
[2024-12-13] MEDS: Ketorolac Tromethamine 15 MG/ML VIAL IM (23:52)
[2024-12-13] MEDS: Ondansetron ODT 4 MG TAB.RAPDIS TRANSLINGU (23:53)
[2024-12-13 23:54] VITALS: BP 120/58; PULSE 84; RESP 17; TEMP 37.3; O2SAT 95
[2024-12-14 00:02] LABS: Alanine Aminotransferase 21 U/L (0-40); Albumin Level 3.6 g/dL (3.5-5.0); Alkaline Phosphatase 125 U/L (39-117); Aspartate Amino Transferase 32 U/L (5-37); Bilirubin Direct 0.1 mg/dL (0.0-0.5); Bilirubin Total 0.3 mg/dL (0.0-1.0); Total Protein 6.9 g/dL (6.5-8.0)
[2024-12-14 02:33] VITALS: BP 141/80; PULSE 79; RESP 16; TEMP 36.6; O2SAT 96
[2024-12-14 03:08] VITALS: BP 141/80; PULSE 79; RESP 16; TEMP 36.2; O2SAT 98
== END 2024-12-14 03:09 | disposition home or self-care (01) ==
PROVIDERS: Physician Assistant Medical; Emergency Provider Emergency Medicine; PCP Family Medicine
DX: R60.0 Localized edema (principal); F14.10 Cocaine abuse, uncomplicated; C7A.8 Other malignant neuroendocrine tumors; F17.210 Nicotine dependence, cigarettes, uncomplicated; Z79.02 Long term (current) use of antithrombotics/antiplatelets; Z79.899 Other long term (current) drug therapy
CPT/HCPCS: 36415; 80048; 80076; 81003; 85025; 96372; 99284; J1885